=== PATIENT | female | born 1980 | race Caucasian/White ===

== ENCOUNTER 2022-10-09 19:10 | Emergency (ER) | payer BC, SELFPAY ==
[2022-10-09 19:11] VITALS: BP 146/107; PULSE 93; RESP 14; TEMP 36.1; O2SAT 98; BMI 51.6
--- NOTE | 2022-10-09 20:03 | EKG12_ITS ---
Test Reason : SOB Blood Pressure : / mmHG Vent. Rate : 076 BPM Atrial Rate : 076 BPM P-R Int : 144 ms QRS Dur : 072 ms QT Int : 368 ms P-R-T Axes : 030 049 053 degrees QTc Int : 414 ms Normal sinus rhythm Normal ECG Confirmed by ROSANA GLASGOW MD ([id number]), legal editor CANELO MCCLELLAN ([id number]) on 10/11/2022 1:13:54 PM Referred By: BB Confirmed By:ROSANA GLASGOW MD
[2022-10-09 20:19] LABS: Absolute Lymphocyte Count 1.61 X10^3/uL (0.83-4.51); Absolute Neutrophil Count 10.7 X10^3/uL (2.0-7.7); Basophil# 0.05 X10^3/uL; Basophil% 0.4 % (0-1); Eosinophil# 0.05 X10^3/uL; Eosinophils% 0.4 % (0-5); Hemoglobin 12.6 g/dL (12.0-15.0); Lymphocyte # 1.61 X10^3/ul (0.83-4.51); Lymphocyte % 12.1 % (19-41); Mean Corp Hgb Conc 33.2 g/dL (32-36); Mean Corpuscular Hgb 29.9 pg (27.0-32.0); Mean Platelet Vol. 9.4 fl (6.2-12.0); Monocyte# 0.89 X10^3/uL; Monocyte% 6.7 % (0-10); NRBC Flagged by Analyzer 0 % (0-5); Neutrophil # 10.67 X10^3/uL (2.7-7.7); Neutrophil % 79.9 % (47-70); Platelet Count 250 K/mm3 (150-450); RBC Distribution Width CV 13.2 % (11.6-14.6); RBC Distribution Width SD 43.4 fl (35.1-43.9); Red Blood Count 4.22 M/mm3 (4.2-5.4); White Blood Count 13.3 K/mm3 (4.4-11.0)
[2022-10-09 20:35] LABS: D-Dimer Quantitative (DVT/PE) < 0.27 FEU/ug/m (0.27-0.49)
[2022-10-09 20:38] LABS: Anion Gap 9 (5-15); BUN 19 mg/dL (7-18); BUN/Creat Ratio 24.1 RATIO (10-20); Calcium,Total 9.2 mg/dL (8.5-10.1); Chloride 108 mmol/L (98-107); Creatinine, Serum 0.79 mg/dL (0.55-1.02); EST Glomerular Filtration Rate 85 mL/min (>60); Est Glom Filt Rate - Afr Amer 103 mL/min (>60); Estimated Creatinine Clearance 87.73 ml/min; Glucose 148 mg/dL (74-106); Sodium Level 142 mmol/L (136-145); Troponin-I HS 4 pg/mL (3.0-54.0)
--- NOTE | 2022-10-09 20:38 | RAD_ITS ---
EXAM: XR CHEST, 2 VIEWS CLINICAL INDICATION: sob TECHNIQUE: Frontal and lateral views of the chest. This report was created using [employer] report generation technology. COMPARISON: 06/24/2015 FINDINGS: LUNGS AND PLEURAL SPACES: Unremarkable. No consolidation or edema. No pneumothorax. No effusion. HEART: Unremarkable. Cardiac silhouette not enlarged. MEDIASTINUM: Central airways and mediastinal contour are unremarkable. BONES/JOINTS: Unremarkable. SOFT TISSUES: Unremarkable. RAD/Chest PA and Lateral IMPRESSION: No radiographic evidence of acute cardiopulmonary disease. Electronically Signed: Kareem Cloud MD at 20:50 EST ,
[2022-10-09 21:10] VITALS: BP 136/85; PULSE 78; RESP 196
[2022-10-09 22:30] VITALS: BP 146/90; PULSE 79; RESP 16; TEMP 36.7
--- NOTE | 2022-10-09 22:30 | EDS_ITS ---
HPI History of Present Illness Chief Complaint: Flank Pain Informant: patient Narrative Narrative: Patient states she has been having pain in her right mid back that sometimes hurts to move around but not always, has been occurring consistently for a couple of weeks, including at rest. Not pleuritic. No chest pain. She has been having dyspnea with exertion for the past week, and fatiguing easily which is very abnormal for her. 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 She has had some low-grade fevers in the 99 range for the last couple days but no coughing. 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 She denies any leg pain or swelling or recent travel/immobilization/surgery/hospitalization. No history of DVT or PE. [facility] Medical History BiPAP (biphasic positive airway pressure) dependence HELLP syndrome Migraines Non-smoker Preeclampsia Sleep apnea Home Medications bupropion HCl 150 mg 24 hr tablet, extended release 300 mg PO DAILY ##0 06/16/15 [History Last Taken 01/19/16 0730] fluoxetine 10 mg capsule 40 mg PO DAILY 02/22/16 [History Last Taken Unknown] methocarbamol 500 mg tablet mg 10/09/22 [History Last Taken Unknown] ropinirole 0.25 mg tablet 0.25 mg PO QHS PRN PRN RLS 10/09/22 [History Last Taken Unknown] Allergy/AdvReac Type Severity Reaction Status Date / Time citalopram Allergy Other Verified 10/09/22 19:11 Penicillins [PCN] Allergy Unknown Verified 10/09/22 19:11 metoclopramide HCl AdvReac Other Verified 10/09/22 19:11 [From [facility]] Social History Smoking Status: Never smoker ROS ROS ED Constitutional Constitutional ED: Denies chills or fever(s) Eyes Eyes: Denies change in vision or diplopia ENT ENT ED: Reports rhinorrhea; Denies sore throat Cardiovascular Cardiovascular: Denies chest pain or palpitations Respiratory/Chest Respiratory/Chest: Reports dyspnea and dyspnea on exertion; Denies cough Gastrointestinal Gastrointestinal: Denies abdominal pain, diarrhea, nausea or vomiting Genitourinary Genitourinary ED: Denies dysuria or hematuria Musculoskeletal Musculoskeletal: Reports back pain; Denies neck pain Integumentary Denies abscess or rash Neurologic Neurologic: Denies headache(s), paresthesias or weakness Psychiatric Psychiatric: Denies anxiety or suicidal thoughts EXAM Physical Exam Const Vital Signs: 10/09/22 19:11 10/09/22 19:38 10/09/22 21:10 Temperature 97 F L Temperature Source Temporal Pulse Rate 93 78 Respiratory Rate 14 196 H Respiratory Effort Non-Labored Respiratory Pattern Normal Blood Pressure 146/107 H 136/85 H Blood Pressure Mean 120 102 Pulse Ox 98 Oxygen Delivery Method Room Air Room Air Positive well nourished, well developed and obese General Appearance ED: well developed and NAD Nutritional Appearance: obese HEENT Reports moist mucous membranes normocephalic and atraumatic Eyes PERRL and EOMs intact bilaterally Neck full ROM and supple Chest Wall inspection of chest normal and palpation of chest normal Resp normal respiratory effort and clear to auscultation bilaterally Cardio regular rate, regular rhythm and no murmurs GI non-tender and non-distended Auscultation: normoactive bowel sounds Palpation: soft Back/Spine no CVA tenderness Back/Spine Narrative: Mild tenderness right lower lateral mid back, well caudal to the scapula. No midline tenderness. No rashes normal inspection. General Back: other FROM Extremity normal to inspection and no calf tenderness General Extremety ED: Negative for edema, pulses abnormal or tenderness General Extremity: Negative for edema or pulses abnormal Neuro oriented x3, CN's II-XII intact bilaterally and no sensory deficits noted Sensorium / Orientation: awake and alert Motor Exam: strength 5/5 throughout Psych mental status grossly normal Skin no rashes or lesions noted and no wounds MDM MDM MDM Narrative Medical decision making narrative: Patient is a mild nonspecific leukocytosis, her EKG, two-view chest x-ray my interpretation, troponin, and D-dimer are all normal. Therefore she does not require further imaging such as CTA, which was considered but not indicated or necessary, in order to rule out pulmonary embolus here. Less likely to have pericardial effusion since she has no evidence of pericarditis on EKG nor pain/discomfort anteriorly in the chest. It is possible that the back pain is simply musculoskeletal and has nothing to do with her dyspnea, it is possible that she has been having elevations of blood pressure that could be associated with the dyspnea which is not all of the time, she does not appear to have any type of acute or atypical pneumonitis to cause this. The low-grade fever she was having are unknown, she has no symptoms of anything else that she has a urine infection. I recommend close outpatient follow-up but I do not think she needs to have more emergent testing here her blood pressures been stable in the 140s. Lab Data Attestation: I reviewed the patient's lab results. Labs: Laboratory Results - last 24 hr 10/09/22 10/09/22 10/09/22 20:10 20:10 20:10 WBC 13.3 H RBC 4.22 Hgb 12.6 Hct 38.0 MCV 90.0 MCH 29.9 MCHC 33.2 RDW Std Deviation 43.4 RDW Coeff of Aleida 13.2 Plt Count 250 MPV 9.4 Immature Gran % (Auto) 0.500 Neut % (Auto) 79.9 H Lymph % (Auto) 12.1 L [place] % (Auto) 6.7 Eos % (Auto) 0.4 Baso % (Auto) 0.4 Absolute Neuts (auto) 10.7 H Absolute Lymphs (auto) 1.61 Nucleated RBC % 0 D-Dimer Quant (PE/DVT) < 0.27 L Sodium 142 Potassium 4.0 Chloride 108 H Carbon Dioxide 25.0 Anion Gap 9 BUN 19 H Creatinine 0.79 Estim Creat Clear Calc 87.73 Est GFR (MDRD) Af Amer 103 Est GFR (MDRD) Non-Af 85 BUN/Creatinine Ratio 24.1 H Glucose 148 H Calcium 9.2 Troponin I High Sens 4 Radiography Diagnostic Testing: Clinical Impression(s) from Imaging Studies Chest X-Ray 10/09/22 20:38 IMPRESSION: No radiographic evidence of acute cardiopulmonary disease. Electronically Signed: Kareem Cloud MD at 20:50 EST , Rhythm Strip Rhythm Strip: Sinus Rhythm Rate: 90 Ectopy: None EKG Initial EKG: Attestation: I personally reviewed and interpreted this EKG as follows: Interpretation: Sinus Rhythm and No Acute Injury Pattern Comments: Normal EKG Discharge Plan Triage Chief Complaint: Flank Pain ED Provider: Thaddeus Khan Dx/Rx/DC Orders Clinical Impression: Acute right-sided back pain, BRAR (dyspnea on exertion) Instructions: ED Dyspnea Prescriptions: No Action bupropion HCl 150 MG tablet extended release 24 hr 300 mg PO DAILY Qty: 0 Label Comments: Depression fluoxetine 10 MG capsule 40 mg PO DAILY methocarbamol 500 mg tablet Label Comments: TAKE 1 TABLET BY MOUTH EVERY 6 HOURS NEEDED FOR PAIN FOR UP TO 3 DAYS ropinirole 0.25 mg tablet 0.25 mg PO QHS PRN PRN (Reason: RLS) Label Comments: TAKE 3 TABLETS BY MOUTH AT BEDTIME NEEDED. Primary Care Provider: Michael Acuña Referrals: Michael Acuña MD [Primary Care Provider] - As soon as possible (Call for follow-up appointment regarding any continued shortness of breath) Disposition Disposition: Home, Self Care
== END 2022-10-09 22:45 | disposition home or self-care (01) ==
PROVIDERS: Emergency Provider Emergency Medicine; PCP Internal Medicine; Visit Provider Emergency Medicine
DX: M54.9 Dorsalgia, unspecified (principal); R06.09 Other forms of dyspnea; G47.30 Sleep apnea, unspecified; E66.9 Obesity, unspecified; G43.909 Migraine, unspecified, not intractable, without status migrainosus; Z79.899 Other long term (current) drug therapy
CPT/HCPCS: 71046; 80048; 84484; 85025; 85379; 87428; 93005; 99285

== ENCOUNTER 2023-03-26 17:42 | Emergency (ER) | payer BC, SELFPAY ==
[2023-03-26 17:44] VITALS: BP 173/103; PULSE 74; RESP 18; TEMP 36.9; O2SAT 98; BMI 51.0
--- NOTE | 2023-03-26 17:58 | ED.VIS.LOWEX ---
HPI History of Present Illness HPI Narrative: Atraumatic right knee pain. Chief Complaint: Lower Extremity Injury Informant: patient Onset/Context/Timing Onset: Days Context: Gradual Onset Timing: Intermittent Quality of Pain: Dull and Aching Maximum Severity: Moderate Associated Symptoms Associated Symptoms: Negative for Parasthesia, Weakness or Loss of Funtion Narrative Narrative: 43-year-old female who in the last several weeks was treated for atraumatic right knee pain. Went to the concluding urgent care had x-rays which she states showed arthritis in her knee. They put her on prednisone for around 5 days that she had improvement. Today she pivoted on her knee heard a pop and is having more discomfort. She denies any fall or other trauma. No fever or redness. She has never had knee surgery nor an MRI. Prior similar symptoms: Yes Recent Illness/Hospitalization: No PFSH PFSH Medical History BiPAP (biphasic positive airway pressure) dependence HELLP syndrome Migraines Non-smoker Preeclampsia Sleep apnea Home Medications bupropion HCl 150 mg 24 hr tablet, extended release 300 mg PO DAILY ##0 06/16/15 [History Last Taken 01/19/16 0730] fluoxetine 10 mg capsule 40 mg PO DAILY 02/22/16 [History Last Taken Unknown] meloxicam 15 mg tablet 15 mg PO DAILY #14 tabs 10/09/22 [Rx Last Taken Unknown] methocarbamol 500 mg tablet mg 10/09/22 [History Last Taken Unknown] ropinirole 0.25 mg tablet 0.25 mg PO QHS PRN PRN RLS 10/09/22 [History Last Taken Unknown] Allergy/AdvReac Type Severity Reaction Status Date / Time citalopram Allergy Other Verified 03/26/23 17:44 Penicillins [PCN] Allergy Unknown Verified 03/26/23 17:44 metoclopramide HCl AdvReac Other Verified 03/26/23 17:44 [From [facility]] Social History Smoking Status: Never smoker ROS ROS ED ROS Narrative Denies recent illness. Review of Systems ROS Unobtainable: Denies due to encephalopathy Constitutional Constitutional ED: Denies chills Eyes Eyes: Denies blurry vision ENT ENT ED: Denies ear pain Cardiovascular Cardiovascular: Denies chest pain Respiratory/Chest Respiratory/Chest: Denies cough Gastrointestinal Gastrointestinal: Denies abdominal pain Genitourinary Genitourinary ED: Denies dysuria Musculoskeletal Musculoskeletal: Denies arthralgias Integumentary Denies abscess Neurologic Neurologic: Denies headache(s) Psychiatric Psychiatric: Denies anxiety Endocrine Endocrinology: Denies polydipsia Hematologic/Lymphatic Hematologic/Lymphatic: Denies easy bleeding Allergic/Immunologic Allergic/Immunologic ED: Denies mouth swelling EXAM Physical Exam Narrative Exam Narrative: 15-year-old female vital signs stable afebrile. No distress. HEENT exam unremarkable. Lungs clear. Heart regular rhythm. No murmur. Abdomen soft nontender. Moving all 4 extremities. Neurovascularly intact. Specifically right hip nontender nonswollen. No discoloration. Normal internal/external rotation. Right knee minimal swelling. No significant effusion. No redness or warmth. She is able to do flexion extension with mild discomfort. Is able to extend 280 degrees and lift her leg off the bed. Extensor mechanism is intact. ACL PCL are intact with stressing. As are the MCL and LCL. There is no bruising. No bony deformity. Calf and lower leg are nontender. She has normal dorsi plantarflexion of her right ankle and foot. Normal DP pulse. Const Vital Signs: 03/26/23 17:44 Temperature 98.5 F Temperature Source Temporal Pulse Rate 74 Respiratory Rate 18 Blood Pressure 173/103 H Blood Pressure Mean 126 Pulse Ox 98 Oxygen Delivery Method Room Air Positive well nourished, well developed and obese; Negative for cachectic, contractures or unkempt General Appearance ED: well developed; Negative for unkempt, cachectic or contractures Nutritional Appearance: obese; Negative for cachectic HEENT Reports moist mucous membranes normocephalic and atraumatic; Negative for trauma or tenderness Eyes General Eye ED: Negative for other Neck full ROM and supple Thyroid: Negative for tender Lymph Lymphatic: Negative for other Chest Wall inspection of chest normal and palpation of chest normal Chest: Negative for other Resp normal respiratory effort, no retractions and clear to auscultation bilaterally Effort and Inspection: Negative for pain with movement Auscultation: Negative for rales, rhonchi or wheezes Cardio regular rate, regular rhythm, S1 normal heart sound, S2 normal heart sound and no murmurs GI non-tender, non-distended and no masses Palpation: soft; Negative for tender or guarding Extremity normal to inspection and full ROM Extremity Narrative: Mild swelling right knee. ACL PCL intact. MCL LCL intact. Full flexion extension 180 degrees. Quadriceps patellar tendon intact. No redness or warmth. No significant effusion. No bony deformity. Right foot neurovascular intact. Normal range of motion. Normal motor strength. Normal sensation. Normal DP pulse. General Extremety ED: Negative for cyanosis or edema General Extremity: Negative for cyanosis or edema Neuro oriented x3, CN's II-XII intact bilaterally, moves all extremities and no sensory deficits noted Sensorium / Orientation: alert, oriented to person, oriented to place and oriented to time; Negative for orientation impaired, confused, lethargic or stuporous Motor Exam: strength 5/5 throughout Psych mental status grossly normal Appearance: Negative for unkempt Speech: No other Mood & Affect: Negative for anxious Skin no wounds Lesions: no lesions Rashes: no rashes Trauma: Negative for abrasion, laceration or puncture MDM MDM MDM Narrative Medical decision making narrative: For 3-year-old female with atraumatic right knee pain. Most likely she has degenerative arthritis. Low probability this could be a meniscal tear. She just had x-rays within the last week which showed arthritis. I explained to her that really would not be necessary to repeat those and she is comfortable with that. She understands we can get a stat MRI of her knee today. Ice. Anti-inflammatories. Follow-up with a local orthopedic physician if not improving for further evaluation possible joint injection and/or MRI for further evaluation. There is no signs of infection or any acute trauma. Imaging is not necessarily today. I went over all this with the patient and family and they are comfortable with the plan. History & Record Review Discussion w/independent historian: Patient and Family Discharge Plan Triage Chief Complaint: Lower Extremity Injury ED Provider: Alexey Breen Dx/Rx/DC Orders Clinical Impression: Acute pain of right knee, History of arthritis Instructions: ED Knee Pain of Uncertain Cause Prescriptions: No Action bupropion HCl 150 MG tablet extended release 24 hr 300 mg PO DAILY Qty: 0 Patient Comments: Depression fluoxetine 10 MG capsule 40 mg PO DAILY methocarbamol 500 mg tablet Patient Comments: TAKE 1 TABLET BY MOUTH EVERY 6 HOURS NEEDED FOR PAIN FOR UP TO 3 DAYS ropinirole 0.25 mg tablet 0.25 mg PO QHS PRN PRN (Reason: RLS) Patient Comments: TAKE 3 TABLETS BY MOUTH AT BEDTIME NEEDED. meloxicam 15 mg tablet 15 mg PO DAILY Qty: 14 0RF Primary Care Provider: Michael Acuña Referrals: Thaddeus Man MD [Non-Staff] - 10-14 Days if not better Thom Morales MD [Med Staff - Active Staff] - 10-14 Days if not better Michael Acuña MD [Primary Care Provider] - Activity Restrictions/Additional Instructions: Most likely this is due to arthritis in your right knee and inflammation. Less likely but possibly possibly a tear of your meniscus which is the cartilage in your knee Posterior knee. Motrin for pain and inflammation. Follow-up with orthopedics if not improving. They can decide if you need a knee joint injection of steroids or if they want to get an MRI. Disposition Disposition: Home, Self Care
== END 2023-03-26 18:10 | disposition home or self-care (01) ==
PROVIDERS: Emergency Provider Emergency Medicine; PCP Internal Medicine; Visit Provider Emergency Medicine
DX: M25.561 Pain in right knee (principal); G47.30 Sleep apnea, unspecified; E66.9 Obesity, unspecified
CPT/HCPCS: 99282

== ENCOUNTER 2025-07-15 19:12 | Emergency (ER) | payer BC, SELFPAY ==
[2025-07-15 19:12] VITALS: BP 174/95; PULSE 81; RESP 15; TEMP 36; O2SAT 100
[2025-07-15 20:01] VITALS: BMI 46.1
[2025-07-15 20:01] LABS: Mucous, Urine 0 SEEN /hpf (<or=2+)
[2025-07-15 20:10] LABS: Hematocrit 41.9 % (37-47); Hemoglobin 14.2 g/dL (12.0-15.0); Immature Granulocytes Count 0.060 X10^3/uL (0.0-0.0); Mean Corp Hgb Conc 33.9 g/dL (32-36); Mean Corpuscular Volume 91.3 fL (81-99); Mean Platelet Vol. 10.0 fl (6.2-12.0); NRBC Flagged by Analyzer 0 % (0-5); Platelet Count 291 K/mm3 (150-450); RBC Distribution Width CV 12.4 % (11.6-14.6); RBC Distribution Width SD 41.4 fl (35.1-43.9); Red Blood Count 4.59 M/mm3 (4.2-5.4); White Blood Count 12.1 K/mm3 (4.4-11.0)
--- OUTSIDE RECORDS SUMMARY | 2025-07-15 20:18 | XMS RPT_ITS | CCD ---
Author Organization [facility] Inform ion [facility] Care Team Providers Care Advertising Material Distributor Name Role Phone Michael Acuña MD Primary Care Provider [phone] Michael Acuña Primary Care Unavailable Alexey Breen Attending Unavailable Michael Acuña Primary Care Unavailable Thaddeus Khan Attending Unavailable THOM GRANDA DR Attending Unavailable THOM GRANDA DR Primary Care Unavailable THOM GRANDA DR Admitting Unavailable THOM GRANDA DR Attending Unavailable THOM GRANDA DR Primary Care Unavailable THOM GRANDA DR Admitting Unavailable Michael Acuña MD Primary Care Provider [phone] Michael Acuña MD Primary Care Provider [phone] [employer].Haydee ROBBINS Unavailable Michael Acuña MD Primary Care Provider [phone] MICHAEL ACUÑA Primary Care Unavailable NUBIA FERRARO Attending Unavailable SELF, SELF Referring Unavailable NUBIA FERRARO Referring Unavailable NUBIA FERRARO Attending Unavailable MICHAEL ACUÑA Primary Care Unavailable SHELDON PATE Attending Unavailable MICHAEL ACUÑA Primary Care Unavailable OLGA BOSCH Attending Unavailable SELF Referring Unavailable MICHAEL ACUÑA Primary Care Unavailable OLGA BOSCH Referring Unavailable MICHAEL ACUÑA Primary Care Unavailable OLGA BOSCH Attending Unavailable MICHAEL ACUÑA Primary Care Unavailable HAYDEE COON Attending Unavailable MICHAEL ACUÑA Primary Care Unavailable HAYDEE COON Referring Unavailable MICHAEL ACUÑA Primary Care Unavailable RODNEY CHILD Attending Unavailable MICHAEL ACUÑA Primary Care Unavailable HAYDEE COON Attending Unavailable ACUÑA, LUCAS Primary Care Unavailable YO PARADA Attending Unavailable ACUÑA, LUCAS Primary Care Unavailable ACUÑA, LUCAS Attending Unavailable ACUÑA, LUCAS Primary Care Unavailable ACUÑA, LUCAS Primary Care Unavailable ACUÑA, LUCAS Referring Unavailable ACUÑA, LUCAS Primary Care Unavailable ACUÑA, LUCAS Referring Unavailable ACUÑA, LUCAS Primary Care Unavailable RODNEY BROOKS Attending Unavailable RODNEY BROOKS Referring Unavailable ACUÑA, LUCAS Primary Care Unavailable RODNEY BROOKS Attending Unavailable ACUÑA, LUCAS Primary Care Unavailable ACUÑA, LUCAS Referring Unavailable ACUÑA, LUCAS Primary Care Unavailable HAYDEE COON Attending Unavailable ACUÑA, LUCAS Primary Care Unavailable Allergies Allergy Classification Reported Allergen(s) Allergy Type Date of Onset Reaction(s) Facility (20 sources) Citalopram; Translations: [CITALOPRAM] Drug Allergy 02-21-20 14 Other: See Comments, Cough [facility] (20 sources) Metoclopramide; Translations: [METOCLOPRAMIDE HCL] Drug Allergy 03-02-20 16 Other: See Comments [facility] (7 sources) Penicillins; Translations: [PENICILLINS] Drug Allergy 10-27-19 06 Hives, Itching [facility] Work Phone: (20 sources) Penicillins Drug Allergy 10-27-19 06 Hives, Itching [facility] Work Phone: (1 source) Penicillins Allergy to substance 10-09-19 23 Unknown [facility] (1 source) Citalopram Drug Allergy 03-26-20 23 [facility] (1 source) Metoclopramide Drug Allergy 03-26-20 23 [facility] (1 source) Penicillins Drug allergy (disorder) 03-26-20 [facility] Repository (1 source) Citalopram Drug Allergy [facility] Rep[facility] (1 source) Metoclopramide Drug Allergy [facility] (1 source) Penicillin Drug Allergy [facility] Rep[facility] (12 sources) Penicillins Drug Allergy 10-27-19 06 Hives, Itching [facility] Work Phone: (12 sources) Metoclopramide; Translations: [METOCLOPRAMIDE] Drug Allergy 02-10-20 16 Other: See Comments, Anxiety, Paranoia [facility] (1 source) Penicillins Propensity to adverse reactions to drug 10-27-19 Hives, Itching [facility] Medications Current Medications Medication Drug Class(es) Dates Sig (Normalized) Sig (Original) 24 hr buPROPion hydrochloride 300 mg extended release oral tablet (20 sources) Aminoketone Start: 02-03-2021 End: 11-12-2024 take 1 tablet by mouth once daily buPROPion XL (WELLBUTRIN XL) 300 mg 24 hr tablet Indications: Depressive disorder Take 1 tablet by mouth once daily. 90 tablet 3 11/12/2024 Active Start: 06-16-2015 take 300 mg by mouth once maggy y Bupropion Hcl Active 300 MG PO DAILY 0 June 15, 2015 11:00pm Comment on above: Take 1 tablet by kayode th once daily. CPAP (20 sources) Start: 01-21-2020 End: 12-19-2024 CPAP Indications: Obstructive sleep apnea syndrome AutobiPAP EEP range 4-9 cmH2O, IPAP range 9-15, usu mask, humidity, filters. Dx: G47.33 Rpt to Moul in 6 weeks. 1 Device 01/21/2020 12/19/2024 Discontinued (Other) Start: 01-21-2020 CPAP Indicatio ns: Obstructive sleep apnea syndrome AutobiPAP EEP range 4-9 cmH2O, IPAP range 9-15, usu mask, humidity, filters. Dx: G47.33 Rpt to Moul in 6 weeks. 1 Device 01/21/2020 Active Start: 01-21-2020 CPAP Indicatio ns: Obstructive sleep apnea syndrome AutobiPAP EEP range 4-9 cmH2O, IPAP range 9-15, usu mask, humidity, filters. Dx: G47.33 Rpt to Moul in 6 weeks. 1 Device 0 01/21/2020 Active Comment on above: AutobiPAP EEP range 4-9 cmH2O, IPAP range 9-15, usu mask, humidity, filters. Dx: G47.33 Rpt to Moul in 6 weeks. CPAP/BIPAP/OTHER (20 sources) Start: 11-14-2024 End: 03-31-2052 CPAP/BIPAP/OTHER Type .CPAPSettings into a note to see current settings/supplies/DME information. 1 Each 11/14/2024 03/31/2052 Active Start: 05-29-2024 End: 12-19-2024 CPAP/BIPAP/OTHER Type .CPAPS ettings into a note to see current settings/supplies/DME information. 1 Each 05/29/2024 12/19/2024 Discontinued (Other) Start: 05-29-2024 End: 10-14-2051 CPAP/BIPAP/OTHER Type .CPAPS ettings into a note to see current settings/supplies/DME information. 1 Each 05/29/2024 10/14/2051 Active cyclobenzaprine hydrochloride 10 mg oral tablet (2 sources) Muscle Relaxant Start: 12-26-2023 End: 01-02-2024 take 1 tablet by mouth twice daily as needed for muscle spasms cyclobenzaprine (FLEXERIL) 10 mg tablet Indications: Muscle pain Take 1 tablet by mouth two times a day as needed for muscle spasm for up to 7 days. 14 tablet 0 12/26/2023 01/02/2024 Active End: 10-05-2022 cyclobenzaprine HCl (FLEXERI L ORAL) Take by mouth. 0 10/05/2022 Discontinued (Course of therapy completed) Comment on above: Take by mouth. diclofenac sodium 75 mg delayed release oral tablet (1 source) Nonsteroidal Anti-inflammatory Drug Start: 3 End: 3 take 1 tablet by mouth twice daily for pain diclofenac, EC, (VOLTAREN) 75 mg EC tablet Indications: Right-sided thoracic back pain, unspecified chronicity Take 1 tablet by mouth twice daily for 15 days. For pain/inflammation. Take with food. 30 tablet 0 10/13/2022 10/28/2022 Active Comment on above: Take 1 tablet by kayode twice daily for 15 days. For pain/inflammation. Take with food. FLUoxetine 40 mg oral capsule (20 sources) Serotonin Reuptake Inhibitor Start: 1 End: 5 take 1 capsule by mouth once daily FLUoxetine (PROZAC) 40 mg capsule Take 1 capsule by mouth once daily. 90 capsule 3 11/12/2024 Active Start: 02-22-2016 take 40 mg by mouth once daily Fluoxetine Active 40 MG PO DAILY February 21, 2016 11:00pm Comment on above: Take 1 capsule by [facility] once daily. levonorgestrel 0.080859 mg/hr intrauterine system (20 sources) Progestin, Progestin-containing Intrauterine Device Start: 01-01-2025 End: 01-01-2025 Levonorgestrel 20 MCG/DAY 1 Intra Uterine Device by Intrauterine route once. 01/01/2025 Active Start: 01-01-2025 End: 01-01-2025 levonorgestrel (MIRENA) 21 m cg/24hr (up to 8 yrs) 52 mg IUD 1 each by INTRAUTERINE route as directed. 1 each 01/01/2025 Active Start: 01-01-2025 End: 01-01-2025 1 each, INTRAUTERINE, ONCE ( UP TO 30 DAYS AMB), 1 dose, On Tue01/01/25 at 1100, Hazardous Potential Reproductive Risk Drug: Use appropriate PPE. End: 01-01-2025 levonorgestrel (MIRENA INTRA UTERINE) by INTRAUTERINE route. 01/01/2025 Discontinued levonorgestrel ( MIRENA INTRAUTERINE) by INTRAUTERINE route. Active levonorgestrel ( MIRENA INTRAUTERINE) by INTRAUTERINE route. 0 Active Comment on above: by INTRAUTERINE rout e. meloxicam 15 mg oral tablet (1 source) Nonsteroidal Anti-inflammatory Drug Start: 10-09-19 take 15 mg by mouth once daily Meloxicam Active 15 MG PO DAILY 14 October 09, 2022 12:00am methocarbamol 500 mg oral tablet (2 sources) Muscle Relaxant Start: 10-09-19 Methocarbamol Active MG October 09, 2022 12:00am Start: 10-05-2022 End: 10-08-2022 take 1 tablet by mouth every six hours as needed methocarbamol (ROBAXIN) 500 mg tablet Take 1 tablet by mouth every 6 hours as needed (Pain) for up to 3 days. 12 tablet 0 10/05/2022 10/08/2022 Active Comment on above: Take 1 tablet by [facility] every 6 hours as needed (Pain) for up to 3 days. methylPREDNISolone (1 source) Corticosteroid Start : 10-05 End: 10-11 methylPREDNISolone (MEDROL, RAVI,) 4 mg Dose-Pack Follow dosing instructions, take with food. 21 tablet 0 10/05/2022 10/11/2022 Active Comment on above: Follow dosing instru ctions, take with food. modafinil 100 mg oral tablet (11 sources) Sympathomimetic-like Agent Start : 11-14 End: 12-13 take 1 tablet by mouth once daily modafinil (PROVIGIL) 100 mg tablet Indications: DELON treated with BiPAP , Hypersomnia due to medical condition Take (1) tablet by mouth once per day 30 tablet 5 11/14/2024 Active nitrofurantoin, macrocrystals 25 mg / nitrofurantoin, monohydrate 75 mg oral capsule (1 source) Nitrofuran Antibacterial Start : 08-01 End: 08-06 take 1 capsule by mouth twice daily at mealtime nitrofurantoin monohydrate and macrocrystal (MACROBID) 100 mg capsule Take 1 capsule by mouth twice daily with meals for 5 days. 10 capsule 0 08/01/2022 08/06/2022 Active Comment on above: Take 1 capsule by mo ut twice daily with meals for 5 days. phentermine hydrochloride 15 mg oral capsule (1 source) Sympathomimetic Amine Anorectic Start : 11-13 End: 12-13 take 1 capsule by mouth twice daily Phentermine HCl 15 mg capsule Indications: Morbid obesity (HCC) Take 1 capsule by mouth twice daily for 30 days. BMI 49.3 60 capsule 0 11/13/2021 12/13/2021 Active Comment on above: Take 1 capsule by mo ut twice daily for 30 days. BMI 49.3 predniSONE 10 mg oral tablet (2 sources) Start : 12-25 End: 01-03 predniSONE (DELTASONE) 10 mg tablet Indications: Muscle pain Take 4 tabs daily for 3 days, then 2 tabs daily for 3 days, then 1 tab daily for 3 days with food. 21 tablet 0 12/26/2023 01/04/2024 Active Start: 03-18-2023 End: 03-23-2023 take 3 tablets by mouth once daily predniSONE (DELTASONE) 10 mg tablet Take 3 tablets by mouth once daily for 5 days. 15 tablet 0 03/18/2023 03/23/2023 Active Comment on above: Take 3 tablets by mo ut once daily for 5 days. rOPINIRole 0.25 mg oral tablet (20 sources) Nonergot Dopamine Agonist Start: 10-09-2022 take 0.25 mg by mouth at bedtime as needed Ropinirole Active 0.25 MG PO AT BEDTIME NEEDED October 09, 2022 12:00am Start: 10-16-2021 End: 04-12-2023 take 3 tablets by mouth at bedtime as needed rOPINIRole (REQUIP) 0.25 mg tablet Indications: Restless leg syndrome Take 3 tablets by mouth at bedtime as needed. 90 tablet 5 04/12/2023 Active Comment on above: Take 3 tablets by mo ut at bedtime as needed. tirzepatide, weight loss (ZEPBOUND) 15 mg/0.5 mL pen injector (17 sources) Start: 4 inject 15 mg by subcutaneous injection every week tirzepatide, weight loss (ZEPBOUND) 15 mg/0.5 mL pen injector Inject 15 mg subcutaneously one time a week. 2 mL 11 08/23/2024 Active Zepbound 15 MG/0.5ML Solution Auto-injector (1 source) Start: 4 inject 15 mg by subcutaneous injection every week Zepbound 15 MG/0.5ML Solution Auto-injector Inject 15 mg under the skin Once a week. 08/23/2024 Active Completed/Discontinued Medications Medication Drug Class(es) Dates Sig (Normalized) Sig (Original) metFORMIN hydrochloride 500 mg oral tablet (5 sources) Biguanide Start: 07-13-2023 End: 03-12-2024 take 1 tablet by mouth once daily at breakfast metFORMIN (GLUCOPHAGE) 500 mg tablet Take 1 tablet by mouth daily with breakfast. 30 tablet 1 07/13/2023 03/12/2024 Discontinued (Lack of Efficacy) Comment on above: Take 1 tablet by kayode daily with breakfast. semaglutide (OZEMPIC) 0.25 mg or 0.5 mg (2 mg/3 mL) pen (3 sources) Start: 04-12-2023 End: 07-13-2023 semaglutide (OZEMPIC) 0.25 mg or 0.5 mg (2 mg/3 mL) pen Inject 0.25 mg subcutaneously one time a week. 3 mL 1 04/12/2023 07/13/2023 Discontinued (Cost of medication) Start: 04-12-2023 semaglutide (O ZEMPIC) 0.25 mg or 0.5 mg (2 mg/3 mL) pen Inject 0.25 mg subcutaneously one time a week. 3 mL 1 04/12/2023 Active Comment on above: Inject 0.25 mg subcu taneously one time a week. Problems Active Problems Problem Classification Problem Date Documented Da te Episodic/Chronic Genitourinary symptoms and ill-defined conditions (1 source) Increased frequency of urination; Translations: [Frequency of micturition] Episodic Mood disorders (20 sources) Depressive disorder; Translations: [Depression] Onset: 02-27-2013 02-27-2013 Chronic Nonmalignant breast conditions (5 sources) Breast lump; Translations: [Unspecified lump in the left breast, overlapping quadrants] 01-09-2025 Episodic Other circulatory disease (1 source) Elevated blood-pressure reading without diagnosis of hypertension; Translations: [Elevated blood-pressure reading, without diagnosis of hypertension] Episodic Other connective tissue disease (1 source) Muscle pain; Translations: [Myalgia, unspecified site] 12-26-2023 Episodic Other hereditary and degenerative nervous system conditions (20 sources) Restless legs; Translations: [Restless legs syndrome] Onset: 07-16-2015 02-05-2019 Chronic Other hereditary and degenerative nervous system conditions (1 source) Restless legs syndrome; Translations: [Restless leg syndrome] Onset: 02-05-2019 Chronic Other lower respiratory disease (1 source) Dyspnea on exertion; Translations: [Other forms of dyspnea] 10-09-2022 Episodic Other non-traumatic joint disorders (3 sources) Pain in right knee; Translations: [Pain in joint, lower leg] Onset: 04-15-2023 03-18-2023 Episodic Other nutritional; endocrine; and metabolic disorders (20 sources) Morbid obesity; Translations: [Morbid (severe) obesity due to excess calories] Onset: 10-23-2012 10-23-2012 Chronic Other nutritional; endocrine; and metabolic disorders (1 source) Severe obesity; Translations: [Class 3 severe obesity without serious comorbidity with body mass index (BMI) of 40.0 to 44.9 in adult, unspecified obesity type] 01-28-2025 Chronic Other nutritional; endocrine; and metabolic disorders (1 source) Morbid (severe) obesity due to excess calories; Translations: [Morbid obesity (HCC)] Onset: 10-23-2012 Chronic Other nutritional; endocrine; and metabolic disorders (1 source) Body mass index (BMI) 40.0-44.9, adult; Translations: [Class 3 severe obesity without serious comorbidity with body mass index (BMI) of 40.0 to 44.9 in adult, unspecified obesity type] Onset: 01-16-2025 Chronic Other screening for suspected conditions (not mental disorders or infectious disease) (20 sources) Ferritin level low; Translations: [Abnormal level of blood mineral] Onset: 08-27-2015 Resolved: 10-16-2021 10-16-2021 Episodic Pneumonia (except that caused by tuberculosis or sexually transmitted disease) (1 source) Community acquired pneumonia; Translations: [Pneumonia, unspecified organism] 06-16-2015 Episodic Residual codes; unclassified (20 sources) Obstructive sleep apnea syndrome; Translations: [Obstructive sleep apnea (adult) (pediatric)] Onset: 04-24-2015 10-16-2021 Chronic Residual codes; unclassified (2 sources) Daytime somnolence; Translations: [Other hypersomnia] 03-12-2024 Chronic Residual codes; unclassified (2 sources) Hypersomnia disorder related to a known organic factor; Translations: [Hypersomnia due to medical condition] 04-16-2024 Chronic Residual codes; unclassified (1 source) Hypersomnia due to medical condition; Translations: [Hypersomnia due to medical condition] Onset: 06-27-2025 Chronic Residual codes; unclassified (2 sources) Obstructive sleep apnea (adult) (pediatric); Translations: [DELON treated with BiPAP] Onset: 10-16-2021 Chronic Residual codes; unclassified (1 source) Family history of breast cancer; Translations: [Family history of malignant neoplasm of breast] 01-09-2025 Episodic Screening and history of mental health and substance abuse codes (1 source) Encounter for screening examination for other mental health and behavioral disorders; Translations: [Encounter for screening examination for other mental health and behavioral disorders] Onset: 06-19-2025 Episodic Sprains and strains (1 source) Disorder of thoracic segment of trunk; Translations: [Strain of muscle and tendon of unspecified wall of thorax, initial encounter] Episodic Unclassified (1 source) Flank pain, unspecified laterality; Translations: [Flank pain, unspecified laterality] Onset: 07-09-2025 Unclassified (1 source) [facility] Onset: 07-01-2025 Unclassified (1 source) Class 3 severe obesity without serious comorbidity with body mass index (BMI) of 40.0 to 44.9 in adult, unspecified obesity type; Translations: [Class 3 severe obesity without serious comorbidity with body mass index (BMI) of 40.0 to 44.9 in adult, unspecified obesity type] Onset: 01-16-2025 Unclassified (1 source) Unspecified lump in the left breast, overlapping quadrants; Translations: [Mass overlapping multiple quadrants of left breast] Onset: 01-09-2025 Past or Other Problems Problem Classification Problem Date Documented Date Episodic/Chronic Abdominal pain (1 source) Unspecified abdominal pain; Translations: [Unspecified abdominal pain] Onset: 10-19-2022 Episodic Adjustment disorders (20 sources) Adjustment disorder with depressed mood; Translations: [Adjustment disorder with depressed mood] Onset: 07-09-2008 Resolved: 08-11-2015 08-11-2015 Chronic Anxiety disorders (20 sources) Generalized anxiety disorder; Translations: [Generalized anxiety disorder] Onset: 02-25-2007 Resolved: 04-24-2015 04-24-2015 Chronic Conditions associated with dizziness or vertigo (20 sources) Orthostatic hypotension; Translations: [Dizziness and giddiness] Onset: 05-02-2019 Resolved: 10-16-2021 10-16-2021 Episodic Contraceptive and procreative management (7 sources) Contraception status; Translations: [Encounter for removal and reinsertion of intrauterine contraceptive device] Onset: 01-01-2025 12-19-2024 Episodic Headache; including migraine (20 sources) Migraine without aura; Translations: [Migraine without aura, not intractable, without status migrainosus] Onset: 02-25-2007 Resolved: 09-29-2016 09-29-2016 Chronic Hypertension complicating ; childbirth and the puerperium (20 sources) Severe pre-eclampsia; Translations: [Severe pre-eclampsia, unspecified trimester] Resolved: 08-11-2015 08-11-2015 Episodic Immunizations and screening for infectious disease (20 sources) Patient encounter status; Translations: [Encounter for screening for human papillomavirus (HPV)] Onset: 08-14-2015 Resolved: 03-23-2016 Episodic Miscellaneous mental health disorders (20 sources) Bruxism (teeth grinding); Translations: [Other somatoform disorders] Onset: 10-23-2012 Resolved: 09-29-2016 09-29-2016 Chronic Miscellaneous mental health disorders (20 sources) depression; Translations: [ depression] Onset: 04-24-2015 Resolved: 08-11-2015 08-11-2015 Episodic Mood disorders (1 source) Mood disorders Onset: 01-23-2025 01-23-2025 Other complications of (20 sources) A/N care: poor obstetric history; Translations: [Supervision of with other poor reproductive or obstetric history, unspecified trimester] Onset: 07-16-2015 Resolved: 03-23-2016 08-31-2021 Episodic Other complications of (20 sources) Multigravida of advanced maternal age; Translations: [Supervision of elderly multigravida, first trimester] Onset: 08-11-2015 Resolved: 03-23-2016 03-23-2016 Episodic Other complications of (20 sources) High risk ; Translations: [Supervision of high risk , unspecified, first trimester] Onset: 08-11-2015 Resolved: 03-23-2016 08-31-2021 Episodic Other nervous system disorders (20 sources) Tremor; Translations: [Tremor, unspecified] Onset: 05-02-2019 05-02-2019 Episodic Other skin disorders (20 sources) Excessive sweating; Translations: [Generalized hyperhidrosis] Onset: 05-02-2019 05-02-2019 Episodic Other upper respiratory disease (20 sources) Nasal congestion; Translations: [Nasal congestion] Onset: 07-16-2015 Resolved: 08-11-2015 08-11-2015 Episodic Spondylosis; intervertebral disc disorders; other back problems (20 sources) Backache; Translations: [Dorsalgia, unspecified] Onset: 10-14-2022 Resolved: 12-06-2022 10-09-2022 Episodic Unclassified (3 sources) Patient encounter status 11-08-2024 Results Test Name Value Interpretation Reference Range Facility CNOVon 07-09-2025 CNOV Office Visit (INTM[facility]) SHANNON LOPEZ ([id number]) 1980 F Date Time Provider Department 07/09/25 9:00 AM MICHAEL ACUÑA INTMWS During your visit today, we recorded the following information about you: Pulse Blood pressure Weight 76/minute 134/80 125.3 kg Michael Acñua MD 07/09/2025 9:44 AM Signed Subjective Shannon Lopez is a 45 year old female. She had a dull ache in her right flank for 3 weeks, better with less activity. She had been doing more crafts, but had no back injury. Ibuprofen was taken for several days with no clear relief. She just wanted to be checked for urinary tract infection. She was now following at the [facility] for her abnormal left mammogram. Follow up was later this month. Review of Systems Constitutional: Negative for chills and fever. Gastrointestinal: Negative for abdominal pain, nausea and vomiting. Genitourinary: Negative for difficulty urinating and dysuria. ACTIVE PROBLEM LIST Morbid Obesity (Hcc) Recurrent Major Depressive Disorder, in Full Remission Delon Treated With Bipap Restless Leg Syndrome Diaphoresis Tremor Hypersomnia Due to Medical Condition Abnormal Mammogram of Left Breast Social History Tobacco Use Smoking status: Never Smokeless tobacco: Never Vaping Use Vaping status: Never Used Substance Use Topics Alcohol use: Yes Comment: rarely Drug use: Never Current Outpatient Medications Medication Sig moxifloxacin (VIGAMOX) 0.5 % ophthalmic solution Use 1 drop in both eyes three times a day. modafinil (PROVIGIL) 200 mg tablet Take 1 tablet by mouth once daily for 180 days. OTC PRODUCT Magtein 2000 mg once a day levonorgestrel (MIRENA) 21 mcg/24hr (up to 8 yrs) 52 mg IUD 1 each by INTRAUTERINE route as directed. CPAP/BIPAP/OTHER Type .CPAPSettings into a note to see current settings/supplies/DM E information. buPROPion XL (WELLBUTRIN XL) 300 mg 24 hr tablet Take 1 tablet by mouth once daily. FLUoxetine (PROZAC) 40 mg capsule Take 1 capsule by mouth once daily. rOPINIRole (REQUIP) 0.25 mg tablet Take 3 tablets by mouth at bedtime as needed. No current facility-administere d medications for this visit. Objective BP 134/80 (BP Site: Left Arm, BP Position: Sitting, BP Cuff Size: Large Adult) Pulse 76 Wt 125.3 kg (276 lb 3.8 oz) LMP (LMP Unknown) BMI 45.97 kg/m? Physical Exam Constitutional: General: She is not in acute distress. Appearance: She is not ill-appearing. Abdominal: Palpations: Abdomen is soft. Tenderness: There is no abdominal tenderness. There is no right CVA tenderness or left CVA tenderness. Musculoskeletal: Lumbar back: Tenderness present. No deformity or spasms. Skin: Findings: No rash. Neurological: Mental Status: She is alert. Latest Ref Rng 07/09/2025 GLUCOSE UA (POCT) Negative mg/dL Negative BILIRUBIN UA (POCT) Negative Negative KETONE UA (POCT) Negative mg/dL Negative SPECIFIC GRAVITY UA (POCT) 1.005 - 1.030 1.020 HEMOGLOBIN/BLOOD UA (POCT) Negative Negative PH UA (POCT) 4.5 - 8.0 7.0 PROTEIN UA (POCT) Negative mg/dL Negative UROBILINOGEN UA (POCT) Normal E.U./dL 0.2 NITRITE UA (POCT) Negative Negative LEUKOCYTES UA (POCT) Negative Negative COLOR UA (POCT) Yellow CLARITY UA (POCT) Clear ASSESSMENT/PLAN: 1. Flank pain, unspecified laterality - ICD9: 789.09, ICD10: R10.A0 (primary diagnosis) Differential Diagnosis includes muscular. - Continue NSAID. She declined prescription NSAID or muscle relaxer. - UA DIP, URINE (POC) 2. Abnormal mammogram of left breast - ICD9: 793.80, ICD10: R92.8 - [facility] Michael Acuña MD Allergies As of Date: 07/09/2025 Noted Allergy Reaction CITALOPRAM 02/20/2014 14 - Other: See Comments Comments: Constant yawning METOCLOPRAMIDE 10/09/2022 14 - Other: See Comments PENICILLINS 10/27/2005 4 - Hives 9 - Itching Comments: No difficulty breathing REGLAN (METOCLOPRAMIDE HCL) 03/02/2016 14 - Other: See Comments Comments: anxiety Date Reviewed: 07/09/2025 Reviewed by: Jacqueline Ibrahim LPN - Fully Assessed Reason for Visit: Right flank pain [Other] Primary Visit Diagnosis:Flank pain, unspecified laterality [R10.A0] Other Visit Diagnosis:Abnormal mammogram of left breast [R92.8] Order(s):UA DIP, URINE (POC) [[id number]] Order #: [id number] #:[id number] Prescriptions as of 07/09/2025 - moxifloxacin (VIGAMOX) 0.5 % ophthalmic solution Use 1 drop in both eyes three times a day. - modafinil (PROVIGIL) 200 mg tablet Take 1 tablet by mouth once daily for 180 days. - OTC PRODUCT Magtein 2000 mg once a day - levonorgestrel (MIRENA) 21 mcg/24hr (up to 8 yrs) 52 mg IUD 1 each by INTRAUTERINE route as directed. - CPAP/BIPAP/OTHER Type .CPAPSettings into a note to see current settings/supplies/DM E information. (more content not included)... Normal [facility] CNOVon 07-01-2025 CNOV Office Visit (WOUCA) SHANNON LOPEZ ([id number]) 1980 F Date Time Provider Department 07/01/25 9:30 AM YO PARADA During your visit today, we recorded the following information about you: Temperature Pulse Respiration Blood pressure 98.3 degrees 70/minute 20/minute 140/90 Weight 126 kg Yo Parada PA-C 07/01/2025 9:41 AM Signed [facility] Subjective Shannon Lopez is a 45 year old female. Patient presents with: [place] [facility]: DIOGENES pink eye x 2 days HPI Shannon Lopez is a 45-year-old female, with no significant medical history, presenting with bilateral eye discomfort and photophobia. Shannon reports onset of left eye discomfort on Tuesday, initially thought to be due to a foreign body while wearing contact lenses. Yesterday afternoon, she developed photophobia in the left eye, and this morning, she began experiencing similar symptoms in the right eye. She describes the discomfort as feeling like something in it and notes clear drainage from both eyes, resembling tears. She denies any current use of contact lenses, cough, emesis, or urinary issues. 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 Review of Systems Eyes: (+) bilateral photophobia, (+) clear ocular discharge Respiratory: (-) cough Gastrointestinal: (-) vomiting Genitourinary: (-) urinary symptoms Objective BP 140/90 Pulse 70 Temp 36.8 ?C (98.3 ?F) Resp 20 Wt 126 kg (277 lb 12.5 oz) LMP (LMP Unknown) SpO2 99% BMI 46.22 kg/m? Physical Exam General: No acute distress. HEENT: Bilateral conjunctival injection, clear lacrimation. Slight yellow flaking at bilateral lashes CV: Regular rhythm. Resp: Clear to auscultation bilaterally. Abd: Normoactive bowel sounds. 1. Bacterial conjunctivitis (H10.9) Acute onset of bilateral conjunctival injection, clear watery discharge, and photophobia, initially in the left eye and subsequently in the right eye, in a contact lens wearer. - Start Vigamox ophthalmic drops. - Advised patient to avoid contact lens use until cleared by her eye doctor. - Recommended cool compresses and rest in a dark room for symptomatic relief. - Provided work note as requested. We discussed your eye infection: - I am starting you on Vegamox eye drops to treat the infection; your prescription will be sent to your [facility] pharmacy in [place]. - Please do not use your contact lenses until you follow up with your eye doctor. - You may use cool compresses to help with your symptoms. - Resting your eyes in a dark room may also help you feel more comfortable. We provided you with a work note as requested. Your paperwork will be available in [facility]. MDM Procedures Allergies As of Date: 07/01/2025 Noted Allergy Reaction CITALOPRAM 02/20/2014 14 - Other: See Comments Comments: Constant yawning METOCLOPRAMIDE 10/09/2022 14 - Other: See Comments PENICILLINS 10/27/2005 4 - Hives 9 - Itching Comments: No difficulty breathing REGLAN (METOCLOPRAMIDE HCL) 03/02/2016 14 - Other: See Comments Comments: anxiety Date Reviewed: 07/01/2025 Reviewed by: Dorene Arreola MA - Fully Assessed Reason for Visit: [place] [facility] [89403] Cmt: DIOGENES pink eye x 2 days Primary Visit Diagnosis:Bacterial conjunctivitis [H10.9] Order(s):moxifloxaci n (VIGAMOX) 0.5 % ophthalmic solutionUse 1 drop in both eyes three times a day.Disp: 3 mLRfl: 0 Prescriptions as of 07/01/2025 - moxifloxacin (VIGAMOX) 0.5 % ophthalmic solution Use 1 drop in both eyes three times a day. - modafinil (PROVIGIL) 200 mg tablet Take 1 tablet by mouth once daily for 180 days. - OTC PRODUCT Magtein 2000 mg once a day - levonorgestrel (MIRENA) 21 mcg/24hr (up to 8 yrs) 52 mg IUD 1 each by INTRAUTERINE route as directed. - CPAP/BIPAP/OTHER Type .CPAPSettings into a note to see current settings/supplies/DM E information. - buPROPion XL (WELLBUTRIN XL) 300 mg 24 hr tablet Take 1 tablet by mouth once daily. - FLUoxetine (PROZAC) 40 mg capsule Take 1 capsule by mouth once daily. - rOPINIRole (REQUIP) 0.25 mg tablet Take 3 tablets by mouth at bedtime as needed. Problem List As Of Date 07/01/2025 Noted Resolved Severe pre-eclampsia, antepartum [O14.10] 08/11/2015 Generalized anxiety disorder [F41.1] 02/25/2007 04/24/2015 Migraine without aura [G43.009] 02/25/2007 09/29/2016 Adjustment disorder with depressed mood [F43.21]07/09/2008 08/11/2015 Teeth grinding [F45.8] 10/23/2012 09/29/2016 Morbid obesity [E66.01] 10/23/2012 Recurrent major depressive disorder, in full re*02/27/2013 Post depression [F53.0] 04/24/2015 08/11/2015 DELON treated with BiPAP [G47.33] 04/24/2015 Nasal congestion [R09.81] 07/16/2015 08/11/2015 Restless leg syndrome [G25.81] 07/16/2015 with poor obstetric history [O09.299] 07/16/2015 03/23/2016 Multigravida of advanced maternal age in first *08/11/2015 (more content not included)... Normal [facility] CNOVon 06-24-2025 CNOV Office Visit (SLEWST) SHANNON LOPEZ ([id number]) 1980 F Date Time Provider Department 06/24/25 11:30 AM RODNEY CHILD During your visit today, we recorded the following information about you: Pulse Respiration Blood pressure Weight 77/minute 14/minute 132/83 127.5 kg Height 1.651 m Rodney Child APRN.CNP 06/27/2025 9:09 AM Signed [facility] Follow up/ Established patient visit Recording using ambient [employer] software for draft documentation of the visit was discussed with the patient/authorized in store representative; all questions welcomed and answered. Patient/authorized in store representative agreed to proceed Assessment/Plan from last visit: Date of last visit : 11/14/24 IMPRESSION: Obstructive Sleep Apnea Shift Work Sleep Disorder Hypersomnia, due to medical condition Clinical Global Impression of Change ( CGI-C) Compared to the patient's condition at baseline, how much has the patient changed? Much improved PLAN: - I reviewed her download, and based on that data will change from AutoBiLevel to BiLevel at 17/12 cm; this should reduce the number of awakenings and hopefully improve her daytime energy level - Continue Bilevel PAP at 17/12 cmH2O. Prescription faxed to [facility] - Start modafinil 100 mg for treated DLEON with residual fatigue - Remember to clean your mask and equipment regularly, as directed. - You should be eligible for new supplies approximately every 3-6 months, depending on your insurance coverage. Contact your Durable Medical Equipment (DME) company for new supplies as needed. - Follow up in [address] Pate or Sleep provider. Sheldon Pate MD CURRENT VISIT: 06/24/2025 The patient is a 45-year-old female with DELON on BiPAP, shift work sleep disorder, hypersomnia due to medical condition, obesity, depression, and RLS, presenting for follow-up. The patient was started on modafinil [address] Pate on 11/14/2024 for sleep apnea-related residual fatigue. She reports that modafinil provides some benefit but does not fully resolve her daytime sleepiness. She takes it in the morning and has not experienced any side effects. She describes persistent difficulty staying awake during sedentary activities, particularly while charting, which has led to significant work-related stress and concern about job security. 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 She often requires her 23-year-old daughter to sit beside her and physically prompt her to stay awake while charting. She reports that her sleepiness typically worsens in the early afternoon and improves again in the evening when she is more active. She denies problems falling asleep at night and generally feels well-rested in the mornings. She attributes recent sleep disturbances to stress and occasional nighttime awakenings by her daughter. She reports two recent episodes in the past two weeks where she felt her sleepiness while driving was questionable, though she states this is not a typical problem for her. She works overnight on-call shifts for [employer] in [place], typically from 4392-1192 on a rotating schedule. She rarely has to go out at night, averaging only a couple of calls per month. Her typical sleep hours are 6688-4177 or 1426-7106. She reports that she is a night person and feels most sleepy in the early afternoon. She denies problems falling asleep at night and generally feels well-rested in the mornings. She attributes recent sleep disturbances to stress and occasional nighttime awakenings by her daughter. She uses BiPAP 21/08 with [employer] [facility]. Her most recent compliance report from 05/2025 to 06/23/2025 shows use 29 out of 30 days, 100% for at least 4 hours, with an average use of 7 hours. Residual AHI is 0.7 with no significant leaks. She reports that her machine was replaced in 2021 following a recall and currently has 7,500 hours of use. Manual review of device today. She notes recent drooling during sleep, which is new for her, but otherwise feels her BiPAP is working well. She has a history of RLS and was prescribed ropinirole 0.25 mg, 3 tablets at bedtime as needed by her PCP. She reports that she rarely takes it since starting magnesium L-threonate, which she finds very helpful for her RLS. SLEEP APNEA Sleep apnea type : DELON, Most Recent Apnea-Hypopnea Index (AHI): 44 Treatment : PAP therapy DME: [employer] P[employer] History: Uses Bilevel PAP for 7 hours per night, 7 nights per week. Current PAP settin/12 cm H2O. Difficulties with Bilevel PAP: None Reviewed objective PAP compliance data: Mask type: nasal pillow interface There is a perceived benefit by the patient HYPERSOMNIA : Mean Sleep Latency: 13.4m Number of Sleep Onset REM Pe (more content not included)... Normal [facility] [id number] 06-24-2025 ECG01 Ventricular Rate : 70 BPM Atrial Rate : 70 BPM P-R Interval : 168 ms QRS Duration : 80 ms Q-T Interval : 376 ms QTC Calculation(Bazett) : 406 ms Calculated P Hickman : 31 degrees Calculated R Hickman : 57 degrees Calculated T Hickman : 58 degrees NORMAL SINUS RHYTHM NORMAL ECG Confirmed by MD MATEO, QARAB ([id number]) on 06/28/2025 11:03:58 AM NAME : SHANNON LOPEZ PID : [id number] : 1980 Gender : Female Race : ORD : Procedure Date : Jun 24 2025 12:15:31 Edit Date : Jun 28 2025 11:04:04 Diagnosis: NORMAL SINUS RHYTHM NORMAL ECG Confirmed by MD GALINDO QARAB ([id number]) on 06/28/2025 11:03:58 AM Test Reason : Location : 136 : [facility] Overread By : MD GALINDO QARAB Edited By : MD GALINDO QARAB Referred By : Rodney Child Acquired by : Jake salazar [facility] Comprehensive metabolic 2000 panelon 06-20-2025 Albumin [Mass/Vol] 4.1 g/dL Normal 3.9-4.9 [facility] Comment on above: Order Comment: Speci men Type: BLOOD SPECIMEN Ordering Facility: [facility] Address: [address] [place] [address] Performed By: #### 2 4323-8 #### [facility] CLIA [id number] [address] [place] [address] [place] ALP [Catalytic activity/Vol] 65 U/L Normal 34-123 [facility] Comment on above: Order Comment: Speci men Type: BLOOD SPECIMEN Ordering Facility: [facility] Address: [address] [place] [address] Performed By: #### 2 4323-8 #### [facility] CLIA [id number] [address] [place] [address] [place] ALT [Catalytic activity/Vol] 13 U/L Normal 7-38 [facility] Comment on above: Order Comment: Speci men Type: BLOOD SPECIMEN Ordering Facility: [facility] Address: [address] [place] [address] Performed By: #### 2 4323-8 #### [facility] CLIA [id number] [address] [place] [address] [place] Anion gap [Moles/Vol] 11 mmol/L Normal 8-15 [facility] Comment on above: Order Comment: Speci men Type: BLOOD SPECIMEN Ordering Facility: [facility] Address: [address] [place] [address] Performed By: #### 2 4323-8 #### [facility] CLIA [id number] [address] [place] [address] [place] AST [Catalytic activity/Vol] 9 U/L Low 13-35 [facility] Comment on above: Order Comment: Speci men Type: BLOOD SPECIMEN Ordering Facility: [facility] Address: [address] [place] [address] Performed By: #### 2 4323-8 #### [facility] CLIA [id number] [address] [place] [address] [place] Bilirubin [Mass/Vol] 0.3 mg/dL Normal 0.2-1.3 [facility] Comment on above: Order Comment: Speci men Type: BLOOD SPECIMEN Ordering Facility: [facility] Address: [address] [place] [address] Performed By: #### 2 4323-8 #### [facility] CLIA [id number] [address] [place] [address] [place] Calcium [Mass/Vol] 9.3 mg/dL Normal 8.5-10.2 [facility] Comment on above: Order Comment: Speci men Type: BLOOD SPECIMEN Ordering Facility: [facility] Address: [address] [place] [address] Performed By: #### 2 4323-8 #### [facility] CLIA [id number] [address] [place] [address] [place] Chloride [Moles/Vol] 104 mmol/L Normal 98-107 [facility] Comment on above: Order Comment: Speci men Type: BLOOD SPECIMEN Ordering Facility: [facility] Address: [address] [place] [address] Performed By: #### 2 4323-8 #### [facility] CLIA [id number] [address] [place] [address] [place] CO2 [Moles/Vol] 24 mmol/L Normal 22-30 [facility] Comment on above: Order Comment: Speci men Type: BLOOD SPECIMEN Ordering Facility: [facility] Address: [address] [place] [address] Performed By: #### 2 4323-8 #### [facility] CLIA [id number] [address] [place] [address] [place] Creatinine [Mass/Vol] 0.67 mg/dL Normal 0.58-0.96 [facility] Comment on above: Order Comment: Speci men Type: BLOOD SPECIMEN Ordering Facility: [facility] Address: [address] [place] [address] Performed By: #### 2 4323-8 #### [facility] CLIA [id number] [address] [place] [address] [place] eGFRcr SerPlBld CKD-EPI 2020 111 mL/min/1.73m??? Normal >=60 [facility] Comment on above: Order Comment: Speci men Type: BLOOD SPECIMEN Ordering Facility: [facility] Address: [address] [place] [address] Result Comment: Michelle mated Glomerular Filtration Rate (eGFR) is calculated using the 2020 CKD-EPI creatinine equation. This equation utilizes serum creatinine, sex, and age as parameters. The creatinine assay has traceable calibration to isotope dilution-mass spectrometry. Refer to KDIGO guidelines for clinical interpretation. In patients with unstable renal function, e.g. those with acute kidney injury, the eGFR may not accurately reflect actual GFR. Performed By: #### 2 4323-8 #### [facility] CLIA [id number] [address] [place] [address] [place] Glucose [Mass/Vol] 89 mg/dL Normal 74-99 [facility] Comment on above: Order Comment: Speci men Type: BLOOD SPECIMEN Ordering Facility: [facility] Address: [address] [place] [address] Result Comment: The [place] Diabetes Association (ADA) provides guidance for cutoff values for fasting glucose and random glucose. The ADA defines fasting as no caloric intake for at least 8 hours. Fasting plasma glucose results between 100 to 125 mg/dL indicate increased risk for diabetes (prediabetes). Fasting plasma glucose results greater than or equal to 126 mg/dL meet the criteria for diagnosis of diabetes. In the absence of unequivocal hyperglycemia, results should be confirmed by repeat testing. In a patient with classic symptoms of hyperglycemia or hyperglycemic crisis, random plasma glucose results greater than or equal to 200 mg/dL meet the criteria for diagnosis of diabetes. Reference: Standards of Medical Care in Diabetes 2016, [place] Diabetes Association. Diabetes Care. 2016.39(Suppl 1). Performed By: #### 2 4323-8 #### [facility] CLIA [id number] [address] [place] [address] [place] Potassium [Moles/Vol] 4.4 mmol/L Normal 3.7-5.1 [facility] Comment on above: Order Comment: Yobanii men Type: BLOOD SPECIMEN Ordering Facility: [facility] Address: [address] [place] [address] Performed By: #### 2 4323-8 #### [facility] [id number] [address] [place] [address] [place] Protein [Mass/Vol] 6.7 g/dL Normal 6.3-8.0 [facility] Comment on above: Order Comment: Yobanii men Type: BLOOD SPECIMEN Ordering Facility: [facility] Address: [address] [place] [address] Performed By: #### 2 4323-8 #### [facility] CLIA [id number] [address] [place] [address] [place] Sodium [Moles/Vol] 139 mmol/L Normal 136-144 [facility] Comment on above: Order Comment: Speci men Type: BLOOD SPECIMEN Ordering Facility: [facility] Address: [address] [place] [address] Performed By: #### 2 4323-8 #### [facility] CLIA [id number] [address] [place] [address] [place] Urea nitrogen [Mass/Vol] 10 mg/dL Normal 7-21 [facility] Comment on above: Order Comment: Speci men Type: BLOOD SPECIMEN Ordering Facility: [facility] Address: [address] [place] [address] Performed By: #### 2 4323-8 #### [facility] CLIA [id number] [address] [place] [address] [place] Lipid 1996 panelon 5 Cholesterol [Mass/Vol] 204 mg/dL High <200 [facility] Comment on above: Order Comment: Speci men Type: BLOOD SPECIMEN Ordering Facility: [facility] Address: [address] [place] [address] Result Comment: <200 mg/dL, Desirable 200-239 mg/dL, Borderline high >239 mg/dL, High Performed By: #### 2 4323-8 #### [facility] CLIA [id number] [address] [place] [address] [place] Cholesterol in HDL [Mass/Vol] 56 mg/dL Normal >39 [facility] Comment on above: Order Comment: Speci men Type: BLOOD SPECIMEN Ordering Facility: [facility] Address: [address] [place] [address] Result Comment: 40-5 9 mg/dL, Acceptable >59 mg/dL, High: Negative risk factor for coronary heart disease <40 mg/dL, Low: Positive risk factor for coronary heart disease Performed By: #### 2 4323-8 #### [facility] CLIA [id number] [address] [place] [address] [place] Cholesterol in LDL [Mass/Vol] 124 mg/dL High <100 [facility] Comment on above: Order Comment: Speci men Type: BLOOD SPECIMEN Ordering Facility: [facility] Address: [address] [place] [address] Result Comment: <100 mg/dL, Optimal 100-129 mg/dL, Near optimal/above optimal 130-159 mg/dL, Borderline high 160-189 mg/dL, High >189 mg/dL, Very high Secondary prevention optimal LDL Cholesterol levels are recommended to be <70 mg/dL LDL cholesterol is calculated using the Draper-NIH equation. Performed By: #### 2 4323-8 #### [facility] CLIA [id number] [address] [place] [address] [place] Cholesterol in LDL/Cholesterol in HDL [Mass ratio] 2.21 {ratio} Normal <2.54 [facility] Comment on above: Order Comment: Genia page Type: BLOOD SPECIMEN Ordering Facility: [facility] Address: [address] [place] [address] Result Comment: Shannan molina: 1. National Cholesterol Education Program ATP III Guideline At-A-Glance Quick Desk Reference: National Heart, Lung, and Blood [place]. National Institutes of Health. 2001: NIH Publication No. 01-3305. 2. An International Atherosclerosis Society position paper: global recommendations for the management of dyslipidemia: executive summary, Atherosclerosis. 2014: 232(2):410-413. Performed By: #### 2 4323-8 #### [facility] CLIA [id number] [address] [place] [address] [place] Cholesterol in VLDL [Mass/Vol] 23 mg/dL Normal <30 [facility] Comment on above: Order Comment: Genia page Type: BLOOD SPECIMEN Ordering Facility: [facility] Address: [address] [place] [address] Performed By: #### 2 4323-8 #### [facility] CLIA [id number] [address] [place] [address] [place] Cholesterol non HDL [Mass/Vol] 148 mg/dL High <130 [facility] Comment on above: Order Comment: Speci men Type: BLOOD SPECIMEN Ordering Facility: [facility] Address: [address] [place] [address] Result Comment: <130 mg/dL, Optimal 130-159 mg/dL, Near optimal/above optimal 160-189 mg/dL, Borderline high 190-219 mg/dL, High >219 mg/dL, Very high Secondary prevention optimal non HDL Cholesterol levels are recommended to be <100 mg/dL Performed By: #### 2 4323-8 #### [facility] CLIA [id number] [address] [place] [address] [place] [facility] Cholesterol.total/Leatha sterol in HDL [Mass ratio] 3.64 {ratio} Normal <5.10 [facility] Comment on above: Order Comment: Speci men Type: BLOOD SPECIMEN Ordering Facility: [facility] Address: [address] [place] [address] Performed By: #### 2 4323-8 #### [facility] CLIA [id number] [address] [place] [address] FASTING TIME 12 hrs Normal [facility] Comment on above: Order Comment: Speci men Type: BLOOD SPECIMEN Ordering Facility: [facility] Address: [address] [place] [address] Performed By: #### 2 4323-8 #### [facility] CLIA [id number] [address] [place] [address] OF [facility] Triglyceride [Mass/Vol] 135 mg/dL Normal <150 C [facility] Comment on above: Order Comment: Speci men Type: BLOOD SPECIMEN Ordering Facility: [facility] Address: [address] [place] [address] Result Comment: <150 mg/dL, Normal 150-199 mg/dL, Borderline high 200-499 mg/dL, High >499 mg/dL, Very high Performed By: #### 2 [id number] #### [facility] CLIA [id number] [address] [place] [address] OF ML CNOVon 06-19-2025 CNOV Office Visit (INTMWS) SHANNON LOPEZ ([id number]) 1980 F Date Time Provider Department 06/19/25 8:40 AM HAYDEE COON INTMWS During your visit today, we recorded the following information about you: Pulse Respiration Blood pressure Weight 88/minute 12/minute 124/78 125.8 kg Haydee Coon, [employer] DRILLER.[facility] 06/19/2025 9:25 AM Signed CC: No chief complaint on file. HPI Recording using [employer] software for draft documentation of the visit was discussed with the patient/authorized in store representative; all questions welcomed and answered. Patient/authorized in store representative agreed to proceed The patient is a 45-year-old female with a history of obesity, DELON, depression, and RLS, presenting for follow-up. Obesity: - Discontinued Zepbound a few months ago due to perceived ineffectiveness. - Weight increased from 254 lbs in January to 277 lbs today. - Continues to exercise. - Interested in a new wellness weight loss program. DELON: - Continues to use CPAP. - Taking modafinil for daytime fatigue. - Follow-up appointment with sleep medicine scheduled for the . Depression: - Managed with Wellbutrin 300 mg and Prozac 40 mg. - Reports medications are effective and well-tolerated. RLS: - Managed with Requip PRN. - Started magnesium L-threonate supplement, 2000 mg daily, with reported improvement in symptoms. Review of Systems See HPI PAST MEDICAL HISTORY Diagnosis Date Abnormal Pap smear of cervix 03/11/2015 ASCUS + HRHPV Depression 02/27/2013 Diaphoresis 05/02/2019 Family history of malignant neoplasm of breast Hemolysis, elevated liver enzymes, 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 (HCC) 2016 Low ferritin level 08/27/2015 Mass overlapping multiple quadrants of left breast 01/2025 Mental disorders complicating , childbirth, or the puerperium Migraine without aura 02/25/2007 Morbid obesity (HCC) 10/23/2012 Obstructive sleep apnea Orthostatic lightheadedness 05/02/2019 Ovarian cyst 2018 depression Presence of (intrauterine) contraceptive device RLS (restless legs syndrome) 07/16/2015 Severe pre-eclampsia, antepartum (HCC) 2016 Sleep apnea 04/24/2015 DME DASCO Teeth grinding 10/23/2012 Tremor 05/02/2019 Uterine fibroid 2015 PAST SURGICAL HISTORY Procedure Laterality Date BX OF BREAST; INCISIONAL Left 01/09/2025 SECTION HX 2016 INSERTION INTRAUTERINE DEVICE IUD 01/01/2025 MIRENA IUD REMOVAL 01/01/2025 MIRENA IUD 07/14/11,03/23/2016 PAST SURGICAL HISTORY OF 2009 UPPP for sleep apnea ALLERGIES Citalopram, Metoclopramide, Penicillins, and Reglan [Metoclopramide Hcl] MEDICATIONS modafinil (PROVIGIL) 100 mg tablet Take (1) tablet by mouth once per day levonorgestrel (MIRENA) 21 mcg/24hr (up to 8 yrs) 52 mg IUD 1 each by INTRAUTERINE route as directed. CPAP/BIPAP/OTHER Type .CPAPSettings into a note to see current settings/supplies/DM E information. buPROPion XL (WELLBUTRIN XL) 300 mg 24 hr tablet Take 1 tablet by mouth once daily. FLUoxetine (PROZAC) 40 mg capsule Take 1 capsule by mouth once daily. rOPINIRole (REQUIP) 0.25 mg tablet Take 3 tablets by mouth at bedtime as needed. 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 Physical Exam Vitals reviewed. Constitutional: Appearance: Normal appearance. Cardiovascular: Rate and Rhythm: Normal rate and regular rhythm. Pulmonary: Effort: Pulmonary effort is normal. Breath sounds: Normal breath sounds. Neurological: Mental Status: She is alert. Psychiatric: Mood and Affect: Mood normal. Health maintenance reviewed with patient: Hepatitis B Vaccine(3 of 3 - 19+ 3-dose series) due on 05/15/2025 DTaP,Tdap,Td Vaccine(3 - Td or Tdap) due on 12/18/2025 Mammogram Screening due on 01/21/2026 Anxiety Screening due on 06/19/2026 Cervical Cancer Screening due on 12/25/2026 Hepatitis C Screening Completed HIV Screening Completed HPV Vaccine Discontinued Influenza Vaccine Discontinued Covid-19 Vaccine Discontinued Assessment/Plan 1. Morbid obesity (HCC) (E66.01): Weight increased from 254 lb in January to 277 lb currently following discontinuation of Zepbound due to diminished effect. Referred to an 18-month [facility] wellness weight loss program, including endocrinology, dietetics, exercise, and primary care support. Encouraged continuation of regular exercise. Ordered cholesterol (more content not included)... Normal [facility] BREAST IMAGING SECOND OPINIO N READINGon 01-21-2025 BREAST IMAGING SECOND OPINION READING EXAM: BREAST IMAGING SECOND OPINION READING, 01/21/2025 08:39 AM CLINICAL INDICATIONS: Patient underwent screening mammography. A left breast masses identified. The mass is also identified sonographically and the patient underwent an ultrasound core biopsy in a clinician's office. Post procedure mammogram was submitted. Final pathology demonstrated unremarkable breast tissue. Films are submitted for interpretation. COMPARISON: October 28, 2021 BILATERAL SCREENING MAMMOGRAM WITH TOMOSYNTHESIS NOVEMBER 07, 2020: The breasts are heterogeneously dense, which may obscure small masses. Bilateral global asymmetries are again seen, unchanged. However there is a mass in the superior slightly lateral left breast middle depth. No suspicious masses, suspicious calcifications or areas of distortion identified in the right breast. LEFT DIAGNOSTIC MAMMOGRAM WITH TOMOSYNTHESIS JANUARY 01, 2025: An oval mass persists in the superior central slightly lateral left breast middle depth. Ultrasound was performed. LEFT BREAST ULTRASOUND JANUARY 01, 2025: In the left breast at 12:00 6 cm from the nipple corresponding to the mammographic finding there is a 3.8 x 1.4 x 2.9 cm hypoechoic shadowing oval mass. Images of the left axilla demonstrating normal axillary lymph node. IMAGES FROM A LEFT BREAST POST PROCEDURE MAMMOGRAM JANUARY 11, 2025: The patient underwent an office ultrasound-guided biopsy of the mass at 12:00. Post procedure mammogram demonstrates two vision clips in expected position. The final pathology of unremarkable mammary tissue is noted. This is considered concordant given the appearance of the mammogram and ultrasound findings may represent a hamartoma. IMPRESSION: 1. A mass in the left breast was identified on screening mammography and underwent ultrasound core biopsy in office. The results demonstrated unremarkable mammary tissue with post procedure mammogram demonstrating clips in good position. Overall given the appearance of the mammogram, the prior mammogram and the ultrasound these findings are considered likely concordant as the appearance of the breast tissue could indicate presence of a hamartoma. As a precaution a six-month follow-up ultrasound can be performed. 2. Negative right mammogram. [facility] MG Breast Viewson 01-21-2025 IMPRESSION: 1. A mass in the left breast was identified on screening mammography and underwent ultrasound core biopsy in office. The results demonstrated unremarkable mammary tissue with post procedure mammogram demonstrating clips in good position. Overall given the appearance of the mammogram, the prior mammogram and the ultrasound these findings are considered likely concordant as the appearance of the breast tissue could indicate presence of a hamartoma. As a precaution a six-month follow-up ultrasound can be performed. 2. Negative right mammogram. OLOGY EXAM: BREAST IMAGING SECOND OPINION READING, 01/21/2025 08:39 AM CLINICAL INDICATIONS: Patient underwent screening mammography. A left breast masses identified. The mass is also identified sonographically and the patient underwent an ultrasound core biopsy in a clinician's office. Post procedure mammogram was submitted. Final pathology demonstrated unremarkable breast tissue. Films are submitted for interpretation. COMPARISON: October 28, 2021 BILATERAL SCREENING MAMMOGRAM WITH TOMOSYNTHESIS NOVEMBER 07, 2020: The breasts are heterogeneously dense, which may obscure small masses. Bilateral global asymmetries are again seen, unchanged. However there is a mass in the superior slightly lateral left breast middle depth. No suspicious masses, suspicious calcifications or areas of distortion identified in the right breast. LEFT DIAGNOSTIC MAMMOGRAM WITH TOMOSYNTHESIS JANUARY 01, 2025: An oval mass persists in the superior central slightly lateral left breast middle depth. Ultrasound was performed. LEFT BREAST ULTRASOUND JANUARY 01, 2025: In the left breast at 12:00 6 cm from the nipple corresponding to the mammographic finding there is a 3.8 x 1.4 x 2.9 cm hypoechoic shadowing oval mass. Images of the left axilla demonstrating normal axillary lymph node. IMAGES FROM A LEFT BREAST POST PROCEDURE MAMMOGRAM JANUARY 11, 2025: The patient underwent an office ultrasound-guided biopsy of the mass at 12:00. Post procedure mammogram demonstrates two vision clips in expected position. The final pathology of unremarkable mammary tissue is noted. This is considered concordant given the appearance of the mammogram and ultrasound findings may represent a hamartoma. RADIOLOGY Gage Maradiaga MD - 01/21/2025 EXAM: BREAST IMAGING SECOND OPINION READING, 01/21/2025 08:39 AM CLINICAL INDICATIONS: Patient underwent screening mammography. A left breast masses identified. The mass is also identified sonographically and the patient underwent an ultrasound core biopsy in a clinician's office. Post procedure mammogram was submitted. Final pathology demonstrated unremarkable breast tissue. Films are submitted for interpretation. COMPARISON: October 28, 2021 BILATERAL SCREENING MAMMOGRAM WITH TOMOSYNTHESIS NOVEMBER 07, 2020: The breasts are heterogeneously dense, which may obscure small masses. Bilateral global asymmetries are again seen, unchanged. However there is a mass in the superior slightly lateral left breast middle depth. No suspicious masses, suspicious calcifications or areas of distortion identified in the right breast. LEFT DIAGNOSTIC MAMMOGRAM WITH TOMOSYNTHESIS JANUARY 01, 2025: An oval mass persists in the superior central slightly lateral left breast middle depth. Ultrasound was performed. LEFT BREAST ULTRASOUND JANUARY 01, 2025: In the left breast at 12:00 6 cm from the nipple corresponding to the mammographic finding there is a 3.8 x 1.4 x 2.9 cm hypoechoic shadowing oval mass. Images of the left axilla demonstrating normal axillary lymph node. IMAGES FROM A LEFT BREAST POST PROCEDURE MAMMOGRAM JANUARY 11, 2025: The patient underwent an office ultrasound-guided biopsy of the mass at 12:00. Post procedure mammogram demonstrates two vision clips in expected position. The final pathology of unremarkable mammary tissue is noted. This is considered concordant given the appearance of the mammogram and ultrasound findings may represent a hamartoma. IMPRESSION IMPRESSION: 1. A mass in the left breast was identified on screening mammography and underwent ultrasound core biopsy in office. The results demonstrated unremarkable mammary tissue with post procedure mammogram demonstrating clips in good position. Overall given the appearance of the mammogram, the prior mammogram and the ultrasound these findings are considered likely concordant as the appearance of the breast tissue could indicate presence of a hamartoma. As a precaution a six-month follow-up ultrasound can be performed. 2. Negative right mammogram. [facility] Radiology Study observation (narrative) [facility] MG Breast ViewsOrdered By: Winifred Maradiaga on 01-21-2025 [facility] Work Phone: CNOVon 01-16-2025 CNOV Office Visit (GENSWS) SHANNON LOPEZ ([id number]) 1980 F Date Time Provider Department 01/16/25 1:30 PM OLGA BOSCH GENS During your visit today, we recorded the following information about you: Olga Bosch DO 01/28/2025 2:36 PM Signed GENERAL SURGERY FOLLOW UP Shannon is a 44-year-old female with a history of severe preeclampsia, obesity (BMI: 41.61), and HELLP syndrome during the third trimester of her in 2016, presenting to discuss pathology results and next steps for a left breast mass. Shannon was recently seen on 01/09/2025 for a left breast mass. A screening mammogram on 11/07/2024 showed focal asymmetry of the left breast at 1 o'clock middle depth, requiring additional imaging. A subsequent diagnostic mammogram with tomosynthesis revealed a mass at 12 o'clock, suspicious for malignancy, and an ultrasound-guided biopsy was recommended. The left breast ultrasound showed an oval mass measuring 4 cm at 12 o'clock with heterogeneous internal echo texture and vascularity; no abnormal lymphadenopathy was identified in the left axilla. Shannon underwent an ultrasound-guided left breast core needle biopsy on 01/09/2025. A post-procedure mammogram confirmed the successful placement of two marker clips at the 12 o'clock position, middle depth, at the biopsy site. Pathology results showed unremarkable mammary tissue. Shannon returns today to discuss these results and next steps. 10 point review of systems completed and is otherwise negative On exam: There were no vitals filed for this visit. Gen: NAD, well-nourished Lungs: unlabored breathing, bilateral chest rise Breast: Biopsy site healing well. Suture removed. Participation of a fellow, resident, medical student, or advanced practice provider student in performing the sensitive examination was discussed with the patient or authorized in store representative. The patient or authorized in store representative has agreed to proceed with the sensitive examination. Labs: Tests: (01/09/2025) Ultrasound guided left breast core needle biopsy: Pathology showing unremarkable mammary tissue Imaging: (01/09/2025) Post-procedure mammogram: Successful placement of two marker clips at the 12 o?clock position (middle depth) Left breast ultrasound: Oval 4 cm mass at 12 o?clock with heterogeneous internal echo texture, vascular flow present, and no abnormal left axillary lymphadenopathy Diagnostic mammogram with tomosynthesis of the left breast: Mass at 12 o?clock, suspicious for malignancy (11/07/2024) Screening mammogram: Focal asymmetry of the left breast at 1 o?clock, middle depth, requiring additional imaging Assessment ASSESSMENT Mass overlapping multiple quadrants of left breast (primary encounter diagnosis) Class 3 severe obesity without serious comorbidity with body mass index (bmi) of 40.0 to 44.9 in adult, unspecified obesity type RECOMMENDATION 1. Mass overlapping multiple quadrants of left breast (N63.25) - Diagnostic mammogram with tomosynthesis revealed a suspicious mass at 12 o'clock in the left breast; ultrasound showed a 4 cm oval mass with heterogeneous internal echo texture and vascularity. - Ultrasound-guided core needle biopsy performed on 01/09/2025; post-procedure mammogram confirmed successful placement of two marker clips at the biopsy site. - Pathology results from the biopsy showed unremarkable mammary tissue, which is discordant with imaging findings. - Discussed options: surgical excision of the mass to rule out sampling error or observation with repeat imaging in 6 months. - Patient prefers to consult with the breast center at [facility] for further evaluation and management. - Provided patient with copies of pathology report, screening mammogram, diagnostic mammogram, ultrasound, and clip placement images. - Patient understands the plan and will follow up with [facility]; she may return for surgical excision here if desired. 2. Class 3 severe obesity without serious comorbidity with body mass index (BMI) of 40.0 to 44.9 in adult, unspecified obesity type (E66.813) - BMI is 41.61. - Discussed potential impact of obesity on overall health and encouraged weight management strategies. Olga Bosch, January 16, 2025 2:35 PM Olga Bosch DO 01/16/2025 1:51 PM Signed We discussed the results of your recent breast biopsy and next steps: - The pathology from your left breast biopsy showed benign breast tissue, which is good news. However, the imaging findings and the biopsy results are not entirely consistent (referred to as discordant). - I recommend excising (removing) the area of concern in your left breast to ensure there was no sampling error and to confirm the findings. This is the safest and most conservative approach. - Alternatively, if you prefer to observe the area, we can repeat imaging in 6 mon (more content not included)... Normal [facility] DIAGNOSTIC LTon 01-12-20 25 [facility]IC [facility] * * *Final Report* * * DATE OF EXAM: Jan 11 2025 9:50AM [facility] 0621 - [facility] DIAGNOSTIC LT / PROCEDURE REASON: Mass overlapping multiple quadrants of left breast * * * * Physician Interpretation * * * * RESULT: [facility] [address] [address] [place] [address] #[id number] - [facility] DIAGNOSTIC [facility] HISTORY: 44 year-old patient seen for diagnostic evaluation of post-ultrasound guided clip placement in the left breast. Patient states no personal history of breast cancer. The patient has a family history of breast cancer. COMPARISON STUDIES: The present examination has been compared to prior imaging studies dated 06/07/2018 (ultrasound), 10/28/2021 (mammogram), 11/07/2024 (mammogram), 01/01/2025 (ultrasound) and 01/01/2025 (mammogram). MAMMOGRAM TECHNIQUE: The study was acquired using full field digital technology and interpreted from soft copy. MAMMOGRAM FINDINGS: The breast is heterogeneously dense, which may obscure small masses. IMPRESSION: Finding in the left breast shows successful placement of 2 marker clips at the 12:00 position, middle depth, at the biopsy site. Mammogram BI-RADS: Post-procedure mammogram for marker placement RISK: Based on the Tyrer-Cuzick (TC) risk assessment model, this patient has a 14.9% lifetime risk of developing breast cancer, meaning they are at average risk for developing breast cancer. However, this is only an estimate based on available history provided on the patient's questionnaire. We encourage all patients to talk with their providers about these results, further recommendations for managing breast health, and appropriate supplemental screening options if the patient has dense breast tissue. Interpreting Radiologist: Gregor Torrez M.D. Electronically signed on: 01/15/2025 Fish Net Stringer: ROSARIO Transcribe Date/Time: Jan 11 2025 9:46A Dictated by: GREGOR TORREZ MD This examination was interpreted and the report reviewed and electronically signed by: GREGOR TORREZ MD on Jan 15 2025 1:05PM EST [id number] Normal [facility] CNOVon 01-09-2025 CNOV Office Visit (GENSME) SHANNON LOPEZ ([id number]) 1980 F Date Time Provider Department 01/09/25 9:00 AM OLGA BOSCH During your visit today, we recorded the following information about you: Pulse Blood pressure Weight Height 68/minute 126/84 115.2 kg 1.664 m Francine Teixeira MA 01/09/2025 4:16 PM Signed 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 The steri-strips and stitch either fall off on their own or be removed at your office visit next week. Please obtain mammogram to confirm clip placement. Olga Bosch DO 01/09/2025 4:16 PM Signed BEDSIDE PROCEDURE NOTE PROCEDURE DATE: January 09, 2025 PROCEDURE START TIME: 9:30AM PRIMARY PROCEDURALIST: Olga Bosch DO PONDMAN(S): Francine Teixeira MA INFORMED CONSENT: Informed Consent obtained and on the chart UNIVERSAL PROTOCOL / SAFETY CHECKLIST Sign in Communication: Completed Time Out: Team Confirms the Correct Patient, Correct Procedure, Correct Site and Site Marking, Correct Position (if applicable), Prep and Dry Time (if applicable). Time: 9:30AM Affirmation of Time Out: YES Sign Out Discussion: Completed PROCEDURE: The patient was brought to the procedure room and positioned supine on the procedure table. A final timeout was performed. The left breast mass was identified with bedside ultrasound and marked. The left breast was prepped and draped in the usual sterile fashion. 10 cc of 1% lidocaine with epinephrine was injected for local under visualization. An 11 blade scalpel was used to create a stab incision. A 14 gauge core needle biopsy device was used to obtain 3 core needle biopsies. The biopsy specimens were placed in formalin and sent for pathology. Images were uploaded to the patient's electronic medical chart. A breast biopsy marker was then placed under ultrasound guidance x2. A 4-0 chromic suture was used to close the incision with one simple suture. Hemostasis was maintained throughout the procedure. The wound was dressed with steri-strips and an Opsite dressing. The patient tolerated the procedure well with no immediate complications. A mammogram was ordered to confirm biopsy clip placement. All needle and instrument counts were correct. SIGNATURE: Olga Bosch DO PATIENT NAME: Shannon Lopez DATE: January 09, 2025 TIME: 3:54 PM PAGER/CONTACT #: [phone] Olga Bosch DO 01/09/2025 4:16 PM Signed Breast Services- History and Physical SERVICE DATE: 01/09/2025 REASON FOR TODAY'S VISIT: Left breast mass SUBJECTIVE: HISTORY of PRESENT ILLNESS: Shannon Lopez is a 44 year old female with past medical history of depression, HELLP syndrome during the third trimester of , migraines, morbid obesity, DELON, depression, and abnormal Pap smear of the cervix who presents to discuss results of recent mammogram which showed a new left breast mass. Shannon had a screening mammogram on 11/08/2024, which showed a focal asymmetry in the left breast at 1 o'clock, middle depth, requiring additional evaluation with a diagnostic mammogram. BI-RADS category 0. She then underwent a diagnostic left mammogram, which showed a mass in the left breast at the 12 o'clock position, suspicious for malignancy, BI-RADS category 4. The focal asymmetry measured 5 cm with macrolobulated margins. Ultrasound demonstrated an oval mass measuring 4 cm in the left breast at the 12 o'clock position with internal echo texture that was heterogeneous. Color flow imaging demonstrated vascularity was present. There was no abnormality noted in the left axilla. Last mammogram in 2021 showed no mammographic evidence of malignancy. Mammogram in 2018 reported probably benign lesions in the left breast. Shannon reports no changes in her breast during the time frame between her last mammogram in 2021 and the current one in 2024. She does not perform regular self-breast exams due to the fibrous and dense nature of her breast tissue, which makes it difficult for her to detect any differences. She denies any noticeable changes when putting on bras or clothes in the morning. She endorses family history of breast cancer in maternal aunt. She reports that her left breast has been aching since the mammogram, but she did not experience any pain before that. The pain is described as an ache and is mostly constant, though occasionally it is not present. The pain (more content not included)... Normal [facility] HISTORY PHYSICALon 5 HISTORY PHYSICAL HNO ID: [id number] Author: OLGA BOSCH, DO Service: ? Author Type: Physician Type: H&P Filed: 01/09/2025 16:16 Note Text: Breast Services- History and Physical SERVICE DATE: 01/09/2025 REASON FOR TODAY'S VISIT: Left breast mass SUBJECTIVE: HISTORY of PRESENT ILLNESS: Shannon Lopez is a 44 year old female with past medical history of depression, HELLP syndrome during the third trimester of , migraines, morbid obesity, DELON, depression, and abnormal Pap smear of the cervix who presents to discuss results of recent mammogram which showed a new left breast mass. Shannon had a screening mammogram on 11/08/2024, which showed a focal asymmetry in the left breast at 1 o'clock, middle depth, requiring additional evaluation with a diagnostic mammogram. BI-RADS category 0. She then underwent a diagnostic left mammogram, which showed a mass in the left breast at the 12 o'clock position, suspicious for malignancy, BI-RADS category 4. The focal asymmetry measured 5 cm with macrolobulated margins. Ultrasound demonstrated an oval mass measuring 4 cm in the left breast at the 12 o'clock position with internal echo texture that was heterogeneous. Color flow imaging demonstrated vascularity was present. There was no abnormality noted in the left axilla. Last mammogram in 2021 showed no mammographic evidence of malignancy. Mammogram in 2018 reported probably benign lesions in the left breast. Shannon reports no changes in her breast during the time frame between her last mammogram in 2021 and the current one in 2024. She does not perform regular self-breast exams due to the fibrous and dense nature of her breast tissue, which makes it difficult for her to detect any differences. She denies any noticeable changes when putting on bras or clothes in the morning. She endorses family history of breast cancer in maternal aunt. She reports that her left breast has been aching since the mammogram, but she did not experience any pain before that. The pain is described as an ache and is mostly constant, though occasionally it is not present. The pain is more to the side of the breast and does not radiate to the armpit. She denies any nipple discharge. She has not had a menstrual cycle since 2005 due to an IUD. She denies any cyclical breast pain. She also denies any new lightheadedness, dizziness, headaches, changes in vision or hearing, chest pain, shortness of breath, coughing, wheezing, abdominal pain, nausea, vomiting, changes in bowel habits, changes in urination, new bone pains, back pain, joint pain, or new numbness or tingling in her hands or feet. She uses a BiPAP machine at night for her DELON, and her settings have been stable. She denies any new swelling in her legs. She has allergies to citalopram, metoclopramide, penicillins, and Reglan, which causes severe anxiety. BREAST RELATED HISTORY: Abnormal Mammogram: Yes, left. Mammogram in 2018 reported 3mm oval cyst in the left breast at 1 o'clock anterior depth. The oval cyst is hypoechoic with a well-defined boundary and internal echoes. This abnormality is not significantly changed. There is also a 5mm oval area in the left breast at 2 o'clock middle depth. This oval area is hypoechoic. Color flow demonstrates that there is no vascularity present. Additionally, there is a benign 1.5cm oval cyst in the left breast at 4 o'clock anterior depth. This oval cyst is anechoic with a well-defined boundary. This correlates with mammography findings. Color flow imaging demonstrates that there is no vascularity present. Breast Mass: yes, left Axillary Mass: No Nipple Discharge: No Breast Pain: Yes, aching left lateral breast Breast Biopsy: No prior Breast Biopsy Pathology: NA Breast cyst drainage: No Breast reduction: No Breast reconstruction: No Genetic testing: No Prior personal history of breast cancer: No OBSTETRIC HISTORY: Age when menses began: 15 Date of LMP: 2015 Breast feed: Yes, 6 weeks Age at first live : 22 Hysterectomy: No Oophorectomy: No Exogenous hormone use: Yes, IUD FAMILY CANCER HISTORY: The patient is not of Ashkenazic Ancestry Breast Cancer: Maternal Aunt (diagnosed twice with different cancers in the same breast. 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 Normal [facility] Pathology biopsy report Link (Tiss)on 01-09-2025 AP DISCLAIMER Normal [facility] Comment on above: Order Comment: Genia page Type: BLOOD SPECIMEN Ordering Facility: [facility] Address: [address] [place] [address] Result Comment: Daphnie helms Developed Test (LDT) Disclaimer: Performance characteristics of immunohistochemical, immunofluorescent, and chromogenic in-situ hybridization tests have been determined by the performing laboratory within [facility] Pathology and Laboratory Medicine Department ([facility], [facility] [place], [facility], [facility], [facility], [facility], or [facility]) in a manner consistent with CLIA requirements. One or more of these tests may not have been cleared or approved by the FDA. [facility] is regulated under CLIA as qualified to perform high-complexity testing. These tests are used for clinical purposes. These should not be regarded as investigational or for research. Positive and negative controls stain appropriately. Performed By: #### 2 4323-8 #### [facility] CLIA [id number] [address] [place] [address] [place] CASE REPORT Normal [facility] Comment on above: Order Comment: Genia page Type: BLOOD SPECIMEN Ordering Facility: [facility] Address: [address] [place] [address] Result Comment: Surg ical Pathology Report Case: [id number] Authorizing Provider: Olga Bosch DO Collected: 01/09/2025 09:47 AM Ordering Location: General Surgery Received: 01/09/2025 03:58 PM Pathologist: Ioana Medina MD Specimen: Breast, Left, Core Biopsy Performed By: #### 2 4323-8 #### [facility] CLIA [id number] [address] [place] [address] CLINICAL HISTORY Abnormal mammogram, left breast mass Normal [facility] Comment on above: Order Comment: Genia page Type: BLOOD SPECIMEN Ordering Facility: [facility] Address: [address] [place] [address] Performed By: #### 2 4323-8 #### [facility] CLIA [id number] [address] [place] [address] DIAGNOSIS COMMENT We note the ultrasound imaging finding of "an oval mass measuring 4 cm in the left breast at 12:00". Multiple deeper levels were examined on the current specimen and show cores of predominantly unremarkable mammary tissue. Clinical and radiologic correlation are recommended. Normal [facility] Comment on above: Order Comment: Genia page Type: BLOOD SPECIMEN Ordering Facility: [facility] Address: [address] [place] [address] Performed By: #### 2 4323-8 #### [facility] CLIA [id number] [address] [place] [address] FINAL DIAGNOSIS Normal [facility] Comment on above: Order Comment: Genia page Type: BLOOD SPECIMEN Ordering Facility: [facility] Address: [address] [place] [address] Result Comment: A: B reast, left, core biopsy: - Unremarkable mammary tissue, see comment. at 1150 EDT Performed By: #### 2 4323-8 #### [facility] CLIA [id number] [address] [place] [address] FINAL PERFORMING LAB Normal [facility] Comment on above: Order Comment: Genia page Type: BLOOD SPECIMEN Ordering Facility: [facility] Address: [address] [place] [address] Result Comment: Diag nostic interpretation performed at: [facility], [address] [place] [address], [place] [id number] CLIA# [id number] Medical Biller/Coder: Vijay Bishop MD Performed By: #### 2 4323-8 #### [facility] CLIA [id number] [address] [place] [address] GROSS DESCRIPTION Normal [facility] Comment on above: Order Comment: Speci men Type: BLOOD SPECIMEN Ordering Facility: [facility] Address: [address] [place] [address] Result Comment: Gayle romero, Left, Core Biopsy Received in formalin labeled as "left breast" are multiple segments of cylindrical tissue aggregating to 1.9 x 0.4 x 0.2 cm, smallwood-yellow and of a soft consistency. The specimen was removed from the patient at unspecified time on 01/09/2025. On the same day, the specimen was placed in formalin at unspecified time. Totally submitted in formalin in one cassette. SS January 09, 2025 9:09 PM Gross examination performed at [facility], [address] [place] [address] Performed By: #### 2 4323-8 #### [facility] [id number] [address] [place] [address] 01-02-20[facility] SH[facility]OPE[facility] ([id number]) 1980 F Date Time Provider Department 01/02/25 MICHAEL ACUÑA INTWS During your visit today, we recorded the following information about you: Ebony Torres MA 01/02/2025 4:40 PM Signed [facility] sent PA request for zepbound Prior Authorization has been completed online at [email or web address] for zepbound 15 mg, will await response. [id number] Please keep encounter open until final decision has been received and documented from insurance company. Ebony Coronado MA, MA 01/02/2025 4:57 PM Signed PA denied not a covered benefit. Left message for patient on Ebony KAYLYN Torres Allergies As of Date: 01/02/2025 Noted Allergy Reaction CITALOPRAM 02/20/2014 14 - Other: See Comments Comments: Constant yawning METOCLOPRAMIDE 10/09/2022 14 - Other: See Comments PENICILLINS 10/27/2005 4 - Hives 9 - Itching Comments: No difficulty breathing REGLAN (METOCLOPRAMIDE HCL) 03/02/2016 14 - Other: See Comments Comments: anxiety Date Reviewed: 12/19/2024 Reviewed by: Rodney Brooks MD - Fully Assessed Prescriptions as of 01/02/2025 - levonorgestrel (MIRENA) 21 mcg/24hr (up to 8 yrs) 52 mg IUD 1 each by INTRAUTERINE route as directed. - modafinil (PROVIGIL) 100 mg tablet Take (1) tablet by mouth once per day - CPAP/BIPAP/OTHER Type .CPAPSettings into a note to see current settings/supplies/DM E information. - buPROPion XL (WELLBUTRIN XL) 300 mg 24 hr tablet Take 1 tablet by mouth once daily. - FLUoxetine (PROZAC) 40 mg capsule Take 1 capsule by mouth once daily. - tirzepatide, weight loss (ZEPBOUND) 15 mg/0.5 mL pen injector Inject 15 mg subcutaneously one time a week. - rOPINIRole (REQUIP) 0.25 mg tablet Take 3 tablets by mouth at bedtime as needed. 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] 04/24/2015 08/11/2015 Obstructive sleep apnea on CPAP [G47.33] 04/24/2015 Nasal congestion [R09.81] 07/16/2015 08/11/2015 Restless leg syndrome [G25.81] 07/16/2015 with poor obstetric history [O09.299] 07/16/2015 03/23/2016 Multigravida of advanced maternal age in first *08/11/2015 03/23/2016 Supervision of high risk in first tri*08/11/2015 01/15/2016 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] 08/14/2015 03/23/2016 Low ferritin level [R79.0] 08/27/2015 10/16/2021 Supervision of high risk in second tr*10/31/2015 03/23/2016 Supervision of high risk in third tri*01/15/2016 03/23/2016 Orthostatic lightheadedness [R42] 05/02/2019 10/16/2021 Diaphoresis [R61] 05/02/2019 Tremor [R25.1] 05/02/2019 Right-sided thoracic back pain [M54.6] 10/14/2022 12/06/2022 Encounter Status:Closed by EBONY TORRES on 01/02/25 [facility] CNOVon 01-01-2025 CNOV Office Visit (OBGYWM) SHANNON LOPEZ ([id number]) 1980 F Date Time Provider Department 01/01/25 10:30 AM RODNEY BROOKS OBGYWM During your visit today, we recorded the following information about you: Blood pressure Weight 118/68 115.7 kg Rodney Brooks MD 01/01/2025 10:46 AM Haleigh Ortega presents for removal of IUD due to expiration of IUD. UNIVERSAL PROTOCOL / SAFETY CHECKLIST Procedure to be Performed: IUD removal and Mirena IUD insertion` Sign In: A Moment of CARE was completed. Appropriate PPE (Personal Protective Equipment) worn by all providers involved with the procedure. Special equipment utilized dilators. Patient/Surrogate Stated/Verified: Patient name, Date of , Relevant allergies, and The intended procedure Time Out: Relevant labs, photos, and/or imaging studies have been reviewed. Intended patient and procedure match the source document(s) (e.g. consent, HANDP, associated studies [imaging, pathology]) are not applicable. Consent obtained and matches the intended procedure. Yes. Correct side/site is not applicable. Medications required for this procedure are verified. Fire risk assessed and is not applicable. Implants: Correct implant(s) confirmed including size and side. Expiration date(s) reviewed. Sign Out: Specimens are all correctly labeled and sent. All instruments, equipment, possible retained foreign bodies are accounted for. Yes. The post-procedure plan of care has been communicated to the patient or surrogate. PROCEDURE: Speculum placed in vagina, IUD string visualized and grasped with ring forceps. ASSESSMENT/PLAN: IUD removed without difficulty, intact, and patient tolerated procedure well. Contraception plans: Mirena IUD test: negative Side effects including irregular bleeding were discussed with the patient. The patient understands that it should be removed in 8 years or sooner if the patient desires a . IUD source: office provided IUD lot #: [id number] Exp date: 02/01/2027 The cervix was prepped with betadine. The uterus sounded to 9 cm and the uterus is Anteverted.. Using sterile technique, the Mirena IUD was inserted without difficulty and the string was cut to 2cm from the external os of the cervix. Patient tolerated procedure well. PLAN: Patient was advised to observe for signs and symptoms of infection including but not limited to fever, malodorous vaginal discharge and/or pain. The patient was told to check the string monthly for accurate placement. Bleeding expectations were reviewed. Follow up for next annual exam or sooner as needed. MD Brigitte Hearn Tabatha, MA 01/01/2025 9:56 AM Signed POST IUD INSTRUCTIONS You may have irregular bleeding during the first 3 months of use. You may have mild-severe cramping for the next 48 hours. You may use over the counter medication (Motrin, Tylenol) as needed. Your IUD must be removed or replaced based on the following table: IUD Type Removed or replaced within: Tiesha 3 years Kyleena 5 years Mirena 8 years Liletta 8 years Paragard 10 years Call the office for signs/symptoms of infection such as severe cramping, fever, or unusual bleeding. Check for string placement as instructed by your doctor. If you have any additional questions, please contact the office. Referring Provider: RODNEY BROOKS [[id number]] Allergies As of Date: 01/01/2025 Noted Allergy Reaction CITALOPRAM 02/20/2014 14 - Other: See Comments Comments: Constant yawning METOCLOPRAMIDE 10/09/2022 14 - Other: See Comments PENICILLINS 10/27/2005 4 - Hives 9 - Itching Comments: No difficulty breathing REGLAN (METOCLOPRAMIDE HCL) 03/02/2016 14 - Other: See Comments Comments: anxiety Date Reviewed: 12/19/2024 Reviewed by: Rodney Brooks MD - Fully Assessed Reason for Visit: Insertion Of IUD [291] Cmt: Removal and insertion Primary Visit Diagnosis:Encounter for IUD removal and reinsertion [Z30.433] Other Visit Diagnosis:Encounter for IUD insertion [Z30.430] Order(s):UA DIP,URINE HCG (POC) [[id number]] Order #: [id number] #:[id number] [] levonorgestrel 21 mcg/24hr (up to 8 yrs) 52 mg 1 each intrauterine device (MIRENA)Disp: Rfl: levonorgestrel (MIRENA) 21 mcg/24hr (up to 8 yrs) 52 mg IUD1 each by INTRAUTERINE route as directed.Disp: 1 eachRfl: 0 Prescriptions as of 01/01/2025 - levonorgestrel (MIRENA) 21 mcg/24hr (up to 8 yrs) 52 mg IUD 1 each by INTRAUTERINE route as directed. - modafinil (PROVIGIL) 100 mg tablet Take (1) tablet by mouth once per day - CPAP/BIPAP/OTHER Type .CPAPSettings into a note to see current settings/supplies/DM E information. - buPROPion XL (WELLBUTRIN XL) 300 mg 24 hr tablet Take 1 tablet by mouth once daily. - FLUoxetine (PROZAC) 40 mg capsule Take 1 capsule by mouth once daily. - tirzepat (more content not included)... Normal [facility] DBT Breast - left diagnostic for implanton 01-01-2025 IMPRESSION: Mass in the left breast at 12 o'clock is suspicious for malignancy. Ultrasound-guided biopsy is recommended. BI-RADS Category 4: Suspicious RISK: Based on the Tyrer-Cuzick (TC) risk assessment model, this patient has a 14.9% lifetime risk of developing breast cancer, meaning they are at average risk for developing breast cancer. However, this is only an estimate based on available history provided on the patient's questionnaire. We encourage all patients to talk with their providers about these results, further recommendations for managing breast health, and appropriate supplemental screening options if the patient has dense breast tissue. Interpreting Radiologist: Precious Medina M.D. Electronically signed on: 01/01/2025 Fish Net Stringer: ROSARIO Transcridanish Date/Time: Jan 01 2025 8:28A Dictated by: PRECIOUS MEDINA MD This examination was interpreted and the report reviewed and electronically signed by: PRECIOUS MEDINA MD on Jan 01 2025 9:20AM [facility] DIVISION OF RADIOLOGY * * *Final Report* * * DATE OF EXAM: Jan 01 2025 8:48AM [facility] 0628 - [facility] LARA OVALLE LT / PROCEDURE REASON: Abnormal mammogram of left breast * * * * Physician Interpretation * * * * RESULT: [place] [address] #[id number] - [facility] #[id number] - [facility] [place] BREAST LTD LT HISTORY: 44 year-old patient seen for diagnostic evaluation of the finding(s) described on prior mammogram in the left breast. Patient states no personal history of breast cancer. The patient has a family history of breast cancer. COMPARISON STUDIES: The present examination has been compared to prior imaging studies dated 12/06/2017 (ultrasound), 06/07/2018 (mammogram), 06/07/2018 (ultrasound), 10/28/2021 (mammogram) and 11/07/2024 (mammogram). MAMMOGRAM TECHNIQUE: The study was acquired using full field digital technology and interpreted from soft copy. Digital Breast Tomosynthesis (DBT) images were obtained and used to assist in the interpretation of this examination. MAMMOGRAM FINDINGS: The breast is heterogeneously dense, which may obscure small masses. There is a focal asymmetry measuring 5 cm with macrolobulated margins in the left breast at 12 o'clock. ULTRASOUND TECHNIQUE: Targeted ultrasound of the indicated area was performed. Gore scale images were saved. ULTRASOUND FINDINGS: Ultrasound demonstrates an oval mass measuring 4 cm in the left breast at 12 o'clock. Internal echotexture is heterogenous. Color flow imaging demonstrates vascularity is present. No abnormality is noted in the left axilla DIVISION OF RADIOLOGY Provider, [facility] [place] - 01/01/2025 * * *Final Report* * * DATE OF EXAM: Jan 01 2025 8:48AM [facility] 0628 - [facility] Endeavors[facility] LT / PROCEDURE REASON: Abnormal mammogram of left breast * * * * Physician Interpretation * * * * RESULT: [place] [address] #[id number] - [facility] [employer] LT #[id number] - [facility] US BREAST LTD LT HISTORY: 44 year-old patient seen for diagnostic evaluation of the finding(s) described on prior mammogram in the left breast. Patient states no personal history of breast cancer. The patient has a family history of breast cancer. COMPARISON STUDIES: The present examination has been compared to prior imaging studies dated 12/06/2017 (ultrasound), 06/07/2018 (mammogram), 06/07/2018 (ultrasound), 10/28/2021 (mammogram) and 11/07/2024 (mammogram). MAMMOGRAM TECHNIQUE: The study was acquired using full field digital technology and interpreted from soft copy. Digital Breast Tomosynthesis (DBT) images were obtained and used to assist in the interpretation of this examination. MAMMOGRAM FINDINGS: The breast is heterogeneously dense, which may obscure small masses. There is a focal asymmetry measuring 5 cm with macrolobulated margins in the left breast at 12 o'clock. ULTRASOUND TECHNIQUE: Targeted ultrasound of the indicated area was performed. Gore scale images were saved. ULTRASOUND FINDINGS: Ultrasound demonstrates an oval mass measuring 4 cm in the left breast at 12 o'clock. Internal echotexture is heterogenous. Color flow imaging demonstrates vascularity is present. No abnormality is noted in the left axilla IMPRESSION IMPRESSION: Mass in the left breast at 12 o'clock is suspicious for malignancy. Ultrasound-guided biopsy is recommended. BI-RADS Category 4: Suspicious RISK: Based on the Tyrer-Cuzick (TC) risk assessment model, this patient has a 14.9% lifetime risk of developing breast cancer, meaning they are at average risk for developing breast cancer. However, this is only an estimate based on available history provided on the patient's questionnaire. We encourage all patients to talk with their providers about these results, further recommendations for managing breast health, and appropriate supplemental screening options if the patient has dense breast tissue. Interpreting Radiologist: Precious Medina M.D. Electronically signed on: 01/01/2025 Fish Net Stringer: ROSARIO Transcridanish Date/Time: Jan 01 2025 8:28A Dictated by: PRECIOUS MEDINA MD This examination was interpreted and the report reviewed and electronically signed by: PRECIOUS MEDINA MD on Jan 01 2025 9:20AM EST [facility] LEVY DIAG W VASQUEZ LTon 025 [facility] DIAG W [place] LT * * *Final Report* * * DATE OF EXAM: Jan 01 2025 8:48AM [facility] 0628 - [facility] DIAG W [place] LT / PROCEDURE REASON: Abnormal mammogram of left breast * * * * Physician Interpretation * * * * RESULT: [facility] [place] [address] [place] [address] #[id number] - [facility] DIAG W [place] LT #[id number] - [facility] BREAST LTD LT HISTORY: 44 year-old patient seen for diagnostic evaluation of the finding(s) described on prior mammogram in the left breast. Patient states no personal history of breast cancer. The patient has a family history of breast cancer. COMPARISON STUDIES: The present examination has been compared to prior imaging studies dated 12/06/2017 (ultrasound), 06/07/2018 (mammogram), 06/07/2018 (ultrasound), 10/28/2021 (mammogram) and 11/07/2024 (mammogram). MAMMOGRAM TECHNIQUE: The study was acquired using full field digital technology and interpreted from soft copy. Digital Breast Tomosynthesis (DBT) images were obtained and used to assist in the interpretation of this examination. MAMMOGRAM FINDINGS: The breast is heterogeneously dense, which may obscure small masses. There is a focal asymmetry measuring 5 cm with macrolobulated margins in the left breast at 12 o'clock. ULTRASOUND TECHNIQUE: Targeted ultrasound of the indicated area was performed. Gore scale images were saved. ULTRASOUND FINDINGS: Ultrasound demonstrates an oval mass measuring 4 cm in the left breast at 12 o'clock. Internal echotexture is heterogenous. Color flow imaging demonstrates vascularity is present. No abnormality is noted in the left axilla IMPRESSION: Mass in the left breast at 12 o'clock is suspicious for malignancy. Ultrasound-guided biopsy is recommended. BI-RADS Category 4: Suspicious RISK: Based on the Tyrer-Cuzick (TC) risk assessment model, this patient has a 14.9% lifetime risk of developing breast cancer, meaning they are at average risk for developing breast cancer. However, this is only an estimate based on available history provided on the patient's questionnaire. We encourage all patients to talk with their providers about these results, further recommendations for managing breast health, and appropriate supplemental screening options if the patient has dense breast tissue. Interpreting Radiologist: Precious Medina M.D. Electronically signed on: 01/01/2025 Fish Net Stringer: ROSARIO Transcribe Date/Time: Jan 01 2025 8:28A Dictated by: PRECIOUS MEDINA MD This examination was interpreted and the report reviewed and electronically signed by: PRECIOUS MEDINA MD on Jan 01 2025 9:20AM EST [id number] CN Normal [facility] US BREAST LTD LTon 01-01 [facility] US BREAST LTD LT * * *Final Report* * * DATE OF EXAM: Jan 01 2025 9:12AM [facility] 0593 - [facility] US BREAST LTD LT / PROCEDURE REASON: Abnormal mammogram of left breast * * * * Physician Interpretation * * * * [place] [address] #[id number] - [facility] LARA OVALLE LT #[id number] - [facility] US BREAST LTD LT HISTORY: 44 year-old patient seen for diagnostic evaluation of the finding(s) described on prior mammogram in the left breast. Patient states no personal history of breast cancer. The patient has a family history of breast cancer. COMPARISON STUDIES: The present examination has been compared to prior imaging studies dated 12/06/2017 (ultrasound), 06/07/2018 (mammogram), 06/07/2018 (ultrasound), 10/28/2021 (mammogram) and 11/07/2024 (mammogram). MAMMOGRAM TECHNIQUE: The study was acquired using full field digital technology and interpreted from soft copy. Digital Breast Tomosynthesis (DBT) images were obtained and used to assist in the interpretation of this examination. MAMMOGRAM FINDINGS: The breast is heterogeneously dense, which may obscure small masses. There is a focal asymmetry measuring 5 cm with macrolobulated margins in the left breast at 12 o'clock. ULTRASOUND TECHNIQUE: Targeted ultrasound of the indicated area was performed. Gore scale images were saved. ULTRASOUND FINDINGS: Ultrasound demonstrates an oval mass measuring 4 cm in the left breast at 12 o'clock. Internal echotexture is heterogenous. Color flow imaging demonstrates vascularity is present. No abnormality is noted in the left axilla IMPRESSION: Mass in the left breast at 12 o'clock is suspicious for malignancy. Ultrasound-guided biopsy is recommended. BI-RADS Category 4: Suspicious RISK: Based on the Tyrer-Cuzick (TC) risk assessment model, this patient has a 14.9% lifetime risk of developing breast cancer, meaning they are at average risk for developing breast cancer. However, this is only an estimate based on available history provided on the patient's questionnaire. We encourage all patients to talk with their providers about these results, further recommendations for managing breast health, and appropriate supplemental screening options if the patient has dense breast tissue. Interpreting Radiologist: Precious Medina M.D. Electronically signed on: 01/01/2025 Fish Net Stringer: ROSARIO Transcribe Date/Time: Jan 01 2025 8:58A Dictated by : PRECIOUS MEDINA MD This examination was interpreted and the report reviewed and electronically signed by: PRECIOUS MEDINA MD on Jan 01 2025 9:20AM EST [id number] CN Normal [facility] Panel InformationOrdered By: Ccf Provider on 01-01-2025 [facility] No Panel Informationon 01-01 Radiology Study observation (narrative) [facility] UA DIP,URINE HCG (POC)on Beta HCG ( test) Ql (U) Negative Negative [facility] Comment on above: Location:[facility], [address] [place] [address] Manager Intern (POCT) Internal QC [place] [facility] Location:[facility], [address] [place] [address] POINT OF CARE [facility] US Breast - left limitedon 0 01-01-2025 IMPRESSION: Mass in the left breast at 12 o'clock is suspicious for malignancy. Ultrasound-guided biopsy is recommended. BI-RADS Category 4: Suspicious RISK: Based on the Tyrer-Cuzick (TC) risk assessment model, this patient has a 14.9% lifetime risk of developing breast cancer, meaning they are at average risk for developing breast cancer. However, this is only an estimate based on available history provided on the patient's questionnaire. We encourage all patients to talk with their providers about these results, further recommendations for managing breast health, and appropriate supplemental screening options if the patient has dense breast tissue. Interpreting Radiologist: Precious Medina M.D. Electronically signed on: 01/01/2025 Fish Net Stringer: ROSARIO Transcribe Date/Time: Jan 01 2025 8:58A Dictated by : PRECIOUS MEDINA MD This examination was interpreted and the report reviewed and electronically signed by: PRECIOUS MDEINA MD on Jan 01 2025 9:20AM EST DIVISION OF RADIOLOGY * * *Final Report* * * DATE OF EXAM: Jan 01 2025 9:12AM [facility] 0593 - [place] US BREAST LTD LT / PROCEDURE REASON: Abnormal mammogram of left breast * * * * Physician Interpretation * * * * [place] [address] #[id number] - [facility] DIAG [employer] #[id number] - [facility] [place] BREAST [employer] LT HISTORY: 44 year-old patient seen for diagnostic evaluation of the finding(s) described on prior mammogram in the left breast. Patient states no personal history of breast cancer. The patient has a family history of breast cancer. COMPARISON STUDIES: The present examination has been compared to prior imaging studies dated 12/06/2017 (ultrasound), 06/07/2018 (mammogram), 06/07/2018 (ultrasound), 10/28/2021 (mammogram) and 11/07/2024 (mammogram). MAMMOGRAM TECHNIQUE: The study was acquired using full field digital technology and interpreted from soft copy. Digital Breast Tomosynthesis (DBT) images were obtained and used to assist in the interpretation of this examination. MAMMOGRAM FINDINGS: The breast is heterogeneously dense, which may obscure small masses. There is a focal asymmetry measuring 5 cm with macrolobulated margins in the left breast at 12 o'clock. ULTRASOUND TECHNIQUE: Targeted ultrasound of the indicated area was performed. Gore scale images were saved. ULTRASOUND FINDINGS: Ultrasound demonstrates an oval mass measuring 4 cm in the left breast at 12 o'clock. Internal echotexture is heterogenous. Color flow imaging demonstrates vascularity is present. No abnormality is noted in the left axilla DIVISION OF RADIOLOGY Provider, [facility] [place] - 01/01/2025 * * *Final Report* * * DATE OF EXAM: Jan 01 2025 9:12AM [facility] 0593 - [facility] [place] BREAST [employer] LT / PROCEDURE REASON: Abnormal mammogram of left breast * * * * Physician Interpretation * * * * [facility] [address] [id number] #[id number] - [facility] [employer] #[id number] - [place] [facility] [place] BREAST [employer] LT HISTORY: 44 year-old patient seen for diagnostic evaluation of the finding(s) described on prior mammogram in the left breast. Patient states no personal history of breast cancer. The patient has a family history of breast cancer. COMPARISON STUDIES: The present examination has been compared to prior imaging studies dated 12/06/2017 (ultrasound), 06/07/2018 (mammogram), 06/07/2018 (ultrasound), 10/28/2021 (mammogram) and 11/07/2024 (mammogram). MAMMOGRAM TECHNIQUE: The study was acquired using full field digital technology and interpreted from soft copy. Digital Breast Tomosynthesis (DBT) images were obtained and used to assist in the interpretation of this examination. MAMMOGRAM FINDINGS: The breast is heterogeneously dense, which may obscure small masses. There is a focal asymmetry measuring 5 cm with macrolobulated margins in the left breast at 12 o'clock. ULTRASOUND TECHNIQUE: Targeted ultrasound of the indicated area was performed. Gore scale images were saved. ULTRASOUND FINDINGS: Ultrasound demonstrates an oval mass measuring 4 cm in the left breast at 12 o'clock. Internal echotexture is heterogenous. Color flow imaging demonstrates vascularity is present. No abnormality is noted in the left axilla IMPRESSION IMPRESSION: Mass in the left breast at 12 o'clock is suspicious for malignancy. Ultrasound-guided biopsy is recommended. BI-RADS Category 4: Suspicious RISK: Based on the Tyrer-Cuzick (TC) risk assessment model, this patient has a 14.9% lifetime risk of developing breast cancer, meaning they are at average risk for developing breast cancer. However, this is only an estimate based on available history provided on the patient's questionnaire. We encourage all patients to talk with their providers about these results, further recommendations for managing breast health, and appropriate supplemental screening options if the patient has dense breast tissue. Interpreting Radiologist: Precious Medina M.D. Electronically signed on: 01/01/2025 Fish Net Stringer: ROSARIO Transcribe Date/Time: Jan 01 2025 8:58A Dictated by : PRECIOUS MEDINA MD This examination was interpreted and the report reviewed and electronically signed by: PRECIOUS MEDINA MD on Jan 01 2025 9:20AM EST [facility] Nurse Visit (FAMPWS) SHANNON LOPEZ ([id number]) 1980 F Date Time Provider Department 12/19/24 8:00 AM MT NURSE JOSIANE During your visit today, we recorded the following information about you: NEFTALY NAYLA 12/19/2024 8:06 AM Signed Patient presents for Hepatitis B vaccine. Denies any problems at this time. Tolerated injection well. Nayla Zabala LPN Allergies As of Date: 12/19/2024 Noted Allergy Reaction CITALOPRAM 02/20/2014 14 - Other: See Comments Comments: Constant yawning PENICILLINS 10/27/2005 4 - Hives 9 - Itching Comments: No difficulty breathing REGLAN (METOCLOPRAMIDE HCL) 03/02/2016 14 - Other: See Comments Comments: anxiety Date Reviewed: 11/12/2024 Reviewed by: Haydee Coon APRN.DISTRIBUTION ENGINEERING 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 - Fully Assessed Reason for Visit: Imm/Inj [58] Primary Visit Diagnosis:Encounter for immunization [Z23] Prescriptions as of 12/19/2024 - modafinil (PROVIGIL) 100 mg tablet Take (1) tablet by mouth once per day - CPAP/BIPAP/OTHER Type .CPAPSettings into a note to see current settings/supplies/DM E information. - buPROPion XL (WELLBUTRIN XL) 300 mg 24 hr tablet Take 1 tablet by mouth once daily. - FLUoxetine (PROZAC) 40 mg capsule Take 1 capsule by mouth once daily. - tirzepatide, weight loss (ZEPBOUND) 15 mg/0.5 mL pen injector Inject 15 mg subcutaneously one time a week. - CPAP/BIPAP/OTHER Type .CPAPSettings into a note to see current settings/supplies/DM E information. - rOPINIRole (REQUIP) 0.25 mg tablet Take 3 tablets by mouth at bedtime as needed. - levonorgestrel (MIRENA INTRAUTERINE) by INTRAUTERINE route. - CPAP AutobiPAP EEP range 4-9 cmH2O, IPAP range 9-15, usu mask, humidity, filters. Dx: G47.33 Rpt to Moul in 6 weeks. 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] 04/24/2015 08/11/2015 Obstructive sleep apnea on CPAP [G47.33] 04/24/2015 Nasal congestion [R09.81] 07/16/2015 08/11/2015 Restless leg syndrome [G25.81] 07/16/2015 with poor obstetric history [O09.299] 07/16/2015 03/23/2016 Multigravida of advanced maternal age in first *08/11/2015 03/23/2016 Supervision of high risk in first tri*08/11/2015 01/15/2016 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] 08/14/2015 03/23/2016 Low ferritin level [R79.0] 08/27/2015 10/16/2021 Supervision of high risk in second tr*10/31/2015 03/23/2016 Supervision of high risk in third tri*01/15/2016 03/23/2016 Orthostatic lightheadedness [R42] 05/02/2019 10/16/2021 Diaphoresis [R61] 05/02/2019 Tremor [R25.1] 05/02/2019 Right-sided thoracic back pain [M54.6] 10/14/2022 12/06/2022 Encounter Status:Closed by NAYLA ZABALA on 12/19/24 [facility] CNOVon 12-19-2024 CNOV Office Visit (OBGYWM) SHANNON LOPEZ ([id number]) 1980 F Date Time Provider Department 12/19/24 8:40 AM RODNEY BROOKS OBGYWM During your visit today, we recorded the following information about you: Blood pressure Weight Height 124/82 115.7 kg 1.664 m Rodney Brooks MD 12/19/2024 9:01 AM Signed Shannon is a 44 year old who presents for an annual gynecologic exam without complaints. Doing well w/ IUD. Due to have it changed out. 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 ([facility]) 2015 Low ferritin level 08/27/2015 Mental disorders complicating , childbirth, or the puerperium Migraine without aura 02/25/2007 Morbid obesity (HCC) 10/23/2012 Obstructive sleep apnea Orthostatic lightheadedness 05/02/2019 depression RLS (restless legs syndrome) 07/16/2015 Severe pre-eclampsia, antepartum ([facility]) 2015 Sleep apnea 04/24/2015 DME DASCO Teeth grinding 10/23/2012 Tremor 05/02/2019 PAST SURGICAL HISTORY Procedure Laterality Date SECTION HX 2016 MIRENA IUD 07/14/11,03/23/2016 PAST SURGICAL HISTORY OF 2009 UPPP for sleep apnea FAMILY HISTORY Problem Relation Age of Onset other (Scleroderma) Mother Lipids Father Hypertension Father Allergic Rhinitis Brother No Known Problems Brother other (Polio) Maternal Grandfather other (Pulmonary Disease) Paternal Grandfather Breast Cancer Maternal Aunt 45 x2 Cancer Other No db2 systems programmer/colon cancer SOCIAL HISTORY Social History Tobacco Use Smoking status: Never Smokeless tobacco: Never Vaping Use Vaping status: Never Used Substance Use Topics Alcohol use: Yes Comment: rarely Drug use: No REVIEW OF SYSTEMS Abdomen: No abdominal pain, nausea, vomiting, diarrhea, or constipation. No bloating, early satiety, indigestion, or increased flatulence. Bladder: No dysuria, gross hematuria, urinary frequency, urinary urgency, or incontinence. Breast: No breast lumps, nipple d/c, overlying skin changes, redness or skin retraction. Allergies and current medication updated:Yes SENSITIVE EXAM: The sensitive examination was discussed with the Patient or Patient's Authorized Head Orthopedic Team Physician. As applicable, any other physician, advance practice provider, medical student, or other health professional student that will be observing or involved in the sensitive examination for educational or training purposes was discussed with the Patient or Authorized Head Orthopedic Team Physician. The Patient or Authorized Head Orthopedic Team Physician has agreed to proceed with the sensitive examination. (Sensitive examination includes inspection and/or palpation of the breasts, pelvis, prostate and anorectal regions). EXAM: BP 124/82 Ht 5' 5.5" (1.66m) Wt 255 lb (115.7kg) BMI 41.77 kg/(m2). GENERAL: pleasant, female in no apparent distress HEENT: Normocephalic, atraumatic, mucus membranes moist, and no lesions NECK: Supple, full range of motion, no adenopathy, and thyroid normal DERMATOLOGY: Normal, without lesions, non-icteric, and non-hirsute BREAST: soft, non-tender, symmetric, no dominant mass, normal nipple-areolar complex, no lymphadenopathy, and no nipple discharge CHEST: Normal inspiratory effort ABDOMEN: soft, non-tender, and no masses PELVIC: external genitalia normal, normal Bartholin's glands, urethra, Evaro's glands, no vulvar lesions, no cervical lesions, good vaginal support, physiologic discharge present, normal appearing perineal body and perianal region, IUD strings visible BIMANUAL: uterus normal size, shape and consistency, no adnexal masses, and non-tender RECTOVAGINAL: deferred. NEURO: alert and oriented x3,exam grossly non-focal EXTREMITIES: normal ASSESSMENT/PLAN: 1) Health maintenance: Pap/HPV up to date. Mammogram ordered. 2) Contraception: IUD. Contraceptive options reviewed and information provided. 3) STD screening: Declined STD check. 4) Follow up one year or sooner as needed return for IUD change MD Kiran Hearn (more content not included)... Normal [facility] CNPNon 12-04-2024 CNPN Telephone (INTMWS) SHANNON LOPEZ ([id number]) 1980 F Date Time Provider Department 12/04/24 MICHAEL ACUÑA INTMWS During your visit today, we recorded the following information about you: NAYLA ZABALA 12/04/2024 10:18 AM Signed Patient scheduled for nurse visit 12/19/24 to receive Hepatitis B vaccine. Please place order at this time. Nayla Zabala LPN Allergies As of Date: 12/04/2024 Noted Allergy Reaction CITALOPRAM 02/20/2014 14 - Other: See Comments Comments: Constant yawning PENICILLINS 10/27/2005 4 - Hives 9 - Itching Comments: No difficulty breathing REGLAN (METOCLOPRAMIDE HCL) 03/02/2016 14 - Other: See Comments Comments: anxiety Date Reviewed: 11/12/2024 Reviewed by: Haydee Coon, QUARRY PLUG AND FEATHER 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 - Fully Assessed Reason for Visit: Orders [681] Primary Visit Diagnosis:Need for vaccination [Z23] Order(s):HEP B VACCINE, 3-DOSE, AGE 20+ YR (ENGERIX-B, RECOMBIVAX HB) [[id number]] Order #: [id number] HEP B VACCINE, 3-DOSE, AGE 20+ YR (ENGERIX-B, RECOMBIVAX HB) [[id number]] Order #: [id number] FUTURE Prescriptions as of 12/04/2024 - modafinil (PROVIGIL) 100 mg tablet Take (1) tablet by mouth once per day - CPAP/BIPAP/OTHER Type .CPAPSettings into a note to see current settings/supplies/DM E information. - buPROPion XL (WELLBUTRIN XL) 300 mg 24 hr tablet Take 1 tablet by mouth once daily. - FLUoxetine (PROZAC) 40 mg capsule Take 1 capsule by mouth once daily. - tirzepatide, weight loss (ZEPBOUND) 15 mg/0.5 mL pen injector Inject 15 mg subcutaneously one time a week. - CPAP/BIPAP/OTHER Type .CPAPSettings into a note to see current settings/supplies/DM E information. - rOPINIRole (REQUIP) 0.25 mg tablet Take 3 tablets by mouth at bedtime as needed. - levonorgestrel (MIRENA INTRAUTERINE) by INTRAUTERINE route. - CPAP AutobiPAP EEP range 4-9 cmH2O, IPAP range 9-15, usu mask, humidity, filters. Dx: G47.33 Rpt to Moul in 6 weeks. 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] 04/24/2015 08/11/2015 Obstructive sleep apnea on CPAP [G47.33] 04/24/2015 Nasal congestion [R09.81] 07/16/2015 08/11/2015 Restless leg syndrome [G25.81] 07/16/2015 with poor obstetric history [O09.299] 07/16/2015 03/23/2016 Multigravida of advanced maternal age in first *08/11/2015 03/23/2016 Supervision of high risk in first tri*08/11/2015 01/15/2016 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] 08/14/2015 03/23/2016 Low ferritin level [R79.0] 08/27/2015 10/16/2021 Supervision of high risk in second tr*10/31/2015 03/23/2016 Supervision of high risk in third tri*01/15/2016 03/23/2016 Orthostatic lightheadedness [R42] 05/02/2019 10/16/2021 Diaphoresis [R61] 05/02/2019 Tremor [R25.1] 05/02/2019 Right-sided thoracic back pain [M54.6] 10/14/2022 12/06/2022 Encounter Status:Closed by NAYLA ZABALA on 12/04/24 [facility] CNOVon 11-12-2024 CNOV Office Visit (INTMWS) JOHNSHANNON ([id number]) 1980 F Date Time Provider Department 11/12/24 9:00 AM HAYDEE COON INTMWS During your visit today, we recorded the following information about you: Pulse Respiration Blood pressure Weight 70/minute 14/minute 116/72 122 kg Haydee Coon, QUARRY PLUG AND FEATHER 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 11/12/2024 10:44 AM Signed CC: Patient presents with: Follow Up: 6 months HPI Shannon Quintana John is a 44 year old female who presents today for above. Obesity: taking Zepbound 15 mg weekly. Denies side effects. She has lost almost 30 lbs in 3 months. Exercise: Walks three times a week on the treadmill for about 45 minutes. Diet: Watches diet for salt (salty snacks, added salt, processed frozen/canned foods), sugary/sweet snacks, unhealthy fats: Yes DELON: Is compliant with CPAP. No changes in settings. Denies issues with mask. Denies snoring, un-refreshed sleep, insomnia, excessive daytime drowsiness. Anxiety/depression: Patient is currently taking Wellbutrin and Prozac Feels medication is working well: yes Persistent/bothersom e symptoms: none Side effects: None Review of Systems See HPI 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 2016 Low ferritin level 08/27/2015 Mental disorders complicating , childbirth, or the puerperium Migraine without aura 02/25/2007 Morbid obesity (HCC) 10/23/2012 Obstructive sleep apnea Orthostatic lightheadedness 05/02/2019 depression RLS (restless legs syndrome) 07/16/2015 Severe pre-eclampsia, antepartum 2016 Sleep apnea 04/24/2015 DME DASCO Teeth grinding 10/23/2012 Tremor 05/02/2019 PAST SURGICAL HISTORY Procedure Laterality Date SECTION HX 2016 MIRENA IUD 07/14/11,03/23/2016 PAST SURGICAL HISTORY OF 2009 UPPP for sleep apnea ALLERGIES Citalopram, Penicillins, and Reglan [Metoclopramide Hcl] MEDICATIONS tirzepatide, weight loss (ZEPBOUND) 15 mg/0.5 mL pen injector Inject 15 mg subcutaneously one time a week. CPAP/BIPAP/OTHER Type .CPAPSettings into a note to see current settings/supplies/DM E information. FLUoxetine (PROZAC) 40 mg capsule Take 1 capsule by mouth once daily. buPROPion XL (WELLBUTRIN XL) 300 mg 24 hr tablet Take 1 tablet by mouth once daily. rOPINIRole (REQUIP) 0.25 mg tablet Take 3 tablets by mouth at bedtime as needed. levonorgestrel (MIRENA INTRAUTERINE) by INTRAUTERINE route. CPAP AutobiPAP EEP range 4-9 cmH2O, IPAP range 9-15, usu mask, humidity, filters. Dx: G47.33 Rpt to [facility] in 6 weeks. FAMILY HISTORY Problem Relation Age of Onset other (Scleroderma) Mother Lipids Father Hypertension Father Allergic Rhinitis Brother No Known Problems Brother other (Polio) Maternal Grandfather other (Pulmonary Disease) Paternal Grandfather Breast Cancer Maternal Aunt 45 x2 Cancer Other No db2 systems programmer/colon cancer Social History Tobacco Use Smoking status: Never Smokeless tobacco: Never Vaping Use Vaping status: Never Used Substance Use Topics Alcohol use: Yes Comment: rarely Drug use: No BP 116/72 Pulse 70 Resp 14 Wt 122 kg (268 lb 15.4 oz) LMP (LMP Unknown) SpO2 98% BMI 42.46 kg/m? Physical Exam Vitals reviewed. Constitutional: Appearance: Normal appearance. Cardiovascular: Rate and Rhythm: Normal rate and regular rhythm. Heart sounds: Normal heart sounds. No murmur heard. Pulmonary: Effort: Pulmonary effort is normal. Breath sounds: Normal breath sounds. No wheezing, rhonchi or rales. Neurological: Mental Status: She is alert. Psychiatric: Attention and Perception: Attention normal. Mood and Affect: Mood and affect normal. Speech: Speech normal. Behavior: Behavior normal. Health maintenance reviewed with patient: Hepatitis B Vaccine(1 of 3 - 19+ 3-dose series) Never done Influenza Vaccine(1) due on 03/04/2025 Covid-19 Vaccine(2023- season) due on 11/12/2025 Anxiety Screening due on 03/12/2025 Mammogram Screening due on 11/07/2025 DTaP,Tdap,Td Vaccine(3 - Td or Tdap) due on 12/18/2025 Cervical Cancer Screening due on 12/25/2026 Hepatitis C Screening Completed HIV Screening Completed DATA REVIEWED: Most recent labs ASSESSMENT/PLAN: 1. Morbid obesity (HCC) - ICD9: 278.01, ICD10: E66.01 (primary diagnosis) Weight decreasing. Tolerating Zepbound at maximum dose, continue as prescribed - Continue healthy diet consisting of fruits, vegetables and lean proteins. Reduce sugary drinks of artificial juices and sodas and replace with water and low calorie Crystal Light. Healthy Snack alternatives have been discussed - Continue exercise or meaningful activity for 20 minutes at lest 3 times a day 2. Depressive disorder - ICD9: (more content not included)... Normal [facility] DBT Breast - bilateral scree ningon 11-08-2024 IMPRESSION: The focal asymmetry in the left breast at 1 o'clock, middle depth requires additional evaluation. Diagnostic mammogram and ultrasound are recommended. BI-RADS Category 0: Incomplete: Needs Additional Imaging Evaluation RISK: Based on the Tyrer-Cuzick (TC) risk assessment model, this patient has a 14.4% lifetime risk of developing breast cancer, meaning they are at average risk for developing breast cancer. However, this is only an estimate based on available history provided on the patient's questionnaire. We encourage all patients to talk with their providers about these results, further recommendations for managing breast health, and appropriate supplemental screening options if the patient has dense breast tissue. Interpreting Radiologist: Fer Granda M.D. Electronically signed on: 11/08/2024 Fish Net Stringer: ROSARIO Transcribe Date/Time: Nov 07 2024 10:13A Dictated by: FER GRANDA MD This examination was interpreted and the report reviewed and electronically signed by: FER GRANDA MD on Nov 08 2024 1:00PM [facility] DIVISION OF RADIOLOGY * * *Final Report* * * DATE OF EXAM: Nov 07 2024 10:44AM [facility] 0582 - [facility] SCREENING W VASQUEZ / PROCEDURE REASON: Encounter for screening mammogram for breast cancer * * * * Physician Interpretation * * * * RESULT: [place] [address] #[id number] - [facility] SCREENING W VASQUEZ HISTORY: 44 year-old patient seen for screening. Patient is asymptomatic in both breasts. Patient states no personal history of breast cancer. The patient has a family history of breast cancer. COMPARISON STUDIES: The present examination has been compared to prior imaging studies dated 12/06/2017 (ultrasound), 12/06/2017 (mammogram), 06/07/2018 (mammogram), 06/07/2018 (ultrasound) and 10/28/2021 (mammogram). MAMMOGRAM TECHNIQUE: The study was acquired using full field digital technology and interpreted from soft copy. Digital Breast Tomosynthesis (DBT) images were obtained and used to assist in the interpretation of this examination. MAMMOGRAM FINDINGS: The breasts are heterogeneously dense, which may obscure small masses. There is a focal asymmetry in the left breast at 1 o'clock, middle depth. No suspicious masses, calcifications or other abnormalities are seen in the right breast. DIVISION OF RADIOLOGY Provider, [facility] [place] - 11/08/2024 * * *Final Report* * * DATE OF EXAM: Nov 07 2024 10:44AM [facility] 0582 - [facility] SCREENING [facility] VASQUEZ / PROCEDURE REASON: Encounter for screening mammogram for breast cancer * * * * Physician Interpretation * * * * RESULT: [place] [address] [place] [address] #[id number] - [facility] SCREENING W VASQUEZ HISTORY: 44 year-old patient seen for screening. Patient is asymptomatic in both breasts. Patient states no personal history of breast cancer. The patient has a family history of breast cancer. COMPARISON STUDIES: The present examination has been compared to prior imaging studies dated 12/06/2017 (ultrasound), 12/06/2017 (mammogram), 06/07/2018 (mammogram), 06/07/2018 (ultrasound) and 10/28/2021 (mammogram). MAMMOGRAM TECHNIQUE: The study was acquired using full field digital technology and interpreted from soft copy. Digital Breast Tomosynthesis (DBT) images were obtained and used to assist in the interpretation of this examination. MAMMOGRAM FINDINGS: The breasts are heterogeneously dense, which may obscure small masses. There is a focal asymmetry in the left breast at 1 o'clock, middle depth. No suspicious masses, calcifications or other abnormalities are seen in the right breast. IMPRESSION IMPRESSION: The focal asymmetry in the left breast at 1 o'clock, middle depth requires additional evaluation. Diagnostic mammogram and ultrasound are recommended. BI-RADS Category 0: Incomplete: Needs Additional Imaging Evaluation RISK: Based on the Tyrer-Cuzick (TC) risk assessment model, this patient has a 14.4% lifetime risk of developing breast cancer, meaning they are at average risk for developing breast cancer. However, this is only an estimate based on available history provided on the patient's questionnaire. We encourage all patients to talk with their providers about these results, further recommendations for managing breast health, and appropriate supplemental screening options if the patient has dense breast tissue. Interpreting Radiologist: Fer Granda M.D. Electronically signed on: 11/08/2024 Fish Net Stringer: ROSARIO Transcribe Date/Time: Nov 07 2024 10:13A Dictated by: FER GRANDA MD This examination was interpreted and the report reviewed and electronically signed by: FER GRANDA MD on Nov 08 2024 1:00PM EST [facility] DBT Breast - bilateral scree Alizaered By: [facility] Provider on 11-08-2024 [facility] DBT Breast - bilateral scree anagon 11-07-2024 Radiology Study observation (narrative) Hector nielsen [facility] SCREENING W TOMOon 11-07 [facility]ING W V[facility]QUEZ * * *Final Report* * * DATE OF EXAM: Nov 07 2024 10:44AM [facility] 0582 - [facility] SCREENING W VASQUEZ / PROCEDURE REASON: Encounter for screening mammogram for breast cancer * * * * Physician Interpretation * * * * RESULT: [facility] [address] [id number] #[id number] - [facility] SCREENING W VASQUEZ HISTORY: 44 year-old patient seen for screening. Patient is asymptomatic in both breasts. Patient states no personal history of breast cancer. The patient has a family history of breast cancer. COMPARISON STUDIES: The present examination has been compared to prior imaging studies dated 12/06/2017 (ultrasound), 12/06/2017 (mammogram), 06/07/2018 (mammogram), 06/07/2018 (ultrasound) and 10/28/2021 (mammogram). MAMMOGRAM TECHNIQUE: The study was acquired using full field digital technology and interpreted from soft copy. Digital Breast Tomosynthesis (DBT) images were obtained and used to assist in the interpretation of this examination. MAMMOGRAM FINDINGS: The breasts are heterogeneously dense, which may obscure small masses. There is a focal asymmetry in the left breast at 1 o'clock, middle depth. No suspicious masses, calcifications or other abnormalities are seen in the right breast. IMPRESSION: The focal asymmetry in the left breast at 1 o'clock, middle depth requires additional evaluation. Diagnostic mammogram and ultrasound are recommended. BI-RADS Category 0: Incomplete: Needs Additional Imaging Evaluation RISK: Based on the Tyrer-Cuzick (TC) risk assessment model, this patient has a 14.4% lifetime risk of developing breast cancer, meaning they are at average risk for developing breast cancer. However, this is only an estimate based on available history provided on the patient's questionnaire. We encourage all patients to talk with their providers about these results, further recommendations for managing breast health, and appropriate supplemental screening options if the patient has dense breast tissue. Interpreting Radiologist: Fer Granda M.D. Electronically signed on: 11/08/2024 Fish Net Stringer: ROSARIO Delatorre Date/Time: Nov 07 2024 10:13A Dictated by: FER GRANDA MD This examination was interpreted and the report reviewed and electronically signed by: FER GRANDA MD on Nov 08 2024 1:00PM EST [id number] CN Normal [facility] CNOVon 08-23-2024 CNOV Office Visit (INTMWS) SHANNON LOPEZ ([id number]) 1980 F Date Time Provider Department 08/23/24 2:00 PM HAYDEE COON INTMWS During your visit today, we recorded the following information about you: Pulse Respiration Blood pressure Weight 87/minute 14/minute 122/86 137 kg Haydee Coon, QUARRY PLUG AND FEATHER 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 08/23/2024 2:16 PM Signed CC: Patient presents with: Weight Loss HPI Shannoncharity Lopez is a 44 year old female who presents today for above. Currently taking Zepbound 10 mg weekly that she has been getting filled at a compounding pharmacy. They will no longer be able to supply this due to shortage. She found a co-pay coupon online and would like the prescription sent to a regular pharmacy. Weight/BMI Last 1 Encounter Wt Readings: Date: Wt: 08/23/2024 137 kg (302 lb 0.5 oz) BMI 47.69 kg/(m2) Last visit Wt: 140.6 kg (309 lb 15.5 oz) BMI: 48.94 kg/(m2) DIET Daily serving of fruits:1-2 Daily serving of vegetables:1-2 Daily serving of protein:3-5 Fluid intake: water only Do you Skip meals:NO Eating away from home:NO Exercise routine: YES goes to the gym three days a week, on the treadmill for about one hour Medication side effects: denies I Review of Systems See HPI 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 2016 Low ferritin level 08/27/2015 Mental disorders complicating , childbirth, or the puerperium Migraine without aura 02/25/2007 Morbid obesity (HCC) 10/23/2012 Obstructive sleep apnea Orthostatic lightheadedness 05/02/2019 depression RLS (restless legs syndrome) 07/16/2015 Severe pre-eclampsia, antepartum 2016 Sleep apnea 04/24/2015 DME DASCO Teeth grinding 10/23/2012 Tremor 05/02/2019 PAST SURGICAL HISTORY Procedure Laterality Date SECTION HX 2016 MIRENA IUD 07/14/11,03/23/2016 PAST SURGICAL HISTORY OF 2009 UPPP for sleep apnea ALLERGIES Citalopram, Penicillins, and Reglan [Metoclopramide Hcl] MEDICATIONS CPAP/BIPAP/OTHER Type .CPAPSettings into a note to see current settings/supplies/DM E information. FLUoxetine (PROZAC) 40 mg capsule Take 1 capsule by mouth once daily. buPROPion XL (WELLBUTRIN XL) 300 mg 24 hr tablet Take 1 tablet by mouth once daily. rOPINIRole (REQUIP) 0.25 mg tablet Take 3 tablets by mouth at bedtime as needed. levonorgestrel (MIRENA INTRAUTERINE) by INTRAUTERINE route. CPAP AutobiPAP EEP range 4-9 cmH2O, IPAP range 9-15, usu mask, humidity, filters. Dx: G47.33 Rpt to [facility] in 6 weeks. FAMILY HISTORY Problem Relation Age of Onset other (Scleroderma) Mother Lipids Father Hypertension Father Allergic Rhinitis Brother No Known Problems Brother other (Polio) Maternal Grandfather other (Pulmonary Disease) Paternal Grandfather Breast Cancer Maternal Aunt 45 x2 Cancer Other No db2 systems programmer/colon cancer Social History Tobacco Use Smoking status: Never Smokeless tobacco: Never Vaping Use Vaping status: Never Used Substance Use Topics Alcohol use: Yes Comment: rarely Drug use: No BP 122/86 Pulse 87 Resp 14 Wt (!) 137 kg (302 lb 0.5 oz) LMP (LMP Unknown) SpO2 97% BMI 47.69 kg/m? Physical Exam Vitals reviewed. Constitutional: Appearance: Normal appearance. Neurological: Mental Status: She is alert. Psychiatric: Mood and Affect: Mood normal. ASSESSMENT/PLAN: 1. Morbid obesity (HCC) - ICD9: 278.01, ICD10: E66.01 Doing well on current dose of Zepbound supplied by [facility]. She is supposed to increase the dose to 15 mg starting next week. - Continue healthy diet consisting of fruits, vegetables and lean proteins. Reduce sugary drinks of artificial juices and sodas and replace with water and low calorie Crystal Light. Healthy Snack alternatives have been discussed - Continue exercise or meaningful activity for 20 minutes at lest 3 times a day - reviewed SE, medication expectations, required weight loss - Follow-up in 3 month(s) or as needed Prescription instructions reviewed with patient as applicable. Potential red flag symptoms discussed with the patient. Reviewed appropriate action plan to take if red flag symptoms occur. Patient agreeable to treatment plan. During this patient visit I have spent approximately 30 minutes in counseling regarding treatment options, medications, and coordinating care. Haydee Coon, QUARRY PLUG AND FEATHER 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 Allergies As of Date: 08/23/2024 Noted Allergy Reaction CITALOPRAM 02/20/2014 14 - Other: See Comments Comments: Constant yawning PENICILLINS 10/27/2005 4 - Hives 9 - Itching Comments: No difficulty breathing REGLAN (METOCLOPRAMIDE HCL) 03/02/2016 14 - Other: See Comments Comments: anxiety Date Reviewed (more content not included)... Normal [facility] CBC panel Auto (Bld)on 03-12 Erythrocyte distribution width (RBC) [Ratio] 12.8 % 11.5 - 15.0 % [facility] Hematocrit (Bld) [Volume fraction] 41.6 % 36.0 - 46.0 % [facility] Hemoglobin (Bld) [Mass/Vol] 13.5 g/dL 11.5 - 15.5 g/dL [facility] Interpretation and review of laboratory results Normal [facility] MCH (RBC) [Entitic mass] 30.0 pg 26.0 - 34.0 pg [facility] MCHC (RBC) [Mass/Vol] 32.5 g/dL 30.5 - 36.0 g/dL [facility] MCV (RBC) [Entitic vol] 92.4 fL 80.0 - 100.0 fL [facility] Nucleated RBC (Bld) [#/Vol] NINF [facility] Platelet mean volume (Bld) [Entitic vol] 10.6 fL 9.0 - 12.7 fL [facility] Platelets (Bld) [#/Vol] 276 10*3/uL [facility] RBC (Bld) [#/Vol] 4.50 10*6/uL 3.90 - 5.2 0 m/uL [facility] WBC (Bld) [#/Vol] 7.82 10*3/uL [facility] OPERATIVE PROCEDURESon 05-02 OPERATIVE PROCEDURES [facility] OPERATIVE REPORT NAME ACCOUNT SEX AGE ADMIT DISCHARGE PT MED. RECORD# NUMBER DATE DATE TYPE JOHN [id number] F 43 04/27/23 04/27/23 2 SHANNON Quintana [id number] ROOM: [facility] DATE OF : 1980 DICTATING PHYSICIAN: Thom Granda DATE OF SURGERY: 04/27/23 SURGEON: Thom Granda MD PONDMAN: ANESTHESIOLOGIST: Magdaleno Alston CRNA ANESTHETIC: General. PREOPERATIVE DIAGNOSIS: Right knee medial meniscus tear, arthritis. POSTOPERATIVE DIAGNOSIS: Right knee medial meniscus tear, arthritis. OPERATION PERFORMED: Right knee diagnostic video arthroscopy, partial medial meniscectomy, chondroplasty medial femoral condyle. COMPLICATIONS: None. ESTIMATED BLOOD LOSS: Minimal. SPECIAL MEDICATIONS: Ancef 2 gm IV. INDICATIONS: The patient is a 43-year-old female with history of right knee pain. She failed conservative measures. Due to persistent symptoms, she had an MRI. This showed meniscus tear extending into the root region, also medial compartment arthritis. Her diagnosis and treatment options were explained. She did wish to proceed with surgery. She was consented for possible meniscus repair or partial meniscectomy. She understood based on her intraoperative findings that decision would be made. FINDINGS: Findings showed a tear of the posterior horn of the medial meniscus, but there was extension into the root region. The root was not deemed to be unstable. She did have significant chondrosis, grade 2 and 3 changes about the medial femoral condyle diffusely. This was felt to be her main pain generator. She underwent chondroplasty as well as partial medial meniscectomy. Pictures were taken throughout. Page 1 of 2 SHANNON LOPEZ Operative Report SHANNON LOPEZ : 1980 DESCRIPTION OF OPERATION: The patient was taken to the OR, transferred to the table. She was given a general anesthetic. Knee was examined and found to have full motion and full stability. Right upper thigh was padded. Tourniquet was applied, not inflated. Right upper thigh was placed in the arthroscopic leg nagel, which was padded. Left lower extremity had TRUMAN hose and SCD, padded at end of bed, which was flexed down. Right lower extremity was prepped, padded, draped in usual orthopedic sterile fashion for the procedure. We began by injecting our medial and lateral arthroscopy portals with lidocaine with epinephrine. Lateral portal was taken through skin with a knife. A dull trocar took me into the joint. We started in suprapatellar pouch. There was no superior patellofemoral joint arthritis, no significant plica. Medial and lateral gutters showed no significant pathology, other than mild spurring at the medial femoral condyle. Going down the intercondylar notch, ACL was identified. We went to the medial compartment and noted a tear of the posterior horn of the medial meniscus. We also noted significant chondrosis of the medial femoral condyle diffusely. At this point, a medial portal was established with a needle, followed by a knife, followed by a dull trocar to take me into the joint. We probed the medial meniscus and found there to be a posterior horn tear in the white zone. The root did have some degenerative tearing, but the root was not unstable to probing from above and below. We did place the scope through the notch again to look at the root, and there was not instability of the meniscus coming forward. We did perform a partial medial meniscectomy with a forward biting basket and shaver. Pictures were taken. We placed the scope in the lateral compartment, fully visualized and probed the lateral meniscus and structures. No pathology or loose bodies were noted. We placed the scope in the posterolateral compartment. Again, no loose bodies or pathology was noted. We did perform a light shaving chondroplasty throughout the medial femoral condyle back to stable tissue without being too aggressive. Final set of pictures were taken and saved. Knee was drained of the arthroscopic fluid. Arthroscopic instruments were removed. We repaired our portals with a simple suture. We injected the knee with a combination of lidocaine with morphine. Sterile bandage was applied, and she was awoken from anesthetic, transferred back to her own bed in recovery in satisfactory condition. She will be weight-bearing as tolerated on the knee. We will use aspirin 81 mg twice a day for DVT prevention for one month. She will be on Tramadol/Tylenol as needed for pain. Dictated By: Thom Granda MD 04/27/23 11:37 JOB #: [id number] Transcribed By: xiomara 04/27/23 21:34 Electronically signed by: E-SIGN DR. THOM GRANDA M.D. 05/02/23 07:33 Page 2 of 2 TREY LOPEZChidi Quintana Operative Report Normal [facility] URINEon 04-27-2023 Beta HCG ( test) Ql (U) Negative Normal NEGATIVE [facility] Comment on above: Performed By: #### 2 [id number] #### [facility],[address] [place] [address] EXTERNAL QC DONE? YES Normal [facility] Comment on above: Performed By: #### 2 [id number] #### [facility],[address] [place] [address] INTERNAL QC PASS Normal [facility] Comment on above: Performed By: #### 2 [id number] #### [facility],[address] [place] [address] BMP with eGFRon 04-18-2023 AGE 43 years Normal [facility] Comment on above: Performed By: #### 2 [id number] #### [facility],[address] [place] [address] Anion gap [Moles/Vol] 15 mmol/L Normal 10 - 20 [facility] Comment on above: Performed By: #### 2 [id number] #### [facility],[address] [place] [address] BMP with eGFR Normal [facility] Comment on above: Result Comment: BASI C METABOLIC PANEL Performed By: #### 2 [id number] #### [facility],[address] [place], [place] [address] Calcium [Mass/Vol] 9.1 mg/dL Normal 8.5 - 10.[address] [facility] Comment on above: Performed By: #### 2 90421 #### [facility],[address] [place] [address] Chloride [Moles/Vol] 106 mmol/L Normal 98 - [address] [facility] Comment on above: Performed By: #### 2 [id number] #### [facility],[address] [place] [address] CO2 [Moles/Vol] 25.6 mmol/L Normal 21.0 - 32.0 [facility] Comment on above: Performed By: #### 2 70569 #### [facility],[address] [place] [address] Creatinine [Mass/Vol] 0.63 mg/dL Normal 0.55 - 1.02 [facility] Comment on above: Performed By: #### 2 [id number] #### [facility],[address] [place], [place] [id number] GFR/1.73 sq M.predicted among non-blacks MDRD (S/P/Bld) [Vol rate/Area] mL/min/{1.73_m2} Normal 60 - [address] [facility] Comment on above: Performed By: #### 2 15019 #### [facility],[address] [place] [address] Result Comment: ACCO RDING TO THE NATIONAL KIDNEY DISEASE EDUCATION PROGRAM(NKDE), A NORMAL eGFR IS A VALUE GREATER THAN OR EQUAL TO 60 ML/MIN/1.73 SQ METERS. CHRONIC KIDNEY DISEASE: <60mL/MIN/1.73 SQ METERS KIDNEY FAILURE: <15mL/MIN/1.73 SQ METERS THIS TEST SHOULD ONLY BE USED FOR PATIENTS 18 YEARS OF AGE AND OLDER. Glucose [Mass/Vol] 97 mg/dL Normal 74 - [address] [facility] Comment on above: Performed By: #### 2 [id number] #### [facility],[address],[place] [address] Potassium [Moles/Vol] 4.0 mmol/L Normal 3.5 - 5.1 [facility] Comment on above: Performed By: #### 2 [id number] #### [facility],[address] [place] [address] Sodium [Moles/Vol] 143 mmol/L Normal 136 - [address] [facility] Comment on above: Performed By: #### 2 11721 #### [facility],[address] [place] [address] Urea nitrogen [Mass/Vol] 11 mg/dL Normal 7 - [address] [facility] Comment on above: Performed By: #### 2 [id number] #### [facility],[address] [place] [address] CBC + DIFFon 04-18-2023 Baso # 0.00 [id number]/UL Normal 0.00 - 0.10 [facility] Comment on above: Performed By: #### 2 [id number] #### [facility] [facility],[address] [place] [address] 27675 Basophils/100 WBC (Bld) 0.4 % Normal 0.0 - 2.[address] [facility] Comment on above: Performed By: #### 2 13137 #### [facility],[address] [place] [address] 45986 CBC + DIFF Normal [facility] Comment on above: Result Comment: CBC- COMPLETE BLOOD COUNT Performed By: #### 2 12696 #### [facility],[address] [place] [address] 41793 EO # 0.20 x10EE3/UL Normal 0.00 - 0.50 [facility] Comment on above: Performed By: #### 2 39951 #### [facility],[address] [place] [address] 10932 Eosinophils/100 WBC (Bld) 1.7 % Normal 0.0 - 7.[address] [facility] Comment on above: Performed By: #### 2 15960 #### [facility],[address] [place], [place] [id number] Erythrocyte distribution width (RBC) [Ratio] 13.8 % Normal 12.0 - 15.[address] [facility] Comment on above: Performed By: #### 2 15653 #### [facility],[address] [place] [address] Hematocrit (Bld) [Volume fraction] 38.3 % Normal 34.0 - 46.[address] [facility] Comment on above: Performed By: #### 2 79575 #### [facility],[address] [place] [address] Hemoglobin (Bld) [Mass/Vol] 12.7 g/dL Normal 12.0 - 16.[address] [facility] Comment on above: Performed By: #### 2 95655 #### [place] [address] Lymph # 2.10 x10EE3/UL Normal 0.80 - 2.80 [facility] Comment on above: Performed By: #### 2 25131 #### [facility],[address] [place], [place] [id number] Lymphocytes/100 WBC (Bld) 22.9 % Normal 20.0 - 45.[address] [facility] Comment on above: Performed By: #### 2 28405 #### [facility],[address] [place], [place] [id number] MANUAL DIFF N/A Normal [facility] Comment on above: Performed By: #### 2 96496 #### [facility],[address] [place] [address] 01207 MCH (RBC) [Entitic mass] 30 pg Normal 27 - [address] [facility] Comment on above: Performed By: #### 2 73386 #### [facility],[address] [place] [address] 74826 MCHC 33 X10 3 Normal 32 - [address] [facility] Comment on above: Performed By: #### 2 66194 #### [facility],[address] [place] [address] 39524 MCV (RBC) [Entitic vol] 90 fL Normal 80 - 99 [facility] Comment on above: Performed By: #### 2 57922 #### [facility],[address] [place] [address] 88591 Lawrence # 0.70 x10EE3/UL Normal 0.20 - 1.00 [facility] Comment on above: Performed By: #### 2 34689 #### [facility],[address] [place] [address] 83133 MONOS % 8.2 % Normal 0.0 - 10.[address] [facility] Comment on above: Performed By: #### 2 61624 #### [facility],[address] [place] [address] 77231 Morphology Link (Bld) [Interp] N/A Normal [facility] Comment on above: Result Comment: {CD] Performed By: #### 2 58949 #### [facility],[address] [place] [address] 16315 Neut # 6.10 x10EE3/UL Normal 1.50 - 7.10 [facility] Comment on above: Performed By: #### 2 18746 #### [facility],[address] [place] [address] 23795 Neutrophils/100 WBC (Bld) 66.8 % Normal 46.0 - 76.[address] [facility] Comment on above: Performed By: #### 2 13921 #### [facility],[address] [place] [address] 03781 PLATELET 286 x10EE3/UL Normal 150 - 450 [facility] Comment on above: Performed By: #### 2 42824 #### [facility],[address] [place] [address] 15248 Platelet mean volume (Bld) [Entitic vol] 8.0 fL Normal 6.6 - 10.5 [facility] Comment on above: Result Comment: AUTO MATED DIFFERENTIAL Performed By: #### 2 62445 #### [facility],[address] [place] [address] 37928 RBC 4.26 x 10EE6/UL Normal 4.10 - 5.30 [facility] Comment on above: Performed By: #### 2 37132 #### [facility],[address] [place] [address] 07172 WBC 9.1 x 10EE3/UL Normal 4.5 - 10.8 [facility] Comment on above: Performed By: #### 2 73815 #### [facility],[address] [place] [address] 34484 Emergency Department Summary on 03-26-2023 Emergency Department Summary [facility] Medical Records Department [address] [place], [place] [id number] Emergency Department Summary 03/26/23 MR#: [id number] Acct: [id number] Name: SHANNON LOPEZ Rep #: [id number] : 1980 43 From: Alexey Breen MD PCP: Dr. Michael Acuña MD Status:REG ER Location: ED HPI History of Present Illness HPI Narrative: Atraumatic right knee pain. Chief Complaint: Lower Extremity Injury Informant: patient Onset/Context/Timing Onset: Days Context: Gradual Onset Timing: Intermittent Quality of Pain: Dull and Aching Maximum Severity: Moderate Associated Symptoms Associated Symptoms: Negative for Parasthesia, Weakness or Loss of Funtion Narrative Narrative: 43-year-old female who in the last several weeks was treated for atraumatic right knee pain. Went to the concluding urgent care had x-rays which she states showed arthritis in her knee. They put her on prednisone for around 5 days that she had improvement. Today she pivoted on her knee heard a pop and is having more discomfort. She denies any fall or other trauma. No fever or redness. She has never had knee surgery nor an MRI. Prior similar symptoms: Yes Recent Illness/Hospitalizat ion: No PFSH PFSH Medical History BiPAP (biphasic positive airway pressure) dependence HELLP syndrome Migraines Non-smoker Preeclampsia Sleep apnea Home Medications bupropion HCl 150 mg 24 hr tablet, extended release 300 mg PO DAILY ##0 06/16/15 [History Last Taken 01/19/16 0730] fluoxetine 10 mg capsule 40 mg PO DAILY 02/22/16 [History Last Taken Unknown] meloxicam 15 mg tablet 15 mg PO DAILY #14 tabs 10/09/22 [Rx Last Taken Unknown] methocarbamol 500 mg tablet mg 10/09/22 [History Last Taken Unknown] ropinirole 0.25 mg tablet 0.25 mg PO QHS PRN PRN RLS 10/09/22 [History Last Taken Unknown] Allergy/AdvReac Type Severity Reaction Status Date / Time citalopram Allergy Other Verified 03/26/23 17:44 Penicillins [PCN] Allergy Unknown Verified 03/26/23 17:44 metoclopramide HCl AdvReac Other Verified 03/26/23 17:44 [From Reg[facility]] Social History Smoking Status: Never smoker ROS ROS ED ROS Narrative Denies recent illness. Review of Systems ROS Unobtainable: Denies due to encephalopathy Constitutional Constitutional ED: Denies chills Eyes Eyes: Denies blurry vision ENT ENT ED: Denies ear pain Cardiovascular Cardiovascular: Denies chest pain Respiratory/Chest Respiratory/Chest: Denies cough Gastrointestinal Gastrointestinal: Denies abdominal pain Genitourinary Genitourinary ED: Denies dysuria Musculoskeletal Musculoskeletal: Denies arthralgias Integumentary Denies abscess Neurologic Neurologic: Denies headache(s) Psychiatric Psychiatric: Denies anxiety Endocrine Endocrinology: Denies polydipsia Hematologic/Lymphati c Hematologic/Lymphati c: Denies easy bleeding Allergic/Immunologic Allergic/Immunologic ED: Denies mouth swelling EXAM Physical Exam Narrative Exam Narrative: 15-year-old female vital signs stable afebrile. No distress. HEENT exam unremarkable. Lungs clear. Heart regular rhythm. No murmur. Abdomen soft nontender. Moving all 4 extremities. Neurovascularly intact. Specifically right hip nontender nonswollen. No discoloration. Normal internal/external rotation. Right knee minimal swelling. No significant effusion. No redness or warmth. She is able to do flexion extension with mild discomfort. Is able to extend 280 degrees and lift her leg off the bed. Extensor mechanism is intact. ACL PCL are intact with stressing. As are the MCL and LCL. There is no bruising. No bony deformity. Calf and lower leg are nontender. She has normal dorsi plantarflexion of her right ankle and foot. Normal DP pulse. Const Vital Signs: 03/26/23 17:44 Temperature 98.5 F Temperature Source Temporal Pulse Rate 74 Respiratory Rate 18 Blood Pressure 173/103 H Blood Pressure Mean 126 Pulse Ox 98 Oxygen Delivery Method Room Air Positive well nourished, well developed and obese; Negative for cachectic, contractures or unkempt General Appearance ED: well developed; Negative for unkempt, cachectic or contractures Nutritional Appearance: obese; Negative for cachectic HEENT Reports moist mucous membranes normocephalic and atraumatic; Negative for trauma or tenderness Eyes General Eye ED: Negative for other Neck full ROM and supple Thyroid: Negative for tender Lymph Lymphatic: Negative for other Chest Wall inspection of chest normal and palpation of chest normal Chest: Negative for other Resp normal respiratory effort, no retractions and clear to auscultation bilaterally Effort and Inspection: Negative for pain with movement Auscultatio (more content not included)... Normal [facility] XR KNEE GENERAL 4V AP BOTH/P A BOTH/LAT/MERC RIGHTon 03-18-2023 [facility] XR Knee - right 4 Viewson IMPRESSION: Mild degenerative changes in the right knee with small joint effusion. Fish Net Stringer: LEELEE Transcribe Date/Time: Mar 18 2023 1:14P Dictated by : KRISTOFER KHAN MD This examination was interpreted and the report reviewed and electronically signed by: KRISTOFER KHAN MD on Mar 18 2023 1:22PM [facility] DIVISION OF RADIOLOGY * * *Final Report* * * DATE OF EXAM: Mar 18 2023 1:10PM WOX 5203 - XR KNEE 4V AP/PA BOTH+LAT/TRAVIS RT / PROCEDURE REASON: Acute pain of right knee * * * * Physician Interpretation * * * * EXAM TITLE: XR KNEE 4V AP/PA BOTH+LAT/TRAVIS RT EXAM DATE/TIME: 03/18/2023 1:10 PM COMPARISON: None. CLINICAL INDICATION/HISTORY: Acute knee pain. TECHNIQUE: AP/PA, lateral and sunrise views of the right knee are presented. FINDINGS: No acute fractures or subluxations are noted. Minimal medial compartmental degenerative changes noted. The joint spaces are grossly preserved. There is small joint effusion. The mineralization of the bones is normal. There is no significant soft tissue swelling. DIVISION OF RADIOLOGY Provider, [facility] [place] - 03/18/2023 * * *Final Report* * * DATE OF EXAM: Mar 18 2023 1:10PM WOX 5203 - XR KNEE 4V AP/PA BOTH+LAT/TRAVIS RT / PROCEDURE REASON: Acute pain of right knee * * * * Physician Interpretation * * * * EXAM TITLE: XR KNEE 4V AP/PA BOTH+LAT/TRAVIS RT EXAM DATE/TIME: 03/18/2023 1:10 PM COMPARISON: None. CLINICAL INDICATION/HISTORY: Acute knee pain. TECHNIQUE: AP/PA, lateral and sunrise views of the right knee are presented. FINDINGS: No acute fractures or subluxations are noted. Minimal medial compartmental degenerative changes noted. The joint spaces are grossly preserved. There is small joint effusion. The mineralization of the bones is normal. There is no significant soft tissue swelling. IMPRESSION IMPRESSION: Mild degenerative changes in the right knee with small joint effusion. Fish Net Stringer: PSCB Transcribe Date/Time: Mar 18 2023 1:14P Dictated by : KRISTOFER KHAN MD This examination was interpreted and the report reviewed and electronically signed by: KRISTOFER KHAN MD on Mar 18 2023 1:22PM EST [facility] Radiology Study [facility]narrative[facility] 4 ViewsOrder ed By: [facility] Provider on 03-18-2023 [facility] Emergency Department Summary on 10-10-2022 Emergency Department Summary [facility] Medical Records Department [address] [place] [address] Emergency Department Summary 10/09/22 MR#: [id number] Acct: [id number] Name: SHANNON LOPEZ Rep #: [id number] : 1980 42 From: Thaddeus Khan MD PCP: Dr. Michael Acuña MD Status:REG ER Location: ED HPI History of Present Illness Chief Complaint: Flank Pain Informant: patient Narrative Narrative: Patient states she has been having pain in her right mid back that sometimes hurts to move around but not always, has been occurring consistently for a couple of weeks, including at rest. Not pleuritic. No chest pain. She has been having dyspnea with exertion for the past week, and fatiguing easily which is very abnormal for her. 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 She has had some low-grade fevers in the 99 range for the last couple days but no coughing. 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 She denies any leg pain or swelling or recent travel/immobilizatio n/surgery/hospitaliz ation. No history of DVT or PE. [facility] Medical History BiPAP (biphasic positive airway pressure) dependence HELLP syndrome Migraines Non-smoker Preeclampsia Sleep apnea Home Medications bupropion HCl 150 mg 24 hr tablet, extended release 300 mg PO DAILY ##0 06/16/15 [History Last Taken 01/19/16 0730] fluoxetine 10 mg capsule 40 mg PO DAILY 02/22/16 [History Last Taken Unknown] methocarbamol 500 mg tablet mg 10/09/22 [History Last Taken Unknown] ropinirole 0.25 mg tablet 0.25 mg PO QHS PRN PRN RLS 10/09/22 [History Last Taken Unknown] Allergy/AdvReac Type Severity Reaction Status Date / Time citalopram Allergy Other Verified 10/09/22 19:11 Penicillins [PCN] Allergy Unknown Verified 10/09/22 19:11 metoclopramide HCl AdvReac Other Verified 10/09/22 19:11 [From [facility]] Social History Smoking Status: Never smoker ROS ROS ED Constitutional Constitutional ED: Denies chills or fever(s) Eyes Eyes: Denies change in vision or diplopia ENT ENT ED: Reports rhinorrhea; Denies sore throat Cardiovascular Cardiovascular: Denies chest pain or palpitations Respiratory/Chest Respiratory/Chest: Reports dyspnea and dyspnea on exertion; Denies cough Gastrointestinal Gastrointestinal: Denies abdominal pain, diarrhea, nausea or vomiting Genitourinary Genitourinary ED: Denies dysuria or hematuria Musculoskeletal Musculoskeletal: Reports back pain; Denies neck pain Integumentary Denies abscess or rash Neurologic Neurologic: Denies headache(s), paresthesias or weakness Psychiatric Psychiatric: Denies anxiety or suicidal thoughts EXAM Physical Exam Const Vital Signs: 10/09/22 19:11 10/09/22 19:38 10/09/22 21:10 Temperature 97 F L Temperature Source Temporal Pulse Rate 93 78 Respiratory Rate 14 196 H Respiratory Effort Non-Labored Respiratory Pattern Normal Blood Pressure 146/107 H 136/85 H Blood Pressure Mean 120 102 Pulse Ox 98 Oxygen Delivery Method Room Air Room Air Positive well nourished, well developed and obese General Appearance ED: well developed and NAD Nutritional Appearance: obese HEENT Reports moist mucous membranes normocephalic and atraumatic Eyes PERRL and EOMs intact bilaterally Neck full ROM and supple Chest Wall inspection of chest normal and palpation of chest normal Resp normal respiratory effort and clear to auscultation bilaterally Cardio regular rate, regular rhythm and no murmurs GI non-tender and non-distended Auscultation: normoactive bowel sounds Palpation: soft Back/Spine no CVA tenderness Back/Spine Narrative: Mild tenderness right lower lateral mid back, well caudal to the scapula. No midline tenderness. No rashes normal inspection. General Back: other FROM Extremity normal to inspection and no calf tenderness General Extremety ED: Negative for edema, pulses abnormal or tenderness General Extremity: Negative for edema or pulses abnormal Neuro oriented x3, CN's II-XII intact bilaterally and no sensory deficits noted Sensorium / Orientation: awake and alert Motor Exam: strength 5/5 throughout Psych mental status grossly normal Skin no rashes or lesions noted and no wounds MDM MDM MDM Narrative Medical decision making narrative: Patient is a mild nonspecific leukocytosis, her EKG, two-view chest x-ray my interpretation, troponin, and D-dimer are all normal. Therefore she does not require further imaging such as CTA, which was considered but not indicated or necessary, in order to rule out pulmonary embolus here. Less likely to have pericardial effusion since she has no evidence of (more content not included)... Normal [facility] 12 Lead EKGon 10-09-2022 12 Lead EKG [facility] [address] [place] [address] 12 Lead EKG 10/09/222013 MR#: [id number] Acct: [id number] Name: SHANNON LOPEZ Rep #: [id number] : 1980 42 From: Adrian Alston MD Attending Dr: Status: DEP ER Ordering Dr: Thaddeus Khan MD Date: 10/09/22 Location: ED Sex: F C Admitted: Test Reason : SOB Blood Pressure : / mmHG Vent. Rate : 076 BPM Atrial Rate : 076 BPM P-R Int : 144 ms QRS Dur : 072 ms QT Int : 368 ms P-R-T Axes : 030 049 053 degrees QTc Int : 414 ms Normal sinus rhythm Normal ECG Confirmed by MYAH SANTANA, ADRIAN ([id number]), publications editor CANELO MCCLELLAN ([id number]) on 10/11/2022 1:13:54 PM Referred By: BB Confirmed By:ADRIAN ALSTON MD 10/11/22 1313 Date Adrian Alston MD CC: Dr. Thaddeus Khan MD; Dr. Michael Acuña MD Signed Normal [facility] Absolute lymphocyte countOrd ered By: Dr. Khan on 10-09-2022 Lymphocytes Auto (Unsp spec) [#/Vol] 1.61 10*3/uL 0.83-4.51 [facility] Basic Metabolic Profile (BMP )on 10-09-2022 BUN/CRE 24.1 RATIO High 10-20 [facility] Comment on above: Order Comment: 'TROP ' Serial specimen #1, #2 or #3: 1 Performed By: #### L 500.2500, L501.4020, L100.0100, L300.8000 #### [facility] [address] [place], [place], [id number] CA,Total 9.2 mg/dL Normal 8.5-10.1 [facility] Comment on above: Order Comment: 'TROP ' Serial specimen #1, #2 or #3: 1 Performed By: #### L 500.2500, L501.4020, L100.0100, L300.8000 #### [facility] [address] [place], [address] Chloride [Moles/Vol] 108 mmol/L High 98-107 [facility] Comment on above: Order Comment: 'TROP ' Serial specimen #1, #2 or #3: 1 Performed By: #### L 500.2500, L501.4020, L100.0100, L300.8000 #### [facility] [address] [place], [address] CO2 [Moles/Vol] 25.0 mmol/L Normal 21.0-32.0 [facility] Comment on above: Order Comment: 'TROP ' Serial specimen #1, #2 or #3: 1 Performed By: #### L 500.2500, L501.4020, L100.0100, L300.8000 #### [facility] [address] [place], [address] Creatinine [Mass/Vol] 0.79 mg/dL Normal 0.55-1.02 [facility] Comment on above: Order Comment: 'TROP ' Serial specimen #1, #2 or #3: 1 Result Comment: The validity of the calculated GFR GFRAA in patients over 70 years has not been determined. Clinical correlation is essential. Performed By: #### L 500.2500, L501.4020, L100.0100, L300.8000 #### [facility] [address] [place], [address] ECRCL 87.73 ml/min Normal [facility] Comment on above: Order Comment: 'TROP ' Serial specimen #1, #2 or #3: 1 Performed By: #### L 500.2500, L501.4020, L100.0100, L300.8000 #### [facility] [address] [place], [address] EST GFR - AA 103 mL/min Normal >60 [facility] Comment on above: Order Comment: 'TROP ' Serial specimen #1, #2 or #3: 1 Result Comment: Afri can Peruvian GFR Calc Performed By: #### L 500.2500, L501.4020, L100.0100, L300.8000 #### [facility] [address] [place], [address] GAP 9 Normal 5-15 [facility] Comment on above: Order Comment: 'TROP ' Serial specimen #1, #2 or #3: 1 Performed By: #### L 500.2500, L501.4020, L100.0100, L300.8000 #### [facility] [address] [place], [address] GFR/1.73 sq M.predicted among non-blacks MDRD (S/P/Bld) [Vol rate/Area] 85 mL/min/{1.73_m2} Normal >60 [facility] Comment on above: Order Comment: 'TROP ' Serial specimen #1, #2 or #3: 1 Result Comment: Non- GFR Calc Performed By: #### L 500.2500, L501.4020, L100.0100, L300.8000 #### [facility] [address] [place], [address] Glucose [Mass/Vol] 148 mg/dL High 74-106 [facility] Comment on above: Order Comment: 'TROP ' Serial specimen #1, #2 or #3: 1 Result Comment: Fast ing Glucose result greater than or equal to 126 mg/dL suggests DIABETES MELLITUS per A.D.A. criteria. Performed By: #### L 500.2500, L501.4020, L100.0100, L300.8000 #### [facility] [address] [place], [address] Potassium [Moles/Vol] 4.0 mmol/L Normal 3.5-5.1 [facility] Comment on above: Order Comment: 'TROP ' Serial specimen #1, #2 or #3: 1 Performed By: #### L 500.2500, L501.4020, L100.0100, L300.8000 #### [facility] [address] [place], [address] Sodium [Moles/Vol] 142 mmol/L Normal 136-145 [facility] Comment on above: Order Comment: 'TROP ' Serial specimen #1, #2 or #3: 1 Performed By: #### L 500.2500, L501.4020, L100.0100, L300.8000 #### [facility] [address] [place], [address] Urea nitrogen [Mass/Vol] 19 mg/dL High 7-18 [facility] Comment on above: Order Comment: 'TROP ' Serial specimen #1, #2 or #3: 1 Performed By: #### L 500.2500, L501.4020, L100.0100, L300.8000 #### [facility] [address] [place], [address] Basophil percentageOrdered B y: Dr. Khan on 10-09-2022 Basophils/100 WBC (Bld) 0.4 % 0-1 [facility] Chloride [Moles/Vol] 108 mmol/L 98-107 [facility] Eosinophils/100 WBC (Bld) 0.4 % 0-5 [facility] Glucose [Mass/Vol] 148 mg/dL 74-106 [facility] Comment on above: Fasting Glucose resu lt greater than or equal to 126 mg/dL suggests DIABETES MELLITUS per A.D.A. criteria. Neutrophils (Bld) [#/Vol] 10.7 10*3/uL 2.0-7.7 [facility] Neutrophils/100 WBC (Bld) 79.9 % 47-70 [facility] Potassium [Moles/Vol] 4.0 mmol/L 3.5-5.1 [facility] Sodium [Moles/Vol] 142 mmol/L 136-145 [facility] WBC (Bld) [#/Vol] 13.3 10*3/uL 4.4-11.0 [facility] Blood erythrocytes count (nu mber/volume)Ordered By: Dr. Khan on 10-09-2022 RBC (Bld) [#/Vol] 4.22 10*6/uL 4.2-5.4 [facility] Blood hemoglobin measurement (mass/volume)Ordered By: Dr. Khan on 10-09-2022 Hemoglobin (Bld) [Mass/Vol] 12.6 g/dL 12.0-15.0 [facility] Blood lymphocytes/100 leukoc ytesOrdered By: Dr. Khan on 10-09-2022 Lymphocytes/100 WBC (Bld) 12.1 % 19-41 [facility] Blood monocytes/100 leukocyt esOrdered By: Dr. Khan on 10-09-2022 Monocytes/100 WBC (Bld) 6.7 % 0-10 [facility] Blood platelet mean volumeOr dered By: Dr. Khan on 10-09-2022 Platelet mean volume (Bld) [Entitic vol] 9.4 fL 6.2-12.0 [facility] CBC W/Diff, Automatedon 02-0 Absolute Lymph 1.61 X10 3/uL Normal 0.83-4.51 [facility] Comment on above: Performed By: #### L 500.2500, L501.4020, L100.0100, L300.8000 #### [facility] [address] [place], [address] Absolute Neut 10.7 X10 3/uL High 2.0-7.7 [facility] Comment on above: Performed By: #### L 500.2500, L501.4020, L100.0100, L300.8000 #### [facility] [address] [place], [address] Basophils/100 WBC (Bld) 0.4 % Normal 0-1 [facility] Comment on above: Performed By: #### L 500.2500, L501.4020, L100.0100, L300.8000 #### [facility] [address] [place], [address] Eosinophils/100 WBC (Bld) 0.4 % Normal 0-5 [facility] Comment on above: Performed By: #### L 500.2500, L501.4020, L100.0100, L300.8000 #### [facility] [address] [place], [address] Erythrocyte distribution width (RBC) [Ratio] 13.2 % Normal 11.6-14.6 [facility] Comment on above: Performed By: #### L 500.2500, L501.4020, L100.0100, L300.8000 #### [facility] [address] [place], [address] Hematocrit (Bld) [Volume fraction] 38.0 % Normal 37-47 [facility] Comment on above: Performed By: #### L 500.2500, L501.4020, L100.0100, L300.8000 #### [facility] [address] [place], [address] Hemoglobin (Bld) [Mass/Vol] 12.6 g/dL Normal 12.0-15.0 [facility] Comment on above: Performed By: #### L 500.2500, L501.4020, L100.0100, L300.8000 #### [facility] [address] [place], [address] IG% 0.500 Normal 0.0-0.9 [facility] Comment on above: Result Comment: IG% - Immature Granulocytes (promyelocytes, myelocytes and metamyelocytes) > 1% indicates that a LEFT SHIFT is Present. Performed By: #### L 500.2500, L501.4020, L100.0100, L300.8000 #### [facility] [address] [place], [address] Lymphocytes/100 WBC (Bld) 12.1 % Low 19-41 [facility] Comment on above: Performed By: #### L 500.2500, L501.4020, L100.0100, L300.8000 #### [facility] [address] [place], [address] MCH (RBC) [Entitic mass] 29.9 pg Normal 27.0-32.0 [facility] Comment on above: Performed By: #### L 500.2500, L501.4020, L100.0100, L300.8000 #### [facility] [address] [place], [address] MCHC (RBC) [Mass/Vol] 33.2 g/dL Normal 32-36 [facility] Comment on above: Performed By: #### L 500.2500, L501.4020, L100.0100, L300.8000 #### [facility] [address] [place], [address] MCV (RBC) [Entitic vol] 90.0 fL Normal 81-99 [facility] Comment on above: Performed By: #### L 500.2500, L501.4020, L100.0100, L300.8000 #### [facility] [address] [place], [address] Monocytes/100 WBC (Bld) 6.7 % Normal 0-10 [facility] Comment on above: Performed By: #### L 500.2500, L501.4020, L100.0100, L300.8000 #### [facility] [address] [place], [address] Neutrophils/100 WBC (Bld) 79.9 % High 47-70 [facility] Comment on above: Performed By: #### L 500.2500, L501.4020, L100.0100, L300.8000 #### [facility] [address] [place], [address] Nucleated RBC (Bld) [#/Vol] 0 10*3/uL Normal 0-5 [facility] Comment on above: Performed By: #### L 500.2500, L501.4020, L100.0100, L300.8000 #### [facility] [address] [place], [address] Platelet mean volume (Bld) [Entitic vol] 9.4 fL Normal 6.2-12.0 [facility] Comment on above: Performed By: #### L 500.2500, L501.4020, L100.0100, L300.8000 #### [facility] [address] [place], [address] Platelets (Bld) [#/Vol] 250 10*3/uL Normal 150-450 [facility] Comment on above: Performed By: #### L 500.2500, L501.4020, L100.0100, L300.8000 #### [facility] [address] [place], [address] RBC (Bld) [#/Vol] 4.22 10*6/uL Normal 4.2-5.4 [facility] Comment on above: Performed By: #### L 500.2500, L501.4020, L100.0100, L300.8000 #### [facility] [address] [place], [address] RDW SD 43.4 fl Normal 35.1-43.9 [facility] Comment on above: Performed By: #### L 500.2500, L501.4020, L100.0100, L300.8000 #### [facility] [address] [place], [address] WBC (Bld) [#/Vol] 13.3 10*3/uL High 4.4-11.0 [facility] Comment on above: Performed By: #### L 500.2500, L501.4020, L100.0100, L300.8000 #### [facility] [address] [place], [address] Chest PA and Lateralon 10-09 Chest PA and Lateral [facility] [address] [place] [address] Chest PA and Lateral MR#: [id number] Acct: [id number] Name: SHANNON LOPEZ Rep #: [id number] : 1980 F 42 From: Kareem Nielsen PCP: Dr. Michael Acuña MD Status: REG ER Study: Chest PA and Lateral Date of Exam: 10/09/22 Exam# [id number] Ordering Dr: Thaddeus Khan MD EXAM: XR CHEST, 2 VIEWS CLINICAL INDICATION: sob TECHNIQUE: Frontal and lateral views of the chest. This report was created using [employer] report generation technology. COMPARISON: 06/24/2015 FINDINGS: LUNGS AND PLEURAL SPACES: Unremarkable. No consolidation or edema. No pneumothorax. No effusion. HEART: Unremarkable. Cardiac silhouette not enlarged. MEDIASTINUM: Central airways and mediastinal contour are unremarkable. BONES/JOINTS: Unremarkable. SOFT TISSUES: Unremarkable. RAD/Chest PA and Lateral IMPRESSION: No radiographic evidence of acute cardiopulmonary disease. Electronically Signed: Kareem Cloud MD at 20:50 EST Reading Location ID and State: [facility] / [place] , Service support , CC: Dr. Thaddeus Khan MD; Dr. Michael Acuña MD [employer]er: Signed Normal [facility] D-Dimer Quantitative (DVT/PE )on 10-09-2022 D-DIMER QUANT < 0.27 Low 0.27-0.49 [facility] Comment on above: Result Comment: NORM AL D-Dimer level (<0.50) indicates no DVT or PE. Performed By: #### L 500.2500, L501.4020, L100.0100, L300.8000 #### [facility] [address] [place], [address] Determination of erythrocyte mean corpuscular volume (MCV)Ordered By: Dr. Khan on 10-09-2022 MCV (RBC) [Entitic vol] 90.0 fL 81-99 [facility] Hematocrit Auto (Bld) [Volum e fraction]Ordered By: Dr. Khan on 10-09-2022 Hematocrit (Bld) [Volume fraction] 38.0 % 37-47 [facility] Influenza virus A and B and SARS-CoV-2 (COVID-19) Ag panel - Upper respiratory specimOrdered By: Dr. Khan on 10-09-2022 SARS-CoV-2 (COVID-19) RNA JUNIOR+probe Ql (Resp) [facility] L501.4020on 10-09-2022 TROPONIN-I HS 4 pg/mL Normal 3.0-54.0 [facility] Comment on above: Order Comment: 'TROP ' Serial specimen #1, #2 or #3: 1 Result Comment: Plea se Note: New Test Units and Gender Specific Reference Ranges. For more information see Policy Stat Procedure Rogers High Sensitivity Troponin (TNIH) and attachments. Performed By: #### L 500.2500, L501.4020, L100.0100, L300.8000 #### [facility] [address] [place], [address] Laboratory - Chemistry and C hemistry - challengeOrdered By: Dr. Khan on 10-09-2022 CO2 [Moles/Vol] 25.0 mmol/L 21.0-32.0 [facility] Urea nitrogen/Creatinine [Mass ratio] 24.1 mg/mg 10-20 [facility] Laboratory - Hematology and Cell countsOrdered By: Dr. Khan on 10-09-2022 Erythrocyte distribution width (RBC) [Entitic vol] 43.4 fL 35.1-43.9 [facility] Erythrocyte distribution width (RBC) [Ratio] 13.2 % 11.6-14.6 [facility] Immature granulocytes/100 WBC (Bld) 0.500 % 0.0-0.9 [facility] Comment on above: IG% - Immature Granu locytes (promyelocytes, myelocytes and metamyelocytes) > 1% indicates that a LEFT SHIFT is Present. MCH (RBC) [Entitic mass] 29.9 pg 27.0-32.0 [facility] Nucleated RBC/100 WBC (Bld) [Ratio] 0 % 0-5 [facility] M101.0111on 10-09-2022 M101.0111 *Negative results from patients with symptom onset beyond five days should be treated as presumptive and confirmed by a molecular assay if clinically necessary. Negative results should not be used as the sole basis for treatment or for patient management. FLUABV+SARS-CoV2 Ag Pnl Up resp IA.rapid *Positive results do not differentiate between SARS-CoV and SARS-CoV-2. FLUABV+SARS-CoV2 Ag Pnl Up resp IA.rapid Negative Influenza results should be confirmed with FLU PANEL MOLECULAR if indicated. FLUABV+SARS-CoV2 Ag Pnl Up resp IA.rapid * This test has not been FDA cleared or approved; the test has been authorized by FDA under an Emergency Use Authorization (EAU) for use by laboratories certified under CLIA that meet the requirements to perform moderate, high, or waived complexity tests. FLUABV+SARS-CoV2 Ag Pnl Up resp IA.rapid Normal Reference Range: Negative Jayda, AYE method SARS-CoV-2 (COVID 19) Negative Influenza Ag, Direct Presumptive NEGATIVE for Influenza A/B Antigen (See Note) Normal [facility] Comment on above: Performed By: #### M 101.0111 #### [facility] [place], [address] MCHC Auto (RBC) [Mass/Vol]Or dered By: Dr. Khan on 10-09-2022 MCHC (RBC) [Mass/Vol] 33.2 g/dL 32-36 [facility] No Panel InformationOrdered By: Dr. Khan on 10-09-2022 D-Dimer Quantitative (PE/DVT) < 0.27 FEU/ug/m 0.27-0.49 [facility] Comment on above: NORMAL D-Dimer level (<0.50) indicates no DVT or PE. Estimated Creatinine Clearance Calc 87.73 ml/min [facility] Estimated GFR (MDRD) Amer 103 mL/min >60 [facility] Comment on above: GFR Calc Estimated GFR (MDRD) Non-Af Amer 85 mL/min >60 [facility] Comment on above: Non- GFR Calc Troponin I High Sensitivity 4 pg/mL 3.0-54.0 [facility] Comment on above: Please Note: New Judy t Units and Gender Specific Reference Ranges. For more information see Policy Stat Procedure Rogers High Sensitivity Troponin (TNIH) and attachments. Platelets bldOrdered By: Dr. Khan on 10-09-2022 Platelets (Bld) [#/Vol] 250 10*3/uL 150-450 [facility] Serum or plasma calcium mani urement (mass/volume)Ordered By: Dr. Khan on 10-09-2022 Calcium [Mass/Vol] 9.2 mg/dL 8.5-10.1 [facility] Serum or plasma creatinine m easurement (mass/volume)Ordered By: Dr. Khan on 10-09-2022 Creatinine [Mass/Vol] 0.79 mg/dL 0.55-1.02 [facility] Comment on above: The validity of the calculated GFR & GFRAA in patients over 70 years has not been determined. Clinical correlation is essential. Serum or plasma urea nitroge n measurement (mass/volume)Ordered By: Dr. Khan on 10-09-2022 Urea nitrogen [Mass/Vol] 19 mg/dL 7-18 [facility] Thin prep Papanicolaou smear with manual screeningOrdered By: Dr. Khan on 10-09-2022 Thin prep Papanicolaou smear with manual screening 9 5-15 [facility] UA DIP, URINE (POC)on 2021 BILIRUBIN UA (POCT) Negative Negative [facility] CLARITY UA (POCT) Cloudy [facility] COLOR UA (POCT) Dark yellow [facility] GLUCOSE UA (POCT) Negative Negative mg/dL [facility] HEMOGLOBIN/BLOOD UA (POCT) Small Abnormal Negative [facility] KETONE UA (POCT) Negative Negative mg/dL [facility] LEUKOCYTES UA (POCT) Trace Abnormal Negative [facility] NITRITE UA (POCT) Positive Abnormal Negative [facility] PH UA (POCT) 6.5 4.5 - 8.0 [facility] Protein Ql (U) 30 mg/dL Abnormal Negative mg/dL [facility] SPECIFIC GRAVITY UA (POCT) 1.025 1.005 - 1.030 [facility] UROBILINOGEN UA (POCT) 0.2 E.U./dL Christelle l E.U./dL [facility] Vital Signs Date Time Vital Sign Value Performing Clinician Yenny atkins 01-23-2025 09:20-0400 Body temperature 97 [degF] Nubia Ferraro APRN-DISTRIBUTION ENGINEERING 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 Work Phone: [facility] 01-23-2025 09:20-0400 Diastolic blood pressure 78 mm[Hg] Nubia Ferraro [employer]-DISTRIBUTION ENGINEERING 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 Work Phone: [facility] 01-23-2025 09:20-0400 Heart rate 72 /min Nubia Ferraro APRN-DISTRIBUTION ENGINEERING 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 Work Phone: [facility] 01-23-2025 09:20-0400 Respiratory rate 16 /min Nubia Ferraro APRN-DISTRIBUTION ENGINEERING 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 Work Phone: [facility] 01-23-2025 09:20-0400 SaO2% (BldA) [Mass fraction] 99 % Nubia Ferraro APRN-DISTRIBUTION ENGINEERING 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 Work Phone: [facility] 01-23-2025 09:20-0400 Systolic blood pressure 134 mm[Hg] Nubia Ferraro APRN-DISTRIBUTION ENGINEERING 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 Work Phone: [facility] 01-09-2025 09:10-0400 Body height 166.4 cm Olga Finelli DO Work Phone: [facility] 01-09-2025 09:10-0400 Body mass index (BMI) [Ratio] 41.61 kg/m2 Olga Finelli DO Work Phone: [facility] 01-09-2025 09:10-0400 Body weight 115.21 kg Olga Finelli DO Work Phone: [facility] 01-09-2025 09:10-0400 Diastolic blood pressure 84 mm[Hg] Olga Finelli DO Work Phone: [facility] 01-09-2025 09:10-0400 Heart rate 68 /min Olga Finelli DO Work Phone: [facility] 01-09-2025 09:10-0400 Systolic blood pressure 126 mm[Hg] Olga Mcelroyi DO Work Phone: [facility] 01-01-2025 10:14-0400 Body mass index (BMI) [Ratio] 41.79 kg/m2 Rodney Brooks MD Work Phone: [facility] 01-01-2025 10:14-0400 Body weight 115.67 kg Rodney Brooks MD Work Phone: [facility] 01-01-2025 10:14-0400 Diastolic blood pressure 68 mm[Hg] Rodney Brooks MD Work Phone: [facility] 01-01-2025 10:14-0400 Systolic blood pressure 118 mm[Hg] Rodney Brooks MD Work Phone: [facility] 12-19-2024 08:38-0400 Body height 166.4 cm Rodney Brooks MD Work Phone: [facility] 12-19-2024 08:38-0400 Body mass index (BMI) [Ratio] 41.79 kg/m2 Rodney Brooks MD Work Phone: [facility] 12-19-2024 08:38-0400 Body weight 115.67 kg Rodney Brooks MD Work Phone: [facility] 12-19-2024 08:38-0400 Diastolic blood pressure 82 mm[Hg] Rodney Brooks MD Work Phone: [facility] 12-19-2024 08:38-0400 Systolic blood pressure 124 mm[Hg] Rodney Brooks MD Work Phone: [facility] 11-12-2024 09:05-0400 Body mass index (BMI) [Ratio] 42.46 kg/m2 Haydee Coon 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 Work Phone: [facility] 11-12-2024 09:05-0400 Body weight 122 kg Haydee Mayco 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 Work Phone: [facility] 11-12-2024 09:05-0400 Diastolic blood pressure 72 mm[Hg] Haydee Mayco 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 Work Phone: [facility] 11-12-2024 09:05-0400 Heart rate 70 /min Haydee Mayco 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 Work Phone: [facility] 11-12-2024 09:05-0400 Respiratory rate 14 /min Haydee Mayco 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 Work Phone: [facility] 11-12-2024 09:05-0400 SaO2% (BldA) [Mass fraction] 98 % Haydee Mayco 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 Work Phone: [facility] 11-12-2024 09:05-0400 Systolic blood pressure 116 mm[Hg] Haydee Mayco 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 Work Phone: [facility] 08-23-2024 13:56-0500 Body mass index (BMI) [Ratio] 47.69 kg/m2 Haydee Mayco 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 Work Phone: [facility] 08-23-2024 13:56-0500 Body weight 137 kg Haydee Mayco [employer] 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 Work Phone: [facility] 08-23-2024 13:56-0500 Diastolic blood pressure 86 mm[Hg] Haydee Mayco 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 Work Phone: [facility] 08-23-2024 13:56-0500 Heart rate 87 /min Haydee Mayco 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 Work Phone: [facility] 08-23-2024 13:56-0500 Respiratory rate 14 /min Haydee Mayco 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 Work Phone: [facility] 08-23-2024 13:56-0500 SaO2% (BldA) [Mass fraction] 97 % Haydee Mayco 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 Work Phone: [facility] 08-23-2024 13:56-0500 Systolic blood pressure 122 mm[Hg] Haydee Coon APRN.DISTRIBUTION ENGINEERING 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 Work Phone: [facility] 05-31-2024 03:23-0400 Body height 169.5 cm [facility] Work Phone: [facility] 05-31-2024 03:23-0400 Body mass index (BMI) [Ratio] 48.94 kg/m2 [facility] Work Phone: [facility] 05-31-2024 03:23-0400 Body weight 140.6 kg [facility] Work Phone: [facility] 04-16-2024 13:57-0400 Body height 169.5 cm Sheldon Pate MD Work Phone: [facility] 04-16-2024 13:57-0400 Body mass index (BMI) [Ratio] 48.92 kg/m2 Sheldon Pate MD Work Phone: [facility] 04-16-2024 13:57-0400 Body weight 140.62 kg Sheldon Pate MD Work Phone: [facility] 04-16-2024 13:57-0400 Diastolic blood pressure 90 mm[Hg] Sheldon Pate MD Work Phone: [facility] 04-16-2024 13:57-0400 Heart rate 74 /min Sheldon Pate MD Work Phone: [facility] 04-16-2024 13:57-0400 SaO2% (BldA) [Mass fraction] 96 % Sheldon Pate MD Work Phone: [facility] 04-16-2024 13:57-0400 Systolic blood pressure 138 mm[Hg] Sheldon Pate MD Work Phone: [facility] 03-12-2024 09:47-0400 Body mass index (BMI) [Ratio] 48.6 kg/m2 Haydee Coon APRN.DISTRIBUTION ENGINEERING 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 Work Phone: [facility] 03-12-2024 09:47-0400 Body weight 139.71 kg Haydee Coon APRN.DISTRIBUTION ENGINEERING 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 Work Phone: [facility] 03-12-2024 09:47-0400 Diastolic blood pressure 88 mm[Hg] Haydee Coon APRN.DISTRIBUTION ENGINEERING 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 Work Phone: [facility] 03-12-2024 09:47-0400 Heart rate 74 /min Haydee Coon APRN.DISTRIBUTION ENGINEERING 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 Work Phone: [facility] 03-12-2024 09:47-0400 Respiratory rate 16 /min Haydee Coon APRN.DISTRIBUTION ENGINEERING 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 Work Phone: [facility] 03-12-2024 09:47-0400 SaO2% (BldA) [Mass fraction] 97 % Haydee Coon APRN.DISTRIBUTION ENGINEERING 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 Work Phone: [facility] 03-12-2024 09:47-0400 Systolic blood pressure 136 mm[Hg] Haydee Coon APRN.DISTRIBUTION ENGINEERING 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 Work Phone: [facility] 12-26-2023 09:26-0400 Body mass index (BMI) [Ratio] 51.14 kg/m2 Yoanna De La Rosa APRN.DISTRIBUTION ENGINEERING 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 Work Phone: [facility] 12-26-2023 09:26-0400 Body temperature 98.01 [degF] Yoanna De La Rosa APRN.DISTRIBUTION ENGINEERING 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 Work Phone: [facility] 12-26-2023 09:26-0400 Body weight 147 kg Yoanna De La Rosa APRN.DISTRIBUTION ENGINEERING 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 Work Phone: [facility] 12-26-2023 09:26-0400 Diastolic blood pressure 84 mm[Hg] Yoanna De La Rosa APRN.DISTRIBUTION ENGINEERING 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 Work Phone: [facility] 12-26-2023 09:26-0400 Heart rate 88 /min Yoanna De La Rosa APRN.DISTRIBUTION ENGINEERING 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 Work Phone: [facility] 12-26-2023 09:26-0400 Respiratory rate 16 /min Yoanna De La Rosa APRN.DISTRIBUTION ENGINEERING 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 Work Phone: [facility] 12-26-2023 09:26-0400 SaO2% (BldA) [Mass fraction] 95 % Yoanna De La Rosa 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 Work Phone: [facility] 12-26-2023 09:26-0400 Systolic blood pressure 126 mm[Hg] Yoanna De La Rosa [employer] 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 Work Phone: [facility] 07-13-2023 08:45-0500 Body weight 143.34 kg Haydee Older [employer] 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 Work Phone: [facility] 07-13-2023 08:45-0500 Diastolic blood pressure 92 mm[Hg] Haydee Older [employer] 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 Work Phone: [facility] 07-13-2023 08:45-0500 Heart rate 78 /min Haydee Older [employer] 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 Work Phone: [facility] 07-13-2023 08:45-0500 Respiratory rate 16 /min Haydee Older 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 Work Phone: [facility] 07-13-2023 08:45-0500 SaO2% (BldA) [Mass fraction] 97 % Haydee Older [employer] 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 Work Phone: [facility] 07-13-2023 08:45-0500 Systolic blood pressure 128 mm[Hg] Haydee Older [employer] 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 Work Phone: [facility] 04-12-2023 08:41-0400 Body weight 144.7 kg Haydee Older [employer] 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 Work Phone: [facility] 04-12-2023 08:41-0400 Diastolic blood pressure 88 mm[Hg] Haydee Older [employer] 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 Work Phone: [facility] 04-12-2023 08:41-0400 Heart rate 72 /min Haydee Older [employer] 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 Work Phone: [facility] 04-12-2023 08:41-0400 Respiratory rate 16 /min Haydee Older 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 Work Phone: [facility] 04-12-2023 08:41-0400 Systolic blood pressure 126 mm[Hg] [facility] QU[employer] 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 Work Phone: [facility] 03-18-2023 12:30-0400 Body temperature 98.29 [degF] [facility] QU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 Work Phone: [facility] 03-18-2023 12:30-0400 Body weight 145.15 kg [facility] QU[employer]Y [employer] 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 Work Phone: [facility] 03-18-2023 12:30-0400 Diastolic blood pressure 78 mm[Hg] [facility] QU[employer] 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 Work Phone: [facility] 03-18-2023 12:30-0400 Heart rate 84 /min [facility] QU[employer] 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 Work Phone: [facility] 03-18-2023 12:30-0400 Respiratory rate 18 /min [facility] QU[employer] 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 Work Phone: [facility] 03-18-2023 12:30-0400 SaO2% (BldA) [Mass fraction] 98 % [facility] QU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 Work Phone: [facility] 03-18-2023 12:30-0400 Systolic blood pressure 138 mm[Hg] [facility] QU[employer] 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 Work Phone: [facility] 10-09-2022 22:30-0500 Body temperature 98.1 [degF] [facility] 10-09-2022 22:30-0500 Diastolic blood pressure 90 mm[Hg] [facility] 10-09-2022 22:30-0500 Heart rate 79 /min [facility] [facility] 10-09-2022 22:30-0500 Respiratory rate 16 /min [facility] 10-09-2022 22:30-0500 Systolic blood pressure 146 mm[Hg] [facility] 10-09-2022 19:11-0500 Body height 167.64 cm [facility] 10-09-2022 19:11-0500 Body mass index (BMI) [Ratio] 51.6 kg/m2 [facility] 10-09-2022 19:11-0500 Body weight 145.1 kg [facility] 10-09-2022 19:11-0500 SaO2% (BldA) [Mass fraction] 98 % [facility] 10-05-2022 09:16-0500 Body temperature 98.29 [degF] Krislyn Aberegg PA Work Phone: [facility] 10-05-2022 09:16-0500 Body weight 143.79 kg Krislyn Aberegg PA Work Phone: [facility] 10-05-2022 09:16-0500 Diastolic blood pressure 78 mm[Hg] Krislyn Aberegg PA Work Phone: [facility] 10-05-2022 09:16-0500 Heart rate 92 /min Krislyn Aberegg PA Work Phone: [facility] 10-05-2022 09:16-0500 Respiratory rate 18 /min Krislyn Aberegg PA Work Phone: [facility] 10-05-2022 09:16-0500 SaO2% (BldA) [Mass fraction] 98 % Krislyn Aberegg PA Work Phone: [facility] 10-05-2022 09:16-0500 Systolic blood pressure 142 mm[Hg] Krislyn Aberegg PA Work Phone: [facility] 08-01-2022 11:09-0500 Body temperature 98.4 [degF] Katia Athy PA-C Work Phone: [facility] 08-01-2022 11:09-0500 Body weight 139.8 kg Katia Athy PA-C Work Phone: [facility] 08-01-2022 11:09-0500 Diastolic blood pressure 84 mm[Hg] Katia Athy PA-C Work Phone: [facility] 08-01-2022 11:09-0500 Heart rate 89 /min Katia Athy PA-C Work Phone: [facility] 08-01-2022 11:09-0500 Respiratory rate 21 /min Katia Chiy PA-C Work Phone: [facility] 08-01-2022 11:09-0500 SaO2% (BldA) [Mass fraction] 98 % Katia Chiy PA-C Work Phone: [facility] 08-01-2022 11:09-0500 Systolic blood pressure 138 mm[Hg] Katiadarwin Chiy PA-C Work Phone: [facility] 03-24-2022 13:46-0400 Diastolic blood pressure 84 mm[Hg] Haydee Older [employer] 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 Work Phone: [facility] 03-24-2022 13:46-0400 Systolic blood pressure 136 mm[Hg] Haydee Older [employer]ARR[employer] FE[employer] 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 Work Phone: [facility] 03-24-2022 13:33-0400 Body weight 136.99 kg Hyadee Older [employer]ARRY [employer] AND FEATHER 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 Work Phone: [facility] 03-24-2022 13:33-0400 Heart rate 81 /min Haydee Older [employer]ARR[employer] FEATHER 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 Work Phone: [facility] 03-24-2022 13:33-0400 Respiratory rate 18 /min Haydee Older [employer]ARRY [employer] AND FEATHER 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 Work Phone: [facility] 12-25-2021 08:56-0400 Body height 169.5 cm Rodney Brooks MD Work Phone: [facility] 12-25-2021 08:56-0400 Body weight 139.71 kg Rodney Brooks MD Work Phone: [facility] 12-25-2021 08:56-0400 Diastolic blood pressure 88 mm[Hg] Rodney Brooks MD Work Phone: [facility] 12-25-2021 08:56-0400 Systolic blood pressure 144 mm[Hg] Rodney Brooks MD Work Phone: [facility] Encounters Encounter Date Encounter Type Care Provider Facility Start: 07-09-2025 End: 07-09-2025 ambulatory MICHAEL ACUÑA Facility:[facility] Start: 07-01-2025 End: 07-01-2025 ambulatory YO PARADA Facility:[facility] Start: 06-24-2025 End: 06-24-2025 ambulatory RODNEY CHILD Facility:[facility] Start: 06-20-2025 End: 06-20-2025 ambulatory HAYDEE COON Facility:[facility] Start: 06-19-2025 End: 06-19-2025 ambulatory HAYDEE COON Facility:[facility] Start: 01-23-2025 ambulatory LUCAS SAGE Reddyi lity:[facility] Start: 01-23-2025 End: 01-23-2025 Office outpatient new 45 minutes Nubia Ferraro [employer]LL[employer]-DISTRIBUTION ENGINEERING 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 Work Phone: [facility] at [facility] Comment on above: Abnormal finding on breast imaging (Primary Dx) Start: 01-21-2025 ambulatory NUBIA FERRARO Facility :[facility] Start: 01-21-2025 End: 01-21-2025 Subsequent hospital visit by physician Nubia Ferraro [employer]LL[employer]-DISTRIBUTION ENGINEERING 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 Work Phone: [facility] at [facility] Comment on above: Arrived Start: 01-16-2025 End: 01-16-2025 Office outpatient visit 15 minutes Olga Bosch DO Work Phone: General Surgery Comment on above: Mass overlapping mul tiple quadrants of left breast (Primary Dx); Class 3 severe obesity without serious comorbidity with body mass index (BMI) of 40.0 to 44.9 in adult, unspecified obesity type Start: 01-16-2025 End: 01-16-2025 ambulatory OLGA Malika BOSCH Facility:[facility] Start: 01-11-2025 ambulatory OLGA Malika BOSCH Facil ity:[facility] Start: 01-11-2025 End: 01-11-2025 Subsequent hospital visit by physician Screen Mamm[facility] Comment on above: Mass overlapping mul tiple quadrants of left breast [N63.25] Start: 01-09-2025 End: 01-09-2025 Office consultation new/estab patient 80 min Olga Bosch DO Work Phone: General Surgery Comment on above: Mass overlapping mul tiple quadrants of left breast (Primary Dx); Obstructive sleep apnea (adult) (pediatric); Migraine without aura, not intractable, without status migrainosus; Abnormal findings on diagnostic imaging of breast; Family history of malignant neoplasm of breast; Presence of intrauterine contraceptive device Start: 01-09-2025 End: 01-09-2025 ambulatory OLGA BOSCH Facility:[facility] Start: 01-02-2025 End: 01-02-2025 Follow-up encounter Michael Acuña MD Work Phone: [facility] [place] Start: 01-02-2025 End: 01-02-2025 Telephone encounter Michael Aucña MD Work Phone: [facility] [place] Start: 01-01-2025 End: 01-01-2025 Patient encounter procedure Rodney Brooks MD Work Phone: OB/Gynecology Comment on above: Encounter for IUD re moval and reinsertion (Primary Dx); Encounter for IUD insertion Start: 01-01-2025 End: 01-01-2025 ambulatory RODNEY BROOKS Facility:[facility] Start: 01-01-2025 ambulatory MICHAEL ACUÑA [facility] lity:[facility] Start: 01-01-2025 End: 01-01-2025 Subsequent hospital visit by physician Diagnostic [facility] Comment on above: Abnormal mammogram o f left breast [R92.8] Start: 12-19-2024 End: 12-19-2024 Patient encounter procedure Rodney Brooks MD Work Phone: OB/Gynecology Comment on above: Encounter for gyneco logical examination (general) (routine) without abnormal findings (Primary Dx); Encounter for screening mammogram for breast cancer; Encounter for IUD removal and reinsertion Start: 12-19-2024 End: 12-19-2024 Patient encounter status Rodney Brooks MD Work Phone: [facility] Start: 12-19-2024 Encounter for gynecological examination (general) (routine) without abnormal findings RODNEY BROOKS [facility] Start: 12-19-2024 End: 12-19-2024 Nursing evaluation of patient and report Mi Nurse Work Phone: [facility] [place] Comment on above: Encounter for immuni zation (Primary Dx) Start: 12-19-2024 End: 12-19-2024 ambulatory RODNEY BROOKS Facility:[facility] Start: 12-04-2024 End: 12-04-2024 Telephone encounter Michael Acuña MD Work Phone: [facility] [place] Comment on above: Orders Start: 11-14-2024 End: 11-14-2024 ambulatory Sheldon Pate MD Work Phone: Neurology Comment on above: DELON treated with BiP AP (Primary Dx); Hypersomnia due to medical condition Start: 11-14-2024 End: 11-14-2024 Telemedicine consultation with patient Sheldon Pate MD Work Phone: Neurology Start: 11-12-2024 End: 11-12-2024 ambulatory HAYDEE COON Facility:[facility] Start: 11-12-2024 End: 11-12-2024 Patient encounter procedure Haydee Coon [employer] 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 Work Phone: [facility] [place] Comment on above: Morbid obesity (HCC) (Primary Dx); Depressive disorder; Obstructive sleep apnea on CPAP; Encounter for immunization Start: 11-09-2024 End: 01-09-2025 Follow-up encounter Michael Acuña MD Work Phone: [facility] [place] Start: 11-07-2024 End: 11-07-2024 ambulatory MICHAEL ACUÑA Facility:[facility] Start: 11-07-2024 End: 11-07-2024 Subsequent hospital visit by physician Screen [facility] Comment on above: Encounter for screen ing mammogram for breast cancer [Z12.31] Start: 10-16-2024 End: 11-16-2024 ambulatory Michael Acuña MD Work Phone: [facility] [place] Start: 08-23-2024 End: 08-23-2024 ambulatory HAYDEE COON Facility:[facility] Start: 08-23-2024 End: 08-23-2024 Patient encounter procedure Haydee Coon APRN.DISTRIBUTION ENGINEERING 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 Work Phone: [facility] [place] Comment on above: Morbid obesity (HCC) (Primary Dx) Start: 05-31-2024 End: 05-31-2024 Chart abstracting [facility] Work Phone: Neurology Start: 05-26-2024 End: 05-29-2024 ambulatory Sheldon Pate MD Work Phone: Neurology Comment on above: CPAP Supplies Start: 05-11-2024 End: 05-31-2024 Chart abstracting Actigraphy Neur (Hist) Neurology Start: 04-16-2024 End: 04-16-2024 Patient encounter procedure Sheldon Pate MD Work Phone: Neurology Comment on above: Hypersomnia due to m edical condition (Primary Dx); Obstructive sleep apnea on CPAP; Excessive daytime sleepiness Start: 03-12-2024 End: 03-12-2024 Patient encounter procedure Haydee Coon [employer] FEATH[employer] 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 Work Phone: [facility] [place] Comment on above: Excessive daytime sl eepiness (Primary Dx); Obstructive sleep apnea on CPAP Start: 12-26-2023 End: 12-26-2023 Patient encounter procedure Yoanna De La Rosa APRN.DISTRIBUTION ENGINEERING 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 Work Phone: [facility] Comment on above: Muscle pain (Primary Dx) Start: 11-24-2023 Refill Haydee cerrato APRN.DISTRIBUTION ENGINEERING 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 Work Phone: [facility] [place] Comment on above: Refill Request Start: 11-09-2023 ambulatory Michael mejias MD Work Phone: Internal Medicine [facility] [place] Start: 07-13-2023 End: 07-13-2023 Patient encounter procedure Haydee Morrison APRN.DISTRIBUTION ENGINEERING 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 Work Phone: [facility] [place] Comment on above: Morbid obesity (HCC) (Primary Dx) Start: 05-02-2023 Orders Only Haydee Older [employer] FEATHER DRILLER .DISTRIBUTION ENGINEERING 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 Work Phone: [facility] [place] Start: 04-27-2023 End: 04-27-2023 ambulatory THOM Page [facility] Start: 04-18-2023 End: 04-18-2023 ambulatory THOM Page [facility] Start: 04-12-2023 End: 04-12-2023 Patient encounter procedure Haydee Older [employer] FEATH[employer] 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 Work Phone: [facility] [place] Comment on above: Morbid obesity (HCC) (Primary Dx); Depressive disorder; Restless leg syndrome; Obstructive sleep apnea on CPAP Start: 03-26-2023 End: 03-26-2023 Emergency department patient visit [facility] Facility:[facility] Start: 03-18-2023 End: 03-18-2023 Subsequent hospital visit by physician Xr [facility] Work Phone: Radiology Comment on above: Acute pain of right knee [M25.561] Start: 03-18-2023 End: 03-18-2023 Office outpatient visit 25 minutes Momo Vega APRN.DISTRIBUTION ENGINEERING 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 Work Phone: [facility] Comment on above: Acute pain of right knee (Primary Dx) Start: 12-01-2022 ambulatory Michael mejias MD Work Phone: Internal Medicine Main [place] Start: 10-14-2022 End: 10-14-2022 ambulatory Francine Nguyen PT Work Phone: [facility] Comment on above: Right-sided thoracic back pain, unspecified chronicity Start: 10-12-2022 Refill Michael mejias MD Work Phone: [facility] [place] Comment on above: Refill Request Start: 10-09-2022 End: 10-10-2022 Emergency department patient visit Michael Acuña Facility:[facility] Start: 10-09-2022 End: 10-09-2022 Emergency department patient visit [facility] Start: 10-05-2022 End: 10-05-2022 Patient encounter procedure Frankie IGNACIO Work Phone: [facility] Comment on above: Strain of thoracic r egion, initial encounter (Primary Dx) Start: 08-01-2022 End: 08-01-2022 Patient encounter procedure Katia R Chelsea PA-C Work Phone: [facility] Comment on above: Urinary frequency (P rimary Dx) Start: 03-24-2022 End: 03-24-2022 Patient encounter procedure Haydeejamie Morrison [employer] FEATHER 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 Work Phone: [facility] [place] Comment on above: Elevated blood-press ure reading without diagnosis of hypertension (Primary Dx) Start: 03-18-2022 Refill Michael mejias MD Work Phone: [facility] [place] Comment on above: Refill Request Start: 12-25-2021 End: 12-25-2021 Patient encounter procedure Rodney Brooks MD Work Phone: OB/Gynecology Comment on above: Special screening ex amination for human papillomavirus (HPV) (Primary Dx); Encounter for gynecological examination (general) (routine) without abnormal findings; Encounter for screening mammogram for breast cancer; Encounter for screening for malignant neoplasm of cervix Start: 12-25-2021 End: 12-25-2021 Patient encounter status Rodney Brooks MD Work Phone: OB/Gynecology Start: 12-11-2021 ambulatory Michael mejias MD Work Phone: [facility] [place] Comment on above: Reschedule Procedures Date Procedure Procedure Detail Performing Clinician Start: 01-21-2025 MG Breast Views Nubia Ferraro [employer] DRILLER-DISTRIBUTION ENGINEERING 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 Work Phone: Start: 01-01-2025 UA DIP,URINE HCG (POC) Rodney Brooks MD Work Phone: Start: 01-01-2025 Us breast uni real t [place] with image limited Michael Acuña MD Work Phone: Start: 01-01-2025 Digital breast tomosynthesis unilateral Michael Acuña MD Work Phone: Start: 03-18-2023 Radiologic exam knee complete 4/more views Momo Vega APRN.DISTRIBUTION ENGINEERING 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 Work Phone: Start: 10-09-2022 Plain chest X-ray Start: 08-01-2022 Urnls dip stick/tabl et rgnt auto w/o microscopy Yoanna De La Rosa APRN.DISTRIBUTION ENGINEERING 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 Work Phone: Start: 10-28-2021 Mammography Michael Triplett MD Work Phone: SARS-CoV-2 & FLU Ant igen (Rapid) Plan of Treatment Date Care Activity Detail Author Start: 12-25-2026 HPV TESTING HPV TESTING [facility] Start: 12-25-2026 PAP TESTING PAP TESTING [facility] Start: 12-25-2026 Screening for malign ant neoplasm of cervix [facility] Start: 12-19-2025 End: 12-19-2025 Patient encounter procedure 12/19/2025 8:40 AM EDT Office Visit OB/Gynecology [address] [place], [place] [phone] Rodney Brooks MD [address] [place], [place] [phone] Annual OB/Gynecology Comment on above: Annual Start: 12-18-2025 Tetanus vaccination TETANUS [facility] Start: 12-18-2025 Urine microalbumin profile [facility] Start: 11-12-2025 Covid-19 Vaccine ( season) Covid-19 Vaccine ( season) [facility] Comment on above: Postponed from 05/06 (Declined at this time) Start: 11-07-2025 Screening for malign ant neoplasm of breast [facility] Start: 07-24-2025 End: 07-24-2025 Patient encounter procedure Tito Miesha [facility]amm[facility] at [facility] Start: 05-21-2025 End: 05-21-2025 Patient encounter procedure 05/21/2025 8:20 AM EDT Office Visit Internal [facility] [place] [address] [place] [address] Haydee Coon, [employer] FEATH[employer] 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 [address] [place] [address] physical 6 months and hep b 3 [facility] [place] Comment on above: physical 6 months an d hep b 3 Start: 05-15-2025 Hepatitis B vaccination HEP B VACCINE (3 of 3 - 19+ 3-dose series) [facility] Start: 05-15-2025 Hepatitis B Vaccine (3 of 3 - 19+ 3-dose series) Hepatitis B Vaccine (3 of 3 - 19+ 3-dose series) [facility] Start: 05-15-2025 Hepb vaccine adult 3 dose schedule for im use HEP B VACCINE, 3-DOSE, AGE 20+ YR (ENGERIX-B, RECOMBIVAX HB) Immunization/Injection Routine Need for vaccination Expected: 05/15/2025 (Approximate) [facility] Comment on above: Expected: 05/15/2025 (Approximate) Start: 05-06-2025 Influenza vaccination Influenz a Vaccine (Season Ended) [facility] Start: 03-12-2025 Anxiety Screening Anxiety Screening [facility] Start: 03-04-2025 Influenza vaccination Influenza Vacc ine (#1) [facility] Comment on above: Postponed from 05/06 (Declined at this time) Start: 01-23-2025 End: 02-23-2026 US Breast - left limited US BREAST LIMITED UNILATERAL LEFT Imaging Routine Abnormal finding on breast imaging Expected: 01/23/2025, Expires: 02/23/2026 [facility] Comment on above: Expected: 01/23/2025 , Expires: 02/23/2026 Start: 01-23-2025 End: 01-23-2025 Patient encounter procedure 01/23/2025 9:00 AM EDT Office Visit [facility] at [facility] [address] [facility] [address] [place], [place] [phone] Nubia Ferraro, [employer] FEATHER DRILLER-DISTRIBUTION ENGINEERING 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 [address] [facility] [address] [place] [address] [facility]amm[facility] at [facility] [place] Start: 01-16-2025 End: 01-16-2025 Patient encounter procedure General Surgery Comment on above: CONSULT: Left breast . US done 01/01/25. [facility] 1wk review biopsy re sults FU: 1 week review bi opsy results. OV 01/09/25. [facility] Start: 01-09-2025 End: 01-09-2025 Patient encounter procedure 01/09/2025 9:00 AM EDT Office Visit General Surgery [address] [address] Olga Bosch, [address] [place] [address] Breast Consult, us breast BX recommended General Surgery Comment on above: Breast Consult, us b reast BX recommended Start: 01-07-2025 End: 01-07-2025 Patient encounter procedure 01/07/2025 10:15 AM EDT Office Visit General Surgery [address] [place] [address] Shalini Cartwright MD [address] [facility] [place] [place] [phone] breast consult General Surgery Comment on above: breast consult Start: 01-01-2025 End: 01-01-2025 Patient encounter procedure 01/01/2025 10:30 AM EDT Office Visit OB/Gynecology [address] [place] [address] Rodney Brooks MD [address] [place] [address] IUD insert, ok per RR OB/Gynecology Comment on above: IUD insert, ok per R R Start: 01-01-2025 End: 01-01-2025 Patient encounter procedure Mammogram Comment on above: [facility] DIAGNOSTIC LEFT and US Breast LTD LEFT Comp- CB LT Abnormal mammogram o f left breast [R92.8] Start: 12-19-2024 End: 12-19-2024 Patient encounter procedure 12/19/2024 8:40 AM EDT Office Visit OB/Gynecology [address] [place] [address] Rodney Brooks MD [address] [place] [address] annual OB/Gynecology Comment on above: annual Start: 12-19-2024 End: 12-19-2024 Nursing evaluation of patient and report 12/19/2024 8:00 AM EDT Nurse Visit [facility] [place] [address] [facility] [place], [place] [phone] Nurse, [place] [address] [place] [address] hep b 2 [facility] Comment on above: hep b 2 Start: 12-10-2024 Hepatitis B Vaccine (2 of 3 - 19+ 3-dose series) Hepatitis B Vaccine (2 of 3 - 19+ 3-dose series) [facility] Start: 11-14-2024 End: 11-14-2024 ambulatory 11/14/2024 11:40 AM EDT [facility] Neurology [address] [place] [address] Sheldon Pate MD [address] [phone] F/U Neurology Comment on above: F/U Start: 11-12-2024 End: 11-12-2024 Patient encounter procedure 11/12/2024 9:00 AM EDT Office Visit [facility] [place] [address] [facility], [place] [phone] Haydee Coon, [employer] FEATH[employer] 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 [address] [facility] [place] [address] 6 month follow up - routine [facility] [place] Comment on above: 6 month follow up - routine Start: 09-14-2024 End: 09-14-2024 Patient encounter procedure 09/14/2024 10:40 AM EST Office Visit [facility] Medicine [place] [address] [place] [address] Haydee Coon, [employer] FE[employer] 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 [address] [place] [address] 6 month follow up - routine [facility] [place] Comment on above: 6 month follow up - routine Start: 07-13-2024 Covid-19 Vaccine () Covid-19 Vaccine () [facility] Comment on above: Postponed from 05/06 (Declined at this time) Start: 05-31-2024 End: 05-31-2024 Patient encounter procedure 05/31/2024 8:00 AM EDT Office Visit Neurology [address] [place] [address] [facility] Comment on above: [facility] Start: 05-30-2024 End: 05-30-2024 Patient encounter procedure 05/30/2024 8:45 PM EDT Office Visit Neurology [address] [place] [address] Main, Psg Neur [address] [place] [address] [facility] Comment on above: [facility] Start: 05-06-2024 Covid-19 Vaccine () Covid-19 Vaccine () [facility] Start: 05-06-2024 Covid-19 Vaccine () Covid-19 Vaccine () [facility] Start: 05-06-2024 Influenza vaccination C [facility] Start: 04-16-2024 End: 04-16-2024 Patient encounter procedure 04/16/2024 2:00 PM EDT Office Visit Neurology [address] [place] [address] Sheldon Pate MD [address] [phone] Sleep disorder [G47.9]; Obstructive sleep apnea on CPAP [G47.33]; Excessive daytime sleepiness [G47.19] Neurology Comment on above: Sleep disorder [G47. 9]; Obstructive sleep apnea on CPAP [G47.33]; Excessive daytime sleepiness [G47.19] Start: 04-16-2024 End: 07-16-2024 TOXICOLOGY SCREEN, ROUTINE URINE TOXICOLOGY SCREEN, ROUTINE URINE Lab Routine Hypersomnia due to medical condition Expected: 04/16/2024, Expires: 07/16/2024 [facility] Comment on above: Expected: 04/16/2024 , Expires: 07/16/2024 Start: 04-12-2024 HEPATITIS B (1 of 3 - 3-dose series) HEPATITIS B (1 of 3 - 3-dose series) [facility] Comment on above: Postponed from 02/24 (Declined at this time) Start: 04-12-2024 Hepatitis B Vaccine (1 of 3 - 19+ 3-dose series) Hepatitis B Vaccine (1 of 3 - 19+ 3-dose series) [facility] Comment on above: Postponed from 02/24 (Declined at this time) Start: 04-12-2024 Hepatitis B Vaccine (1 of 3 - 3-dose series) Hepatitis B Vaccine (1 of 3 - 3-dose series) [facility] Comment on above: Postponed from 02/24 (Declined at this time) Start: 03-12-2024 End: 06-11-2024 25-hydroxyvitamin D3 [Mass/volume] in Serum or Plasma [facility] Comment on above: Expected: 03/12/2024 , Expires: 06/11/2024 Start: 03-12-2024 End: 06-11-2024 Comprehensive metabolic 2000 panel - Serum or Plasma [facility] Comment on above: Expected: 03/12/2024 , Expires: 06/11/2024 Start: 03-12-2024 End: 06-11-2024 Thyrotropin [Units/volume] in Serum or Plasma [facility] Work Phone: Comment on above: Expected: 03/12/2024 , Expires: 06/11/2024 Start: 03-04-2024 Influenza vaccination Influenza Vacc ine (#1) [facility] Comment on above: Postponed from 05/06 (Declined at this time) Start: 02-13-2024 HPV TESTING HPV TESTING [facility] Start: 02-13-2024 PAP TESTING PAP TESTING [facility] Start: 10-13-2023 COVID-19 VACCINE (3 - Booster for Moderna series) COVID-19 VACCINE (3 - Booster for Moderna series) [facility] Comment on above: Postponed from 12/10 (Declined at this time) Start: 10-13-2023 COVID-19 VACCINE (3 - Moderna series) COVID-19 VACCINE (3 - Moderna series) [facility] Comment on above: Postponed from 12/10 (Declined at this time) Start: 05-06-2023 Influenza vaccination C [facility] Start: 04-12-2023 End: 06-12-2023 Comprehensive metabolic 2000 panel - Serum or Plasma [facility] Work Phone: Comment on above: Expected: 04/12/2023 , Expires: 06/12/2023 Start: 04-12-2023 End: 06-12-2023 Lipid 1996 panel - Serum or Plasma [facility] Work Phone: Comment on above: Expected: 04/12/2023 , Expires: 06/12/2023 Start: 03-04-2023 Influenza vaccination INFLUENZA (#1) [facility] Comment on above: Postponed from 05/06 (Declined at this time) Start: 10-28-2022 Mammography [facility] Start: 10-28-2022 Screening for malign ant neoplasm of breast Mammogram Screening [facility] Start: 05-06-2022 Influenza vaccination C [facility] Start: 03-14-2021 COVID-19 VACCINE (3 - Booster for Moderna series) COVID-19 VACCINE (3 - Booster for Moderna series) [facility] Start: 2021 Lipid panel LIPID SCREENING [facility] Start: 12-10-2020 COVID-19 VACCINE (3 - Booster for Moderna series) COVID-19 VACCINE (3 - Booster for Moderna series) [facility] Start: 2002 Screening for malign ant neoplasm of cervix CERVICAL CANCER SCREENING DISCUSSION [facility] Start: 02-25-2000 Hepatitis B Vaccine (1 of 3 - 19+ 3-dose series) Hepatitis B Vaccine (1 of 3 - 19+ 3-dose series) [facility] Start: 1999 Anxiety Screening Anxiety Screening [facility] Start: 02-25-1996 HIV screening HIV SCREENING DISCUSSION [facility] Start: 1981 HEPATITIS B (1 of 3 - 3-dose series) HEPATITIS B (1 of 3 - 3-dose series) [facility] Start: 1981 Hepatitis C screening HEPATITI S C VIRUS SCREENING [facility] ACTIGRAPHY TESTING ACTIGRAPHY TE STING Procedures Routine Hypersomnia due to medical condition 1 Occurrences starting 04/16/2024 [facility] Comment on above: 1 Occurrences starti ng 04/16/2024 Bacteria identified in Urine by Culture URINE CULTURE Microbiology Routine Urinary frequency Ordered: 08/01/2022 [facility] Work Phone: Comment on above: Ordered: 08/01/2022 DBT Breast - bilater al screening LEVY SCREENING [facility] Radiology Routine Encounter for screening mammogram for breast cancer 11/07/2024 10:44 AM EST [facility] Work Phone: End: 01-18-2026 DBT Breast - bilateral screening LEVY SCREENING [facility] Radiology Routine Encounter for gynecological examination (general) (routine) without abnormal findings Encounter for screening mammogram for breast cancer 1 Occurrences starting 12/19/2024 until 01/18/2026 [facility] Work Phone: Comment on above: 1 Occurrences starti ng 12/19/2024 until 01/18/2026 Hepb vaccine adult 3 dose schedule for im use HEP B VACCINE, 3-DOSE, AGE 20+ YR (ENGERIX-B, RECOMBIVAX HB) Immunization/Injection Routine Need for vaccination Ordered: 12/04/2024 [facility] Work Phone: Comment on above: Ordered: 12/04/2024 Insertion intrauteri ne device iud INSERT INTRAUTERINE DEVICE Procedures Routine Encounter for IUD removal and reinsertion Ordered: 12/19/2024 [facility] Comment on above: Ordered: 12/19/2024 End: 12-31-2023 LEVY SCREENING LEVY SCREENING Radiology Routine Encounter for screening mammogram for breast cancer 1 Occurrences starting 12/01/2022 until 12/31/2023 [facility] Work Phone: Comment on above: 1 Occurrences starti ng 12/01/2022 until 12/31/2023 End: 02-08-2026 MG Breast - left Diagnostic for implant LEVY DIAGNOSTIC LEFT Radiology Routine Mass overlapping multiple quadrants of left breast 1 Occurrences starting 01/09/2025 until 02/08/2026 [facility] Work Phone: Comment on above: 1 Occurrences starti ng 01/09/2025 until 02/08/2026 MG Breast - left Diagnostic for implant LEVY DIAGNOSTIC LEFT Radiology Routine Mass overlapping multiple quadrants of left breast 01/11/2025 9:50 AM EDT [facility] Work Phone: End: 12-08-2024 MG Breast Screening LEVY SCREENING Radiology Routine Encounter for screening mammogram for breast cancer 1 Occurrences starting 11/09/2023 until 12/08/2024 [facility] Work Phone: Comment on above: 1 Occurrences starti ng 11/09/2023 until 12/08/2024 End: 04-16-2025 MULTIPLE SLEEP LATENCY TEST MULTIPLE SLEEP LATENCY TEST Procedures Routine Hypersomnia due to medical condition 1 Occurrences starting 04/16/2024 until 04/16/2025 [facility] Comment on above: 1 Occurrences starti ng 04/16/2024 until 04/16/2025 PAP FLUID CERVICAL SCREENING PAP FLUID CERVICAL SCREENING Lab Routine Special screening examination for human papillomavirus (HPV) Encounter for screening for malignant neoplasm of cervix Ordered: 12/25/2021 [facility] Work Phone: Comment on above: Ordered: 12/25/2021 Patient Education ED Dyspnea [facility] Work Phone: Patient referral [facility] Work Phone: End: 04-16-2025 Polysomnogram POLYSOMNOGRAM (PSG) Procedures Routine Hypersomnia due to medical condition 1 Occurrences starting 04/16/2024 until 04/16/2025 [facility] Work Phone: Comment on above: 1 Occurrences starti ng 04/16/2024 until 04/16/2025 Removal intrauterine device iud REMOVE INTRAUTERINE DEVICE Procedures Routine Encounter for IUD removal and reinsertion Ordered: 12/19/2024 [facility] Comment on above: Ordered: 12/19/2024 End: 01-24-2023 Screening mammography bi 2-view breast inc cad LEVY SCREENING Radiology Routine Encounter for gynecological examination (general) (routine) without abnormal findings Encounter for screening mammogram for breast cancer 1 Occurrences starting 12/25/2021 until 01/24/2023 [facility] Work Phone: Comment on above: 1 Occurrences starti ng 12/25/2021 until 01/24/2023 Tissue Pathology bio psy report SURGICAL PATHOLOGY Lab Routine Mass overlapping multiple quadrants of left breast 01/09/2025 9:47 AM EDT [facility] Immunizations Immunization Date Immunization Notes Care Provider Fa meghan 12-19-2024 hepatitis B vaccine, adult dosage Mi Nurse Work Phone: [facility] 11-12-2024 hepatitis B vaccine, adult dosage Haydee Mayco 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 Work Phone: [facility] 08-03-2017 influenza, seasonal, injectable [facility] 08-03-2017 influenza virus vaccine, unspecified formulation Haydee Older 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 Work Phone: [facility] 06-21-2016 influenza, seasonal, injectable [facility] 12-19-2015 tetanus toxoid, reduced diphtheria toxoid, and acellular pertussis vaccine, adsorbed Michael Acuña MD Work Phone: [facility] Work Phone: 06-05-2015 influenza virus vaccine, unspecified formulation Michael Acuña MD Work Phone: [facility] 06-05-2015 influenza, seasonal, injectable Michael Acuña MD Work Phone: [facility] 06-05-2015 influenza, seasonal, injectable, preservative free Rodney Brooks MD Work Phone: [facility] 11-28-2003 diphtheria and tetan us toxoids, adsorbed for pediatric use Michael Acuña MD Work Phone: [facility] Payers Date Payer Category Payer Self-pay [id number] 2022 Blue Cross Blue Shield BLUE ACCE SS PPO [id number] 2022 Managed Care (unspecified) ANTHEM O PPO POS [id number] 2022 Unknown [id number] 2019 Unknown ANTH BLUE ACCE SS PPO [id number] 2019-Present [phone] [address] [place] [address] PPO [id number] 2019 Unknown [id number] 2015 Unknown [id number] 1981 Unknown [id number] 1981 Unknown [id number] 1981 Unknown [id number] 1981 Unknown [id number] Unknown [id number] Unknown [id number] Social History Date Type Detail Facility Start: 08-01-2022 End: 01-23-2025 Tobacco smoking status NHIS Never smoked tobacco [facility] Start: 11-14-2021 End: 01-16-2025 Alcohol intake Current drinker of alcohol (finding) [facility] Start: 10-16-2021 End: 12-15-2021 History SDOH Alcohol Frequency 2 [facility] Start: 10-16-2021 End: 12-15-2021 History SDOH Alcohol Binge 1 [facility] Start: 09-25-2012 History SDOH Alcohol Comment rarely [facility] Start: 10-16-2021 End: 12-15-2021 History SDOH Social Connections Phone 5 [facility] Start: 10-16-2021 End: 12-15-2021 History SDOH Social Connections Living 3 [facility] Start: 1980 Sex Assigned At Not on file C [facility] Start: 11-03-2021 End: 08-01-2022 Exposure to SARS-CoV-2 (event) Not sure [facility] Start: 04-12-2022 History SDOH Physica l Activity DPW 4 [facility] Start: 12-15-2021 History SDOH Physica l Activity MPS 6 [facility] Start: 08-01-2022 End: 01-23-2025 Tobacco use and exposure Smokeless tobacco non-user [facility] Start: 10-09-2022 Tobacco smoking stat us NHIS Unknown if ever smoked [facility] Start: 1980 Sex Assigned At Female [facility] Start: 03-18-2023 End: 04-12-2023 History of Social function [facility] Start: 03-18-2023 End: 04-12-2023 Tobacco use panel [facility] National Score (1-10 0), lower number is lower risk 57 [facility] Do you belong to any clubs or organizations such as uatsdin groups, unions, fraSosei or athletic groups, or school groups? Yes [facility] Are you now , , , , never or living with a partner? [facility] How often to you hav e a drink containing alcohol? Monthly or less [facility] How many standard dr inks containing alcohol do you have on a typical day? 1 or 2 [facility] How often do you hav e 6 or more drinks on 1 occasion? Never [facility] Do you feel stress - tense, restless, nervous, or anxious, or unable to sleep at night because your mind is troubled all the time - these days [OSQ] Only a little [facility] (I/We) worried wheth er (my/our) food would run out before (I/we) got money to buy more. Never true [facility] In the past 12 month s, was there a time when you were not able to pay the mortgage or rent on time? No [facility] Do you feel stress - tense, restless, nervous, or anxious, or unable to sleep at night because your mind is troubled all the time - these days [OSQ] Not at all [facility] Start: 01-16-2025 Sex Female (finding) [facility] NEGATED: Highlighted row [facility] Functional Status Date Assessment Result Facility 03-11-2015 Are you deaf, or do you have serious difficulty hearing No 03/11/2015 1:39 PM Kelly Chen MA No [facility] 03-11-2015 Are you blind, or do you have serious difficulty seeing, even when wearing glasses No 03/11/2015 1:39 PM EDT Kelly Lockhart MA No [facility] 03-11-2015 Do you have serious difficulty walking or climbing stairs No 03/11/2015 1:39 PM EDT Kelly Lockhart MA No [facility] 03-11-2015 Do you have difficul ty dressing or bathing No 03/11/2015 1:39 PM EDT Kelly Lockhart MA No [facility] 03-11-2015 Because of a physica l, mental, or emotional condition, do you have difficulty doing errands alone such as visiting a physician's office or shopping No 03/11/2015 1:39 PM EDT Kelly Lockhart MA [facility] Mental Status Date Assessment Result Facility 10-09-2022 Cognitive function Level Of Cons ciousness Awake;Alert;Appropriate;Fol lows Commands [facility] Work Phone: 03-11-2015 Because of a physica l, mental, or emotional condition, do you have serious difficulty concentrating, remembering, or making decisions No 03/11/2015 1:39 PM EDT Kelly Lockhart MA [facility] Clinical Notes 05-02-2019 to 07-09-2025 EDITH Rossi - 01/23/2025 9:00 AM EDITH Becerra - 01/23/2025 9:00 AM EDTPatient InstructionsOlga Bosch DO - 01/16/2025 1:30 PM EDTPatient Instructions Note Date & Type Note Facility 07-09-2025 Note HNO ID: [id number] Author: MICHAEL ACUÑA MD Service: ? Author Type: Physician Type: Progress Notes Filed: 07/09/2025 09:44 Note Text: Subjective Shannon Lopez is a 45 year old female. She had a dull ache in her right flank for 3 weeks, better with less activity. She had been doing more crafts, but had no back injury. Ibuprofen was taken for several days with no clear relief. She just wanted to be checked for urinary tract infection. She was now following at the [facility] for her abnormal left mammogram. Follow up was later this month. Review of Systems Constitutional: Negative for chills and fever. Gastrointestinal: Negative for abdominal pain, nausea and vomiting. Genitourinary: Negative for difficulty urinating and dysuria. ACTIVE PROBLEM LIST Morbid Obesity (Hcc) Recurrent Major Depressive Disorder, in Full Remission Delon Treated With Bipap Restless Leg Syndrome Diaphoresis Tremor Hypersomnia Due to Medical Condition Abnormal Mammogram of Left Breast Social History Tobacco Use Smoking status: Never Smokeless tobacco: Never Vaping Use Vaping status: Never Used Substance Use Topics Alcohol use: Yes Comment: rarely Drug use: Never Current Outpatient Medications Medication Sig moxifloxacin (VIGAMOX) 0.5 % ophthalmic solution Use 1 drop in both eyes three times a day. modafinil (PROVIGIL) 200 mg tablet Take 1 tablet by mouth once daily for 180 days. OTC PRODUCT Magtein 2000 mg once a day levonorgestrel (MIRENA) 21 mcg/24hr (up to 8 yrs) 52 mg IUD 1 each by INTRAUTERINE route as directed. CPAP/BIPAP/OTHER Type .CPAPSettings into a note to see current settings/supplies/DME information. buPROPion XL (WELLBUTRIN XL) 300 mg 24 hr tablet Take 1 tablet by mouth once daily. FLUoxetine (PROZAC) 40 mg capsule Take 1 capsule by mouth once daily. rOPINIRole (REQUIP) 0.25 mg tablet Take 3 tablets by mouth at bedtime as needed. No current facility-administered medications for this visit. Objective BP 134/80 (BP Site: Left Arm, BP Position: Sitting, BP Cuff Size: Large Adult) Pulse 76 Wt 125.3 kg (276 lb 3.8 oz) LMP (LMP Unknown) BMI 45.97 kg/m? Physical Exam Constitutional: General: She is not in acute distress. Appearance: She is not ill-appearing. Abdominal: Palpations: Abdomen is soft. Tenderness: There is no abdominal tenderness. There is no right CVA tenderness or left CVA tenderness. Musculoskeletal: Lumbar back: Tenderness present. No deformity or spasms. Skin: Findings: No rash. Neurological: Mental Status: She is alert. Latest Ref Rng 07/09/2025 GLUCOSE UA (POCT) Negative mg/dL Negative BILIRUBIN UA (POCT) Negative Negative KETONE UA (POCT) Negative mg/dL Negative SPECIFIC GRAVITY UA (POCT) 1.005 - 1.030 1.020 HEMOGLOBIN/BLOOD UA (POCT) Negative Negative PH UA (POCT) 4.5 - 8.0 7.0 PROTEIN UA (POCT) Negative mg/dL Negative UROBILINOGEN UA (POCT) Normal E.U./dL 0.2 NITRITE UA (POCT) Negative Negative LEUKOCYTES UA (POCT) Negative Negative COLOR UA (POCT) Yellow CLARITY UA (POCT) Clear ASSESSMENT/PLAN: 1. Flank pain, unspecified laterality - ICD9: 789.09, ICD10: R10.A0 (primary diagnosis) Differential Diagnosis includes muscular. - Continue NSAID. She declined prescription NSAID or muscle relaxer. - UA DIP, URINE (POC) 2. Abnormal mammogram of left breast - ICD9: 793.80, ICD10: R92.8 - She follows now at [facility]. Michael Acuña MD [facility] 07-01-2025 Note HNO ID: [id number] Author: YO PARADA PA-C Service: ? Author Type: Physician Architectural Project Captain Type: Progress Notes Filed: 07/01/2025 09:41 Note Text: [facility] Subjective Shannon Lopez is a 45 year old female. Patient presents with: [place] Eye: DIOGENES pink eye x 2 days HPI Shannon Lopez is a 45-year-old female, with no significant medical history, presenting with bilateral eye discomfort and photophobia. Shannon reports onset of left eye discomfort on Tuesday, initially thought to be due to a foreign body while wearing contact lenses. Yesterday afternoon, she developed photophobia in the left eye, and this morning, she began experiencing similar symptoms in the right eye. She describes the discomfort as feeling like "something in it" and notes clear drainage from both eyes, resembling tears. She denies any current use of contact lenses, cough, emesis, or urinary issues. 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 Review of Systems Eyes: (+) bilateral photophobia, (+) clear ocular discharge Respiratory: (-) cough Gastrointestinal: (-) vomiting Genitourinary: (-) urinary symptoms Objective BP 140/90 Pulse 70 Temp 36.8 ?C (98.3 ?F) Resp 20 Wt 126 kg (277 lb 12.5 oz) LMP (LMP Unknown) SpO2 99% BMI 46.22 kg/m? Physical Exam General: No acute distress. HEENT: Bilateral conjunctival injection, clear lacrimation. Slight yellow flaking at bilateral lashes CV: Regular rhythm. Resp: Clear to auscultation bilaterally. Abd: Normoactive bowel sounds. 1. Bacterial conjunctivitis (H10.9) Acute onset of bilateral conjunctival injection, clear watery discharge, and photophobia, initially in the left eye and subsequently in the right eye, in a contact lens wearer. - Start Vigamox ophthalmic drops. - Advised patient to avoid contact lens use until cleared by her eye doctor. - Recommended cool compresses and rest in a dark room for symptomatic relief. - Provided work note as requested. We discussed your eye infection: - I am starting you on Vegamox eye drops to treat the infection; your prescription will be sent to your [facility] pharmacy in [place]. - Please do not use your contact lenses until you follow up with your eye doctor. - You may use cool compresses to help with your symptoms. - Resting your eyes in a dark room may also help you feel more comfortable. We provided you with a work note as requested. Your paperwork will be available in [facility]. MDM Procedures [facility] 06-24-2025 Note HNO ID: [id number] Author: RODNEY CHILD APRN.DISTRIBUTION ENGINEERING 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 Service: ? Author Type: Nurse Practitioner Type: Progress Notes Filed: 06/27/2025 09:09 Note Text: [facility] Follow up/ Established patient visit Recording using ambient [employer] software for draft documentation of the visit was discussed with the patient/authorized in store representative; all questions welcomed and answered. Patient/authorized in store representative agreed to proceed Assessment/Plan from last visit: Date of last visit : 11/14/24 IMPRESSION: Obstructive Sleep Apnea Shift Work Sleep Disorder Hypersomnia, due to medical condition Clinical Global Impression of Change ( CGI-C) Compared to the patient's condition at baseline, how much has the patient changed? Much improved PLAN: - I reviewed her download, and based on that data will change from AutoBiLevel to BiLevel at 17/12 cm; this should reduce the number of awakenings and hopefully improve her daytime energy level - Continue Bilevel PAP at 17/12 cmH2O. Prescription faxed to [facility] - Start modafinil 100 mg for treated DELON with residual fatigue - Remember to clean your mask and equipment regularly, as directed. - You should be eligible for new supplies approximately every 3-6 months, depending on your insurance coverage. Contact your Durable Medical Equipment (DME) company for new supplies as needed. - Follow up in [address] Pate or Sleep provider. Sheldon Pate MD CURRENT VISIT: 06/24/2025 The patient is a 45-year-old female with DELON on BiPAP, shift work sleep disorder, hypersomnia due to medical condition, obesity, depression, and RLS, presenting for follow-up. The patient was started on modafinil [address] Pate on 11/14/2024 for sleep apnea-related residual fatigue. She reports that modafinil provides some benefit but does not fully resolve her daytime sleepiness. She takes it in the morning and has not experienced any side effects. She describes persistent difficulty staying awake during sedentary activities, particularly while charting, which has led to significant work-related stress and concern about job security. 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 She often requires her 23-year-old daughter to sit beside her and physically prompt her to stay awake while charting. She reports that her sleepiness typically worsens in the early afternoon and improves again in the evening when she is more active. She denies problems falling asleep at night andgenerally feels well-rested in the mornings. She attributes recent sleep disturbances to stress and occasional nighttime awakenings by her daughter. She reports two recent episodes in the past two weeks where she felt her sleepiness while driving was "questionable," though she states this is not a typical problem for her. She works overnight on-call shifts for [employer] in [place], typically from [phone] on a rotating schedule. She rarely has to go out at night, averaging only a couple of calls per month. Her typical sleep hours are [phone] or [phone]. She reports that she is a night person and feels most sleepy in the early afternoon. She denies problems falling asleep at night and generally feels well-rested in the mornings. She attributes recent sleep disturbances to stress and occasional nighttime awakenings by her daughter. She uses BiPAP 17/12 with [employer] [facility]. Her most recent compliance report from 05/2025 to 06/23/2025 shows use 29 out of 30 days, 100% for at least 4 hours, with an average use of 7 hours. Residual AHI is 0.7 with no significant leaks. She reports that her machine was replaced in 2021 following a recall and currently has 7,500 hours of use. Manual review of device today. She notes recent drooling during sleep, which is new for her, but otherwise feels her BiPAP is working well. She has a history of RLS and was prescribed ropinirole 0.25 mg, 3 tablets at bedtime as needed by her PCP. She reports that she rarely takes it since starting magnesium L-threonate, which she finds very helpful for her RLS. SLEEP APNEA Sleep apnea type : DELON, Most Recent Apnea-Hypopnea Index (AHI): 44 Treatment : PAP therapy DME: [employer] [facility] History: Uses Bilevel PAP for 7 hours per night, 7 nights per week. Current PAP settin/12 cm H2O. Difficulties with Bilevel PAP: None Reviewed objective PAP compliance data: Mask type: nasal pillow interface There is a perceived benefit by the patient HYPERSOMNIA : Mean Sleep Latency: 13.4m Number of Sleep Onset REM Periods: 1 Current medications: Modafinil 100 mg #30 last filled 06/03/25 PDMP website checked and validated. All prescriptions have been APPROPRIATELY filled. No suspicious activity was identified. 06/24/2025 by Rodney Child APRN.DISTRIBUTION ENGINEERING 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 Treatment history: None [facility] (more content not included)... [facility] 06-19-2025 Note HNO ID: [id number] Author: HAYDEE COON APRN.DISTRIBUTION ENGINEERING 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 Service: ? Author Type: Nurse Practitioner Type: Progress Notes Filed: 06/19/2025 09:25 Note Text: CC: No chief complaint on file. HPI Recording using [employer] software for draft documentation of the visit was discussed with the patient/authorized in store representative; all questions welcomed and answered. Patient/authorized in store representative agreed to proceed The patient is a 45-year-old female with a history of obesity, DELON, depression, and RLS, presenting for follow-up. Obesity: - Discontinued Zepbound a few months ago due to perceived ineffectiveness. - Weight increased from 254 lbs in January to 277 lbs today. - Continues to exercise. - Interested in a new wellness weight loss program. DELON: - Continues to use CPAP. - Taking modafinil for daytime fatigue. - Follow-up appointment with sleep medicine scheduled for the . Depression: - Managed with Wellbutrin 300 mg and Prozac 40 mg. - Reports medications are effective and well-tolerated. RLS: - Managed with Requip PRN. - Started magnesium L-threonate supplement, 2000 mg daily, with reported improvement in symptoms. Review of Systems See HPI PAST MEDICAL HISTORY Diagnosis Date Abnormal Pap smear of cervix 03/11/2015 ASCUS + HRHPV Depression 02/27/2013 Diaphoresis 05/02/2019 Family history of malignant neoplasm of breast Hemolysis, elevated liver enzymes, 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 ([facility]) 2015 Low ferritin level 08/27/2015 Mass overlapping multiple quadrants of left breast 01/2025 Mental disorders complicating , childbirth, or the puerperium Migraine without aura 02/25/2007 Morbid obesity (HCC) 10/23/2012 Obstructive sleep apnea Orthostatic lightheadedness 05/02/2019 Ovarian cyst 2018 depression Presence of (intrauterine) contraceptive device RLS (restless legs syndrome) 07/16/2015 Severe pre-eclampsia, antepartum ([facility]) 2016 Sleep apnea 04/24/2015 DME DASCO Teeth grinding 10/23/2012 Tremor 05/02/2019 Uterine fibroid 2016 PAST SURGICAL HISTORY Procedure Laterality Date BX OF BREAST; INCISIONAL Left 01/09/2025 SECTION HX 2016 INSERTION INTRAUTERINE DEVICE IUD 01/01/2025 MIRENA IUD REMOVAL 01/01/2025 MIRENA IUD 07/14/11,03/23/2016 PAST SURGICAL HISTORY OF 2010 UPPP for sleep apnea ALLERGIES Citalopram, Metoclopramide, Penicillins, and Reglan [Metoclopramide Hcl] MEDICATIONS modafinil (PROVIGIL) 100 mg tablet Take (1) tablet by mouth once per day levonorgestrel (MIRENA) 21 mcg/24hr (up to 8 yrs) 52 mg IUD 1 each by INTRAUTERINE route as directed. CPAP/BIPAP/OTHER Type .CPAPSettings into a note to see current settings/supplies/DME information. buPROPion XL (WELLBUTRIN XL) 300 mg 24 hr tablet Take 1 tablet by mouth once daily. FLUoxetine (PROZAC) 40 mg capsule Take 1 capsule by mouth once daily. rOPINIRole (REQUIP) 0.25 mg tablet Take 3 tablets by mouth at bedtime as needed. 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 Physical Exam Vitals reviewed. Constitutional: Appearance: Normal appearance. Cardiovascular: Rate and Rhythm: Normal rate and regular rhythm. Pulmonary: Effort: Pulmonary effort is normal. Breath sounds: Normal breath sounds. Neurological: Mental Status: She is alert. Psychiatric: Mood and Affect: Mood normal. Health maintenance reviewed with patient: Hepatitis B Vaccine(3 of 3 - 19+ 3-dose series) due on 05/15/2025 DTaP,Tdap,Td Vaccine(3 - Td or Tdap) due on 12/18/2025 Mammogram Screening due on 01/21/2026 Anxiety Screening due on 06/19/2026 Cervical Cancer Screening due on 12/25/2026 Hepatitis C Screening Completed HIV Screening Completed HPV Vaccine Discontinued Influenza Vaccine Discontinued Covid-19 Vaccine Discontinued Assessment/Plan 1. Morbid obesity (HCC) (E66.01): Weight increased from 254 lb in January to 277 lb currently following discontinuation of Zepbound due to diminished effect. Referred to an 18-month [facility] wellness weight loss program, including endocrinology, dietetics, exercise, and primary care support. Encouraged continuation of regular exercise. Ordered cholesterol testing to reassess lipid status based on previously elevated levels. 2. Recurrent major depressive disorder, in full remission (F33.42): Patient remains stable; no reported exacerbation of depressive symptoms. Continues on bupropion 300 mg daily and fluoxetine (more content not included)... [facility] 01-23-2025 History and physical note Date of Service: 01/23/2025 History of Present Illness: Chief Complaint Patient presents with New Patient Second opinion of left breast imaging. Had biopsy 01/11/2025 Shannon Lopez is a 44 y.o. premenopausal female who presents to the [facility] on 01/23/2025 for evaluation regarding abnormal left breast imaging. On 11/07/2024 she presented for screening mammography. This showed a focal asymmetry in the left breast 1:00 for which further evaluation with mammography and ultrasound were recommended; BI-RADS 0. On 01/01/2025 she returned for diagnostic imaging. Mammography showed a focal asymmetry measuring 5 cm with macrolobulated margins in the left breast 12:00. Ultrasound showed an oval 4 cm mass in the left breast 12:00 for which left breast ultrasound guided biopsy is recommended; BI-RADS 4. On 01/09/2025 she underwent an ultrasound guided biopsy in a clinician's office. Final pathology showed unremarkable mammary tissue. On 01/21/2025 her outside breast imaging was reviewed by Dr. Maradiaga. He noted a mass in the left breast seen on screening mammography having undergone core biopsy. Results demonstrated unremarkable mammary tissue with post procedure mammogram demonstrating the clips in good position. Overall given the appearance on the mammogram, the prior mammogram, and the ultrasound findings he noted this was a likely concordant results as the appearance of the breast tissue could indicate the presence of a hamartoma. As a precaution a 6 month follow up mammogram was recommended. He noted a negative right mammogram. Shannon Lopez reports examining her breasts monthly. She has not noted any masses, skin changes, nipple discharge, or pain. She denies any history of breast problems or previous breast biopsy. She denies any family history of breast or ovarian cancer. She is premenopausal and does not have periods due to having a Mirena IUD in place. Medical/Surgical History: Past Medical History: Diagnosis Date Depression Past Surgical History: Procedure Laterality Date CORE BIOPSY OF THE BREAST Left 01/11/2025 Breast/TAILOR GARMENT FITTER History: Social History Social History Narrative TAILOR GARMENT FITTER: No LMP recorded.2015 Last PAP: Para: 3 Age at of first child: 22 Age of menarche: 15 Age of menopause: IUD Patient reports hormonal therapy at this time. BREAST (GENERAL): Patient reports self-breast exams and does them monthly. Date of patient's first mammogram: 2017 Date of most recent mammogram: 01/01/2025 Bra/Cup Size: 42 I BREAST(HISTORICAL BIOPSY/THERAPY/TREATMENT) Patient reports previous breast biopsy(s). Patient denies being told they personally have breast cancer or a breast malignancy. Patient denies chemotherapy, hormone therapy or radiation therapy during the last month. Family/Social History: Her family history includes Breast Cancer (age of onset: 43) in her maternal aunt; Cancer- Other in her maternal aunt. She reports that she has never smoked. She has never used smokeless tobacco. She reports current alcohol use. She reports that she does not use drugs. Medications/Allergies/Immunizat ions: Current Outpatient Medications Medication Sig buPROPion 300 MG tablet XL Take 1 tablet by mouth daily. FLUoxetine 40 MG capsule Take 1 capsule by mouth daily. Levonorgestrel 20 MCG/DAY 1 Intra Uterine Device by Intrauterine route once. Zepbound 15 MG/0.5ML Solution Auto-injector Inject 15 mg under the skin Once a week. Allergies Allergen Reactions Citalopram Cough Yawning every 5 seconds Constant yawning Metoclopramide Anxiety and Paranoia anxiety Penicillins Hives and Itching Reaction unknown, told as a child No difficulty breathing Immunization History Administered Date(s) Administered [id number] COVID-19 monovalent vaccine, mRNA, Moderna, 50 mcg/0.25 mL booster 09/17/2020, 10/15/2020 Review of Systems: General/Constitutional: Negative for fever, chills, fatigue +Zepbound with 65 lb intentional weight loss since August HEENT: No visual disturbances, diplopia. No hearing loss, tinnitus, sore throat, nosebleeds, and rhinorrhea. No dysphagia or odynophagia. Cardiovascular: Negative for palpitations, chest pain, dyspnea on exertion, orthopnea or paroxysmal nocturnal dyspnea. Respiratory: No history of TB exposure. Negative for chronic or productive cough, hemoptysis, or asthma. Denies shortness of breath. Lymph/Heme: No history of hematologic magligancies or bleeding disorders. Gastrointestinal: Negative for abdominal pain, nausea, vomiting, diarrhea, constipation or changes in bowel habits. Genitourinary: Negative for dysuria or hematuria. No frequency, urgency, or hesitancy. Musculoskeletal: Negative for arthralgias, myalgias, or back pain. Neurological: Negative for dizziness, syncope, focal weakness or headaches. Psychiatric: Negative for depression, anxiety or mood disorders. Endocrine: Negative for polyuria, polydipsia or hot/cold intolerance. Skin: Negative for acute skin lesions. Physical Exam: Vital Signs: BP 134/78 (BP Location: Left arm, BP Position: Sitting) Pulse 72 Temp 97 F (36.1 C) (Temporal) Resp 16 SpO2 99% Smoking Status Never , General/Constitutional: Well developed, well nourished female, who looks their stated age of 44 y.o.. No acute distress. HEENT: Head: Normocephalic and atraumatic. Eyes: Pupils are equal, round, and reactive to light and accomodation. Extraocular movements are intact. Sclerae are anicteric. Neck: Supple, non-tender, with no lymphadenopathy. No jugular venous distension, carotid bruits, or tracheal deviation. Cardiac: Regular rate and rhythm. Normal S1, S2. No murmurs, rubs or gallops. Pulmonary/Chest: Lungs are clear to auscultation bilaterally. No wheezes, rhonchi or rales noted. Breast/ChestWall: Breasts appear symmetric. There are no dominant masses present in either breast. There are no nipple abnormalities or skin changes bilaterally. There is no supraclavicular or axillary adenopathy present. Abdominal: Normoactive bowel sounds in all four quadrants. Soft, non-tender, non-distended. No organomegaly. No hepatojugular reflux. No abdominal wall hernias. No guarding, rebound, or CVA tenderness. Extremities: Normal range of motion in all four extremities, with normal strength equally and symmetrically. No cyanosis or clubbing or peripheral edema. Peripheral Vascular Exam: Normal radial, posterior tibialis, and dorsalis pedis arterial pulses. Neurological: Conscious, alert and oriented. Cranial nerves II through XII are intact grossly and symmetrically. No focal neurologic deficit. Skin: Skin is warm and dry. She is not diaphoretic. Psychiatric: Appropiate mood and affect for her clinical situation. Imaging Data: See HPI Impression and Plan: Impression: Benign left breast biopsy at OSH with second opinion review noted a likely concordant result given the appearance of the mass on imaging consistent with the appearance of benign breast tissue for which a 6 month follow up ultrasound is recommended as a precaution. Plan: I reassured Shannon Lopez that her clinical breast exam is without suspicious findings today. I reviewed the results of her outside breast imaging along with our second opinion recommendations with her in detail. I discussed with her that our radiologists noted that the biopsy was likely concordant given the appearance of the mass on imaging consistent with the appearance of benign breast tissue. I discussed that he recommended a 6 month follow up ultrasound as a precaution. We discussed that if she was not comfortable with this plan we could consider repeat biopsy. She is comfortable with observation and will plan to see me back in 6 months with a follow up ultrasound. I encouraged her to continue self-exams and to reach out prior to her return with any concerns. Shannon is agreeable to this plan and all of her questions were answered today[facility] and physical note Date of Service: 01/23/2025 History of Present Illness: Chief Complaint Patient presents with New Patient Second opinion of left breast imaging. Had biopsy 01/11/2025 Shannon Lopez is a 44 y.o. premenopausal female who presents to the [facility] [place] on 01/23/2025 for evaluation regarding abnormal left breast imaging. On 11/07/2024 she presented for screening mammography. This showed a focal asymmetry in the left breast 1:00 for which further evaluation with mammography and ultrasound were recommended; BI-RADS 0. On 01/01/2025 she returned for diagnostic imaging. Mammography showed a focal asymmetry measuring 5 cm with macrolobulated margins in the left breast 12:00. Ultrasound showed an oval 4 cm mass in the left breast 12:00 for which left breast ultrasound guided biopsy is recommended; BI-RADS 4. On 01/09/2025 she underwent an ultrasound guided biopsy in a clinician's office. Final pathology showed unremarkable mammary tissue. On 01/21/2025 her outside breast imaging was reviewed by Dr. Maradiaga. He noted a mass in the left breast seen on screening mammography having undergone core biopsy. Results demonstrated unremarkable mammary tissue with post procedure mammogram demonstrating the clips in good position. Overall given the appearance on the mammogram, the prior mammogram, and the ultrasound findings he noted this was a likely concordant results as the appearance of the breast tissue could indicate the presence of a hamartoma. As a precaution a 6 month follow up mammogram was recommended. He noted a negative right mammogram. Shannon Lopez reports examining her breasts monthly. She has not noted any masses, skin changes, nipple discharge, or pain. She denies any history of breast problems or previous breast biopsy. She denies any family history of breast or ovarian cancer. She is premenopausal and does not have periods due to having a Mirena IUD in place. Medical/Surgical History: Past Medical History: Diagnosis Date Depression Past Surgical History: Procedure Laterality Date CORE BIOPSY OF THE BREAST Left 01/11/2025 Breast/TAILOR GARMENT FITTER History: Social History Social History Narrative TAILOR GARMENT FITTER: No LMP recorded.2016 Last PAP: Para: 3 Age at of first child: 22 Age of menarche: 15 Age of menopause: IUD Patient reports hormonal therapy at this time. BREAST (GENERAL): Patient reports self-breast exams and does them monthly. Date of patient's first mammogram: 2017 Date of most recent mammogram: 01/01/2025 Bra/Cup Size: 42 I BREAST(HISTORICAL BIOPSY/THERAPY/TREATMENT) Patient reports previous breast biopsy(s). Patient denies being told they personally have breast cancer or a breast malignancy. Patient denies chemotherapy, hormone therapy or radiation therapy during the last month. Family/Social History: Her family history includes Breast Cancer (age of onset: 43) in her maternal aunt; Cancer- Other in her maternal aunt. She reports that she has never smoked. She has never used smokeless tobacco. She reports current alcohol use. She reports that she does not use drugs. Medications/Allergies/Immunizat ions: Current Outpatient Medications Medication Sig buPROPion 300 MG tablet XL Take 1 tablet by mouth daily. FLUoxetine 40 MG capsule Take 1 capsule by mouth daily. Levonorgestrel 20 MCG/DAY 1 Intra Uterine Device by Intrauterine route once. Zepbound 15 MG/0.5ML Solution Auto-injector Inject 15 mg under the skin Once a week. Allergies Allergen Reactions Citalopram Cough Yawning every 5 seconds Constant yawning Metoclopramide Anxiety and Paranoia anxiety Penicillins Hives and Itching Reaction unknown, told as a child No difficulty breathing Immunization History Administered Date(s) Administered [id number] COVID-19 monovalent vaccine, mRNA, Moderna, 50 mcg/0.25 mL booster 09/17/2020, 10/15/2020 Review of Systems: General/Constitutional: Negative for fever, chills, fatigue +Zepbound with 65 lb intentional weight loss since August HEENT: No visual disturbances, diplopia. No hearing loss, tinnitus, sore throat, nosebleeds, and rhinorrhea. No dysphagia or odynophagia. Cardiovascular: Negative for palpitations, chest pain, dyspnea on exertion, orthopnea or paroxysmal nocturnal dyspnea. Respiratory: No history of TB exposure. Negative for chronic or productive cough, hemoptysis, or asthma. Denies shortness of breath. Lymph/Heme: No history of hematologic magligancies or bleeding disorders. Gastrointestinal: Negative for abdominal pain, nausea, vomiting, diarrhea, constipation or changes in bowel habits. Genitourinary: Negative for dysuria or hematuria. No frequency, urgency, or hesitancy. Musculoskeletal: Negative for arthralgias, myalgias, or back pain. Neurological: Negative for dizziness, syncope, focal weakness or headaches. Psychiatric: Negative for depression, anxiety or mood disorders. Endocrine: Negative for polyuria, polydipsia or hot/cold intolerance. Skin: Negative for acute skin lesions. Physical Exam: Vital Signs: BP 134/78 (BP Location: Left arm, BP Position: Sitting) Pulse 72 Temp 97 F (36.1 C) (Temporal) Resp 16 SpO2 99% Smoking Status Never , General/Constitutional: Well developed, well nourished female, who looks their stated age of 44 y.o.. No acute distress. HEENT: Head: Normocephalic and atraumatic. Eyes: Pupils are equal, round, and reactive to light and accomodation. Extraocular movements are intact. Sclerae are anicteric. Neck: Supple, non-tender, with no lymphadenopathy. No jugular venous distension, carotid bruits, or tracheal deviation. Cardiac: Regular rate and rhythm. Normal S1, S2. No murmurs, rubs or gallops. Pulmonary/Chest: Lungs are clear to auscultation bilaterally. No wheezes, rhonchi or rales noted. Breast/ChestWall: Breasts appear symmetric. There are no dominant masses present in either breast. There are no nipple abnormalities or skin changes bilaterally. There is no supraclavicular or axillary adenopathy present. Abdominal: Normoactive bowel sounds in all four quadrants. Soft, non-tender, non-distended. No organomegaly. No hepatojugular reflux. No abdominal wall hernias. No guarding, rebound, or CVA tenderness. Extremities: Normal range of motion in all four extremities, with normal strength equally and symmetrically. No cyanosis or clubbing or peripheral edema. Peripheral Vascular Exam: Normal radial, posterior tibialis, and dorsalis pedis arterial pulses. Neurological: Conscious, alert and oriented. Cranial nerves II through XII are intact grossly and symmetrically. No focal neurologic deficit. Skin: Skin is warm and dry. She is not diaphoretic. Psychiatric: Appropiate mood and affect for her clinical situation. Imaging Data: See HPI Impression and Plan: Impression: Benign left breast biopsy at OSH with second opinion review noted a likely concordant result given the appearance of the mass on imaging consistent with the appearance of benign breast tissue for which a 6 month follow up ultrasound is recommended as a precaution. Plan: I reassured Shannon Lopez that her clinical breast exam is without suspicious findings today. I reviewed the results of her outside breast imaging along with our second opinion recommendations with her in detail. I discussed with her that our radiologists noted that the biopsy was likely concordant given the appearance of the mass on imaging consistent with the appearance of benign breast tissue. I discussed that he recommended a 6 month follow up ultrasound as a precaution. We discussed that if she was not comfortable with this plan we could consider repeat biopsy. She is comfortable with observation and will plan to see me back in 6 months with a follow up ultrasound. I encouraged her to continue self-exams and to reach out prior to her return with any concerns. Shannon is agreeable to this plan and all of her questions were answered today. documented in this encounter [facility] 01-16-2025 Instructions Olga Bosch DO - 01/16/2025 1:51 PM EDT We discussed the results of your recent breast biopsy and next steps: - The pathology from your left breast biopsy showed benign breast tissue, which is good news. However, the imaging findings and the biopsy results are not entirely consistent (referred to as discordant). - I recommend excising (removing) the area of concern in your left breast to ensure there was no sampling error and to confirm the findings. This is the safest and most conservative approach. - Alternatively, if you prefer to observe the area, we can repeat imaging in 6 months. If there are any changes, I would then recommend excision. If the imaging remains stable, we can continue to monitor it. We discussed your preference to seek care at the breast center at [facility] ([facility]): - I fully support your decision to consult with the breast center at [facility] for further evaluation and management. - I will provide you with copies of your pathology report, screening mammogram, diagnostic mammogram, ultrasound, and post-biopsy imaging for your records and to share with the [facility] team. - If [facility] requires additional records or imaging, they can send a request to our office, and we will facilitate the transfer. If you decide to proceed with surgery here: - You are welcome to contact our office to schedule the excision procedure at any time. Please let me know if you have any further questions or concerns. documented in this encounter [facility] 01-16-2025 History of Presen t illness Narrative Images from the original note were not included. 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 Shannon was recently seen on 01/09/2025 for a left breast mass. A screening mammogram on 11/07/2024 showed focal asymmetry of the left breast at 1 o'clock middle depth, requiring additional imaging. A subsequent diagnostic mammogram with tomosynthesis revealed a mass at 12 o'clock, suspicious for malignancy, and an ultrasound-guided biopsy was recommended. The left breast ultrasound showed an oval mass measuring 4 cm at 12 o'clock with heterogeneous internal echo texture and vascularity; no abnormal lymphadenopathy was identified in the left axilla. Shannon underwent an ultrasound-guided left breast core needle biopsy on 01/09/2025. A post-procedure mammogram confirmed the successful placement of two marker clips at the 12 o'clock position, middle depth, at the biopsy site. Pathology results showed unremarkable mammary tissue. Shannon returns today to discuss these results and next steps. 10 point review of systems completed and is otherwise negative On exam: There were no vitals filed for this visit. Gen: NAD, well-nourished Lungs: unlabored breathing, bilateral chest rise Breast: Biopsy site healing well. Suture removed. Participation of a fellow, resident, medical student, or advanced practice provider student in performing the sensitive examination was discussed with the patient or authorized in store representative. The patient or authorized in store representative has agreed to proceed with the sensitive examination. Labs: Tests: (01/09/2025) Ultrasound guided left breast core needle biopsy: Pathology showing unremarkable mammary tissue Imaging: (01/09/2025) Post-procedure mammogram: Successful placement of two marker clips at the 12 o clock position (middle depth) Left breast ultrasound: Oval 4 cm mass at 12 o clock with heterogeneous internal echo texture, vascular flow present, and no abnormal left axillary lymphadenopathy Diagnostic mammogram with tomosynthesis of the left breast: Mass at 12 o clock, suspicious for malignancy (11/07/2024) Screening mammogram: Focal asymmetry of the left breast at 1 o clock, middle depth, requiring additional imaging Assessment ASSESSMENT Mass overlapping multiple quadrants of left breast (primary encounter diagnosis) Class 3 severe obesity without serious comorbidity with body mass index (bmi) of 40.0 to 44.9 in adult, unspecified obesity type RECOMMENDATION 1. Mass overlapping multiple quadrants of left breast (N63.25) - Diagnostic mammogram with tomosynthesis revealed a suspicious mass at 12 o'clock in the left breast; ultrasound showed a 4 cm oval mass with heterogeneous internal echo texture and vascularity. - Ultrasound-guided core needle biopsy performed on 01/09/2025; post-procedure mammogram confirmed successful placement of two marker clips at the biopsy site. - Pathology results from the biopsy showed unremarkable mammary tissue, which is discordant with imaging findings. - Discussed options: surgical excision of the mass to rule out sampling error or observation with repeat imaging in 6 months. - Patient prefers to consult with the breast center at [facility] for further evaluation and management. - Provided patient with copies of pathology report, screening mammogram, diagnostic mammogram, ultrasound, and clip placement images. - Patient understands the plan and will follow up with [facility]; she may return for surgical excision here if desired. 2. Class 3 severe obesity without serious comorbidity with body mass index (BMI) of 40.0 to 44.9 in adult, unspecified obesity type (E66.813) - BMI is 41.61. - Discussed potential impact of obesity on overall health and encouraged weight management strategies. Olga Bosch DO January 16, 2025 2:35 PM documented in this encounter [facility] 01-16-2025 Note HNO ID: [id number] Author: OLGA BOSCH DO Service: ? Author Type: Physician Type: Progress Notes Filed: 01/28/2025 14:36 Note Text: GENERAL SURGERY FOLLOW UP Shannon is a 44-year-old female with a history of severe preeclampsia, obesity (BMI: 41.61), and HELLP syndrome during the third trimester of her in 2015, presenting to discuss pathology results and next steps for a left breast mass. Shannon was recently seen on 01/09/2025 for a left breast mass. A screening mammogram on 11/07/2024 showed focal asymmetry of the left breast at 1 o'clock middle depth, requiring additional imaging. A subsequent diagnostic mammogram with tomosynthesis revealed a mass at 12 o'clock, suspicious for malignancy, and an ultrasound-guided biopsy was recommended. The left breast ultrasound showed an oval mass measuring 4 cm at 12 o'clock with heterogeneous internal echo texture and vascularity; no abnormal lymphadenopathy was identified in the left axilla. Shannon underwent an ultrasound-guided left breast core needle biopsy on 01/09/2025. A post-procedure mammogram confirmed the successful placement of two marker clips at the 12 o'clock position, middle depth, at the biopsy site. Pathology results showed unremarkable mammary tissue. Shannon returns today to discuss these results and next steps. 10 point review of systems completed and is otherwise negative On exam: There were no vitals filed for this visit. Gen: NAD, well-nourished Lungs: unlabored breathing, bilateral chest rise Breast: Biopsy site healing well. Suture removed. Participation of a fellow, resident, medical student, or advanced practice provider student in performing the sensitive examination was discussed with the patient or authorized in store representative. The patient or authorized in store representative has agreed to proceed with the sensitive examination. Labs: Tests: (01/09/2025) Ultrasound guided left breast core needle biopsy: Pathology showing unremarkable mammary tissue Imaging: (01/09/2025) Post-procedure mammogram: Successful placement of two marker clips at the 12 o?clock position (middle depth) Left breast ultrasound: Oval 4 cm mass at 12 o?clock with heterogeneous internal echo texture, vascular flow present, and no abnormal left axillary lymphadenopathy Diagnostic mammogram with tomosynthesis of the left breast: Mass at 12 o?clock, suspicious for malignancy (11/07/2024) Screening mammogram: Focal asymmetry of the left breast at 1 o?clock, middle depth, requiring additional imaging Assessment ASSESSMENT Mass overlapping multiple quadrants of left breast (primary encounter diagnosis) Class 3 severe obesity without serious comorbidity with body mass index (bmi) of 40.0 to 44.9 in adult, unspecified obesity type RECOMMENDATION 1. Mass overlapping multiple quadrants of left breast (N63.25) - Diagnostic mammogram with tomosynthesis revealed a suspicious mass at 12 o'clock in the left breast; ultrasound showed a 4 cm oval mass with heterogeneous internal echo texture and vascularity. - Ultrasound-guided core needle biopsy performed on 01/09/2025; post-procedure mammogram confirmed successful placement of two marker clips at the biopsy site. - Pathology results from the biopsy showed unremarkable mammary tissue, which is discordant with imaging findings. - Discussed options: surgical excision of the mass to rule out sampling error or observation with repeat imaging in 6 months. - Patient prefers to consult with the breast center at [facility] for further evaluation and management. - Provided patient with copies of pathology report, screening mammogram, diagnostic mammogram, ultrasound, and clip placement images. - Patient understands the plan and will follow up with [facility]; she may return for surgical excision here if desired. 2. Class 3 severe obesity without serious comorbidity with body mass index (BMI) of 40.0 to 44.9 in adult, unspecified obesity type (E66.813) - BMI is 41.61. - Discussed potential impact of obesity on overall health and encouraged weight management strategies. Olga Bosch DO January 16, 2025 2:35 PM [facility] 01-11-2025 History of Presen t illness Narrative Radiology Service Progress Note PATIENT NAME: Shannon Lopez DATE OF SERVICE: January 11, 2025 TIME: 9:53 AM PATIENT IDENTITY VERIFICATION COMPLETED USING TWO (2) IDENTIFIERS: Name and Date of confirmed by patient verbally. FALL SCREENING: Has the patient had 2 falls in the last year or 1 fall with injury or currently using an Ambulatory Assistive Device (Walker, Cane, Wheelchair, Crutches, etc.)? No PATIENT GENDER DATA: Assigned female at . status: : No status: NO. PATIENT RELEVANT IMPLANT DATA REVIEWED: Not Applicable PATIENT PRESENTS WITH AN IMPLANTABLE OR ATTACHED LOG SNAKER: No RADIOLOGY DEPARTMENT: Mammography PERIPHERAL IV DATA: Not applicable SIGNED BY: Philip Reyes January 11, 2025 9:53 AM documented in this encounter [facility] 01-11-2025 Note HNO ID: [id number] Author: OLIVA BEY Mammo Tech Service: ? Author Type: Patient Observation Assistant Type: Progress Notes Filed: 01/11/2025 09:53 Note Text: Radiology Service Progress Note PATIENT NAME: Shannon Lopez DATE OF SERVICE: January 11, 2025 TIME: 9:53 AM PATIENT IDENTITY VERIFICATION COMPLETED USING TWO (2) IDENTIFIERS: Name and Date of confirmed by patient verbally. FALL SCREENING: Has the patient had 2 falls in the last year or 1 fall with injury or currently using an Ambulatory Assistive Device (Walker, Cane, Wheelchair, Crutches, etc.)? No PATIENT GENDER DATA: Assigned female at . status: : No status: NO. PATIENT RELEVANT IMPLANT DATA REVIEWED: Not Applicable PATIENT PRESENTS WITH AN IMPLANTABLE OR ATTACHED LOG SNAKER: No RADIOLOGY DEPARTMENT: Mammography PERIPHERAL IV DATA: Not applicable SIGNED BY: Ar ReyesLessonLab Osmin January 11, 2025 9:53 AM [facility] 01-09-2025 History and physical note Breast Services- History and Physical SERVICE DATE: 01/09/2025 REASON FOR TODAY'S VISIT: Left breast mass SUBJECTIVE: HISTORY of PRESENT ILLNESS: Shannon Lopez is a 44 year old female with past medical history of depression, HELLP syndrome during the third trimester of , migraines, morbid obesity, DELON, depression, and abnormal Pap smear of the cervix who presents to discuss results of recent mammogram which showed a new left breast mass. Shannon had a screening mammogram on 11/08/2024, which showed a focal asymmetry in the left breast at 1 o'clock, middle depth, requiring additional evaluation with a diagnostic mammogram. BI-RADS category 0. She then underwent a diagnostic left mammogram, which showed a mass in the left breast at the 12 o'clock position, suspicious for malignancy, BI-RADS category 4. The focal asymmetry measured 5 cm with macrolobulated margins. Ultrasound demonstrated an oval mass measuring 4 cm in the left breast at the 12 o'clock position with internal echo texture that was heterogeneous. Color flow imaging demonstrated vascularity was present. There was no abnormality noted in the left axilla. Last mammogram in 2021 showed no mammographic evidence of malignancy. Mammogram in 2018 reported probably benign lesions in the left breast. Shannon reports no changes in her breast during the time frame between her last mammogram in 2021 and the current one in 2024. She does not perform regular self-breast exams due to the fibrous and dense nature of her breast tissue, which makes it difficult for her to detect any differences. She denies any noticeable changes when putting on bras or clothes in the morning. She endorses family history of breast cancer in maternal aunt. She reports that her left breast has been aching since the mammogram, but she did not experience any pain before that. The pain is described as an ache and is mostly constant, though occasionally it is not present. The pain is more to the side of the breast and does not radiate to the armpit. She denies any nipple discharge. She has not had a menstrual cycle since 2005 due to an IUD. She denies any cyclical breast pain. She also denies any new lightheadedness, dizziness, headaches, changes in vision or hearing, chest pain, shortness of breath, coughing, wheezing, abdominal pain, nausea, vomiting, changes in bowel habits, changes in urination, new bone pains, back pain, joint pain, or new numbness or tingling in her hands or feet. She uses a BiPAP machine at night for her DELON, and her settings have been stable. She denies any new swelling in her legs. She has allergies to citalopram, metoclopramide, penicillins, and Reglan, which causes severe anxiety. BREAST RELATED HISTORY: Abnormal Mammogram: Yes, left. Mammogram in 2018 reported 3mm oval cyst in the left breast at 1 o'clock anterior depth. The oval cyst is hypoechoic with a well-defined boundary and internal echoes. This abnormality is not significantly changed. There is also a 5mm oval area in the left breast at 2 o'clock middle depth. This oval area is hypoechoic. Color flow demonstrates that there is no vascularity present. Additionally, there is a benign 1.5cm oval cyst in the left breast at 4 o'clock anterior depth. This oval cyst is anechoic with a well-defined boundary. This correlates with mammography findings. Color flow imaging demonstrates that there is no vascularity present. Breast Mass: yes, left Axillary Mass: No Nipple Discharge: No Breast Pain: Yes, aching left lateral breast Breast Biopsy: No prior Breast Biopsy Pathology: NA Breast cyst drainage: No Breast reduction: No Breast reconstruction: No Genetic testing: No Prior personal history of breast cancer: No OBSTETRIC HISTORY: Age when menses began: 15 Date of LMP: 2015 Breast feed: Yes, 6 weeks Age at first live : 22 Hysterectomy: No Oophorectomy: No Exogenous hormone use: Yes, IUD FAMILY CANCER HISTORY: The patient is not of Ashkenazic Ancestry Breast Cancer: Maternal Aunt (diagnosed twice with different cancers in the same breast. Diagnosed in 30s and 40s) Ovarian Cancer: No Colon Cancer: No Prostate Cancer: No PAST MEDICAL HISTORY: 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 ([facility]) 2016 Low ferritin level 08/27/2015 Mental disorders complicating , childbirth, or the puerperium Migraine without aura 02/25/2007 Morbid obesity ([facility]) 10/23/2012 Obstructive sleep apnea Orthostatic lightheadedness 05/02/2019 Ovarian cyst 2018 depression RLS (restless legs syndrome) 07/16/2015 Severe pre-eclampsia, antepartum ([facility]) 2015 Sleep apnea 04/24/2015 DME DASCO Teeth grinding 10/23/2012 Tremor 05/02/2019 Uterine fibroid 2016 PAST SURGICAL HISTORY: PAST SURGICAL HISTORY Procedure Laterality Date SECTION HX 2016 MIRENA IUD 07/14/11,03/23/2016 PAST SURGICAL HISTORY OF 2009 UPPP for sleep apnea FAMILY HISTORY: FAMILY HISTORY Problem Relation Age of Onset other (Scleroderma) Mother Lipids Father Hypertension Father Allergic Rhinitis Brother No Known Problems Brother other (Polio) Maternal Grandfather other (Pulmonary Disease) Paternal Grandfather Breast Cancer Maternal Aunt 45 x2 Cancer Other No db2 systems programmer/colon cancer SOCIAL HISTORY: 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 modafinil (PROVIGIL) 100 mg tablet Take (1) tablet by mouth once per day CPAP/BIPAP/OTHER Type .CPAPSettings into a note to see current settings/supplies/DME information. buPROPion XL (WELLBUTRIN XL) 300 mg 24 hr tablet Take 1 tablet by mouth once daily. FLUoxetine (PROZAC) 40 mg capsule Take 1 capsule by mouth once daily. tirzepatide, weight loss (ZEPBOUND) 15 mg/0.5 mL pen injector Inject 15 mg subcutaneously one time a week. rOPINIRole (REQUIP) 0.25 mg tablet Take 3 tablets by mouth at bedtime as needed. ALLERGIES: ALLERGIES Allergen Reactions Citalopram Other: See Comments Constant yawning Metoclopramide Other: See Comments Penicillins Hives, Itching No difficulty breathing Reglan [Metoclopram* Other: See Comments anxiety REVIEW OF SYSTEMS: GENERAL: No weight loss, malaise or fevers. HEENT: Negative for frequent or significant headaches, No changes in hearing or vision, no nose bleeds or other nasal problems RESPIRATORY: Negative for cough, hemoptysis, wheezing or shortness of breath CARDIOVASCULAR: Negative for chest pain, leg swelling or palpitations. GI: No nausea, vomiting, or diarrhea : No history of dysuria, frequency or incontinence. 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 MUSCULOSKELETAL: Negative for joint pain or swelling, back pain or muscle pain. SKIN: Denies Scleroderma or Lupus. Denies chronic skin conditions. PSYCH: Denies history of psychiatric illness. All other reviewed and negative other than HPI. OBJECTIVE: PHYSICAL EXAM: BP 126/84 Pulse 68 Ht 166.4 cm (5' 5.51") Wt 115.2 kg (254 lb) LMP (LMP Unknown) BMI 41.61 kg/m Body mass index is 41.61 kg/m . GENERAL:well-nourished, healthy, female, alert and oriented x 3, calm SKIN:warm, dry, skin color, texture, turgor normal HEAD/EYES:normocephalic, atraumatic, and anicteric NECK: supple, symmetrical, no thyromegaly RESPIRATORY: Respirations regular & non-labored ABDOMEN: soft, nondistended. No hepatomegaly., No masses MUSCULOSKELETAL: No observed limitations in range of motion of upper extremities Patient ambulates independently LEFT BREAST: The breast skin and nipple areolar complexes appear normal without retraction or lesions. There is no nipple discharge. There is dense breast tissue, particularly periareolar region and upper quadrants. There is mild ttp in upper outer quadrant. No overlying skin changes in this area. RIGHT BREAST: The breast skin and nipple areolar complexes appear normal without retraction or lesions. There is no nipple discharge. There is dense breast tissue, but no dominant mass in the right breast. No ttp. LEFT REGIONAL LYMPH NODES: There is no concerning supraclavicular, infraclavicular or axillary lymphadenopathy RIGHT REGIONAL LYMPH NODES: There is no concerning supraclavicular, infraclavicular or axillary lymphadenopathy IMAGING: Screening Mammogram 11/08/2024 MAMMOGRAM FINDINGS: The breasts are heterogeneously dense, which may obscure small masses. There is a focal asymmetry in the left breast at 1 o'clock, middle depth. No suspicious masses, calcifications or other abnormalities are seen in the right breast. IMPRESSION: The focal asymmetry in the left breast at 1 o'clock, middle depth requires additional evaluation. Diagnostic mammogram and ultrasound are recommended. BI-RADS Category 0: Incomplete: Needs Additional Imaging Evaluation Diagnostic Mammogram 01/01/25 MAMMOGRAM FINDINGS: The breast is heterogeneously dense, which may obscure small masses. There is a focal asymmetry measuring 5 cm with macrolobulated margins in the left breast at 12 o'clock. IMPRESSION: Mass in the left breast at 12 o'clock is suspicious for malignancy. Ultrasound-guided biopsy is recommended. BI-RADS Category 4: Suspicious Ultrasound 01/01/25 ULTRASOUND FINDINGS: Ultrasound demonstrates an oval mass measuring 4 cm in the left breast at 12 o'clock. Internal echotexture is heterogenous. Color flow imaging demonstrates vascularity is present. No abnormality is noted in the left axilla ASSESSMENT: Shannon Lopez is a 44 year old female presenting to office with a new left breast mass at the 12 o'clock position +6cm from the nipple. PLAN: -Ultrasound guided breast biopsy of the left breast mass performed in clinic. Please see procedure note for details. -Left breast mammogram ordered to confirm placement of biopsy clips -Return to office in 1 week for wound check and to review pathology My recommendation will be communicated back to the requesting physician by way of the shared record. Olga Bosch DO General Surgery [facility] 01-09-2025 History and physical note Breast Services- History and Physical SERVICE DATE: 01/09/2025 REASON FOR TODAY'S VISIT: Left breast mass SUBJECTIVE: HISTORY of PRESENT ILLNESS: Shannon Lopez is a 44 year old female with past medical history of depression, HELLP syndrome during the third trimester of , migraines, morbid obesity, DELON, depression, and abnormal Pap smear of the cervix who presents to discuss results of recent mammogram which showed a new left breast mass. Shannon had a screening mammogram on 11/08/2024, which showed a focal asymmetry in the left breast at 1 o'clock, middle depth, requiring additional evaluation with a diagnostic mammogram. BI-RADS category 0. She then underwent a diagnostic left mammogram, which showed a mass in the left breast at the 12 o'clock position, suspicious for malignancy, BI-RADS category 4. The focal asymmetry measured 5 cm with macrolobulated margins. Ultrasound demonstrated an oval mass measuring 4 cm in the left breast at the 12 o'clock position with internal echo texture that was heterogeneous. Color flow imaging demonstrated vascularity was present. There was no abnormality noted in the left axilla. Last mammogram in 2021 showed no mammographic evidence of malignancy. Mammogram in 2018 reported probably benign lesions in the left breast. Shannon reports no changes in her breast during the time frame between her last mammogram in 2021 and the current one in 2024. She does not perform regular self-breast exams due to the fibrous and dense nature of her breast tissue, which makes it difficult for her to detect any differences. She denies any noticeable changes when putting on bras or clothes in the morning. She endorses family history of breast cancer in maternal aunt. She reports that her left breast has been aching since the mammogram, but she did not experience any pain before that. The pain is described as an ache and is mostly constant, though occasionally it is not present. The pain is more to the side of the breast and does not radiate to the armpit. She denies any nipple discharge. She has not had a menstrual cycle since 2006 due to an IUD. She denies any cyclical breast pain. She also denies any new lightheadedness, dizziness, headaches, changes in vision or hearing, chest pain, shortness of breath, coughing, wheezing, abdominal pain, nausea, vomiting, changes in bowel habits, changes in urination, new bone pains, back pain, joint pain, or new numbness or tingling in her hands or feet. She uses a BiPAP machine at night for her DELON, and her settings have been stable. She denies any new swelling in her legs. She has allergies to citalopram, metoclopramide, penicillins, and Reglan, which causes severe anxiety. BREAST RELATED HISTORY: Abnormal Mammogram: Yes, left. Mammogram in 2018 reported 3mm oval cyst in the left breast at 1 o'clock anterior depth. The oval cyst is hypoechoic with a well-defined boundary and internal echoes. This abnormality is not significantly changed. There is also a 5mm oval area in the left breast at 2 o'clock middle depth. This oval area is hypoechoic. Color flow demonstrates that there is no vascularity present. Additionally, there is a benign 1.5cm oval cyst in the left breast at 4 o'clock anterior depth. This oval cyst is anechoic with a well-defined boundary. This correlates with mammography findings. Color flow imaging demonstrates that there is no vascularity present. Breast Mass: yes, left Axillary Mass: No Nipple Discharge: No Breast Pain: Yes, aching left lateral breast Breast Biopsy: No prior Breast Biopsy Pathology: NA Breast cyst drainage: No Breast reduction: No Breast reconstruction: No Genetic testing: No Prior personal history of breast cancer: No OBSTETRIC HISTORY: Age when menses began: 15 Date of LMP: 2015 Breast feed: Yes, 6 weeks Age at first live : 22 Hysterectomy: No Oophorectomy: No Exogenous hormone use: Yes, IUD FAMILY CANCER HISTORY: The patient is not of Ashkenazic Ancestry Breast Cancer: Maternal Aunt (diagnosed twice with different cancers in the same breast. Diagnosed in 30s and 40s) Ovarian Cancer: No Colon Cancer: No Prostate Cancer: No PAST MEDICAL HISTORY: 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 ([facility]) 2016 Low ferritin level 08/27/2015 Mental disorders complicating , childbirth, or the puerperium Migraine without aura 02/25/2007 Morbid obesity ([facility]) 10/23/2012 Obstructive sleep apnea Orthostatic lightheadedness 05/02/2019 Ovarian cyst 2018 depression RLS (restless legs syndrome) 07/16/2015 Severe pre-eclampsia, antepartum ([facility]) 2016 Sleep apnea 04/24/2015 DME DASCO Teeth grinding 10/23/2012 Tremor 05/02/2019 Uterine fibroid 2016 PAST SURGICAL HISTORY: PAST SURGICAL HISTORY Procedure Laterality Date SECTION HX 2016 MIRENA IUD 07/14/11,03/23/2016 PAST SURGICAL HISTORY OF 2009 UPPP for sleep apnea FAMILY HISTORY: FAMILY HISTORY Problem Relation Age of Onset other (Scleroderma) Mother Lipids Father Hypertension Father Allergic Rhinitis Brother No Known Problems Brother other (Polio) Maternal Grandfather other (Pulmonary Disease) Paternal Grandfather Breast Cancer Maternal Aunt 45 x2 Cancer Other No db2 systems programmer/colon cancer SOCIAL HISTORY: 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 modafinil (PROVIGIL) 100 mg tablet Take (1) tablet by mouth once per day CPAP/BIPAP/OTHER Type .CPAPSettings into a note to see current settings/supplies/DME information. buPROPion XL (WELLBUTRIN XL) 300 mg 24 hr tablet Take 1 tablet by mouth once daily. FLUoxetine (PROZAC) 40 mg capsule Take 1 capsule by mouth once daily. tirzepatide, weight loss (ZEPBOUND) 15 mg/0.5 mL pen injector Inject 15 mg subcutaneously one time a week. rOPINIRole (REQUIP) 0.25 mg tablet Take 3 tablets by mouth at bedtime as needed. ALLERGIES: ALLERGIES Allergen Reactions Citalopram Other: See Comments Constant yawning Metoclopramide Other: See Comments Penicillins Hives, Itching No difficulty breathing Reglan [Metoclopram* Other: See Comments anxiety REVIEW OF SYSTEMS: GENERAL: No weight loss, malaise or fevers. HEENT: Negative for frequent or significant headaches, No changes in hearing or vision, no nose bleeds or other nasal problems RESPIRATORY: Negative for cough, hemoptysis, wheezing or shortness of breath CARDIOVASCULAR: Negative for chest pain, leg swelling or palpitations. GI: No nausea, vomiting, or diarrhea : No history of dysuria, frequency or incontinence. 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 MUSCULOSKELETAL: Negative for joint pain or swelling, back pain or muscle pain. SKIN: Denies Scleroderma or Lupus. Denies chronic skin conditions. PSYCH: Denies history of psychiatric illness. All other reviewed and negative other than HPI. OBJECTIVE: PHYSICAL EXAM: BP 126/84 Pulse 68 Ht 166.4 cm (5' 5.51") Wt 115.2 kg (254 lb) LMP (LMP Unknown) BMI 41.61 kg/m Body mass index is 41.61 kg/m . GENERAL:well-nourished, healthy, female, alert and oriented x 3, calm SKIN:warm, dry, skin color, texture, turgor normal HEAD/EYES:normocephalic, atraumatic, and anicteric NECK: supple, symmetrical, no thyromegaly RESPIRATORY: Respirations regular & non-labored ABDOMEN: soft, nondistended. No hepatomegaly., No masses MUSCULOSKELETAL: No observed limitations in range of motion of upper extremities Patient ambulates independently LEFT BREAST: The breast skin and nipple areolar complexes appear normal without retraction or lesions. There is no nipple discharge. There is dense breast tissue, particularly periareolar region and upper quadrants. There is mild ttp in upper outer quadrant. No overlying skin changes in this area. RIGHT BREAST: The breast skin and nipple areolar complexes appear normal without retraction or lesions. There is no nipple discharge. There is dense breast tissue, but no dominant mass in the right breast. No ttp. LEFT REGIONAL LYMPH NODES: There is no concerning supraclavicular, infraclavicular or axillary lymphadenopathy RIGHT REGIONAL LYMPH NODES: There is no concerning supraclavicular, infraclavicular or axillary lymphadenopathy IMAGING: Screening Mammogram 11/08/2024 MAMMOGRAM FINDINGS: The breasts are heterogeneously dense, which may obscure small masses. There is a focal asymmetry in the left breast at 1 o'clock, middle depth. No suspicious masses, calcifications or other abnormalities are seen in the right breast. IMPRESSION: The focal asymmetry in the left breast at 1 o'clock, middle depth requires additional evaluation. Diagnostic mammogram and ultrasound are recommended. BI-RADS Category 0: Incomplete: Needs Additional Imaging Evaluation Diagnostic Mammogram 01/01/25 MAMMOGRAM FINDINGS: The breast is heterogeneously dense, which may obscure small masses. There is a focal asymmetry measuring 5 cm with macrolobulated margins in the left breast at 12 o'clock. IMPRESSION: Mass in the left breast at 12 o'clock is suspicious for malignancy. Ultrasound-guided biopsy is recommended. BI-RADS Category 4: Suspicious Ultrasound 01/01/25 ULTRASOUND FINDINGS: Ultrasound demonstrates an oval mass measuring 4 cm in the left breast at 12 o'clock. Internal echotexture is heterogenous. Color flow imaging demonstrates vascularity is present. No abnormality is noted in the left axilla ASSESSMENT: Shannon Lopez is a 44 year old female presenting to office with a new left breast mass at the 12 o'clock position +6cm from the nipple. PLAN: -Ultrasound guided breast biopsy of the left breast mass performed in clinic. Please see procedure note for details. -Left breast mammogram ordered to confirm placement of biopsy clips -Return to office in 1 week for wound check and to review pathology My recommendation will be communicated back to the requesting physician by way of the shared record. Olga Bosch DO General Surgery documented in this encounter [facility] 01-09-2025 Note HNO ID: [id number] Author: OLGA BOSCH DO Service: ? Author Type: Physician Type: Procedures Filed: 01/09/2025 16:16 Note Text: BEDSIDE PROCEDURE NOTE PROCEDURE DATE: January 09, 2025 PROCEDURE START TIME: 9:30AM PRIMARY PROCEDURALIST: Olga Bosch DO PONDMAN(S): Francine Teixeira MA INFORMED CONSENT: Informed Consent obtained and on the chart UNIVERSAL PROTOCOL / SAFETY CHECKLIST Sign in Communication: Completed Time Out: Team Confirms the Correct Patient, Correct Procedure, Correct Site and Site Marking, Correct Position (if applicable), Prep and Dry Time (if applicable). Time: 9:30AM Affirmation of Time Out: YES Sign Out Discussion: Completed PROCEDURE: The patient was brought to the procedure room and positioned supine on the procedure table. A final timeout was performed. The left breast mass was identified with bedside ultrasound and marked. The left breast was prepped and draped in the usual sterile fashion. 10 cc of 1% lidocaine with epinephrine was injected for local under visualization. An 11 blade scalpel was used to create a stab incision. A 14 gauge core needle biopsy device was used to obtain 3 core needle biopsies. The biopsy specimens were placed in formalin and sent for pathology. Images were uploaded to the patient's electronic medical chart. A breast biopsy marker was then placed under ultrasound guidance x2. A 4-0 chromic suture was used to close the incision with one simple suture. Hemostasis was maintained throughout the procedure. The wound was dressed with steri-strips and an Opsite dressing. The patient tolerated the procedure well with no immediate complications. A mammogram was ordered to confirm biopsy clipplacement. All needle and instrument counts were correct. SIGNATURE: Olga Bosch DO PATIENT NAME: Shannon Lopez DATE: January 09, 2025 TIME: 3:54 PM PAGER/CONTACT #: [phone] [facility] 01-09-2025 Procedure note BEDSIDE PROCEDURE NOTE PROCEDURE DATE: January 09, 2025 PROCEDURE START TIME: 9:30AM PRIMARY PROCEDURALIST: Olga Bosch DO PONDMAN(S): Francine Teixeira MA INFORMED CONSENT: Informed Consent obtained and on the chart UNIVERSAL PROTOCOL / SAFETY CHECKLIST Sign in Communication: Completed Time Out: Team Confirms the Correct Patient, Correct Procedure, Correct Site and Site Marking, Correct Position (if applicable), Prep and Dry Time (if applicable). Time: 9:30AM Affirmation of Time Out: YES Sign Out Discussion: Completed PROCEDURE: The patient was brought to the procedure room and positioned supine on the procedure table. A final timeout was performed. The left breast mass was identified with bedside ultrasound and marked. The left breast was prepped and draped in the usual sterile fashion. 10 cc of 1% lidocaine with epinephrine was injected for local under visualization. An 11 blade scalpel was used to create a stab incision. A 14 gauge core needle biopsy device was used to obtain 3 core needle biopsies. The biopsy specimens were placed in formalin and sent for pathology. Images were uploaded to the patient's electronic medical chart. A breast biopsy marker was then placed under ultrasound guidance x2. A 4-0 chromic suture was used to close the incision with one simple suture. Hemostasis was maintained throughout the procedure. The wound was dressed with steri-strips and an Opsite dressing. The patient tolerated the procedure well with no immediate complications. A mammogram was ordered to confirm biopsy clip placement. All needle and instrument counts were correct. SIGNATURE: Olga Bsoch DO PATIENT NAME: Shannon Lopez DATE: January 09, 2025 TIME: 3:54 PM PAGER/CONTACT #: [phone] [facility] 01-09-2025 Procedure note BEDSIDE PROCEDURE NOTE PROCEDURE DATE: January 09, 2025 PROCEDURE START TIME: 9:30AM PRIMARY PROCEDURALIST: Olga Bosch DO PONDMAN(S): Francine Teixeira MA INFORMED CONSENT: Informed Consent obtained and on the chart UNIVERSAL PROTOCOL / SAFETY CHECKLIST Sign in Communication: Completed Time Out: Team Confirms the Correct Patient, Correct Procedure, Correct Site and Site Marking, Correct Position (if applicable), Prep and Dry Time (if applicable). Time: 9:30AM Affirmation of Time Out: YES Sign Out Discussion: Completed PROCEDURE: The patient was brought to the procedure room and positioned supine on the procedure table. A final timeout was performed. The left breast mass was identified with bedside ultrasound and marked. The left breast was prepped and draped in the usual sterile fashion. 10 cc of 1% lidocaine with epinephrine was injected for local under visualization. An 11 blade scalpel was used to create a stab incision. A 14 gauge core needle biopsy device was used to obtain 3 core needle biopsies. The biopsy specimens were placed in formalin and sent for pathology. Images were uploaded to the patient's electronic medical chart. A breast biopsy marker was then placed under ultrasound guidance x2. A 4-0 chromic suture was used to close the incision with one simple suture. Hemostasis was maintained throughout the procedure. The wound was dressed with steri-strips and an Opsite dressing. The patient tolerated the procedure well with no immediate complications. A mammogram was ordered to confirm biopsy clip placement. All needle and instrument counts were correct. SIGNATURE: Olag Bosch DO PATIENT NAME: Shannon Lopez DATE: January 09, 2025 TIME: 3:54 PM PAGER/CONTACT #: [phone] documented in this encounter [facility] 01-09-2025 Instructions Olga Bosch DO - 01/09/2025 10:05 AM EDT Please remove Opsite dressing tomorrow. The steri-strips and stitch either fall off on their own or be removed at your office visit next week. Please obtain mammogram to confirm clip placement. documented in this encounter [facility] 01-09-2025 Note HNO ID: [id number] Author: FRANCINE TEIXEIRA MA Service: ? 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 PA denied not a covered benefit. Left message for patient on vm Ebony Torres MA [facility] 01-02-2025 Miscellaneous Notes Images from the original note were not included. PA denied not a covered benefit. Left message for patient on vm Ebony Torres MA [facility] sent PA request for zepbound Prior Authorization has been completed online at [email or web address] for zepbound 15 mg, will await response. [id number] Please keep encounter open until final decision has been received and documented from insurance company. Ebony Torres MA documented in this encounter [facility] 01-02-2025 Telephone encounter Note [facility] sent PA request for zepbound Prior Authorization has been completed online at [email or web address] for zepbound 15 mg, will await response. [id number] Please keep encounter open until final decision has been received and documented from insurance company. Ebony Torres MA [facility] 01-01-2025 Instructions Nancy Briggs MA - 01/01/2025 9:56 AM EDT POST IUD INSTRUCTIONS You may have irregular bleeding during the first 3 months of use. You may have mild-severe cramping for the next 48 hours. You may use over the counter medication (Motrin, Tylenol) as needed. Your IUD must be removed or replaced based on the following table: IUD Type Removed or replaced within: Tiesha 3 years Kyleena 5 years Mirena 8 years Liletta 8 years Paragard 10 years Call the office for signs/symptoms of infection such as severe cramping, fever, or unusual bleeding. Check for string placement as instructed by your doctor. If you have any additional questions, please contact the office. documented in this encounter [facility] 01-01-2025 Note HNO ID: [id number] Author: RODNEY BROOKS MD Service: ? Author Type: Physician Type: Progress Notes Filed: 01/01/2025 10:46 Note Text: Shannon presents for removal of IUD due to expiration of IUD. UNIVERSAL PROTOCOL / SAFETY CHECKLIST Procedure to be Performed: IUD removal and Mirena IUD insertion` Sign In: A Moment of CARE was completed. Appropriate PPE (Personal Protective Equipment) worn by all providers involved with the procedure. Special equipment utilized dilators. Patient/Surrogate Stated/Verified: Patient name, Date of , Relevant allergies, and The intended procedure Time Out: Relevant labs, photos, and/or imaging studies have been reviewed. Intended patient and procedure match the source document(s) (e.g. consent, HANDP, associated studies [imaging, pathology]) are not applicable. Consent obtained and matches the intended procedure. Yes. Correct side/site is not applicable. Medications required for this procedure are verified. Fire risk assessed and is not applicable. Implants: Correct implant(s) confirmed including size and side. Expiration date(s) reviewed. Sign Out: Specimens are all correctly labeled and sent. All instruments, equipment, possible retained foreign bodies are accounted for. Yes. The post-procedure plan of care has been communicated to the patient or surrogate. PROCEDURE: Speculum placed in vagina, IUD string visualized and grasped with ring forceps. ASSESSMENT/PLAN: IUD removed without difficulty, intact, and patient tolerated procedure well. Contraception plans: Mirena IUD test: negative Side effects including irregular bleeding were discussed with the patient. The patient understands that it should be removed in 8 years or sooner if the patient desires a . IUD source: office provided IUD lot #: [id number] Exp date: 02/01/2027 The cervix was prepped with betadine. The uterus sounded to 9 cm and the uterus is Anteverted.. Using sterile technique, the Mirena IUD was inserted without difficulty and the string was cut to 2cm from the external os of the cervix. Patient tolerated procedure well. PLAN: Patient was advised to observe for signs and symptoms of infection including but not limited to fever, malodorous vaginal discharge and/or pain. The patient was told to check the string monthly for accurate placement. Bleeding expectations were reviewed. Follow up for next annual exam or sooner as needed. Rodney Brooks MD [facility] 01-01-2025 History of Presen t illness Narrative Shannon presents for removal of IUD due to expiration of IUD. UNIVERSAL PROTOCOL / SAFETY CHECKLIST Procedure to be Performed: IUD removal and Mirena IUD insertion` Sign In: A Moment of CARE was completed. Appropriate PPE (Personal Protective Equipment) worn by all providers involved with the procedure. Special equipment utilized dilators. Patient/Surrogate Stated/Verified: Patient name, Date of , Relevant allergies, and The intended procedure Time Out: Relevant labs, photos, and/or imaging studies have been reviewed. Intended patient and procedure match the source document(s) (e.g. consent, H&P, associated studies [imaging, pathology]) are not applicable. Consent obtained and matches the intended procedure. Yes. Correct side/site is not applicable. Medications required for this procedure are verified. Fire risk assessed and is not applicable. Implants: Correct implant(s) confirmed including size and side. Expiration date(s) reviewed. Sign Out: Specimens are all correctly labeled and sent. All instruments, equipment, possible retained foreign bodies are accounted for. Yes. The post-procedure plan of care has been communicated to the patient or surrogate. PROCEDURE: Speculum placed in vagina, IUD string visualized and grasped with ring forceps. ASSESSMENT/PLAN: IUD removed without difficulty, intact, and patient tolerated procedure well. Contraception plans: Mirena IUD test: negative Side effects including irregular bleeding were discussed with the patient. The patient understands that it should be removed in 8 years or sooner if the patient desires a . IUD source: office provided IUD lot #: [id number] Exp date: 02/01/2027 The cervix was prepped with betadine. The uterus sounded to 9 cm and the uterus is Anteverted.. Using sterile technique, the Mirena IUD was inserted without difficulty and the string was cut to 2cm from the external os of the cervix. Patient tolerated procedure well. PLAN: Patient was advised to observe for signs and symptoms of infection including but not limited to fever, malodorous vaginal discharge and/or pain. The patient was told to check the string monthly for accurate placement. Bleeding expectations were reviewed. Follow up for next annual exam or sooner as needed. Rodney Brooks MD documented in this encounter [facility] 01-01-2025 History of Presen t illness Narrative Radiology Service Progress Note PATIENT NAME: Shannon Lopez DATE OF SERVICE: January 01, 2025 TIME: 9:39 AM PATIENT IDENTITY VERIFICATION COMPLETED USING TWO (2) IDENTIFIERS: Name and Date of confirmed by patient verbally. FALL SCREENING: Has the patient had 2 falls in the last year or 1 fall with injury or currently using an Ambulatory Assistive Device (Walker, Cane, Wheelchair, Crutches, etc.)? No PATIENT GENDER DATA: Assigned female at . status: : No status: NO. PATIENT RELEVANT IMPLANT DATA REVIEWED: Not Applicable PATIENT PRESENTS WITH AN IMPLANTABLE OR ATTACHED LOG SNAKER: No RADIOLOGY DEPARTMENT: Mammography PERIPHERAL IV DATA: Not applicable SIGNED BY: Philip Roberts January 01, 2025 9:39 AM documented in this encounter [facility] 01-01-2025 Note HNO ID: [id number] Author: CHASE GILES Mammo Tech Service: ? Author Type: Patient Observation Assistant Type: Progress Notes Filed: 01/01/2025 09:39 Note Text: Radiology Service Progress Note PATIENT NAME: Shannon Lopez DATE OF SERVICE: January 01, 2025 TIME: 9:39 AM PATIENT IDENTITY VERIFICATION COMPLETED USING TWO (2) IDENTIFIERS: Name and Date of confirmed by patient verbally. FALL SCREENING: Has the patient had 2 falls in the last year or 1 fall with injury or currently using an Ambulatory Assistive Device (Walker, Cane, Wheelchair, Crutches, etc.)? No PATIENT GENDER DATA: Assigned female at . status: : No status: NO. PATIENT RELEVANT IMPLANT DATA REVIEWED: Not Applicable PATIENT PRESENTS WITH AN IMPLANTABLE OR ATTACHED LOG SNAKER: No RADIOLOGY DEPARTMENT: Mammography PERIPHERAL IV DATA: Not applicable SIGNED BY: Chase Giles KIWATCH January 01, 2025 9:39 AM [facility] 12-19-2024 Note HNO ID: [id number] Author: RODNEY BROOKS MD Service: ? Author Type: Physician Type: Progress Notes Filed: 12/19/2024 09:01 Note Text: Shannon is a 44 year old who presents for an annual gynecologic exam without complaints. Doing well w/ IUD. Due to have it changed out. 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 (HCC) 2016 Low ferritin level 08/27/2015 Mental disorders complicating , childbirth, or the puerperium Migraine without aura 02/25/2007 Morbid obesity ([facility]) 10/23/2012 Obstructive sleep apnea Orthostatic lightheadedness 05/02/2019 depression RLS (restless legs syndrome) 07/16/2015 Severe pre-eclampsia, antepartum ([facility]) 2015 Sleep apnea 04/24/2015 DME DASCO Teeth grinding 10/23/2012 Tremor 05/02/2019 PAST SURGICAL HISTORY Procedure Laterality Date SECTION HX 2016 MIRENA IUD 07/14/11,03/23/2016 PAST SURGICAL HISTORY OF 2009 UPPP for sleep apnea FAMILY HISTORY Problem Relation Age of Onset other (Scleroderma) Mother Lipids Father Hypertension Father Allergic Rhinitis Brother No Known Problems Brother other (Polio) Maternal Grandfather other (Pulmonary Disease) Paternal Grandfather Breast Cancer Maternal Aunt 45 x2 Cancer Other No db2 systems programmer/colon cancer SOCIAL HISTORY Social History Tobacco Use Smoking status: Never Smokeless tobacco: Never Vaping Use Vaping status: Never Used Substance Use Topics Alcohol use: Yes Comment: rarely Drug use: No REVIEW OF SYSTEMS Abdomen: No abdominal pain, nausea, vomiting, diarrhea, or constipation. No bloating, early satiety, indigestion, or increased flatulence. Bladder: No dysuria, gross hematuria, urinary frequency, urinary urgency, or incontinence. Breast: No breast lumps, nipple d/c, overlying skin changes, redness or skin retraction. Allergies and current medication updated:Yes SENSITIVE EXAM: The sensitive examination was discussed with the Patient or Patient's Authorized Head Orthopedic Team Physician. As applicable, any other physician, advance practice provider, medical student, or other health professional student that will be observing or involved in the sensitive examination for educational or training purposes was discussed with the Patient or Authorized Head Orthopedic Team Physician. The Patient or Authorized Head Orthopedic Team Physician has agreed to proceed with the sensitive examination. (Sensitive examination includes inspection and/or palpation of the breasts, pelvis, prostate and anorectal regions). EXAM: BP 124/82 Ht 5' 5.5" (1.66m) Wt 255 lb (115.7kg) BMI 41.77 kg/(m2). GENERAL: pleasant, female in no apparent distress HEENT: Normocephalic, atraumatic, mucus membranes moist, and no lesions NECK: Supple, full range of motion, no adenopathy, and thyroid normal DERMATOLOGY: Normal, without lesions, non-icteric, and non-hirsute BREAST: soft, non-tender, symmetric, no dominant mass, normal nipple-areolar complex, no lymphadenopathy, and no nipple discharge CHEST: Normal inspiratory effort ABDOMEN: soft, non-tender, and no masses PELVIC: external genitalia normal, normal Bartholin's glands, urethra, Evaro's glands, no vulvar lesions, no cervical lesions, good vaginal support, physiologic discharge present, normal appearing perineal body and perianal region, IUD strings visible BIMANUAL: uterus normal size, shape and consistency, no adnexal masses, and non-tender RECTOVAGINAL: deferred. NEURO: alert and oriented x3,exam grossly non-focal EXTREMITIES: normal ASSESSMENT/PLAN: 1) Health maintenance: Pap/HPV up to date. Mammogram ordered. 2) Contraception: IUD. Contraceptive options reviewed and information provided. 3) STD screening: Declined STD check. 4) Follow up one year or sooner as needed return for IUD change Rodney Brooks MD [facility] 12-19-2024 History of Presen t illness Narrative Shannon is a 44 year old who presents for an annual gynecologic exam without complaints. Doing well w/ IUD. Due to have it changed out. 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 ([facility]) 2016 Low ferritin level 08/27/2015 Mental disorders complicating , childbirth, or the puerperium Migraine without aura 02/25/2007 Morbid obesity ([facility]) 10/23/2012 Obstructive sleep apnea Orthostatic lightheadedness 05/02/2019 depression RLS (restless legs syndrome) 07/16/2015 Severe pre-eclampsia, antepartum ([facility]) 2015 Sleep apnea 04/24/2015 DME [facility] Teeth grinding 10/23/2012 Tremor 05/02/2019 PAST SURGICAL HISTORY Procedure Laterality Date SECTION HX 2016 MIRENA IUD 07/14/11,03/23/2016 PAST SURGICAL HISTORY OF 2010 UPPP for sleep apnea FAMILY HISTORY Problem Relation Age of Onset other (Scleroderma) Mother Lipids Father Hypertension Father Allergic Rhinitis Brother No Known Problems Brother other (Polio) Maternal Grandfather other (Pulmonary Disease) Paternal Grandfather Breast Cancer Maternal Aunt 45 x2 Cancer Other No db2 systems programmer/colon cancer SOCIAL HISTORY Social History Tobacco Use Smoking status: Never Smokeless tobacco: Never Vaping Use Vaping status: Never Used Substance Use Topics Alcohol use: Yes Comment: rarely Drug use: No REVIEW OF SYSTEMS Abdomen: No abdominal pain, nausea, vomiting, diarrhea, or constipation. No bloating, early satiety, indigestion, or increased flatulence. Bladder: No dysuria, gross hematuria, urinary frequency, urinary urgency, or incontinence. Breast: No breast lumps, nipple d/c, overlying skin changes, redness or skin retraction. Allergies and current medication updated:Yes SENSITIVE EXAM: The sensitive examination was discussed with the Patient or Patient's Authorized Head Orthopedic Team Physician. As applicable, any other physician, advance practice provider, medical student, or other health professional student that will be observing or involved in the sensitive examination for educational or training purposes was discussed with the Patient or Authorized Head Orthopedic Team Physician. The Patient or Authorized Head Orthopedic Team Physician has agreed to proceed with the sensitive examination. (Sensitive examination includes inspection and/or palpation of the breasts, pelvis, prostate and anorectal regions). EXAM: BP 124/82 Ht 5' 5.5" (1.66m) Wt 255 lb (115.7kg) BMI 41.77 kg/(m^2). GENERAL: pleasant, female in no apparent distress HEENT: Normocephalic, atraumatic, mucus membranes moist, and no lesions NECK: Supple, full range of motion, no adenopathy, and thyroid normal DERMATOLOGY: Normal, without lesions, non-icteric, and non-hirsute BREAST: soft, non-tender, symmetric, no dominant mass, normal nipple-areolar complex, no lymphadenopathy, and no nipple discharge CHEST: Normal inspiratory effort ABDOMEN: soft, non-tender, and no masses PELVIC: external genitalia normal, normal Bartholin's glands, urethra, Evaro's glands, no vulvar lesions, no cervical lesions, good vaginal support, physiologic discharge present, normal appearing perineal body and perianal region, IUD strings visible BIMANUAL: uterus normal size, shape and consistency, no adnexal masses, and non-tender RECTOVAGINAL: deferred. NEURO: alert and oriented x3,exam grossly non-focal EXTREMITIES: normal ASSESSMENT/PLAN: 1) Health maintenance: Pap/HPV up to date. Mammogram ordered. 2) Contraception: IUD. Contraceptive options reviewed and information provided. 3) STD screening: Declined STD check. 4) Follow up one year or sooner as needed return for IUD change Rodney Brooks MD documented in this encounter [facility] 12-19-2024 Note HNO ID: [id number] Author: ?, ?, ? Service: ? Author Type: LICENSED NURSE Type: Progress Notes Filed: 12/19/2024 08:06 Note Text: Patient presents for Hepatitis B vaccine. Denies any problems at this time. Tolerated injection well. Nayla Zabala LPN [facility] 12-19-2024 History of Presen t illness Narrative Patient presents for Hepatitis B vaccine. Denies any problems at this time. Tolerated injection well. Nayla Zabala LPN documented in this encounter [facility] 12-04-2024 Telephone encounter Note Patient scheduled for nurse visit 12/19/24 to receive Hepatitis B vaccine. Please place order at this time. Nayla Zabala LPN [facility] 12-04-2024 Miscellaneous Notes Patient scheduled for nurse visit 12/19/24 to receive Hepatitis B vaccine. Please place order at this time. Nayla Zabala LPN documented in this encounter [facility] 11-14-2024 Instructions Sheldon Pate MD - 11/14/2024 2:17 PM EDT IMPRESSION: Obstructive Sleep Apnea Shift Work Sleep Disorder Hypersomnia, due to medical condition Clinical Global Impression of Change ( CGI-C) Compared to the patient's condition at baseline, how much has the patient changed? Much improved PLAN: - I reviewed her download, and based on that data will change from AutoBiLevel to BiLevel at 17/12 cm; this should reduce the number of awakenings and hopefully improve her daytime energy level - Continue Bilevel PAP at 17/12 cmH2O. Prescription faxed to [facility] - Start modafinil 100 mg for treated DELON with residual fatigue - Remember to clean your mask and equipment regularly, as directed. - You should be eligible for new supplies approximately every 3-6 months, depending on your insurance coverage. Contact your Durable Medical Equipment (DME) company for new supplies as needed. - Follow up in [address] Pate or Sleep provider. Shelodn Pate MD documented in this encounter [facility] 11-14-2024 Note HNO ID: [id number] Author: SHELDON PATE MD Service: ? Author Type: Physician Type: Progress Notes Filed: 11/14/2024 14:21 Note Text: [facility] Follow up/ Established patient visit I'm Dr. Sheldon Pate, I'm a licensed Sleep Medicine specialist. I want to confirm your location is in [place]: YES Virtual visits are a convenient way for us to meet for the first time, but there are some situations in which an in-person evaluation may be required at a later time. I want to check in to confirm your consent to be seen virtually today: YES I have communicated my name and active licensure. The patient's identity and physical location were verified at the time of this visit. Either the patient or their legal in store representative has been informed of the risks and benefits of -- and alternatives to -- treatment through a remote evaluation and consents to proceed with the evaluation remotely." Date of last visit : 04/16/2024 I have communicated my name and active licensure. The patient's identity and physical location were verified at the time of this visit. Either the patient or their legal in store representative has been informed of the risks and benefits of -- and alternatives to -- treatment through a remote evaluation and consents to proceed with the evaluation remotely. Interval history : Here for follow up for DELON on AutoBiLevel Hypersomnia, primary Test results CPAP/RAD Settings Auto Bilevel PAP at EPAP MIN 5 and IPAP Max 20 cmH2O. CPAP/RAD Supplies More data may exist CPAP DME Supplies Mask Interface DME DME Other 05/29/2024 Nasal Pillows Auto[facility]ivery [phone] [facility] Using this every night for 7-8 hours per night With With AutoBiLevel: no snoring; awakenin-4 for unknown reasons, and similar times; no dry mouth Benefit: improved energy; no snoring Hypersomnia [place] Sleepiness Scale: Sitting and readin Watching TV: 1 Sitting, inactive in a public place (e.g. a theatre or a meeting): 2 As a passenger in a car for an hour without a break: 1 Lying down to rest in the afternoon when circumstances permit: 3 Sitting and talking to someone: 0 Sitting quietly after a lunch without alcohol: 2 In a car, while stopped for a few minutes in the traffic: 0 Total: 11 Her main problem is concentrating on the computer at work SLEEP HYGIENE QUESTIONS: Bedtime : 10-11 pm Wake up Time : 7 am Time it takes to fall sleep : < 20 minutes Activities in bed before falling asleep : None Number of times patient wakes up per night : 3-4 Reason (s) why patient wakes up during the night : unknown Estimated total sleep time ( in a 24 hour period of time) : 7-8 hours Naps : No PATIENT-ENTERED QUESTIONNAIRE SLEEP SCORES 11/14/2024 Sleep Questions Reason for visit: Excessive daytime sleepiness Narcolepsy On average, hours of sleep in 24 hours: 8 Average hours of CPAP per night: 7 Percent of nights CPAP used at least 4 hours: 100 Accidents or near accidents due to drowsy drivin Multiple values from one day are sorted in reverse-chronological order 04/16/2024 11/14/2024 [place] Sleepiness Scale Score 13 (Excessive daytime sleepiness present) 10 (No clinically significant daytime sleepiness) 04/16/2024 11/14/2024 PROMIS CAT Sleep Disturbance PROMIS Sleep Disturbance T-Score 47 (within normal limits) 51 (within normal limits) PROMIS Sleep Disturbance Percentile 62 46 04/16/2024 11/14/2024 Restless Leg Syndrome Score 16 (Moderate symptoms) 20 (Moderate symptoms) 03/11/2024 04/16/2024 11/14/2024 PHQ-9 Score 6 6 4 10/14/2022 03/11/2024 08/23/2024 PROMIS Global Health - (T-Scores - the mean of general population = 50. Five points is a clinically meaningful difference.) Physical T-Score 44.9 47.7 54.1 Mental T-Score 53.3 53.3 48.3 PMH, PSH, SH: Weight Loss: 75 lb/last year SLEEP RELATED ROS Review of Systems ALLERGIES Allergen Reactions Citalopram Other: See Comments Constant yawning Penicillins Hives, Itching No difficulty breathing Reglan [Metoclopram* Other: See Comments anxiety CURRENT MEDICATIONS: buPROPion XL (WELLBUTRIN XL) 300 mg 24 hr tablet Take 1 tablet by mouth once daily. FLUoxetine (PROZAC) 40 mg capsule Take 1 capsule by mouth once daily. tirzepatide, weight loss (ZEPBOUND) 15 mg/0.5 mL pen injector Inject 15 mg subcutaneously one time a week. CPAP/BIPAP/OTHER Type .CPAPSettings into a note to see current settings/supplies/DME information. rOPINIRole (REQUIP) 0.25 mg tablet Take 3 tablets by mouth at bedtime as needed. levonorgestrel (MIRENA INTRAUTERINE) by INTRAUTERINE route. CPAP AutobiPAP EEP range 4-9 cmH2O, IPAP range 9-15, usu mask, humidity, filters. Dx: G47.33 Rpt to [facility] in 6 weeks. Prior Hypersomnia/Narcolepsy Medications (20 years) No data to display Prior RLS Medications (last 20 years) 03/19/2022 00:00 RLS Medications ropinirole HCl 0.75 mg AT BEDTIME PRN ORAL Details Outpat (more content not included)... [facility] 11-14-2024 History of Presen t illness Narrative Images from the original note were not included. [facility] Follow up/ Established patient visit I'm Dr. Sheldon Pate, I'm a licensed Sleep Medicine specialist. I want to confirm your location is in [place]: YES Virtual visits are a convenient way for us to meet for the first time, but there are some situations in which an in-person evaluation may be required at a later time. I want to check in to confirm your consent to be seen virtually today: YES I have communicated my name and active licensure. The patient's identity and physical location were verified at the time of this visit. Either the patient or their legal in store representative has been informed of the risks and benefits of -- and alternatives to -- treatment through a remote evaluation and consents to proceed with the evaluation remotely." Date of last visit : 04/16/2024 I have communicated my name and active licensure. The patient's identity and physical location were verified at the time of this visit. Either the patient or their legal in store representative has been informed of the risks and benefits of -- and alternatives to -- treatment through a remote evaluation and consents to proceed with the evaluation remotely. Interval history : Here for follow up for DELON on AutoBiLevel Hypersomnia, primary Test results CPAP/RAD Settings Auto Bilevel PAP at EPAP MIN 5 and IPAP Max 20 cmH2O. CPAP/RAD Supplies More data may exist CPAP DME Supplies Mask Interface DME DME Other 05/29/2024 Nasal Pillows Auto[facility]ivery [phone] [facility] Using this every night for 7-8 hours per night With With AutoBiLevel: no snoring; awakenin-4 for unknown reasons, and similar times; no dry mouth Benefit: improved energy; no snoring Hypersomnia [place] Sleepiness Scale: Sitting and readin Watching TV: 1 Sitting, inactive in a public place (e.g. a theatre or a meeting): 2 As a passenger in a car for an hour without a break: 1 Lying down to rest in the afternoon when circumstances permit: 3 Sitting and talking to someone: 0 Sitting quietly after a lunch without alcohol: 2 In a car, while stopped for a few minutes in the traffic: 0 Total: 11 Her main problem is concentrating on the computer at work SLEEP HYGIENE QUESTIONS: Bedtime : 10-11 pm Wake up Time : 7 am Time it takes to fall sleep : < 20 minutes Activities in bed before falling asleep : None Number of times patient wakes up per night : 3-4 Reason (s) why patient wakes up during the night : unknown Estimated total sleep time ( in a 24 hour period of time) : 7-8 hours Naps : No PATIENT-ENTERED QUESTIONNAIRE SLEEP SCORES 11/14/2024 Sleep Questions Reason for visit: Excessive daytime sleepiness Narcolepsy On average, hours of sleep in 24 hours: 8 Average hours of CPAP per night: 7 Percent of nights CPAP used at least 4 hours: 100 Accidents or near accidents due to drowsy drivin Multiple values from one day are sorted in reverse-chronological order 04/16/2024 11/14/2024 [place] Sleepiness Scale Score 13 (Excessive daytime sleepiness present) 10 (No clinically significant daytime sleepiness) 04/16/2024 11/14/2024 PROMIS CAT Sleep Disturbance PROMIS Sleep Disturbance T-Score 47 (within normal limits) 51 (within normal limits) PROMIS Sleep Disturbance Percentile 62 46 04/16/2024 11/14/2024 Restless Leg Syndrome Score 16 (Moderate symptoms) 20 (Moderate symptoms) 03/11/2024 04/16/2024 11/14/2024 PHQ-9 Score 6 6 4 10/14/2022 03/11/2024 08/23/2024 PROMIS Global Health - (T-Scores - the mean of general population = 50. Five points is a clinically meaningful difference.) Physical T-Score 44.9 47.7 54.1 Mental T-Score 53.3 53.3 48.3 PMH, PSH, SH: Weight Loss: 75 lb/last year SLEEP RELATED ROS Review of Systems ALLERGIES Allergen Reactions Citalopram Other: See Comments Constant yawning Penicillins Hives, Itching No difficulty breathing Reglan [Metoclopram* Other: See Comments anxiety CURRENT MEDICATIONS: buPROPion XL (WELLBUTRIN XL) 300 mg 24 hr tablet Take 1 tablet by mouth once daily. FLUoxetine (PROZAC) 40 mg capsule Take 1 capsule by mouth once daily. tirzepatide, weight loss (ZEPBOUND) 15 mg/0.5 mL pen injector Inject 15 mg subcutaneously one time a week. CPAP/BIPAP/OTHER Type .CPAPSettings into a note to see current settings/supplies/DME information. rOPINIRole (REQUIP) 0.25 mg tablet Take 3 tablets by mouth at bedtime as needed. levonorgestrel (MIRENA INTRAUTERINE) by INTRAUTERINE route. CPAP AutobiPAP EEP range 4-9 cmH2O, IPAP range 9-15, usu mask, humidity, filters. Dx: G47.33 Rpt to [facility] in 6 weeks. Prior Hypersomnia/Narcolepsy Medications (20 years) No data to display Prior RLS Medications (last 20 years) 03/19/2022 00:00 RLS Medications ropinirole HCl 0.75 mg AT BEDTIME PRN ORAL Details Outpatient prescription Medication marked as long-term Prior Insomnia Medications (last 20 years) 11/25/2023 00:00 Insomnia Medications fluoxetine HCl 40 mg DAILY ORAL Details Outpatient prescription Medication marked as long-term PHYSICAL EXAMINATION: General appearance: NAD Mental status: awake and alert Constitutional: Well groomed Neuro: Speech fluent IMPRESSION: Obstructive Sleep Apnea Shift Work Sleep Disorder Hypersomnia, due to medical condition Clinical Global Impression of Change ( CGI-C) Compared to the patient's condition at baseline, how much has the patient changed? Much improved PLAN: - I reviewed her download, and based on that data will change from AutoBiLevel to BiLevel at 17/12 cm; this should reduce the number of awakenings and hopefully improve her daytime energy level - Continue Bilevel PAP at 17/12 cmH2O. Prescription faxed to [facility] - Start modafinil 100 mg for treated DELON with residual fatigue - Remember to clean your mask and equipment regularly, as directed. - You should be eligible for new supplies approximately every 3-6 months, depending on your insurance coverage. Contact your Durable Medical Equipment (DME) company for new supplies as needed. - Follow up in [address] Pate or Sleep provider. Sheldon Pate MD I spent a total of 30 minutes on the date of the service, which included preparing to see the patient, [id number] patient care, completing clinical documentation, performing a medically appropriate examination, counseling and educating the patient/family/caregiver, ordering medications, tests, or procedures, communicating results to the patient/family/caregiver, and care coordination (not separately reported). Sheldon Pate MD documented in this encounter [facility] 11-12-2024 Note HNO ID: [id number] Author: HAYDEE COON APRN.DISTRIBUTION ENGINEERING 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 Service: ? Author Type: Nurse Practitioner Type: Progress Notes Filed: 11/12/2024 10:44 Note Text: CC: Patient presents with: Follow Up: 6 months HPI Shannon Lopez is a 44 year old female who presents today for above. Obesity: taking Zepbound 15 mg weekly. Denies side effects. She has lost almost 30 lbs in 3 months. Exercise: Walks three times a week on the treadmill for about 45 minutes. Diet: Watches diet for salt (salty snacks, added salt, processed frozen/canned foods), sugary/sweet snacks, unhealthy fats: Yes DELON: Is compliant with CPAP. No changes in settings. Denies issues with mask. Denies snoring, un-refreshed sleep, insomnia, excessive daytime drowsiness. Anxiety/depression: Patient is currently taking Wellbutrin and Prozac Feels medication is working well: yes Persistent/bothersome symptoms: none Side effects: None Review of Systems See HPI 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 2016 Low ferritin level 08/27/2015 Mental disorders complicating , childbirth, or the puerperium Migraine without aura 02/25/2007 Morbid obesity (HCC) 10/23/2012 Obstructive sleep apnea Orthostatic lightheadedness 05/02/2019 depression RLS (restless legs syndrome) 07/16/2015 Severe pre-eclampsia, antepartum 2016 Sleep apnea 04/24/2015 DME [facility] Teeth grinding 10/23/2012 Tremor 05/02/2019 PAST SURGICAL HISTORY Procedure Laterality Date SECTION HX 2016 MIRENA IUD 07/14/11,03/23/2016 PAST SURGICAL HISTORY OF 2010 UPPP for sleep apnea ALLERGIES Citalopram, Penicillins, and Reglan [Metoclopramide Hcl] MEDICATIONS tirzepatide, weight loss (ZEPBOUND) 15 mg/0.5 mL pen injector Inject 15 mg subcutaneously one time a week. CPAP/BIPAP/OTHER Type .CPAPSettings into a note to see current settings/supplies/DME information. FLUoxetine (PROZAC) 40 mg capsule Take 1 capsule by mouth once daily. buPROPion XL (WELLBUTRIN XL) 300 mg 24 hr tablet Take 1 tablet by mouth once daily. rOPINIRole (REQUIP) 0.25 mg tablet Take 3 tablets by mouth at bedtime as needed. levonorgestrel (MIRENA INTRAUTERINE) by INTRAUTERINE route. CPAP AutobiPAP EEP range 4-9 cmH2O, IPAP range 9-15, usu mask, humidity, filters. Dx: G47.33 Rpt to [facility] in 6 weeks. FAMILY HISTORY Problem Relation Age of Onset other (Scleroderma) Mother Lipids Father Hypertension Father Allergic Rhinitis Brother No Known Problems Brother other (Polio) Maternal Grandfather other (Pulmonary Disease) Paternal Grandfather Breast Cancer Maternal Aunt 45 x2 Cancer Other No db2 systems programmer/colon cancer Social History Tobacco Use Smoking status: Never Smokeless tobacco: Never Vaping Use Vaping status: Never Used Substance Use Topics Alcohol use: Yes Comment: rarely Drug use: No BP 116/72 Pulse 70 Resp 14 Wt 122 kg (268 lb 15.4 oz) LMP (LMP Unknown) SpO2 98% BMI 42.46 kg/m? Physical Exam Vitals reviewed. Constitutional: Appearance: Normal appearance. Cardiovascular: Rate and Rhythm: Normal rate and regular rhythm. Heart sounds: Normal heart sounds. No murmur heard. Pulmonary: Effort: Pulmonary effort is normal. Breath sounds: Normal breath sounds. No wheezing, rhonchi or rales. Neurological: Mental Status: She is alert. Psychiatric: Attention and Perception: Attention normal. Mood and Affect: Mood and affect normal. Speech: Speech normal. Behavior: Behavior normal. Health maintenance reviewed with patient: Hepatitis B Vaccine(1 of 3 - 19+ 3-dose series) Never done Influenza Vaccine(1) due on 03/04/2025 Covid-19 Vaccine(2023- season) due on 11/12/2025 Anxiety Screening due on 03/12/2025 Mammogram Screening due on 11/07/2025 DTaP,Tdap,Td Vaccine(3 - Td or Tdap) due on 12/18/2025 Cervical Cancer Screening due on 12/25/2026 Hepatitis C Screening Completed HIV Screening Completed DATA REVIEWED: Most recent labs ASSESSMENT/PLAN: 1. Morbid obesity (HCC) - ICD9: 278.01, ICD10: E66.01 (primary diagnosis) Weight decreasing. Tolerating Zepbound at maximum dose, continue as prescribed - Continue healthy diet consisting of fruits, vegetables and lean proteins. Reduce sugary drinks of artificial juices and sodas and replace with water and low calorie Crystal Light. Healthy Snack alternatives have been discussed - Continue exercise or meaningful activity for 20 minutes at lest 3 times a day 2. Depressive disorder - ICD9: 311, ICD10: F32.A Stable on medication - Reviewed benefits of sleep hygeine, diet and exercise - Follow-up in 6 months or sooner as needed - Instructed patient to contact office or [id number] after-hours promptly should condition worsen or any new symptom (more content not included)... [facility] 11-12-2024 History of Presen t illness Narrative CC: Patient presents with: Follow Up: 6 months HPI Shannon Lopez is a 44 year old female who presents today for above. Obesity: taking Zepbound 15 mg weekly. Denies side effects. She has lost almost 30 lbs in 3 months. Exercise: Walks three times a week on the treadmill for about 45 minutes. Diet: Watches diet for salt (salty snacks, added salt, processed frozen/canned foods), sugary/sweet snacks, unhealthy fats: Yes DELON: Is compliant with CPAP. No changes in settings. Denies issues with mask. Denies snoring, un-refreshed sleep, insomnia, excessive daytime drowsiness. Anxiety/depression: Patient is currently taking Wellbutrin and Prozac Feels medication is working well: yes Persistent/bothersome symptoms: none Side effects: None Review of Systems See HPI 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 2016 Low ferritin level 08/27/2015 Mental disorders complicating , childbirth, or the puerperium Migraine without aura 02/25/2007 Morbid obesity (HCC) 10/23/2012 Obstructive sleep apnea Orthostatic lightheadedness 05/02/2019 depression RLS (restless legs syndrome) 07/16/2015 Severe pre-eclampsia, antepartum 2016 Sleep apnea 04/24/2015 DME [facility] Teeth grinding 10/23/2012 Tremor 05/02/2019 PAST SURGICAL HISTORY Procedure Laterality Date SECTION HX 2016 MIRENA IUD 07/14/11,03/23/2016 PAST SURGICAL HISTORY OF 2009 UPPP for sleep apnea ALLERGIES Citalopram, Penicillins, and Reglan [Metoclopramide Hcl] MEDICATIONS tirzepatide, weight loss (ZEPBOUND) 15 mg/0.5 mL pen injector Inject 15 mg subcutaneously one time a week. CPAP/BIPAP/OTHER Type .CPAPSettings into a note to see current settings/supplies/DME information. FLUoxetine (PROZAC) 40 mg capsule Take 1 capsule by mouth once daily. buPROPion XL (WELLBUTRIN XL) 300 mg 24 hr tablet Take 1 tablet by mouth once daily. rOPINIRole (REQUIP) 0.25 mg tablet Take 3 tablets by mouth at bedtime as needed. levonorgestrel (MIRENA INTRAUTERINE) by INTRAUTERINE route. CPAP AutobiPAP EEP range 4-9 cmH2O, IPAP range 9-15, usu mask, humidity, filters. Dx: G47.33 Rpt to Moul in 6 weeks. FAMILY HISTORY Problem Relation Age of Onset other (Scleroderma) Mother Lipids Father Hypertension Father Allergic Rhinitis Brother No Known Problems Brother other (Polio) Maternal Grandfather other (Pulmonary Disease) Paternal Grandfather Breast Cancer Maternal Aunt 45 x2 Cancer Other No db2 systems programmer/colon cancer Social History Tobacco Use Smoking status: Never Smokeless tobacco: Never Vaping Use Vaping status: Never Used Substance Use Topics Alcohol use: Yes Comment: rarely Drug use: No BP 116/72 Pulse 70 Resp 14 Wt 122 kg (268 lb 15.4 oz) LMP (LMP Unknown) SpO2 98% BMI 42.46 kg/m Physical Exam Vitals reviewed. Constitutional: Appearance: Normal appearance. Cardiovascular: Rate and Rhythm: Normal rate and regular rhythm. Heart sounds: Normal heart sounds. No murmur heard. Pulmonary: Effort: Pulmonary effort is normal. Breath sounds: Normal breath sounds. No wheezing, rhonchi or rales. Neurological: Mental Status: She is alert. Psychiatric: Attention and Perception: Attention normal. Mood and Affect: Mood and affect normal. Speech: Speech normal. Behavior: Behavior normal. Health maintenance reviewed with patient: Hepatitis B Vaccine(1 of 3 - 19+ 3-dose series) Never done Influenza Vaccine(1) due on 03/04/2025 Covid-19 Vaccine(3 - 2023- season) due on 11/12/2025 Anxiety Screening due on 03/12/2025 Mammogram Screening due on 11/07/2025 DTaP,Tdap,Td Vaccine(3 - Td or Tdap) due on 12/18/2025 Cervical Cancer Screening due on 12/25/2026 Hepatitis C Screening Completed HIV Screening Completed DATA REVIEWED: Most recent labs ASSESSMENT/PLAN: 1. Morbid obesity (HCC) - ICD9: 278.01, ICD10: E66.01 (primary diagnosis) Weight decreasing. Tolerating Zepbound at maximum dose, continue as prescribed - Continue healthy diet consisting of fruits, vegetables and lean proteins. Reduce sugary drinks of artificial juices and sodas and replace with water and low calorie Crystal Light. Healthy Snack alternatives have been discussed - Continue exercise or meaningful activity for 20 minutes at lest 3 times a day 2. Depressive disorder - ICD9: 311, ICD10: F32.A Stable on medication - Reviewed benefits of sleep hygeine, diet and exercise - Follow-up in 6 months or sooner as needed - Instructed patient to contact office or [id number] after-hours promptly should condition worsen or any new symptoms appear. - BUPROPION XL 300 MG 24 HR TAB 3. Obstructive sleep apnea on CPAP - ICD9: 327.23, ICD10: G47.33 Compliant with and benefiting from CPAP 4. Encounter for immunization - ICD9: V03.89, ICD10: Z23 - HEP B VACCINE, 3-DOSE, AGE 20+ YR (ENGERIX-B, RECOMBIVAX HB) Prescription instructions reviewed with patient as applicable. Potential red flag symptoms discussed with the patient. Reviewed appropriate action plan to take if red flag symptoms occur. Patient agreeable to treatment plan. Haydee Coon APRN.DISTRIBUTION ENGINEERING 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 Medical Decision Making: Problems: Moderate: 2+ stable chronic illnesses Data: Unique test result(s) reviewed: 1 Risk: Low: Low risk from testing/treatment Moderate: Drug management Medical Decision Making Level: 4 - Moderate documented in this encounter [facility] 11-07-2024 History of Presen t illness Narrative Radiology Service Progress Note PATIENT NAME: Shannon Lopez DATE OF SERVICE: November 07, 2024 TIME: 10:13 AM PATIENT IDENTITY VERIFICATION COMPLETED USING TWO (2) IDENTIFIERS: Name and Date of confirmed by patient verbally. FALL SCREENING: Has the patient had 2 falls in the last year or 1 fall with injury or currently using an Ambulatory Assistive Device (Walker, Cane, Wheelchair, Crutches, etc.)? No PATIENT GENDER DATA: Assigned female at . status: : No status: NO. PATIENT RELEVANT IMPLANT DATA REVIEWED: Not Applicable PATIENT PRESENTS WITH AN IMPLANTABLE OR ATTACHED LOG SNAKER: No RADIOLOGY DEPARTMENT: Mammography PERIPHERAL IV DATA: Not applicable SIGNED BY: Philip Roberts November 07, 2024 10:13 AM documented in this encounter [facility] 11-07-2024 Note HNO ID: [id number] Author: CHASE GILES Mammo Tech Service: ? Author Type: Patient Observation Assistant Type: Progress Notes Filed: 11/07/2024 10:13 Note Text: Radiology Service Progress Note PATIENT NAME: Shannon Lopez DATE OF SERVICE: November 07, 2024 TIME: 10:13 AM PATIENT IDENTITY VERIFICATION COMPLETED USING TWO (2) IDENTIFIERS: Name and Date of confirmed by patient verbally. FALL SCREENING: Has the patient had 2 falls in the last year or 1 fall with injury or currently using an Ambulatory Assistive Device (Walker, Cane, Wheelchair, Crutches, etc.)? No PATIENT GENDER DATA: Assigned female at . status: : No status: NO. PATIENT RELEVANT IMPLANT DATA REVIEWED: Not Applicable PATIENT PRESENTS WITH AN IMPLANTABLE OR ATTACHED LOG SNAKER: No RADIOLOGY DEPARTMENT: Mammography PERIPHERAL IV DATA: Not applicable SIGNED BY: Chase Giles [employer] November 07, 2024 10:13 AM [facility] 10-16-2024 Note Patient Outreach (IN TMWS) SHANNON LOPEZ ([id number]) 1980 F Date Time Provider Department 10/16/24 MICHAEL ACUÑA INTUJAN R During your visit today, we recorded the following information about you: Allergies As of Date: 10/16/2024 Noted Allergy Reaction CITALOPRAM 02/20/2014 14 - Other: See Comments Comments: Constant yawning PENICILLINS 10/27/2005 4 - Hives 9 - Itching Comments: No difficulty breathing REGLAN (METOCLOPRAMIDE HCL) 03/02/2016 14 - Other: See Comments Comments: anxiety Date Reviewed: 08/23/2024 Reviewed by: Haydee Coon, [employer]ATHER 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 - Fully Assessed Visit Diagnosis:Encounter for screening mammogram for breast cancer [Z12.31] Order(s):[facility] SCREENING [facility]ASQUE[facility] [[id number]] Order #: [id number] FUTURE Prescriptions as of 11/16/2024 - modafinil (PROVIGIL) 100 mg tablet Take (1) tablet by mouth once per day - CPAP/BIPAP/OTHER Type .CPAPSettings into a note to see current settings/supplies/DME information. - buPROPion XL (WELLBUTRIN XL) 300 mg 24 hr tablet Take 1 tablet by mouth once daily. - FLUoxetine (PROZAC) 40 mg capsule Take 1 capsule by mouth once daily. - tirzepatide, weight loss (ZEPBOUND) 15 mg/0.5 mL pen injector Inject 15 mg subcutaneously one time a week. - CPAP/BIPAP/OTHER Type .CPAPSettings into a note to see current settings/supplies/DME information. - rOPINIRole (REQUIP) 0.25 mg tablet Take 3 tablets by mouth at bedtime as needed. - levonorgestrel (MIRENA INTRAUTERINE) by INTRAUTERINE route. - CPAP AutobiPAP EEP range 4-9 cmH2O, IPAP range 9-15, usu mask, humidity, filters. Dx: G47.33 Rpt to Moul in 6 weeks. 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] 04/24/2015 08/11/2015 Obstructive sleep apnea on CPAP [G47.33] 04/24/2015 Nasal congestion [R09.81] 07/16/2015 08/11/2015 Restless leg syndrome [G25.81] 07/16/2015 with poor obstetric history [O09.299] 07/16/2015 03/23/2016 Multigravida of advanced maternal age in first *08/11/2015 03/23/2016 Supervision of high risk in first tri*08/11/2015 01/15/2016 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 Author Type: Nurse Practitioner Type: Progress Notes Filed: 08/23/2024 14:16 Note Text: CC: Patient presents with: Weight Loss HPI Shannon Lopez is a 44 year old female who presents today for above. Currently taking Zepbound 10 mg weekly that she has been getting filled at a compounding pharmacy. They will no longer be able to supply this due to shortage. She found a co-pay coupon online and would like the prescription sent to a regular pharmacy. Weight/BMI Last 1 Encounter Wt Readings: Date: Wt: 08/23/2024 137 kg (302 lb 0.5 oz) BMI 47.69 kg/(m2) Last visit Wt: 140.6 kg (309 lb 15.5 oz) BMI: 48.94 kg/(m2) DIET Daily serving of fruits:1-2 Daily serving of vegetables:1-2 Daily serving of protein:3-5 Fluid intake: water only Do you Skip meals:NO Eating away from home:NO Exercise routine: YES goes to the gym three days a week, on the treadmill for about one hour Medication side effects: denies I Review of Systems See HPI 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 2016 Low ferritin level 08/27/2015 Mental disorders complicating , childbirth, or the puerperium Migraine without aura 02/25/2007 Morbid obesity (HCC) 10/23/2012 Obstructive sleep apnea Orthostatic lightheadedness 05/02/2019 depression RLS (restless legs syndrome) 07/16/2015 Severe pre-eclampsia, antepartum 2016 Sleep apnea 04/24/2015 DME [facility] Teeth grinding 10/23/2012 Tremor 05/02/2019 PAST SURGICAL HISTORY Procedure Laterality Date SECTION HX 2016 MIRENA IUD 07/14/11,03/23/2016 PAST SURGICAL HISTORY OF 2009 UPPP for sleep apnea ALLERGIES Citalopram, Penicillins, and Reglan [Metoclopramide Hcl] MEDICATIONS CPAP/BIPAP/OTHER Type .CPAPSettings into a note to see current settings/supplies/DME information. FLUoxetine (PROZAC) 40 mg capsule Take 1 capsule by mouth once daily. buPROPion XL (WELLBUTRIN XL) 300 mg 24 hr tablet Take 1 tablet by mouth once daily. rOPINIRole (REQUIP) 0.25 mg tablet Take 3 tablets by mouth at bedtime as needed. levonorgestrel (MIRENA INTRAUTERINE) by INTRAUTERINE route. CPAP AutobiPAP EEP range 4-9 cmH2O, IPAP range 9-15, usu mask, humidity, filters. Dx: G47.33 Rpt to Moul in 6 weeks. FAMILY HISTORY Problem Relation Age of Onset other (Scleroderma) Mother Lipids Father Hypertension Father Allergic Rhinitis Brother No Known Problems Brother other (Polio) Maternal Grandfather other (Pulmonary Disease) Paternal Grandfather Breast Cancer Maternal Aunt 45 x2 Cancer Other No db2 systems programmer/colon cancer Social History Tobacco Use Smoking status: Never Smokeless tobacco: Never Vaping Use Vaping status: Never Used Substance Use Topics Alcohol use: Yes Comment: rarely Drug use: No BP 122/86 Pulse 87 Resp 14 Wt (!) 137 kg (302 lb 0.5 oz) LMP (LMP Unknown) SpO2 97% BMI 47.69 kg/m? Physical Exam Vitals reviewed. Constitutional: Appearance: Normal appearance. Neurological: Mental Status: She is alert. Psychiatric: Mood and Affect: Mood normal. ASSESSMENT/PLAN: 1. Morbid obesity (HCC) - ICD9: 278.01, ICD10: E66.01 Doing well on current dose of Zepbound supplied by [facility]. She is supposed to increase the dose to 15 mg starting next week. - Continue healthy diet consisting of fruits, vegetables and lean proteins. Reduce sugary drinks of artificial juices and sodas and replace with water and low calorie Crystal Light. Healthy Snack alternatives have been discussed - Continue exercise or meaningful activity for 20 minutes at lest 3 times a day - reviewed SE, medication expectations, required weight loss - Follow-up in 3 month(s) or as needed Prescription instructions reviewed with patient as applicable. Potential red flag symptoms discussed with the patient. Reviewed appropriate action plan to take if red flag symptoms occur. Patient agreeable to treatment plan. During this patient visit I have spent approximately 30 minutes in counseling regarding treatment options, medications, and coordinating care. Haydee Coon APRN.DISTRIBUTION ENGINEERING 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 [facility] 08-23-2024 History of Presen t illness Narrative CC: Patient presents with: Weight Loss HPI Shannon Lopez is a 44 year old female who presents today for above. Currently taking Zepbound 10 mg weekly that she has been getting filled at a compounding pharmacy. They will no longer be able to supply this due to shortage. She found a co-pay coupon online and would like the prescription sent to a regular pharmacy. Weight/BMI Last 1 Encounter Wt Readings: Date: Wt: 08/23/2024 137 kg (302 lb 0.5 oz) BMI 47.69 kg/(m^2) Last visit Wt: 140.6 kg (309 lb 15.5 oz) BMI: 48.94 kg/(m^2) DIET Daily serving of fruits:1-2 Daily serving of vegetables:1-2 Daily serving of protein:3-5 Fluid intake: water only Do you Skip meals:NO Eating away from home:NO Exercise routine: YES goes to the gym three days a week, on the treadmill for about one hour Medication side effects: denies I Review of Systems See HPI 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 2016 Low ferritin level 08/27/2015 Mental disorders complicating , childbirth, or the puerperium Migraine without aura 02/25/2007 Morbid obesity (HCC) 10/23/2012 Obstructive sleep apnea Orthostatic lightheadedness 05/02/2019 depression RLS (restless legs syndrome) 07/16/2015 Severe pre-eclampsia, antepartum 2016 Sleep apnea 04/24/2015 DME [facility] Teeth grinding 10/23/2012 Tremor 05/02/2019 PAST SURGICAL HISTORY Procedure Laterality Date SECTION HX 2016 MIRENA IUD 07/14/11,03/23/2016 PAST SURGICAL HISTORY OF 2009 UPPP for sleep apnea ALLERGIES Citalopram, Penicillins, and Reglan [Metoclopramide Hcl] MEDICATIONS CPAP/BIPAP/OTHER Type .CPAPSettings into a note to see current settings/supplies/DME information. FLUoxetine (PROZAC) 40 mg capsule Take 1 capsule by mouth once daily. buPROPion XL (WELLBUTRIN XL) 300 mg 24 hr tablet Take 1 tablet by mouth once daily. rOPINIRole (REQUIP) 0.25 mg tablet Take 3 tablets by mouth at bedtime as needed. levonorgestrel (MIRENA INTRAUTERINE) by INTRAUTERINE route. CPAP AutobiPAP EEP range 4-9 cmH2O, IPAP range 9-15, usu mask, humidity, filters. Dx: G47.33 Rpt to Moul in 6 weeks. FAMILY HISTORY Problem Relation Age of Onset other (Scleroderma) Mother Lipids Father Hypertension Father Allergic Rhinitis Brother No Known Problems Brother other (Polio) Maternal Grandfather other (Pulmonary Disease) Paternal Grandfather Breast Cancer Maternal Aunt 45 x2 Cancer Other No db2 systems programmer/colon cancer Social History Tobacco Use Smoking status: Never Smokeless tobacco: Never Vaping Use Vaping status: Never Used Substance Use Topics Alcohol use: Yes Comment: rarely Drug use: No BP 122/86 Pulse 87 Resp 14 Wt (!) 137 kg (302 lb 0.5 oz) LMP (LMP Unknown) SpO2 97% BMI 47.69 kg/m Physical Exam Vitals reviewed. Constitutional: Appearance: Normal appearance. Neurological: Mental Status: She is alert. Psychiatric: Mood and Affect: Mood normal. ASSESSMENT/PLAN: 1. Morbid obesity (HCC) - ICD9: 278.01, ICD10: E66.01 Doing well on current dose of Zepbound supplied by compounding pharmacy. She is supposed to increase the dose to 15 mg starting next week. - Continue healthy diet consisting of fruits, vegetables and lean proteins. Reduce sugary drinks of artificial juices and sodas and replace with water and low calorie Crystal Light. Healthy Snack alternatives have been discussed - Continue exercise or meaningful activity for 20 minutes at lest 3 times a day - reviewed SE, medication expectations, required weight loss - Follow-up in 3 month(s) or as needed Prescription instructions reviewed with patient as applicable. Potential red flag symptoms discussed with the patient. Reviewed appropriate action plan to take if red flag symptoms occur. Patient agreeable to treatment plan. During this patient visit I have spent approximately 30 minutes in counseling regarding treatment options, medications, and coordinating care. Haydee Coon APRN.DISTRIBUTION ENGINEERING 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 documented in this encounter [facility] 05-31-2024 History of Presen t illness Narrative Returned with no logs ACTIGRAPHY DEVICE # [id number] Date shipped out 05/17/2024 [employer] MAIL OUT TRACKING NUMBER [id number] [employer] RETURN TRACKING NUMBER [id number], Shannon Address confirmed 10:20pm 05-15-24 Called patient to confirm appointment documented in this encounter [facility] 05-31-2024 History of Presen t illness Narrative Sleep Study Check-In Documentation Date: May 31, 2024 Name: Shannon Lopez Patient was accompanied by Self. Location: Latex allergy: No Tape allergy: No Current medications were reviewed with the patient:Yes Sleep aid taken by patient for the sleep study: [place] of sleep aid: Not Applicable Procedure was explained to the patient and all questions were answered. PAP treatment discussed and shown to patient: Yes If PAP used enter mask info: Mask Name Airfit P10 Make ResMed MaskTypeNasal Pillow Mask Size Medium Chin Sharp Used No Knowledge Program (KP): KP was not completed in epic by patient and accepted Study type: Polysomnogram Adverse Event: No (If yes create a new abstract) Comments: Patient was advised to follow up with their ordering provider regarding test results Cecy Gleason documented in this encounter [facility] 05-29-2024 Telephone encounter Note sure [facility] 05-29-2024 Miscellaneous Notes sure documented in this encounter [facility] 04-16-2024 Instructions Sheldon Pate MD - 04/16/2024 2:42 PM EDT IMPRESSION/PLAN: Hypersomnia, primary Obstructive Sleep Apnea on Auto Bilevel Using and Benefiting - Continue Auto Bilevel PAP at EPAP MIN 5 and IPAP Max 20 cmH2O. - Remember to clean your mask and equipment regularly, as directed. - You should be eligible for new supplies approximately every 3-6 months, depending on your insurance coverage. Contact your Durable Medical Equipment (DME) company for new supplies as needed. - Avoid driving when drowsy. 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 - Try to get at least 7-9 hours of sleep in a 24 hour period. Healthy diet and exercise can also promote better sleep. - Follow up in 3 weeks in the office. Recommend scheduling this appointment now to ensure the best time for you. Sheldon Pate MD documented in this encounter [facility] 04-16-2024 History of Presen t illness Narrative Images from the original note were not included. [facility] New Patient Evaluation PATIENT NAME: Shannon Lopez DATE OF SERVICE: April 16, 2024 CONSULTING PROVIDER: Haydee Coon [address] [facility] [id number] REASON FOR CONSULT: Haydee Coon sends the patient for an opinion about Daytime Fatigue. My findings and recommendations will be transmitted electronically via shared medical record to the consulting provider. HPI: Shannon Lopez is a 44 year old female in generally good health Sleep-related history: Diagnosed with DELON around 2009, and she has been on ABiFlex since then. Over the past 3-4 months, and especially the last months, Mrs. Lopez has been experiencing increased daytime sleepiness. She is falling asleep at work. As long as she is moving, she is fine. She uses her ABiFLex EPAP Min 5 cm and IPAP Max 20 cm every night and for 6-7 hours per night. With PAP: no snoring, awakenings - 2-3 restroom and reposition; no dry mouth DME: [facility] - they are checking on her Mask: Pillows She also has RLS, which is managed with ropinirole. This is several nights per month. Data From Device: nights 6.8 hours per night AHI 0.7 Mask Fit 100% SLEEP-WAKE SCHEDULE She is a self-described morning person. Bedtime: 10-1030 PM. She does not have a hard time falling asleep. Wake time: 630 AM, without an alarm. After falling asleep: she wakes up 3 time(s) per night, because of the need to urinate and reposition. On weekends, she maintains the same sleep schedule. Average total sleep time (in a 24 hour period): 7-8 hours. SLEEP-RELATED DETAILS Preferred sleep position: side Breathing disturbances and other behaviors during sleep: None with PAP. Bruxism: No GERD or aspiration: No Waking up with heart pounding or racing: No Anxiety or rumination: No She does not report having an urge to move the legs in the evening (when resting) that is accompanied or caused by uncomfortable and/or unpleasant sensations in the legs. She has not been told that she has leg kicking during sleep. She denies any history of parasomnias. Excessive daytime sleepiness / fatigue is a problem. Excessive Daytime sleepiness/fatigue has been a problem for 2 months. There is no history of a viral illness or significant head injury prior to the start of daytime sleepiness. She does not report sleep paralysis or sleep-related hallucinations or cataplexy. 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 She does have difficulty with memory or concentration. She denies falling asleep or dozing off when driving. She does not take planned naps, but she will doze when sedentary She does drink 1 caffeinated beverages per day. She has lost 20 pounds since 1 year. Patient Questionnaires Sleep Scores 04/16/2024 Sleep Questions Reason for visit: Difficulty falling or staying asleep or poor sleep quality Excessive daytime sleepiness Narcolepsy On average, hours of sleep in 24 hours: 7 Average hours of CPAP per night: 7 Percent of nights CPAP used at least 4 hours: 100 Accidents or near accidents due to drowsy drivin 04/16/2024 PROMIS CAT Sleep Disturbance PROMIS Sleep Disturbance T-Score 47 (within normal limits) PROMIS Sleep Disturbance Percentile 62 04/16/2024 PHQ-9 Score 6 03/11/2024 PROMIS Global Health - (T-Scores - the mean of general population = 50. Five points is a clinically meaningful difference.) Physical T-Score 47.7 Mental T-Score 53.3 [place] Sleepiness Scale Sitting and Reading? high chance of dozing (3) Watching TV? slight chance of dozing (1) Sitting inactive in a public place (e.g a theater or a meeting) moderate chance of dozing (2) As a passenger in a car for an hour without a break? no chance of dozing (0) Lying down to rest in the afternoon when circumstances permit? moderate chance of dozing (2) Sitting and talking to someone? moderate chance of dozing (2) Sitting quietly after lunch without alcohol? high chance of dozing (3) In a car, while stopped for a few minutes in traffic? no chance of dozing (0) Total Score ABNORMAL (13) International Restless Legs Syndrome Study Group Rating Scale RLS discomfort in legs or arms Moderate (2) Need to move around due to RLS Moderate (2) Relief of RLS leg or arm discomfort from moving Moderate relief (2) Severity of sleep disturbance due to RLS symptoms Mild (1) Severity of sleepiness due to RLS symptoms Mild (1) Severity of RLS as a whole Moderate (2) Frequency of RLS symptoms Moderate (This means 2 to 3 days a week) (2) Severity of RLS symptoms on an average day Moderate (This means 1 to 3 hours per 24 hour day) (2) Impact of RLS symptoms on daily affairs Mild (1) Severity of mood disturbance due to RLS symptoms Mild (1) Total Score MODERATE symptom burden (16) RLS - under control with ropinirole PAST TREATMENTS: Auto Bilevel PAP PRIOR SLEEP STUDIES: None on record OTHER RELEVANT LABS AND STUDIES: PAST MEDICAL HISTORY 03/11/2015: Abnormal Pap smear of cervix Comment: ASCUS + HRHPV 02/27/2013: Depression 05/02/2019: Diaphoresis 2016: Hemolysis, elevated liver enzymes, 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 08/27/2015: Low ferritin level No date: Mental disorders complicating , childbirth, or the puerperium 02/25/2007: Migraine without aura 10/23/2012: Morbid obesity (HCC) No date: Obstructive sleep apnea 05/02/2019: Orthostatic lightheadedness No date: depression 07/16/2015: RLS (restless legs syndrome) 2016: Severe pre-eclampsia, antepartum 04/24/2015: Sleep apnea Comment: DME DASCO 10/23/2012: Teeth grinding 05/02/2019: Tremor PAST SURGICAL HISTORY 2016: SECTION HX 07/14/11,03/23/2016: MIRENA IUD 2009: PAST SURGICAL HISTORY OF Comment: UPPP for sleep apnea ACTIVE PROBLEM LIST Morbid Obesity (Hcc) Depression Obstructive Sleep Apnea On Cpap Restless Leg Syndrome Diaphoresis Tremor Allergies As of Date: 04/16/2024 Allergen Noted Reaction CITALOPRAM 02/20/2014 Other: See Comments PENICILLINS 10/27/2005 Hives and Itching REGLAN [METOCLOPRAMIDE HCL] 03/02/2016 Other: See Comments Fully Assessed 03/12/2024 CURRENT MEDICATIONS: FLUoxetine (PROZAC) 40 mg capsule Take 1 capsule by mouth once daily. buPROPion XL (WELLBUTRIN XL) 300 mg 24 hr tablet Take 1 tablet by mouth once daily. rOPINIRole (REQUIP) 0.25 mg tablet Take 3 tablets by mouth at bedtime as needed. levonorgestrel (MIRENA INTRAUTERINE) by INTRAUTERINE route. CPAP AutobiPAP EEP range 4-9 cmH2O, IPAP range 9-15, usu mask, humidity, filters. Dx: G47.33 Rpt to [facility] in 6 weeks. Prior Hypersomnia/Narcolepsy Medications (20 years) No data to display Prior RLS Medications (last 20 years) 03/19/2022 00:00 RLS Medications ropinirole HCl 0.75 mg AT BEDTIME PRN ORAL Details Outpatient prescription Medication marked as long-term Prior Insomnia Medications (last 20 years) 11/25/2023 00:00 Insomnia Medications fluoxetine HCl 40 mg DAILY ORAL Details Outpatient prescription Medication marked as long-term Review of Systems SOCIAL HISTORY: Social History Tobacco Use Smoking status: Never Smokeless tobacco: Never Vaping Use Vaping Use: Never used Substance Use Topics Alcohol use: Yes Comment: rarely Drug use: No FAMILY HISTORY: FAMILY HISTORY Problem Relation Age of Onset other (Scleroderma) Mother Lipids Father Hypertension Father Allergic Rhinitis Brother No Known Problems Brother other (Polio) Maternal Grandfather other (Pulmonary Disease) Paternal Grandfather Breast Cancer Maternal Aunt 45 x2 Cancer Other No db2 systems programmer/colon cancer There is a family history of: Sleep apnea. Relative: several PHYSICAL EXAMINATION: General appearance: NAD Mental status: awake and alert Constitutional: Well groomed Skin: Dry and intact Neuro: Speech fluent OROPHARYNX: narrow O/P opening, high arched hard palate, post op soft palate, large tongue, not visible tonsils, surgically removed uvula, Bite normal IMPRESSION/PLAN: Hypersomnia, primary Obstructive Sleep Apnea on Auto Bilevel Using and Benefiting - Continue Auto Bilevel PAP at EPAP MIN 5 and IPAP Max 20 cmH2O. - Remember to clean your mask and equipment regularly, as directed. - You should be eligible for new supplies approximately every 3-6 months, depending on your insurance coverage. Contact your Durable Medical Equipment (DME) company for new supplies as needed. - Avoid driving when drowsy. 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 - Try to get at least 7-9 hours of sleep in a 24 hour period. Healthy diet and exercise can also promote better sleep. - Follow up in 3 weeks in the office. Recommend scheduling this appointment now to ensure the best time for you. Sheldon Pate MD I spent a total of 45 minutes on the date of the service, which included preparing to see the patient, [id number] patient care, completing clinical documentation, performing a medically appropriate examination, counseling and educating the patient/family/caregiver, ordering medications, tests, or procedures, communicating results to the patient/family/caregiver, and care coordination (not separately reported). Sheldon Pate MD documented in this encounter [facility] 03-12-2024 History of Presen t illness Narrative CC: Patient presents with: Excessive Daytime Sleepiness HPI Shannon Lopez is a 44 year old female who presents today for above. Patient reports for the past 6 weeks she has been falling asleep during any times of inactivity. 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 Wakes up after a few minutes but if she remains inactive she will quickly nod off again. She denies malaise or fatigue. Does not feel groggy or sleepy when she is active. Sleeps at least 7-8 hours at night and wakes up feeling well rested. Denies falling asleep while driving a car. She has tried drinking caffeine but has not helped. PMH: She has DELON but wears Auto CPAP every night consistently. Denies issues with mask. Her machine is only a few years old. Last sleep study in 2012. Denies snoring, un-refreshed sleep, insomnia or being a restless sleeper. Denies new medications. She has been taking Wellbutrin and Prozac for years. Sitting and reading High chance of dozing (3 points) Watching television High chance of dozing (3 points) Sitting inactive in a public place High chance of dozing (3 points) Sitting for an hour as a passenger in a car High chance of dozing (3 points) Lying down in the afternoon to rest High chance of dozing (3 points) Sitting and talking to another person No chance of dozing (0 points) Sitting quietly after a lunch (no alcohol at lunch) High chance of dozing (3 points) Sitting in a car, stopped for a few minutes due to traffic No chance of dozing (0 points) TOTAL SCORE: 18 Review of Systems Constitutional: Negative for chills, diaphoresis, fatigue, fever and unexpected weight change. Eyes: Negative for visual disturbance. Respiratory: Negative for cough, shortness of breath and wheezing. Cardiovascular: Negative for chest pain, palpitations and leg swelling. Musculoskeletal: Negative for arthralgias and myalgias. Neurological: Negative for dizziness, syncope, weakness, light-headedness and headaches. Psychiatric/Behavioral: Negative for confusion, decreased concentration, dysphoric mood and sleep disturbance. The patient is not nervous/anxious. 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 2016 Low ferritin level 08/27/2015 Mental disorders complicating , childbirth, or the puerperium Migraine without aura 02/25/2007 Morbid obesity (HCC) 10/23/2012 Obstructive sleep apnea Orthostatic lightheadedness 05/02/2019 depression RLS (restless legs syndrome) 07/16/2015 Severe pre-eclampsia, antepartum 2016 Sleep apnea 04/24/2015 DME DASCO Teeth grinding 10/23/2012 Tremor 05/02/2019 PAST SURGICAL HISTORY Procedure Laterality Date SECTION HX 2016 MIRENA IUD 07/14/11,03/23/2016 PAST SURGICAL HISTORY OF 2009 UPPP for sleep apnea ALLERGIES Citalopram, Penicillins, and Reglan [Metoclopramide Hcl] MEDICATIONS FLUoxetine (PROZAC) 40 mg capsule Take 1 capsule by mouth once daily. buPROPion XL (WELLBUTRIN XL) 300 mg 24 hr tablet Take 1 tablet by mouth once daily. metFORMIN (GLUCOPHAGE) 500 mg tablet Take 1 tablet by mouth daily with breakfast. (Patient not taking: Reported on 12/26/2023) rOPINIRole (REQUIP) 0.25 mg tablet Take 3 tablets by mouth at bedtime as needed. levonorgestrel (MIRENA INTRAUTERINE) by INTRAUTERINE route. CPAP AutobiPAP EEP range 4-9 cmH2O, IPAP range 9-15, usu mask, humidity, filters. Dx: G47.33 Rpt to [facility] in 6 weeks. FAMILY HISTORY Problem Relation Age of Onset other (Scleroderma) Mother Lipids Father Hypertension Father Allergic Rhinitis Brother No Known Problems Brother other (Polio) Maternal Grandfather other (Pulmonary Disease) Paternal Grandfather Breast Cancer Maternal Aunt 45 x2 Cancer Other No db2 systems programmer/colon cancer Social History Tobacco Use Smoking status: Never Smokeless tobacco: Never Vaping Use Vaping Use: Never used Substance Use Topics Alcohol use: Yes Comment: rarely Drug use: No BP 136/88 Pulse 74 Resp 16 Wt (!) 139.7 kg (308 lb) LMP (LMP Unknown) SpO2 97% BMI 48.60 kg/m Physical Exam Vitals reviewed. Constitutional: Appearance: Normal appearance. Cardiovascular: Rate and Rhythm: Normal rate and regular rhythm. Heart sounds: Normal heart sounds. No murmur heard. Pulmonary: Effort: Pulmonary effort is normal. Breath sounds: Normal breath sounds. No wheezing, rhonchi or rales. Skin: General: Skin is warm and dry. Neurological: Mental Status: She is alert. Psychiatric: Attention and Perception: Attention normal. Mood and Affect: Affect normal. Mood is anxious. Speech: Speech normal. Behavior: Behavior normal. Behavior is cooperative. Thought Content: Thought content normal. Cognition and Memory: Cognition normal. Judgment: Judgment normal. ASSESSMENT/PLAN: 1. Excessive daytime sleepiness - ICD9: 780.54, ICD10: G47.19 (primary diagnosis) Differential diagnoses includes DELON, hypersomnia, narcolepsy, depression, medications CONSULT TO SLEEP MEDICINE - ADULT for further evaluation and recommendations Lab work-up with: - COMPLETE BLOOD COUNT - THYROID STIMULATING HORMONE - COMPREHENSIVE METABOLIC PANEL - VITAMIN D 25 HYDROXY 2. Obstructive sleep apnea on CPAP - ICD9: 327.23, ICD10: G47.33 As above - CONSULT TO SLEEP MEDICINE - ADULT Behavioral Health Screening PHQ-9 Score: 6 (Mild Depression) PAIGE-7 Score: 5 (Mild Anxiety) Recommendation: no further intervention at this time Prescription instructions reviewed with patient as applicable. Potential red flag symptoms discussed with the patient. Reviewed appropriate action plan to take if red flag symptoms occur. Patient agreeable to treatment plan. Haydee Coon APRN.ITZEL documented in this encounter [facility] 12-26-2023 History of Presen t illness Narrative Images from the original note were not included. Subjective She came in with complaints of lower right back pain. Patient says it does radiate down her leg. Patient says it is like a burning pain. Patient denies any difficulties urinating or having bowel movements. 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 Patient says she was bent over dealing with the patient's catheter when she noticed the pain. Patient says this happened about a year ago. Patient has no significant diagnosis associated with this. The history is provided by the patient. No multi disciplined language analyst was used. Back Pain Review of Systems Constitutional: Negative. Musculoskeletal: Positive for back pain. Skin: Negative. Objective Physical Exam Constitutional: Appearance: Normal appearance. Pulmonary: Effort: Pulmonary effort is normal. Skin: Comments: Patient is tender in the area marked above when palpated. No signs of deformities noted. Patient is able to lift her legs and range of motion within normal limits. Neurological: Mental Status: She is alert. 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 2015 Low ferritin level 08/27/2015 Mental disorders complicating , childbirth, or the puerperium Migraine without aura 02/25/2007 Morbid obesity (HCC) 10/23/2012 Obstructive sleep apnea Orthostatic lightheadedness 05/02/2019 depression RLS (restless legs syndrome) 07/16/2015 Severe pre-eclampsia, antepartum 2016 Sleep apnea 04/24/2015 DME DASCO Teeth grinding 10/23/2012 Tremor 05/02/2019 PAST SURGICAL HISTORY Procedure Laterality Date SECTION HX 2016 MIRENA IUD 07/14/11,03/23/2016 PAST SURGICAL HISTORY OF 2009 UPPP for sleep apnea ALLERGIES Citalopram, Penicillins, and Reglan [Metoclopramide Hcl] MEDICATIONS FLUoxetine (PROZAC) 40 mg capsule Take 1 capsule by mouth once daily. buPROPion XL (WELLBUTRIN XL) 300 mg 24 hr tablet Take 1 tablet by mouth once daily. rOPINIRole (REQUIP) 0.25 mg tablet Take 3 tablets by mouth at bedtime as needed. levonorgestrel (MIRENA INTRAUTERINE) by INTRAUTERINE route. CPAP AutobiPAP EEP range 4-9 cmH2O, IPAP range 9-15, usu mask, humidity, filters. Dx: G47.33 Rpt to [facility] in 6 weeks. predniSONE (DELTASONE) 10 mg tablet Take 4 tabs daily for 3 days, then 2 tabs daily for 3 days, then 1 tab daily for 3 days with food. cyclobenzaprine (FLEXERIL) 10 mg tablet Take 1 tablet by mouth two times a day as needed for muscle spasm for up to 7 days. metFORMIN (GLUCOPHAGE) 500 mg tablet Take 1 tablet by mouth daily with breakfast. (Patient not taking: Reported on 12/26/2023) FAMILY HISTORY Problem Relation Age of Onset other (Scleroderma) Mother Lipids Father Hypertension Father Allergic Rhinitis Brother No Known Problems Brother other (Polio) Maternal Grandfather other (Pulmonary Disease) Paternal Grandfather Breast Cancer Maternal Aunt 45 x2 Cancer Other No db2 systems programmer/colon cancer Social History Tobacco Use Smoking status: Never Smokeless tobacco: Never Vaping Use Vaping Use: Never used Substance Use Topics Alcohol use: Yes Comment: rarely Drug use: No ASSESSMENT/PLAN: 1. Muscle pain - ICD9: 729.1, ICD10: M79.10 - PREDNISONE 10 MG TABLET - CYCLOBENZAPRINE 10 MG TABLET Does not feel xray ins needed at this time. Patient was educated about proper use of medication and supportive therapies. Patient will not drive or operate heavy machinery on the muscle relaxers. Patient was okay with this care plan and will follow-up with primary care for further testing. Yoanna De La Rosa APRN.ITZEL documented in this encounter [facility] 11-25-2023 Miscellaneous Notes Requested Prescriptions Pending Prescriptions Disp Refills FLUoxetine (PROZAC) 40 mg capsule 30 capsule 5 Sig: Take 1 capsule by mouth once daily. buPROPion XL (WELLBUTRIN XL) 300 mg 24 hr tablet 30 tablet 5 Sig: Take 1 tablet by mouth once daily. Date of last office visit in primary care: 07/13/2023 Date of next office visit in primary care: Visit date not found Please advise. Thank you. Edy Khoury Ma. documented in this encounter [facility] 07-13-2023 Haydee Patricio APRN.ITZEL - 07/13/2023 8:54 AM EST Weight loss medications Least expensive: Wellbutrin Topamax (can have a lot of side effects) Phentermine (controlled substance) Most expensive: Contrave Qsymia Wegovy (injectable-very expensive but may be eligible for co -pay card) Saxenda (injectable-very expensive by may be eligible for co-pay card) Over the Counter: Lionel Glucophage Nebo Instructions Take the 500 mg Metformin (also called Glucophage) at the end of meals (on a full stomach) as follows: week 1: one pill after breakfast week 2: one pill after breakfast, one pill after supper, If you have symptoms of abdominal pain, nausea, or diarrhea, temporarily decrease the dose for a few days (DISCONTINUE the drug temporarily if they continue beyond a few days). DO NOT drink more than two alcoholic drinks per day while on glucophage. documented in this encounter [facility] 07-13-2023 History of Presen t illness Narrative CC: Patient presents with: F/U 3 Month: Ozempic - did not start due to insurance not covering HPI Shannon Lopez is a 43 year old female who presents today for above. She was prescribed Wegovy three months ago for weight loss. Unfortunately she was not able to start due to cost of medication. She would like to discuss other medication options. ROS as above, otherwise non-contributory. Reviewed PMHx, PSHx, social Hx, medications and allergies. PHYSICAL EXAM BP 128/92 Pulse 78 Resp 16 Wt (!) 143.3 kg (316 lb) LMP (LMP Unknown) SpO2 97% BMI 49.86 kg/m General Appearance: well appearing, in no acute distress, alert Pysch: mood and affect broad and appropriate ASSESSMENT/PLAN: 1. Morbid obesity (HCC) - ICD9: 278.01, ICD10: E66.01 Discussed medication treatment options. Most are too expensive and she is already taking Wellbutrin. She would like to try Metformin. Shared Medical Decision Making was done: Medication: Metformin. Benefits: Medication may help weight loss in the short term and sustained weight loss in the long-term. Risks: Possible side effects were discussed including GI. Duration: manager long term care. - Continue healthy diet consisting of fruits, vegetables and lean proteins. Reduce sugary drinks of artificial juices and sodas and replace with water and low calorie Crystal Light. Healthy Snack alternatives have been discussed - Continue exercise or meaningful activity for 20 minutes at lest 3 times a day Prescription instructions reviewed with patient as applicable. Potential red flag symptoms discussed with the patient. Reviewed appropriate action plan to take if red flag symptoms occur. Patient agreeable to treatment plan. During this patient visit I have spent approximately 20 minutes in counseling regarding treatment options, medications, and coordinating care. Haydee Morrison APRN.CNP documented in this encounter [facility] 04-12-2023 Instructions Haydee Morrison APRN.CNP - 04/12/2023 8:56 AM EDT Let me know in one month the effectiveness of the Ozempic documented in this encounter [facility] 04-12-2023 History of Presen t illness Narrative CC: Patient presents with: F/U 6 months HPI Shannon Lopez is a 43 year old female who presents today for above. She is taking Prozac and Wellbutrin for depression. Doing well on current doses, denies side effects. She takes Requip as needed for RLS with complete relief of symptoms, typically no more than twice a week. She is wearing CPAP nightly, tolerating and denies issues with mask. Wakes up feeling well rested and denies excessive daytime sleepiness. She would like to try medication for weight loss. She was on Adipex in the past but raised her BP. She is interested in Ozempic and is aware insurance may not cover with high out of pocket costs. REVIEW OF SYSTEMS See HPI 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 2016 Low ferritin level 08/27/2015 Mental disorders complicating , childbirth, or the puerperium Migraine without aura 02/25/2007 Morbid obesity (HCC) 10/23/2012 Obstructive sleep apnea Orthostatic lightheadedness 05/02/2019 depression RLS (restless legs syndrome) 07/16/2015 Severe pre-eclampsia, antepartum 2016 Sleep apnea 04/24/2015 DME DASCO Teeth grinding 10/23/2012 Tremor 05/02/2019 PAST SURGICAL HISTORY Procedure Laterality Date SECTION HX 2016 MIRENA IUD 07/14/11,03/23/2016 PAST SURGICAL HISTORY OF 2009 UPPP for sleep apnea ALLERGIES Citalopram, Penicillins, and Reglan [Metoclopramide Hcl] MEDICATIONS FLUoxetine (PROZAC) 40 mg capsule Take 1 capsule by mouth once daily. buPROPion XL (WELLBUTRIN XL) 300 mg 24 hr tablet Take 1 tablet by mouth once daily. rOPINIRole (REQUIP) 0.25 mg tablet Take 3 tablets by mouth at bedtime as needed. levonorgestrel (MIRENA INTRAUTERINE) by INTRAUTERINE route. CPAP AutobiPAP EEP range 4-9 cmH2O, IPAP range 9-15, usu mask, humidity, filters. Dx: G47.33 Rpt to [facility] in 6 weeks. FAMILY HISTORY Problem Relation Age of Onset other (Scleroderma) Mother Lipids Father Hypertension Father Allergic Rhinitis Brother No Known Problems Brother other (Polio) Maternal Grandfather other (Pulmonary Disease) Paternal Grandfather Breast Cancer Maternal Aunt 45 x2 Cancer Other No db2 systems programmer/colon cancer Social History Tobacco Use Smoking status: Never Smokeless tobacco: Never Vaping Use Vaping Use: Never used Substance Use Topics Alcohol use: Yes Comment: rarely Drug use: No PHYSICAL EXAM BP 126/88 Pulse 72 Resp 16 Wt (!) 144.7 kg (319 lb) LMP (LMP Unknown) BMI 50.34 kg/m General Appearance: well appearing, in no acute distress, alert Pysch: mood and affect broad and appropriate Health maintenance reviewed with patient: HEPATITIS B(1 of 3 - 3-dose series) Never done MAMMOGRAM due on 10/28/2022 COVID-19 VACCINE(3 - Moderna series) due on 10/13/2023 INFLUENZA(1) due on 05/06/2023 DTAP,TDAP,TD(3 - Td or Tdap) due on 12/18/2025 PAP TESTING due on 12/25/2026 HPV TESTING due on 12/25/2026 HEPATITIS C SCREENING Completed HIV SCREENING Completed HPV VACCINE Aged Out DATA REVIEWED: Most recent labs ASSESSMENT/PLAN: 1. Morbid obesity (HCC) - ICD9: 278.01, ICD10: E66.01 (primary diagnosis) Shared Medical Decision Making was done: Medication: Ozempic. Risks: Possible side effects were discussed including GI upset. Possible interactions: n/a. Warnings: pancreatitis. Cost: high Prior approval may be needed. Duration: manager long term care. - Begin healthy diet consisting of fruits, vegetables and lean proteins. Reduce sugary drinks of artificial juices and sodas and replace with water and low calorie Crystal Light. Healthy Snack alternatives have been discussed - Begin exercise or meaningful activity for 20 minutes at lest 3 times a day - Follow-up in 3 month(s) or as needed - COMP METABOLIC PANEL - LIPID PANEL BASIC 2. Depressive disorder - ICD9: 311, ICD10: F32.A stable - BUPROPION XL 300 MG 24 HR TAB 3. Restless leg syndrome - ICD9: 333.94, ICD10: G25.81 Stable - ROPINIROLE 0.25 MG TABLET 4. Obstructive sleep apnea on CPAP - ICD9: 327.23, V46.8, ICD10: G47.33 Compliant with CPAP Prescription instructions reviewed with patient as applicable. Potential red flag symptoms discussed with the patient. Reviewed appropriate action plan to take if red flag symptoms occur. Patient agreeable to treatment plan. During this patient visit I have spent approximately 30 minutes in counseling regarding treatment options, medications, and coordinating care. Haydee Morrison APRN.CNP documented in this encounter [facility] 03-18-2023 History of Presen t illness Narrative Radiology Service Progress Note PATIENT NAME: Shannon Lopez DATE OF SERVICE: March 18, 2023 TIME: 12:59 PM PATIENT IDENTITY VERIFICATION COMPLETED USING TWO (2) IDENTIFIERS: Name and Date of confirmed by patient verbally. FALL SCREENING: Has the patient had 2 falls in the last year or 1 fall with injury or currently using an Ambulatory Assistive Device (Walker, Cane, Wheelchair, Crutches, etc.)? No PATIENT GENDER DATA: Female. status: : No status: NO. PATIENT RELEVANT IMPLANT DATA REVIEWED: Not Applicable RADIOLOGY DEPARTMENT: General X-ray: Exam(s) Completed: Lower Extremity X-Ray(s): Knee, AP / Lat / Tunne / Merchant Right and Wt. Bearing PERIPHERAL IV DATA: Not applicable SIGNED BY: RT Alee(R) March 18, 2023 12:59 PM documented in this encounter [facility] 03-18-2023 History of Presen t illness Narrative Subjective HPI Nontoxic-appearing female presents urgent care chief complaint right knee pain. Duration of symptoms off and on for 3 weeks. Associated symptoms right knee pain. States she was feeling a yesterday. Feels like she "overdid it". Has having more knee pain recently. Has used Motrin in the past this is helped. No known injuries. Denies history of fracture or surgeries. Denies any fever body aches chills productive cough chest pain shortness of breath pleuritic pain hemoptysis nausea vomiting abdominal pain change in bowel or bladder habits. Past medical history prescription medication use and allergies reviewed. .Patient presents with: Right Knee Pain: Off and on x 3 weeks-yesterday much worse-cannot recall an injury 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 2016 Low ferritin level 08/27/2015 Mental disorders complicating , childbirth, or the puerperium Migraine without aura 02/25/2007 Morbid obesity (HCC) 10/23/2012 Obstructive sleep apnea Orthostatic lightheadedness 05/02/2019 depression RLS (restless legs syndrome) 07/16/2015 Severe pre-eclampsia, antepartum 2016 Sleep apnea 04/24/2015 DME DASCO Teeth grinding 10/23/2012 Tremor 05/02/2019 PAST SURGICAL HISTORY Procedure Laterality Date SECTION HX 2016 MIRENA IUD 07/14/11,03/23/2016 PAST SURGICAL HISTORY OF 2010 UPPP for sleep apnea ALLERGIES Citalopram, Penicillins, and Reglan [Metoclopramide Hcl] MEDICATIONS FLUoxetine (PROZAC) 40 mg capsule Take 1 capsule by mouth once daily. buPROPion XL (WELLBUTRIN XL) 300 mg 24 hr tablet Take 1 tablet by mouth once daily. rOPINIRole (REQUIP) 0.25 mg tablet Take 3 tablets by mouth at bedtime as needed. levonorgestrel (MIRENA INTRAUTERINE) by INTRAUTERINE route. CPAP AutobiPAP EEP range 4-9 cmH2O, IPAP range 9-15, usu mask, humidity, filters. Dx: G47.33 Rpt to [facility] in 6 weeks. FAMILY HISTORY Problem Relation Age of Onset other (Scleroderma) Mother Lipids Father Hypertension Father Allergic Rhinitis Brother No Known Problems Brother other (Polio) Maternal Grandfather other (Pulmonary Disease) Paternal Grandfather Breast Cancer Maternal Aunt 45 x2 Cancer Other No db2 systems programmer/colon cancer Social History Tobacco Use Smoking status: Never Smokeless tobacco: Never Vaping Use Vaping Use: Never used Substance Use Topics Alcohol use: Yes Comment: rarely Drug use: No BP 138/78 Pulse 84 Temp 36.8 C (98.3 F) (Tympanic) Resp 18 Wt (!) 145.2 kg (320 lb) LMP (LMP Unknown) SpO2 98% BMI 50.50 kg/m Review of Systems Constitutional: Negative for chills, fever and malaise/fatigue. HENT: Negative for congestion, ear discharge, ear pain, sinus pain and sore throat. Eyes: Negative for blurred vision, pain, discharge and redness. Respiratory: Negative for cough, hemoptysis, sputum production, shortness of breath, wheezing and stridor. Cardiovascular: Negative for chest pain. Gastrointestinal: Negative for abdominal pain, diarrhea, nausea and vomiting. Musculoskeletal: Positive for joint pain. Negative for falls and myalgias. Skin: Negative for itching and rash. Neurological: Negative for dizziness and headaches. Objective Physical Exam Constitutional: General: She is not in acute distress. Appearance: She is not toxic-appearing. HENT: Head: Normocephalic. Nose: Nose normal. Eyes: Pupils: Pupils are equal, round, and reactive to light. Cardiovascular: Rate and Rhythm: Normal rate. Pulmonary: Effort: Pulmonary effort is normal. No respiratory distress. Musculoskeletal: Cervical back: Normal range of motion. Right knee: No swelling, deformity, erythema or ecchymosis. Normal range of motion. Tenderness present over the medial joint line. Right lower leg: No swelling or bony tenderness. No edema. Right ankle: No swelling. No tenderness. Normal range of motion. Comments: No erythema edema. No breaks in skin. Neurovascular intact. Skin: General: Skin is warm and dry. Neurological: General: No focal deficit present. Mental Status: She is alert. ASSESSMENT/PLAN: 1. Acute pain of right knee - ICD9: 719.46, ICD10: M25.561 - XR KNEE GENERAL 4V AP BOTH/PA BOTH/LAT/MERC RIGHT - CONSULT TO ORTHOPAEDICS IMPRESSION: Mild degenerative changes in the right knee with small joint effusion. Bursitis versus osteoarthritis treat conservatively at this time. Placed on prednisone burst. Do not take with NSAIDs. Follow-up with orthopedic if symptoms or not improving in the next 10 to 14 days. Patient was educated on supportive therapies. Patient will follow up with primary care provider as needed. Patient was instructed to immediately proceed to emergency room for any new, worsening, or symptoms lasting longer than anticipated. The patient's clinical presentation is otherwise unremarkable at this time. Based on exam and clinical finding, the patient is stable for discharge. Plan of care was discussed with patient. Patient verbalizes understanding and agrees to plan of care. This note was generated using Provade software. It may contain errors in wording, punctuation, or spelling. Momo Vega APRN.DISTRIBUTION ENGINEERING 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 documented in this encounter [facility] 10-14-2022 History of Past i llness Narrative Problem Noted Date Diagnosed Date Resolved Date Right-sided thoracic back pain 10/14/2022 12/06/2022 Orthostatic lightheadedness 05/02/2019 10/16/2021 Supervision of high risk pre gnancy in third trimester 01/15/2016 03/23/2016 Supervision of high risk pre gnancy in second trimester 10/31/2015 03/23/2016 Low ferritin level 08/27/2015 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 Rodney Brooks MD August 18, 2015 Hives to pcn derivative in past. Recommend allergy testing or ancef. Rodney Brooks MD Multigravida of advanced mat ernal age in first trimester 08/11/2015 03/23/2016 Supervision of high risk pre gnancy in first trimester 08/11/2015 01/15/2016 Overview: August 11, 2015 declines offer of nutrition consult. Encouraged exercise, limit wt gain in . Rodney Brooks MD RN at [facility] Nasal congestion 07/16/2015 08/11/2015 with poor obstetric history 07/16/2015 03/23/2016 Overview: 07/17/15 - recommends IV iron as patient tolerates oral iron poorly & has restless leg syndrome - KJ August 11, 2015 H/o preeclampsia previous pregnancies, recommend ASA a day. Normotensive between pregnancies. Rodney Brooks MD Post depression 04/24/201508/11 Teeth grinding 10/23/2012 09/29/2016 Adjustment disorder with depressed mood 07/09/2008 08/11/2015 Generalized anxiety disorder 02/25/2007 04/24/2015 Migraine without aura 02/25/20072016 Severe pre-eclampsia, antepartum 08/11/2015 documented as of this encounter (statuses as of 03/18/2023) [facility] History of Past illness Narrative* Problem Noted Date Diagnosed Date Resolved Date Right-sided thoracic back pain 10/14/2022 12/06/2022 Orthostatic lightheadedness 05/02/2019 10/16/2021 Supervision of high risk pre gnancy in third trimester 01/15/2016 03/23/2016 Supervision of high risk pre gnancy in second trimester 10/31/2015 03/23/2016 Low ferritin level 08/27/2015 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 Rodney Brooks MD August 18, 2015 Hives to pcn derivative in past. Recommend allergy testing or ancef. Rodney Brooks MD Multigravida of advanced mat ernal age in first trimester 08/11/2015 03/23/2016 Supervision of high risk pre gnancy in first trimester 08/11/2015 01/15/2016 Overview: August 11, 2015 declines offer of nutrition consult. Encouraged exercise, limit wt gain in . Rodney Brooks MD RN at [facility] Nasal congestion 07/16/2015 08/11/2015 with poor obstetric history 07/16/2015 03/23/2016 Overview: 07/17/15 - recommends IV iron as patient tolerates oral iron poorly & has restless leg syndrome - KJ August 11, 2015 H/o preeclampsia previous pregnancies, recommend ASA a day. Normotensive between pregnancies. Rodney Brooks MD Post depression 04/24/201508/11 Teeth grinding 10/23/2012 09/29/2016 Adjustment disorder with depressed mood 07/09/2008 08/11/2015 Generalized anxiety disorder 02/25/2007 04/24/2015 Migraine without aura 02/25/20072016 Severe pre-eclampsia, antepartum 08/11/2015 documented as of this encounter (statuses as of 04/12/2023) [facility] History of Past illness Narrative* Problem Noted Date Diagnosed Date Resolved Date Right-sided thoracic back pain 10/14/2022 12/06/2022 Orthostatic lightheadedness 05/02/2019 10/16/2021 Supervision of high risk pre gnancy in third trimester 01/15/2016 03/23/2016 Supervision of high risk pre gnancy in second trimester 10/31/2015 03/23/2016 Low ferritin level 08/27/2015 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 Rodney Brooks MD August 18, 2015 Hives to pcn derivative in past. Recommend allergy testing or ancef. Rodney Brooks MD Multigravida of advanced mat ernal age in first trimester 08/11/2015 03/23/2016 Supervision of high risk pre gnancy in first trimester 08/11/2015 01/15/2016 Overview: August 11, 2015 declines offer of nutrition consult. Encouraged exercise, limit wt gain in . Rodney Brooks MD RN at [facility] Nasal congestion 07/16/2015 08/11/2015 with poor obstetric history 07/16/2015 03/23/2016 Overview: 07/17/15 - recommends IV iron as patient tolerates oral iron poorly & has restless leg syndrome - KJ August 11, 2015 H/o preeclampsia previous pregnancies, recommend ASA a day. Normotensive between pregnancies. Rodney Brooks MD Post depression 04/24/201508/11 Teeth grinding 10/23/2012 09/29/2016 Adjustment disorder with depressed mood 07/09/2008 08/11/2015 Generalized anxiety disorder 02/25/2007 04/24/2015 Migraine without aura 02/25/20072016 Severe pre-eclampsia, antepartum 08/11/2015 documented as of this encounter (statuses as of 05/02/2023) [facility] History of Past illness Narrative* Problem Noted Date Diagnosed Date Resolved Date Right-sided thoracic back pain 10/14/2022 12/06/2022 Orthostatic lightheadedness 05/02/2019 10/16/2021 Supervision of high risk pre gnancy in third trimester 01/15/2016 03/23/2016 Supervision of high risk pre gnancy in second trimester 10/31/2015 03/23/2016 Low ferritin level 08/27/2015 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 Rodney Brooks MD August 18, 2015 Hives to pcn derivative in past. Recommend allergy testing or ancef. Rodney Brooks MD Multigravida of advanced mat ernal age in first trimester 08/11/2015 03/23/2016 Supervision of high risk pre gnancy in first trimester 08/11/2015 01/15/2016 Overview: August 11, 2015 declines offer of nutrition consult. Encouraged exercise, limit wt gain in . Rodney Brooks MD RN at [facility] Nasal congestion 07/16/2015 08/11/2015 with poor obstetric history 07/16/2015 03/23/2016 Overview: 07/17/15 - recommends IV iron as patient tolerates oral iron poorly & has restless leg syndrome - KJ August 11, 2015 H/o preeclampsia previous pregnancies, recommend ASA a day. Normotensive between pregnancies. Rodney Brooks MD Post depression 04/24/201508/11 Teeth grinding 10/23/2012 09/29/2016 Adjustment disorder with depressed mood 07/09/2008 08/11/2015 Generalized anxiety disorder 02/25/2007 04/24/2015 Migraine without aura 02/25/20072016 Severe pre-eclampsia, antepartum 08/11/2015 documented as of this encounter (statuses as of 07/13/2023) [facility] History of Past illness Narrative* Problem Noted Date Diagnosed Date Resolved Date Right-sided thoracic back pain 10/14/2022 12/06/2022 Orthostatic lightheadedness 05/02/2019 10/16/2021 Supervision of high risk pre gnancy in third trimester 01/15/2016 03/23/2016 Supervision of high risk pre gnancy in second trimester 10/31/2015 03/23/2016 Low ferritin level 08/27/2015 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 Rodney Brooks MD August 18, 2015 Hives to pcn derivative in past. Recommend allergy testing or ancef. Rodney Brooks MD Multigravida of advanced mat ernal age in first trimester 08/11/2015 03/23/2016 Supervision of high risk pre gnancy in first trimester 08/11/2015 01/15/2016 Overview: August 11, 2015 declines offer of nutrition consult. Encouraged exercise, limit wt gain in . Rodney Brooks MD RN at [facility] Nasal congestion 07/16/2015 08/11/2015 with poor obstetric history 07/16/2015 03/23/2016 Overview: 07/17/15 - recommends IV iron as patient tolerates oral iron poorly & has restless leg syndrome - KJ August 11, 2015 H/o preeclampsia previous pregnancies, recommend ASA a day. Normotensive between pregnancies. Rodney Brooks MD Post depression 04/24/201508/11 Teeth grinding 10/23/2012 09/29/2016 Adjustment disorder with depressed mood 07/09/2008 08/11/2015 Generalized anxiety disorder 02/25/2007 04/24/2015 Migraine without aura 02/25/20072016 Severe pre-eclampsia, antepartum 08/11/2015 documented as of this encounter (statuses as of 11/14/2023) [facility] History of Past illness Narrative* Problem Noted Date Diagnosed Date Resolved Date Right-sided thoracic back pain 10/14/2022 12/06/2022 Orthostatic lightheadedness 05/02/2019 10/16/2021 Supervision of high risk pre gnancy in third trimester 01/15/2016 03/23/2016 Supervision of high risk pre gnancy in second trimester 10/31/2015 03/23/2016 Low ferritin level 08/27/2015 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 Rodney Brooks MD August 18, 2015 Hives to pcn derivative in past. Recommend allergy testing or ancef. Rodney Brooks MD Multigravida of advanced mat ernal age in first trimester 08/11/2015 03/23/2016 Supervision of high risk pre gnancy in first trimester 08/11/2015 01/15/2016 Overview: August 11, 2015 declines offer of nutrition consult. Encouraged exercise, limit wt gain in . Rodney Brooks MD RN at [facility] Nasal congestion 07/16/2015 08/11/2015 with poor obstetric history 07/16/2015 03/23/2016 Overview: 07/17/15 - recommends IV iron as patient tolerates oral iron poorly & has restless leg syndrome - KJ August 11, 2015 H/o preeclampsia previous pregnancies, recommend ASA a day. Normotensive between pregnancies. Rodney Brooks MD Post depression 04/24/201508/11 Teeth grinding 10/23/2012 09/29/2016 Adjustment disorder with depressed mood 07/09/2008 08/11/2015 Generalized anxiety disorder 02/25/2007 04/24/2015 Migraine without aura 02/25/20072016 Severe pre-eclampsia, antepartum 08/11/2015 documented as of this encounter (statuses as of 11/25/2023) [facility] History of Present illness Narrative* Francine Nguyen, PT - 10/14/2022 12:38 PM EST Episode Visit Count: 1 Therapist That Will Accept/Oversee The Plan Of Care: Francine Nguyen PT Start of Care Date: 10/14/22 Onset Date: 09/23/22 Patient Identified by Name and Date of : Yes REHABILITATION AND SPORTS THERAPY PHYSICAL THERAPY EVALUATION PLAN OF CARE: Assessment: Shannon Lopez presents with chief complaint of pain in right side lower thoracic L1 region to lateral rib region that interferes with bending, dressing . She presents with impairments in ADL's, flexibility, independence in exercise, overall function, symptom management, and tissue tenderness. PROMIS (Patient-Reported Outcomes Measurement Information System) scores were reviewed and physical function domain identified as a rehabilitation concern. Prognosis for therapy is Excellent due to: current objective clinical presentation . She will benefit from skilled therapy services to meet the goals established for this plan of care as noted below. Goals for Episode of Care: created on 10/14/22 through 11/25/22 [place] in home exercise program. Patient will decrease pain to 0/10 with functional activities to allow patient to improve performance of ADL's . Patient will increase flexibility to WNL to improve mechanics and decrease pain. Perform twisting bending, reaching without pain. Patient Goals: alleiviate pain Planned Interventions, Frequency, and Duration: Current Frequency: 1x/week Duration: 4 weeks (as needed pt to call) Total Number of Visits Planned: 4 Planned Treatment Interventions: Therapeutic exercise (22861), Manual therapy (83472), Self-shelter management (77061), Patient/Family/Caregiver Education PLAN FOR NEXT VISIT: Will instruct in use of lacrosse ball massage on wall Patient demonstrates good understanding of plan of care and treatment. The above goals and plan of care were discussed and agreed upon by patient/family. 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 Red Flags - Cervical Cancer Clinical Reasoning: No identified risk factors. Spine History Pain is Worse Always: Bending (twisting) Pain is Better Sometimes: Lying Sleeping Position: Side lying left Sleep Affected by Pain: Not affected by pain Pain: Pain Pain Level: 3 (worst 8/10) Pain Location: Thoracic Spine - Right Description: Aching, Sharp Frequency: Continuous Post Treatment Pain Post Treatment Pain Level: (sore) Post Treatment Pain Location: Thoracic Spine - Right Post Treatment Pain Description: Sore PROMIS Scales Higher is Better 06/12/2020 12/15/2021 10/14/2022 Phys Func - Score 43 (mild dysfunction) - 43 (mild dysfunction) Phys Func - Percentile 24 % - 24 % GH Physical - Score 50.8 47.7 (Good) 44.9 (Good) GH Physical - Percentile 53 % 41 % 31 % GH Mental - Score 53.3 53.3 (Very Good) 53.3 (Very Good) GH Mental - Percentile 63 % 63 % 63 % Self-Eff Symptom - Score - - 50 (Average) Self-Eff Symptom - Percentile - - 50 % T-scores: mean of general population = 50. 5 points is clinically meaningfully difference Percentiles provide an indication of how the patient's score ranks in relation to the general population. Higher percentile rankings indicate better function/quality of life. 50th percentile is the average of the general population and indicates half of respondents had a worse score. Lower is Better 06/12/2020 Fatigue - Score 60 (mild) Fatigue - Percentile 16 % T-scores: mean of general population = 50. 5 points is clinically meaningfully difference Percentiles provide an indication of how the patient's score ranks in relation to the general population. Higher percentile rankings indicate better function/quality of life. 50th percentile is the average of the general population and indicates half of respondents had a worse score. OBJECTIVE MEASURES WITH LEVEL OF FUNCTION: Posture / Alignment Posture: Increased thoracic kyphosis, Decreased lumbar lordosis Sitting Posture: Fair Spine Observations R Thoracic Spine Palpation Tenderness: (T12 L1 level at inferior to rib) Cervical Spine ROM Cervical ROM : Limitation AROM Cervical Flexion AROM: Normal Cervical Extension AROM: Normal Cervical Side-Bend Right AROM: Normal Cervical Side-Bend Left AROM: Normal Cervical Rotation Right AROM: Normal Cervical Rotation Left AROM: Normal Thoracic Spine AROM Thoracic Flexion: Decreased pain Thoracic Extension: Increased pain Thoracic Sidebend Right: Normal Thoracic Sidebend Left: Decreased pain Thoracic Rotation Right: Increased pain Thoracic Rotation Left: Decreased pain UE AROM R UE AROM: WNL L UE AROM: WNL UE and Cervical Strength Strength Tested: (deferred) Education: Education Learning Preferences: Demonstration, Explanation, Performance, Printed Materials Barriers: None Learning/educational needs: Home exercise program, Plan of Care Education Provided: Yes, see treatment interventions for education provided Education Provided To: Patient Education Mode/Type: Demonstration, Explanation/Discussion, Literature/Printed Materials, Performance Response to Education/Teach Back: States/Identifies, Return Demonstration TREATMENT: PT Treatment Interventions: Therapeutic Exercise Evaluation Therapeutic Exercise: 1: thoracic flexion stretch with hands on base of neck / shoulders 15 sec hold x3 2: seated or left sidelying right arm abduction overhead with left LF/ sidebend to light stretch 15sec x3 Skilled Intervention: Patient was educated in proper exercise technique and purpose for exercises. Skilled judgment was provided in selection of appropriate interventions. Correct performance of therapeutic exercises was facilitated with verbal and visual cuing. Educated patient on rationale for performing exercises in regards to ROM and function . Patient education as noted. Home Exercise Program Assigned: as outlined above Billing * Evaluation Low Complexity: 1 Unit Therapeutic Exercise Treatment Minutes: 20 Total Treatment Time Minutes (timed/untimed): 35 Francine Nguyen PT [facility] Miscellaneous Notes* Telephone Encounter - Jacqueline Ibrahim LPN - 10/12/2022 9:14 AM EST Patient has been identified by name and date of : Yes, Patient phones for refill(s): Requested Prescriptions Pending Prescriptions Disp Refills FLUoxetine (PROZAC) 40 mg capsule 30 capsule 5 Sig: Take 1 capsule by mouth once daily. buPROPion XL (WELLBUTRIN XL) 300 mg 24 hr tablet 30 tablet 5 Sig: Take 1 tablet by mouth once daily. rOPINIRole (REQUIP) 0.25 mg tablet 90 tablet 5 Sig: Take 3 tablets by mouth at bedtime as needed. Date of last office visit in primary care: 03/24/2022 Medication follow-up: 10/13/2022 No future appt scheduled. Last 2 Encounter Wt Readings: Date: Wt: 10/05/2022 143.8 kg (317 lb) 08/01/2022 139.8 kg (308 lb 3.2 oz) Previous labs/tests for medication: Not applicable Please advise. Thank you. Jacqueline Ibrahim LPN [facility] [place] [facility] October 09, 2022 10:37pm Note Date/Time October 09, 2022 1 0:37pm [facility] Medical Records Department [address] [place] [id number] Emergency Department Summary 10/09/22 MR#: [id number] Acct: [id number] Name: SHANNON LOPEZ Rep #:[id number] : 1980 42 From: Thaddeus Khan MD PCP: Dr. Michael Acuña MD Status:R EG ER Location: ED HPI History of Present Illness Chief Complaint: Flank Pain Informant: patient Narrative Narrative: Patient states she has been having pain in her right mid back that sometimes hurts to move around but not always, has been occurring consistently for a couple of weeks, including at rest. Not pleuritic. No chest pain. She has been having dyspnea with exertion for the past week, and fatiguing easily which is very abnormal for her. 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 She has had some low-grade fevers inthe 99 range for the last couple days but no coughing. 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 She denies any leg pain or swelling or recent travel/immobilization/surgery/hospitalization. No history of DVT or PE. [facility] Medical History BiPAP (biphasic positive airway pressure) dependence HELLP syndrome Migraines Non-smoker Preeclampsia Sleep apnea Home Medications bupropion HCl 150 mg 24 hr tablet, extended release 300 mg PO DAILY ##0 06/16/15[History Last Taken 01/19/16 0730] fluoxetine 10 mg capsule 40 mg PO DAILY 02/22/16 [History Last Taken Unknown] methocarbamol 500 mg tablet mg 10/09/22 [History Last Taken Unknown] ropinirole 0.25 mg tablet 0.25 mg PO QHS PRN PRN RLS 10/09/22 [History Last Taken Unknown] Allergy/AdvReac Type Severity Reaction Status Date / Time citalopram Allergy Other Verified 10/09/22 19:11 Penicillins [PCN] Allergy Unknown Verified 10/09/22 19:11 metoclopramide HCl AdvReac Other Verified 10/09/22 19:11 [From [facility]] Social History Smoking Status: Never smoker ROS ROS ED Constitutional Constitutional ED: Denies chills or fever(s) Eyes Eyes: Denies change in vision or diplopia ENT ENT ED: Reports rhinorrhea; Denies sore throat Cardiovascular Cardiovascular: Denies chest pain or palpitations Respiratory/Chest Respiratory/Chest: Reports dyspnea and dyspnea on exertion; Denies cough Gastrointestinal Gastrointestinal: Denies abdominal pain, diarrhea, nausea or vomiting Genitourinary Genitourinary ED: Denies dysuria or hematuria Musculoskeletal Musculoskeletal: Reports back pain; Denies neck pain Integumentary Denies abscess or rash Neurologic Neurologic: Denies headache(s), paresthesias or weakness Psychiatric Psychiatric: Denies anxiety or suicidal thoughts EXAM Physical Exam Const Vital Signs: 10/09/22 19:11 10/09/22 19:38 10/09/22 21:10 Temperature 97 F L Temperature Source Temporal Pulse Rate 93 78 Respiratory Rate 14 196 H Respiratory Effort Non-Labored Respiratory Pattern Normal Blood Pressure 146/107 H 136/85 H Blood Pressure Mean 120 102 Pulse Ox 98 Oxygen Delivery Method Room Air Room Air Positive well nourished, well developed and obese General Appearance ED: well developed and NAD Nutritional Appearance: obese HEENT Reports moist mucous membranes normocephalic and atraumatic Eyes PERRL and EOMs intact bilaterally Neck full ROM and supple Chest Wall inspection of chest normal and palpation of chest normal Resp normal respiratory effort and clear to auscultation bilaterally Cardio regular rate, regular rhythm and no murmurs GI non-tender and non-distended Auscultation: normoactive bowel sounds Palpation: soft Back/Spine no CVA tenderness Back/Spine Narrative: Mild tenderness right lower lateral mid back, well caudal to the scapula. No midline tenderness. No rashes normal inspection. General Back: other FROM Extremity normal to inspection and no calf tenderness General Extremety ED: Negative for edema, pulses abnormal or tenderness General Extremity: Negative for edema or pulses abnormal Neuro oriented x3, CN's II-XII intact bilaterally and no sensory deficits noted Sensorium / Orientation: awake and alert Motor Exam: strength 5/5 throughout Psych mental status grossly normal Skin no rashes or lesions noted and no wounds MDM MDM MDM Narrative Medical decision making narrative: Patient is a mild nonspecific leukocytosis, her EKG, two-view chest x-ray my interpretation, troponin, and D-dimer are all normal. Therefore she does not require further imaging such as CTA, which was considered but not indicated or necessary, in order to rule out pulmonary embolus here. Less likely to have pericardial effusion since she has no evidence of pericarditis on EKG nor pain/discomfort anteriorly in the chest. It is possible that the back pain is simply musculoskeletal and has nothing to do with her dyspnea, it is possible that she has been having elevations of blood pressure that could be associated with the dyspnea which is not all of the time, she does not appear to have any type of acute or atypical pneumonitis to cause this. The low-grade fever she was having are unknown, she has no symptoms of anything else that she has a urine infection. I recommend close outpatient follow-up but I do not think she needs to have more emergent testing here her blood pressures been stable in the 140s. Lab Data Attestation: I reviewed the patient's lab results. Labs: Laboratory Results - last 24 hr 10/09/22 10/09/22 10/09/22 20:10 20:10 20:10 WBC 13.3 H RBC 4.22 Hgb 12.6 Hct 38.0 MCV 90.0 MCH 29.9 MCHC 33.2 RDW Std Deviation 43.4 RDW Coeff of Aleida 13.2 Plt Count 250 MPV 9.4 Immature Gran % (Auto) 0.500 Neut % (Auto) 79.9 H Lymph % (Auto) 12.1 L Lawrence % (Auto) 6.7 Eos % (Auto) 0.4 Baso % (Auto) 0.4 Absolute Neuts (auto) 10.7 H Absolute Lymphs (auto) 1.61 Nucleated RBC % 0 D-Dimer Quant (PE/DVT) < 0.27 L Sodium 142 Potassium 4.0 Chloride 108 H Carbon Dioxide 25.0 Anion Gap 9 BUN 19 H Creatinine 0.79 Estim Creat Clear Calc 87.73 Est GFR (MDRD) Af Amer 103 Est GFR (MDRD) Non-Af 85 BUN/Creatinine Ratio 24.1 H Glucose 148 H Calcium 9.2 Troponin I High Sens 4 Radiography Diagnostic Testing: Clinical Impression(s) from Imaging Studies Chest X-Ray 10/09/22 20:38 IMPRESSION: No radiographic evidence of acute cardiopulmonary disease. Electronically Signed: Kareem Cloud MD at 20:50 EST Reading Location ID and State: [facility] [place] / [place] , Service support , Rhythm Strip Rhythm Strip: Sinus Rhythm Rate: 90 Ectopy: None EKG Initial EKG: Attestation: I personally reviewed and interpreted this EKG as follows: Interpretation: Sinus Rhythm and No Acute Injury Pattern Comments: Normal EKG Discharge Plan Triage Chief Complaint: Flank Pain ED Provider: Thaddeus Khan Dx/Rx/DC Orders Clinical Impression: Acute right-sided back pain, BRAR (dyspnea on exertion) Instructions: ED Dyspnea Prescriptions: No Action bupropion HCl 150 MG tablet extended release 24 hr 300 mg PO DAILY Qty: 0 Label Comments: Depression fluoxetine 10 MG capsule 40 mg PO DAILY methocarbamol 500 mg tablet Label Comments: TAKE 1 TABLET BY MOUTH EVERY 6 HOURS NEEDED FOR PAIN FOR UP TO 3 DAYS ropinirole 0.25 mg tablet 0.25 mg PO QHS PRN PRN (Reason: RLS) Label Comments: TAKE 3 TABLETS BY MOUTH AT BEDTIME NEEDED. Primary Care Provider: Michael Acuña Referrals: Michael Acuña MD [Primary Care Provider] - As soon as possible (Call for follow-up appointment regarding any continued shortness of breath) Disposition Disposition: Home, Self Care What to do if you have Problems For any increased pain, shortness of breath, bleeding, nausea or vomiting, chestpain, or any unexpected problems, contact your Primary Care Provider. Call [facility] ([phone]) or report to the closest Emergency Room. Call 911 if necessary. 10/09/222236 <Electronically signed by Thaddeus Khan MD> Cosigner Signature (if applicable): CC: Dr. Michael Acuña MD ~ Signed [facility] Work Phone: [phone] 698-336001-31-2023 History of Present illness Narrative* SANDEE He - 10/05/2022 9:33 AM EST Images from the original note were not included. This note was created using [employer]. Subjective Shannon Lopez is a 42 year old female. HPI 42-year-old female presents for right-sided mid back pain times a week. Patient states that shestarted getting right-sided mid back pain a little over a week ago. She thought she pulled a muscle. She does not recall any specific injury. She had no fall. States pain is worse with movement. Anytime she bends over or tries to lift something, pain gets worse in the right mid back. She denies anyurinary symptoms. No blood in the urine, dysuria. She denies any chest pain or shortness of breath.No recent trauma or recent hospitalization. No history of PE. No numbness or tingling in the arms or legs. No loss of bowel or bladder incontinence. States that she had similar symptoms to this abouta year ago on the left side and was treated with a muscle relaxer which helped. Patient has been taking Aleve and Tylenol [id number] with some improvement in pain. 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 2016 Low ferritin level 08/27/2015 Mental disorders complicating , childbirth, or the puerperium Migraine without aura 02/25/2007 Morbid obesity (HCC) 10/23/2012 Obstructive sleep apnea Orthostatic lightheadedness 05/02/2019 depression RLS (restless legs syndrome) 07/16/2015 Severe pre-eclampsia, antepartum 2016 Sleep apnea 04/24/2015 DME DASCO Teeth grinding 10/23/2012 Tremor 05/02/2019 PAST SURGICAL HISTORY Procedure Laterality Date SECTION HX 2016 MIRENA IUD 07/14/11,03/23/2016 PAST SURGICAL HISTORY OF 2009 UPPP for sleep apnea ALLERGIES Citalopram, Penicillins, and Reglan [Metoclopramide Hcl] MEDICATIONS levonorgestrel (MIRENA INTRAUTERINE) by INTRAUTERINE route. FLUoxetine (PROZAC) 40 mg capsule Take 1 capsule by mouth once daily. buPROPion XL (WELLBUTRIN XL) 300 mg 24 hr tablet Take 1 tablet by mouth once daily. rOPINIRole (REQUIP) 0.25 mg tablet Take 3 tablets by mouth at bedtime as needed. CPAP AutobiPAP EEP range 4-9 cmH2O, IPAP range 9-15, usu mask, humidity, filters. Dx: G47.33 Rpt toMoul in 6 weeks. methylPREDNISolone (MEDROL, RAVI,) 4 mg Dose-Pack Follow dosing instructions, take with food. methocarbamol (ROBAXIN) 500 mg tablet Take 1 tablet by mouth every 6 hours as needed (Pain) for up to 3 days. 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 HENT: Negative for congestion. Respiratory: Negative for cough and shortness of breath. Cardiovascular: Negative for chest pain. Gastrointestinal: Negative for diarrhea and vomiting. Genitourinary: Negative for dysuria, flank pain, frequency and hematuria. Musculoskeletal: Positive for back pain. Objective BP 142/78 Pulse 92 Temp 36.8 C (98.3 F) (Tympanic) Resp 18 Wt (!) 143.8 kg (317 lb) LMP 06/15/2015 SpO2 98% BMI 50.02 kg/m Physical Exam Vitals and nursing note reviewed. Constitutional: General: She is not in acute distress. Appearance: Normal appearance. She is not toxic-appearing. HENT: Nose: Nose normal. Cardiovascular: Rate and Rhythm: Normal rate and regular rhythm. Pulmonary: Effort: Pulmonary effort is normal. Breath sounds: Normal breath sounds. Abdominal: General: Abdomen is flat. Palpations: Abdomen is soft. Tenderness: There is no abdominal tenderness. There is no right CVA tenderness or left CVA tenderness. Musculoskeletal: Thoracic back: Tenderness present. No swelling, deformity or bony tenderness. Normal range of motion. Back: Comments: Patient has tenderness over right-sided thoracic paraspinal muscles. No midline tenderness. Normal ROM thoracic spine, but does report pain with flexion. No step-offs or deformities. No rash. No bruising. Skin: General: Skin is warm and dry. Findings: No rash. Comments: No rash. Neurological: Mental Status: She is alert. Assessment and Plan ASSESSMENT/PLAN: 1. Strain of thoracic region, initial encounter - ICD9: 847.1, ICD10: S29.019A -Has tenderness and pain worse with movement over the right side thoracic paraspinal muscles. Suspect thoracic strain. She will be given Medrol Dosepak and Robaxin. Advised not to drive while taking this medication. Advise no NSAIDs while taking the steroids. -Patient had no fall or injury. I do not believe imaging warranted at this time. -Recommended follow-up with PCP in 3 to 4 days if symptoms are not improved. -Low suspicion for PE, pneumonia, nephrolithiasis, pyelonephritis. She was given red flag symptoms and when to go to the emergency room. Diagnosis and treatment plan were discussed and questions were answered to the patient's satisfaction. Pt acknowledged understanding of concepts and follow up plan. Specific signs and symptoms that would indicate the need for higher level of care were discussed in detail warranting prompt ER evaluation. SANDEE He [facility] [place] History of Present illness Narrative* Katia Tran PA-C - 08/01/2022 12:56 PM EST This note was created using [employer]. Subjective Shannon Lopez is a 42 year old female. HPI Patient presents with urinary frequency, dysuria over the past few days. No back pain or abdominal pain. No hematuria. Denies vaginal itching or discharge. She is sexually active, no new sexual partners. No concern for STD. She does have a IUD in. Review of Systems Constitutional: Negative. HENT: Negative. Respiratory: Negative. Cardiovascular: Negative. Gastrointestinal: Negative. Genitourinary: Positive for dysuria, frequency and urgency. Negative for flank pain, hematuria, pelvic pain, vaginal bleeding, vaginal discharge and vaginal pain. Musculoskeletal: Negative. All other systems reviewed and are negative. 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 2016 Low ferritin level 08/27/2015 Mental disorders complicating , childbirth, or the puerperium Migraine without aura 02/25/2007 Morbid obesity (HCC) 10/23/2012 Obstructive sleep apnea Orthostatic lightheadedness 05/02/2019 depression RLS (restless legs syndrome) 07/16/2015 Severe pre-eclampsia, antepartum 2016 Sleep apnea 04/24/2015 DME DASCO Teeth grinding 10/23/2012 Tremor 05/02/2019 Current Outpatient Medications Medication Sig Dispense Refill FLUoxetine (PROZAC) 40 mg capsule Take 1 capsule by mouth once daily. 30 capsule 5 buPROPion XL (WELLBUTRIN XL) 300 mg 24 hr tablet Take 1 tablet by mouth once daily. 30 tablet 5 rOPINIRole (REQUIP) 0.25 mg tablet Take 3 tablets by mouth at bedtime as needed. 90 tablet 5 CPAP AutobiPAP EEP range 4-9 cmH2O, IPAP range 9-15, usu mask, humidity, filters. Dx: G47.33 Rpt toMoul in 6 weeks. 1 Device 0 nitrofurantoin monohydrate and macrocrystal (MACROBID) 100 mg capsule Take 1 capsule by mouth twicedaily with meals for 5 days. 10 capsule 0 No current facility-administered medications for this visit. PAST SURGICAL HISTORY Procedure Laterality Date SECTION HX 2016 MIRENA IUD 07/14/11,03/23/2016 PAST SURGICAL HISTORY OF 2009 UPPP for sleep apnea FAMILY HISTORY Problem Relation Age of Onset other (Scleroderma) Mother Lipids Father Hypertension Father Allergic Rhinitis Brother No Known Problems Brother other (Polio) Maternal Grandfather other (Pulmonary Disease) Paternal Grandfather Breast Cancer Maternal Aunt 45 x2 Cancer Other No db2 systems programmer/colon cancer Social History Tobacco Use Smoking status: Never Smokeless tobacco: Never Vaping Use Vaping Use: Never used Substance Use Topics Alcohol use: Yes Comment: rarely Drug use: No Objective BP 138/84 Pulse 89 Temp 36.9 C (98.4 F) Resp 21 Wt (!) 139.8 kg (308 lb 3.2 oz) LMP 06/15/2015 SpO2 98% BMI 48.63 kg/m Physical Exam Vitals reviewed. Constitutional: Appearance: Normal appearance. HENT: Head: Normocephalic and atraumatic. Cardiovascular: Rate and Rhythm: Normal rate and regular rhythm. Heart sounds: Normal heart sounds. Pulmonary: Effort: Pulmonary effort is normal. Breath sounds: Normal breath sounds. Abdominal: General: Abdomen is flat. Palpations: Abdomen is soft. Tenderness: There is no abdominal tenderness. There is no right CVA tenderness, left CVA tendernessor guarding. Musculoskeletal: Cervical back: Neck supple. Skin: General: Skin is warm and dry. Findings: No rash. Neurological: Mental Status: She is alert. Assessment and Plan ASSESSMENT/PLAN: 1. Urinary frequency - ICD9: 788.41, ICD10: R35.0 acute - UA positive for nikhil esterase, hematuria, nitrates and proteinuria - Begin treatment with Macrobid 100 mg BID for 5 days - Patient education for prevention given - UA DIP, URINE (POC) - URINE CULTURE Katia Tran PA-C documented in this encounterHol[facility] [place] History of Present illness Narrative* Haydee Morrison, 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 - 03/24/2022 1:40 PM EDT CC Patient presents with: Hypertension HPI Shannon Lopez is a 42 year old female who presents to the office for blood pressure. Her visit today is for follow-up. Patient was last seen for this approximately 3 months ago. She has not historyof hypertension. She was on Adipex at last appointment, elevated blood pressure attributed to this Home BP's: No Denies: headache, chest pain, palpitations, dyspnea and peripheral edema. Last 4 Encounter BP Readings: Date: BP: 03/24/2022 140/85 12/25/2021 144/88 11/14/2021 122/80 10/16/2021 128/76 Last 3 Encounter Wt Readings: Date: Wt: 03/24/2022 137 kg (302 lb) 12/25/2021 139.7 kg (308 lb) 11/14/2021 140.8 kg (310 lb 6.4 oz) Exercise: denies regular aerobic exercise. Diet: Watch for salt, fat, cholesterol: No. Caffeine: minimal Water intake: adequate Alcohol intake: rarely . Smoking: No Frequent NSAID use: No Decongestants: No Thyroid disorders? No Sleep disorders/snoring? Yes, wearing CPAP nightly REVIEW OF SYSTEMS See HPI 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 2016 Low ferritin level 08/27/2015 Mental disorders complicating , childbirth, or the puerperium Migraine without aura 02/25/2007 Morbid obesity (HCC) 10/23/2012 Obstructive sleep apnea Orthostatic lightheadedness 05/02/2019 depression RLS (restless legs syndrome) 07/16/2015 Severe pre-eclampsia, antepartum 2016 Sleep apnea 04/24/2015 DME DASCO Teeth grinding 10/23/2012 Tremor 05/02/2019 PAST SURGICAL HISTORY Procedure Laterality Date SECTION HX 2016 MIRENA IUD 07/14/11,03/23/2016 PAST SURGICAL HISTORY OF 2009 UPPP for sleep apnea ALLERGIES Citalopram, Penicillins, and Reglan [Metoclopramide Hcl] MEDICATIONS FLUoxetine (PROZAC) 40 mg capsule Take 1 capsule by mouth once daily. buPROPion XL (WELLBUTRIN XL) 300 mg 24 hr tablet Take 1 tablet by mouth once daily. rOPINIRole (REQUIP) 0.25 mg tablet Take 3 tablets by mouth at bedtime as needed. CPAP AutobiPAP EEP range 4-9 cmH2O, IPAP range 9-15, usu mask, humidity, filters. Dx: G47.33 Rpt toMoul in 6 weeks. 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 No wheezing, rhonchi, rales. Heart: RRR without murmur, gallop, or rubs. No ectopy ASSESSMENT/PLAN: 1. Elevated blood-pressure reading without diagnosis of hypertension - ICD9: 796.2, ICD10: R03.0 Improved off of Adipex Likely PreHypertension - Encouraged dietary sodium restriction/DASH diet - Recommended regular aerobic exercise. - Recommend home blood pressure monitoring, to bring results in on next visit - Discussed need and benefit for weight loss. - Recheck in 7 months, sooner if needed. - Reviewed risks of HTN and principles of treatment - Goal of BP <130/80 Prescription instructions reviewed with patient as applicable. Potential red flag symptoms discussed with the patient. Reviewed appropriate action plan to take if red flag symptoms occur. Patient agreeable to treatment plan Haydee Morrison APRN.CNP documented in this encounterHol[facility] [place] Miscellaneous Notes* Telephone Encounter - Jossy Soria LPN - 03/19/2022 11:47 AM EDT Spoke with pt and information listed below given. Pt verbalizes understanding. Apt booked. Pt does report increased BP has stopped since she stopped the medication. Sh will keep apt. Jossy Soria LPN * Telephone Encounter - Michael Acuña MD - 03/19/2022 6:20 AM EDT Follow up appointment with Haydee for elevated BP * Telephone Encounter - Jossy Soria LPN - 03/18/2022 3:28 PM EDT Patient has been identified by name and date of : Yes Patient phones for refill(s): Pending Prescriptions Disp Refills FLUOXETINE 40 MG CAPSULE 30 capsule 11 Sig: Take 1 capsule by mouth once daily. OLMAN: No BUPROPION XL 300 MG 24 HR TAB 90 tablet 3 Sig: Take 1 tablet by mouth once daily. OLMAN: No Date of last office visit in primary care: 11/13/21 Last 2 Encounter Wt Readings: Date: Wt: 12/25/2021 139.7 kg (308 lb) 11/14/2021 140.8 kg (310 lb 6.4 oz) Previous labs/tests for medication: Not applicable Please advise. Thank you. Jossy Soria LPN documented in this encounterHol[facility] [place]07-14-2022 Miscellaneous Notes* Telephone Encounter - Jossy Soria LPN - 03/18/2022 3:29 PM EDT Patient has been identified by name and date of : Yes Patient phones for refill(s): Pending Prescriptions Disp Refills ROPINIROLE 0.25 MG TABLET 60 tablet 5 Sig: Take 3 tablets by mouth at bedtime as needed. OLMAN: No Date of last office visit in primary care: 11/13/21 Last 2 Encounter Wt Readings: Date: Wt: 12/25/2021 139.7 kg (308 lb) 11/14/2021 140.8 kg (310 lb 6.4 oz) Previous labs/tests for medication: Not applicable Please advise. Thank you. Jossy Soria LPN documented in this encounterHol[facility] [place]04-22-[facility]22 History of Present illness Narrative* Rodney Brooks MD - 12/25/2021 8:55 AM EDT Shannon is a 41 year old who presents for an annual gynecologic exam without complaints. Menses: no regular menses w/ mirena. . 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 2016 Low ferritin level 08/27/2015 Mental disorders complicating , childbirth, or the puerperium Migraine without aura 02/25/2007 Morbid obesity (HCC) 10/23/2012 Obstructive sleep apnea Orthostatic lightheadedness 05/02/2019 depression RLS (restless legs syndrome) 07/16/2015 Severe pre-eclampsia, antepartum 2016 Sleep apnea 04/24/2015 DME DASCO Teeth grinding 10/23/2012 Tremor 05/02/2019 PAST SURGICAL HISTORY Procedure Laterality Date SECTION HX 2016 MIRENA IUD 07/14/11,03/23/2016 PAST SURGICAL HISTORY OF 2009 UPPP for sleep apnea FAMILY HISTORY Problem Relation Age of Onset other (Scleroderma) Mother Lipids Father Hypertension Father Allergic Rhinitis Brother No Known Problems Brother other (Polio) Maternal Grandfather other (Pulmonary Disease) Paternal Grandfather Breast Cancer Maternal Aunt 45 Cancer Other No db2 systems programmer/colon cancer SOCIAL HISTORY Social History Tobacco Use Smoking status: Never Smoker Smokeless tobacco: Never Used Substance Use Topics Alcohol use: Yes Comment: rarely Drug use: No REVIEW OF SYSTEMS Abdomen: No abdominal pain, nausea, vomiting, diarrhea, or constipation. No bloating, early satiety, indigestion, or increased flatulence. Bladder: No dysuria, gross hematuria, urinary frequency, urinary urgency, or incontinence. Breast: No breast lumps, nipple d/c, overlying skin changes, redness or skin retraction. Allergies and current medication updated:Yes EXAM: BP 144/88 Ht 5' 6.75" (1.70m) Wt 308 lb (139.7kg) LMP 06/15/2015 BMI 48.63 kg/(m^2). GENERAL: pleasant, female in no apparent distress HEENT: Normocephalic, atraumatic, mucus membranes moist and no lesions NECK: Supple, full range of motion, no adenopathy and thyroid normal DERMATOLOGY: Normal, without lesions, non-icteric and non-hirsute BREAST: soft, non-tender, symmetric, no dominant mass, normal nipple-areolar complex, no lymphadenopathy and no nipple discharge CHEST: Normal inspiratory effort ABDOMEN: soft, non-tender and no masses PELVIC: external genitalia normal, normal Bartholin's glands, urethra, Evaro's glands, no vulvar lesions, no cervical lesions, good vaginal support, physiologic discharge present, normal appearing perineal body and perianal region, IUD strings noted BIMANUAL: uterus normal size, shape and consistency, no adnexal masses and non-tender RECTOVAGINAL: deferred. NEURO: alert and oriented x3,exam grossly non-focal EXTREMITIES: normal ASSESSMENT/PLAN: 1) Health maintenance: Pap done with HPV. Mammogram up to date . 2) Contraception: none. Contraceptive options reviewed and information provided. 3) STD screening: Declined STD check. 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 Rodney Brooks MD August 18, 2015 Hives to pcn derivative in past. Recommend allergy testing or ancef. Rodney Brooks MD Multigravida of advanced maternal age in first t rimester 08/11/2015 03/23/2016 Supervision of high risk in first trim micky 08/11/2015 01/15/2016 Overview: August 11, 2015 declines offer of nutrition consult. Encouraged exercise, limit wt gain in . Rodney Brooks MD RN at [facility] Nasal congestion 07/16/2015 08/11/2015 with poor obstetric history 07/16/2015 03/23/2016 Overview: 07/17/15 - recommends IV iron as patient tolerates oral iron poorly & has restless leg syndrome - KJ August 11, 2015 H/o preeclampsia previous pregnancies, recommend ASA a day. Normotensive between pregnancies. Rodney Brooks MD Post depression 04/24/2015 5 Teeth grinding 10/23/2012 09/29/2016 Adjustment disorder with depressed mood 07/09/20 08 08/11/2015 Generalized anxiety disorder 02/25/2007 Migraine without aura 02/25/2007 09/29/2016 Severe pre-eclampsia, antepartum 08/11/2015 documented as of this encounter (statuses as of 12/11/2021) [facility] History of Past illness Narrative* Problem Noted Date Resolved Date Orthostatic lightheadedness 05/02/201910/06 Supervision of high risk in third trim micky 01/15/2016 03/23/2016 Supervision of high risk in second tri mester 10/31/2015 03/23/2016 Low ferritin level 08/27/2015 10/16/2021 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 Rodney Brooks MD August 18, 2015 Hives to pcn derivative in past. Recommend allergy testing or ancef. Rodney Brooks MD Multigravida of advanced maternal age in first t rimester 08/11/2015 03/23/2016 Supervision of high risk in first trim micky 08/11/2015 01/15/2016 Overview: August 11, 2015 declines offer of nutrition consult. Encouraged exercise, limit wt gain in . Rodney Brooks MD RN at [facility] Nasal congestion 07/16/2015 08/11/2015 with poor obstetric history 07/16/2015 03/23/2016 Overview: 07/17/15 - recommends IV iron as patient tolerates oral iron poorly & has restless leg syndrome - KJ August 11, 2015 H/o preeclampsia previous pregnancies, recommend ASA a day. Normotensive between pregnancies. Rodney Brooks MD Post depression 04/24/2015 5 Teeth grinding 10/23/2012 09/29/2016 Adjustment disorder with depressed mood 07/09/20 08 08/11/2015 Generalized anxiety disorder 02/25/2007 Migraine without aura 02/25/2007 09/29/2016 Severe pre-eclampsia, antepartum 08/11/2015 documented as of this encounter (statuses as of 12/25/2021) [facility] [place] History of Past illness Narrative* Problem Noted Date Resolved Date Orthostatic lightheadedness 05/02/201910/06 Supervision of high risk in third trim micky 01/15/2016 03/23/2016 Supervision of high risk in second tri mester 10/31/2015 03/23/2016 Low ferritin level 08/27/2015 10/16/2021 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 Rodney Brooks MD August 18, 2015 Hives to pcn derivative in past. Recommend allergy testing or ancef. Rodney Brooks MD Multigravida of advanced maternal age in first t rimester 08/11/2015 03/23/2016 Supervision of high risk in first trim micky 08/11/2015 01/15/2016 Overview: August 11, 2015 declines offer of nutrition consult. Encouraged exercise, limit wt gain in . Rodney Brooks MD RN at [facility] Nasal congestion 07/16/2015 08/11/2015 with poor obstetric history 07/16/2015 03/23/2016 Overview: 07/17/15 - recommends IV iron as patient tolerates oral iron poorly & has restless leg syndrome - KJ August 11, 2015 H/o preeclampsia previous pregnancies, recommend ASA a day. Normotensive between pregnancies. Rodney Brooks MD Post depression 04/24/2015 5 Teeth grinding 10/23/2012 09/29/2016 Adjustment disorder with depressed mood 07/09/20 08 08/11/2015 Generalized anxiety disorder 02/25/2007 Migraine without aura 02/25/2007 09/29/2016 Severe pre-eclampsia, antepartum 08/11/2015 documented as of this encounter (statuses as of 03/19/2022) [facility] [place] of Past illness Narrative* Problem Noted Date Resolved Date Orthostatic lightheadedness 05/02/201910/06 Supervision of high risk in third trim micky 01/15/2016 03/23/2016 Supervision of high risk in second tri mester 10/31/2015 03/23/2016 Low ferritin level 08/27/2015 10/16/2021 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 Rodney Brooks MD August 18, 2015 Hives to pcn derivative in past. Recommend allergy testing or ancef. Rodney Brooks MD Multigravida of advanced maternal age in first t rimester 08/11/2015 03/23/2016 Supervision of high risk in first trim micky 08/11/2015 01/15/2016 Overview: August 11, 2015 declines offer of nutrition consult. Encouraged exercise, limit wt gain in . Rodney Brooks MD RN at [facility] Nasal congestion 07/16/2015 08/11/2015 with poor obstetric history 07/16/2015 03/23/2016 Overview: 07/17/15 - recommends IV iron as patient tolerates oral iron poorly & has restless leg syndrome - KJ August 11, 2015 H/o preeclampsia previous pregnancies, recommend ASA a day. Normotensive between pregnancies. Rodney Brooks MD Post depression 04/24/2015 5 Teeth grinding 10/23/2012 09/29/2016 Adjustment disorder with depressed mood 07/09/20 08 08/11/2015 Generalized anxiety disorder 02/25/2007 Migraine without aura 02/25/2007 09/29/2016 Severe pre-eclampsia, antepartum 08/11/2015 documented as of this encounter (statuses as of 03/19/2022) [facility] [place] of [facility] illness Narrative* Problem Noted Date Resolved Date Orthostatic lightheadedness 05/02/201910/06 Supervision of high risk in third trim micky 01/15/2016 03/23/2016 Supervision of high risk in second tri mester 10/31/2015 03/23/2016 Low ferritin level 08/27/2015 10/16/2021 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 Rodney Brooks MD August 18, 2015 Hives to pcn derivative in past. Recommend allergy testing or ancef. Rodney Brooks MD Multigravida of advanced maternal age in first t rimester 08/11/2015 03/23/2016 Supervision of high risk in first trim micky 08/11/2015 01/15/2016 Overview: August 11, 2015 declines offer of nutrition consult. Encouraged exercise, limit wt gain in . Rodney Brooks MD RN at [facility] Nasal congestion 07/16/2015 08/11/2015 with poor obstetric history 07/16/2015 03/23/2016 Overview: 07/17/15 - recommends IV iron as patient tolerates oral iron poorly & has restless leg syndrome - KJ August 11, 2015 H/o preeclampsia previous pregnancies, recommend ASA a day. Normotensive between pregnancies. Rodney Brooks MD Post depression 04/24/2015 5 Teeth grinding 10/23/2012 09/29/2016 Adjustment disorder with depressed mood 07/09/20 08 08/11/2015 Generalized anxiety disorder 02/25/2007 Migraine without aura 02/25/2007 09/29/2016 Severe pre-eclampsia, antepartum 08/11/2015 documented as of this encounter (statuses as of 03/24/2022) [facility] [place] of Past illness Narrative* Problem Noted Date Resolved Date Orthostatic lightheadedness 05/02/201910/06 Supervision of high risk in third trim micky 01/15/2016 03/23/2016 Supervision of high risk in second tri mester 10/31/2015 03/23/2016 Low ferritin level 08/27/2015 10/16/2021 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 Rodney Brooks MD August 18, 2015 Hives to pcn derivative in past. Recommend allergy testing or ancef. Rodney Brooks MD Multigravida of advanced maternal age in first t rimester 08/11/2015 03/23/2016 Supervision of high risk in first trim micky 08/11/2015 01/15/2016 Overview: August 11, 2015 declines offer of nutrition consult. Encouraged exercise, limit wt gain in . Rodney Brooks MD RN at [facility] Nasal congestion 07/16/2015 08/11/2015 with poor obstetric history 07/16/2015 03/23/2016 Overview: 07/17/15 - recommends IV iron as patient tolerates oral iron poorly & has restless leg syndrome - KJ August 11, 2015 H/o preeclampsia previous pregnancies, recommend ASA a day. Normotensive between pregnancies. Rodney Brooks MD Post depression 04/24/2015 5 Teeth grinding 10/23/2012 09/29/2016 Adjustment disorder with depressed mood 07/09/20 08 08/11/2015 Generalized anxiety disorder 02/25/2007 Migraine without aura 02/25/2007 09/29/2016 Severe pre-eclampsia, antepartum 08/11/2015 documented as of this encounter (statuses as of 08/01/2022) [facility] [place] of Past illness Narrative* Problem Noted Date Resolved Date Orthostatic lightheadedness 05/02/201910/06 Supervision of high risk in third trim micky 01/15/2016 03/23/2016 Supervision of high risk in second tri mester 10/31/2015 03/23/2016 Low ferritin level 08/27/2015 10/16/2021 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 Rodney Brooks MD August 18, 2015 Hives to pcn derivative in past. Recommend allergy testing or ancef. Rodney Brooks MD Multigravida of advanced maternal age in first t rimester 08/11/2015 03/23/2016 Supervision of high risk in first trim micky 08/11/2015 01/15/2016 Overview: August 11, 2015 declines offer of nutrition consult. Encouraged exercise, limit wt gain in . Rodney Brooks MD RN at [facility] Nasal congestion 07/16/2015 08/11/2015 with poor obstetric history 07/16/2015 03/23/2016 Overview: 07/17/15 - recommends IV iron as patient tolerates oral iron poorly & has restless leg syndrome - KJ August 11, 2015 H/o preeclampsia previous pregnancies, recommend ASA a day. Normotensive between pregnancies. Rodney Brooks MD Post depression 04/24/2015 5 Teeth grinding 10/23/2012 09/29/2016 Adjustment disorder with depressed mood 07/09/20 08 08/11/2015 Generalized anxiety disorder 02/25/2007 Migraine without aura 02/25/2007 09/29/2016 Severe pre-eclampsia, antepartum 08/11/2015 documented as of this encounter (statuses as of 10/05/2022) [facility] [place] of Past illness Narrative* Problem Noted Date Resolved Date Orthostatic lightheadedness 05/02/201910/06 Supervision of high risk in third trim micky 01/15/2016 03/23/2016 Supervision of high risk in second tri mester 10/31/2015 03/23/2016 Low ferritin level 08/27/2015 10/16/2021 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 Rodney Brooks MD August 18, 2015 Hives to pcn derivative in past. Recommend allergy testing or ancef. Rodney Brooks MD Multigravida of advanced maternal age in first t rimester 08/11/2015 03/23/2016 Supervision of high risk in first trim micky 08/11/2015 01/15/2016 Overview: August 11, 2015 declines offer of nutrition consult. Encouraged exercise, limit wt gain in . Rodney Brooks MD RN at [facility] Nasal congestion 07/16/2015 08/11/2015 with poor obstetric history 07/16/2015 03/23/2016 Overview: 07/17/15 - recommends IV iron as patient tolerates oral iron poorly & has restless leg syndrome - KJ August 11, 2015 H/o preeclampsia previous pregnancies, recommend ASA a day. Normotensive between pregnancies. Rodney Brooks MD Post depression 04/24/2015 5 Teeth grinding 10/23/2012 09/29/2016 Adjustment disorder with depressed mood 07/09/20 08 08/11/2015 Generalized anxiety disorder 02/25/2007 Migraine without aura 02/25/2007 09/29/2016 Severe pre-eclampsia, antepartum 08/11/2015 documented as of this encounter (statuses as of 10/12/2022) [facility] of Past illness Narrative* Problem Noted Date Resolved Date Orthostatic lightheadedness 05/02/201910/06 Supervision of high risk in third trim micky 01/15/2016 03/23/2016 Supervision of high risk in second tri mester 10/31/2015 03/23/2016 Low ferritin level 08/27/2015 10/16/2021 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 Rodney Brooks MD August 18, 2015 Hives to pcn derivative in past. Recommend allergy testing or ancef. Rodney Brooks MD Multigravida of advanced maternal age in first t rimester 08/11/2015 03/23/2016 Supervision of high risk in first trim micky 08/11/2015 01/15/2016 Overview: August 11, 2015 declines offer of nutrition consult. Encouraged exercise, limit wt gain in . Rodney Brooks MD RN at [facility] Nasal congestion 07/16/2015 08/11/2015 with poor obstetric history 07/16/2015 03/23/2016 Overview: 07/17/15 - recommends IV iron as patient tolerates oral iron poorly & has restless leg syndrome - KJ August 11, 2015 H/o preeclampsia previous pregnancies, recommend ASA a day. Normotensive between pregnancies. Rodney Brooks MD Post depression 04/24/2015 5 Teeth grinding 10/23/2012 09/29/2016 Adjustment disorder with depressed mood 07/09/20 08 08/11/2015 Generalized anxiety disorder 02/25/2007 Migraine without aura 02/25/2007 09/29/2016 Severe pre-eclampsia, antepartum 08/11/2015 documented as of this encounter (statuses as of 10/14/2022) [facility] [place] of Past illness Narrative* Problem Noted Date Resolved Date Orthostatic lightheadedness 05/02/201910/06 Supervision of high risk in third trim micky 01/15/2016 03/23/2016 Supervision of high risk in second tri mester 10/31/2015 03/23/2016 Low ferritin level 08/27/2015 10/16/2021 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 Rodney Brooks MD August 18, 2015 Hives to pcn derivative in past. Recommend allergy testing or ancef. Rodney Brooks MD Multigravida of advanced maternal age in first t rimester 08/11/2015 03/23/2016 Supervision of high risk in first trim micky 08/11/2015 01/15/2016 Overview: August 11, 2015 declines offer of nutrition consult. Encouraged exercise, limit wt gain in . Rodney Brooks MD RN at [facility] Nasal congestion 07/16/2015 08/11/2015 with poor obstetric history 07/16/2015 03/23/2016 Overview: 07/17/15 - recommends IV iron as patient tolerates oral iron poorly & has restless leg syndrome - KJ August 11, 2015 H/o preeclampsia previous pregnancies, recommend ASA a day. Normotensive between pregnancies. Rodney Brooks MD Post depression 04/24/2015 5 Teeth grinding 10/23/2012 09/29/2016 Adjustment disorder with depressed mood 07/09/20 08 08/11/2015 Generalized anxiety disorder 02/25/2007 Migraine without aura 02/25/2007 09/29/2016 Severe pre-eclampsia, antepartum 08/11/2015 documented as of this encounter (statuses as of 12/06/2022) [facility] Diagnosis Special screening examination for human papillomavirus (HPV)- Primary Encounter for gynecological examination (general) (routine) without abnormal findings Encounter for screening mammogram for breast cancer Encounter for screening for malignant neoplasm of cervix Screening for malignant neoplasm of the cervix [facility] Diagnosis Restless leg syndrome Restless legs syndrome (RLS) [facility] Diagnosis Depressive disorder Depressive disorder, not elsewhere classified [facility] Diagnosis Elevated blood-pressure reading without diagnosis of hypertension- Primary Elevated blood pressure reading without diagnosis of hypertension [facility]* Diagnosis Urinary frequency- Primary [facility]* Diagnosis Strain of thoracic region, initial encounter- Primary documented in this encounter [facility] noteNo assessment information availableWWooster [facility] Work [facility]* Diagnosis Depressive disorder Depressive disorder, not elsewhere classified Restless leg syndrome Restless legs syndrome (RLS) documented in this encounter [facility] note* Diagnosis Right-sided thoracic back pain, unspecified chronicity documented in this encounter [facility] note* Diagnosis Encounter for screening mammogram for breast cancer [facility] Diagnosis Acute pain of right knee- Primary [facility] Diagnosis Morbid obesity (HCC)- Primary Morbid obesity Depressive disorder Depressive disorder, not elsewhere classified Restless leg syndrome Restless legs syndrome (RLS) Obstructive sleep apnea on CPAP Obstructive sleep apnea (adult) (pediatric) documented [facility]* Diagnosis Morbid obesity (HCC)- Primary Morbid obesity [facility]* Diagnosis Encounter for screening mammogram for breast cancer [facility]* Diagnosis Depressive disorder Depressive disorder, not elsewhere classified [facility]* Diagnosis Muscle pain- Primary Mylagia and myositis, unspecified [facility]* Diagnosis Excessive daytime sleepiness- Primary Obstructive sleep apnea on CPAP Obstructive sleep apnea (adult) (pediatric) [facility]* Diagnosis Hypersomnia due to medical condition- Primary Hypersomnia due to medical condition classified elsewhere Obstructive sleep apnea on CPAP Obstructive sleep apnea (adult) (pediatric) Excessive daytime sleepiness [facility] Diagnosis Acute pain of right knee [facility] Diagnosis DELON treated with BiPAP- Primary [facility] Diagnosis Morbid obesity (HCC)- Primary Morbid obesity [facility] Diagnosis Encounter for screening mammogram for breast cancer [facility] Diagnosis Morbid obesity (HCC)- Primary Morbid obesity Depressive disorder Depressive disorder, not elsewhere classified Obstructive sleep apnea on CPAP Obstructive sleep apnea (adult) (pediatric) Encounter for immunization Need for other specified prophylactic vaccination against single bacterial disease [facility] DELON treated with BiPAP- Primary Hypersomnia due to medical condition Hypersomnia due to medical condition classified elsewhere [facility] Diagnosis Encounter for screening mammogram for breast cancer Encounter for screening mammogram for breast cancer [facility] Diagnosis Need for vaccination- Primary Need for prophylactic vaccination and inoculation against unspecified single disease [facility] Diagnosis Encounter for immunization- Primary Need for other specified prophylactic vaccination against single bacterial disease [facility] Diagnosis Encounter for gynecological examination (general) (routine) without abnormal findings- Primary Encounter for screening mammogram for breast cancer Encounter for IUD removal and reinsertion Encounter for removal and reinsertion of intrauterine contraceptive device [facility] Diagnosis Encounter for IUD removal and reinsertion- Primary Encounter for removal and reinsertion of intrauterine contraceptive device Encounter for IUD insertion Encounter for insertion of intrauterine contraceptive device [facility] Abnormal mammogram of left breast [facility] Diagnosis Abnormal mammogram of left breast [facility] Diagnosis Abnormal mammogram of left breast- Primary Abnormal mammogram of left breast [facility] Diagnosis Mass overlapping multiple quadrants of left breast- Primary Obstructive sleep apnea (adult) (pediatric) Migraine without aura, not intractable, without status migrainosus Abnormal findings on diagnostic imaging of breast Other (abnormal) findings on radiological examination of breast Family history of malignant neoplasm of breast Presence of intrauterine contraceptive device [facility] Diagnosis Mass overlapping multiple quadrants of left breast [facility] Diagnosis Abnormal finding on breast imaging Other (abnormal) findings on radiological examination of breast [facility] Diagnosis Abnormal finding on breast imaging- Primary Other (abnormal) findings on radiological examination of breast [facility] Diagnosis Mass overlapping multiple quadrants of left breast- Primary Class 3 severe obesity without serious comorbidity with body mass index (BMI) of 40.0 to 44.9 in adult, unspecified obesity type documented in this encounter [facility] for referral (narrative)* Diagnostic Procedure Only (Routine) - Pending Review Specialty Diagnoses / Procedures Referred By Waqar humphreys Referred To Contact [facility] Diagnoses Encounter for gynecological examination (general) (routine) without abnormal findings Encounter for screening mammogram for breast cancer Procedures LEVY SCREENING SCREENING MAMMOGRAPHY BI 2-VIEW BREAST INC Rodney Correa MD [address] [place] [address] [facility] [address] [place] [address] Referral ID Status Reason Start Date Expiration Date Visits Requested Visits Authorized [id number] Pending Review Auto-Generat ed Referral 12/25/2021 01/24/2023 1 1 T [facility] for referral (narrative)* Diagnostic Procedure Only (Routine) - Pending Review Specialty Diagnoses / Procedures Referred By Waqar humphreys Referred To Contact [facility] Diagnoses Encounter for screening mammogram for breast cancer Procedures LEVY SCREENING SCREENING MAMMOGRAPHY BI 2-VIEW BREAST INC Michael Valenzuela MD [address] [place] [address] [facility] [address] [place] [address] Referral ID Status Reason Start Date Expiration Date Visits Requested Visits Authorized [id number] Pending Review Auto-Generat ed Referral 12/01/2022 12/31/2023 1 1 T [facility] for referral (narrative)* Diagnostic Procedure Only (Routine) - Pending Review Specialty Diagnoses / Procedures Referred By Waqar humphreys Referred To Contact [facility] Diagnoses Encounter for screening mammogram for breast cancer Procedures LEVY SCREENING SCREENING MAMMOGRAPHY BI 2-VIEW BREAST INC Michael Valenzuela MD [address] [place] [address] [facility] [address] [place] [address] Referral ID Status Reason Start Date Expiration Date Visits Requested Visits Authorized [id number] Pending Review Auto-Generat ed Referral 11/09/2023 12/08/2024 1 1 [facility] for referral (narrative)* Diagnostic Procedure Only (Routine) - New Request Specialty Diagnoses / Procedures Referred By Contac t Referred To [facility] Diagnoses Hypersomnia due to medical condition Procedures MULTIPLE SLEEP LATENCY TEST CRANE HELPER SLEEP LATENCY/MAINT OF WAKEFULNESS TSTG Sheldon Pate MD [address] [facility] [address] [place] [address] [facility] [place] [address] [place] [address] Referral ID Status Reason Start Date Expiration Date Visits Requested Visits Authorized [id number] New Request Auto-Generat ed Referral 04/16/2024 04/16/2025 1 1 [facility] for referral (narrative)* Diagnostic Procedure Only (Urgent) - Closed Specialty Diagnoses / Procedures Referred By Contac t Referred To Contact XR IMAGING Diagnoses Acute pain of right knee Procedures XR KNEE GENERAL 4V AP BOTH/PA BOTH/LAT/MERC RIGHT RADIOLOGIC EXAM KNEE COMPLETE 4/MORE VIEWS Momo Vega APRN.DISTRIBUTION ENGINEERING 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 [address] [place] [address] [place] [address] Referral ID Status Reason Start Date Expiration Date V isits Requested Visits Authorized [id number] Closed Auto-Generate d Referral 03/18/2023 04/16/2024 1 1 [facility] for visit Narrative* Diagnostic Procedure Only (Urgent) - Closed Specialty Diagnoses / Procedures Referred By Contac t Referred To Contact XR IMAGING Diagnoses Acute pain of right knee Procedures XR KNEE GENERAL 4V AP BOTH/PA BOTH/LAT/MERC RIGHT RADIOLOGIC EXAM KNEE COMPLETE 4/MORE VIEWS Momo Vega APRN.CNP [address] [place] [address] Xr [facility] [id number] Referral ID Status Reason Start Date Expiration Date V isits Requested Visits Authorized [id number] Closed Auto-Generate d Referral 03/18/2023 04/16/2024 1 1 [facility] for visit Narrative* Diagnostic Procedure Only (Routine) - Closed Specialty Diagnoses / Procedures Referred By Waqar humphreys Referred To Contact [facility] Diagnoses Encounter for screening mammogram for breast cancer Procedures LEVY SCREENING W VASQUEZ SCREENING DIGITAL BREAST TOMOSYNTHESIS BI SCREENING MAMMOGRAPHY BI 2-VIEW BREAST INC CAD Michael Acuña MD [address] [place] [address] Phone: tel: fax: [facility] [address] [place] [address] Referral ID Status Reason Start Date Expiration Date V isits Requested Visits Authorized [id number] Closed Auto-Generate d Referral 10/16/2024 11/15/2025 1 1 [facility] for visit Narrative* Diagnostic Procedure Only (Routine) - Closed Specialty Diagnoses / Procedures Referred By Waqar humphreys Referred To Contact [facility] Diagnoses Abnormal mammogram of left breast Procedures LEVY DIAGNOSTIC LEFT DIAGNOSTIC MAMMOGRAPHY COMPUTER-AIDED DETCJ UNI Michael Acuña MD [address] [place] [address] Phone: tel: fax: [facility] [address] [place] [address] Referral ID Status Reason Start Date Expiration Date V isits Requested Visits Authorized [id number] Closed Auto-Generate d Referral 11/09/2024 12/09/2025 1 1 [facility] for visit Narrative* Diagnostic Procedure Only (Routine) - Closed Specialty Diagnoses / Procedures Referred By Waqar humphreys Referred To Contact [facility] Diagnoses Abnormal mammogram of left breast Procedures US BREAST LTD LEFT US BREAST UNI REAL TIME WITH IMAGE LIMITED Michael Acuña MD [address] [place] [address] Phone: tel: fax: [facility] [address] [place] [address] Referral ID Status Reason Start Date Expiration Date V isits Requested Visits Authorized [id number] Closed Auto-Generate d Referral 11/09/2024 12/09/2025 1 1 [facility] for visit Narrative* Diagnostic Procedure Only (Routine) - Closed Specialty Diagnoses / Procedures Referred By Waqar t Referred To Contact [facility] Diagnoses Mass overlapping multiple quadrants of left breast Procedures LEVY DIAGNOSTIC LEFT DIAGNOSTIC MAMMOGRAPHY COMPUTER-AIDED DETCJ UNI Olga Bosch, DO [address] [place] [address] Phone: tel: fax: [facility] [address] [place] [address] Referral ID Status Reason Start Date Expiration Date V isits Requested Visits Authorized [id number] Closed Auto-Generate d Referral 01/09/2025 02/08/2026 1 1 [facility] for visit Narrative* Radiology (Routine) - New Request Specialty Diagnoses / Procedures Referred By Waqar humphreys Referred To Contact Diagnoses Abnormal finding on breast imaging Procedures BREAST IMAGING SECOND OPINION READING Nubia Ferraro, QUARRY PLUG AND FEATHER DRILLER-DISTRIBUTION ENGINEERING 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 [address] [facility] [address] [place] [address] Phone: tel: fax: Referral ID Status Reason Start Date Expiration Date V isits Requested Visits Authorized [id number] New Request 01/21/2025 02/15/2026 1 1 [facility] Chief Complaint and Reason for Visit Chief Complaint FLANK Advance Directives No Advanced Directives Records Found Advance Directive Response Recorded Date/ Time Advance Directives No June 16, 2015 5:20am Living Will No October 09 7:41pm Power of Trim Master Operator No October 09, 2022 7:41pm Reason for Referral Specialty Diagnoses / Procedures Referred By Waqar t Referred To Contact [facility] Diagnoses Right-sided thoracic back pain, unspecified chronicity Procedures PT REHAB FOLLOW UP ORDER THERAPEUTIC EXERCISES RE, EA 15 MIN. Pt [facility] [address] [place] [address] [facility] [place] [address] [place] [address] Referral ID Status Reason Start Date Expiration Date Visits Requested Visits Authorized [id number] Pending Review PCP Requested Referral Auto-Generate d Referral 10/14/2022 01/12/2023 1 1 Specialty Diagnoses / Procedures Referred By Contac t Referred To Contact Orthopedics Diagnoses Acute pain of right knee Procedures CONSULT TO ORTHOPAEDICS OFFICE/OUTPATIENT [facility] 60-74 MINUTES Momo Vega APRN.DISTRIBUTION ENGINEERING 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 [address] [facility] [address] Referral ID Status Reason Start Date Expiration Date Visits Requested Visits Authorized [id number] Authorized PCP Requested Referral 03/18/2023 03/17/2024 1 1 Specialty Diagnoses / Procedures Referred By Contac t Referred To Contact XR IMAGING Diagnoses Acute pain of right knee Procedures XR KNEE GENERAL 4V AP BOTH/PA BOTH/LAT/MERC RIGHT RADIOLOGIC EXAM KNEE COMPLETE 4/MORE VIEWS Momo Vega APRN.DISTRIBUTION ENGINEERING 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 [address] [facility] [address] Xr Imaging Referral ID Status Reason Start Date Expiration Date V isits Requested Visits Authorized [id number] Closed Auto-Generate d Referral 03/18/2023 04/16/2024 1 1 Specialty Diagnoses / Procedures Referred By Contac t Referred To Contact Diagnoses Sleep disorder Obstructive sleep apnea on CPAP Excessive daytime sleepiness Procedures CONSULT TO SLEEP MEDICINE - ADULT OFFICE/OUTPATIENT [facility] 60 MINUTES Haydee Coon, QUARRY PLUG AND FEATHER 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 [address] [place] [address] Referral ID Status Reason Start Date Expiration Date Visits Requested Visits Authorized [id number] Authorized PCP Requested Referral 03/12/2024 03/12/2025 1 1 Summary Purpose Family History No Family History Records FoundNo Family History Records FoundNo Family History Records FoundNo Family History Records Found Additional Source Comments Source Comments (unrecognize d section and content) In the event this informatio n is protected by the Federal Confidentiality of Alcohol and Drug Abuse Patient Records regulations: The Federal rules restrict any use of the information to criminally investigate or prosecute any alcohol or drug abuse patient.[facility] the event this information is protected by the Federal Confidentiality of Alcohol and Drug Abuse Patient Records regulations: The Federal rules restrict any use of the information to criminally investigate or prosecute any alcohol or drug abuse patient.[facility] the event this information is protected by the Federal Confidentiality of Alcohol and Drug Abuse Patient Records regulations: The Federal rules restrict any use of the information to criminally investigate or prosecute any alcohol or drug abuse patient.[facility] the event this information is protected by the Federal Confidentiality of Alcohol and Drug Abuse Patient Records regulations: The Federal rules restrict any use of the information to criminally investigate or prosecute any alcohol or drug abuse patient.[facility] the event this information is protected by the Federal Confidentiality of Alcohol and Drug Abuse Patient Records regulations: The Federal rules restrict any use of the information to criminally investigate or prosecute any alcohol or drug abuse patient.[facility] the event this information is protected by the Federal Confidentiality of Alcohol and Drug Abuse Patient Records regulations: The Federal rules restrict any use of the information to criminally investigate or prosecute any alcohol or drug abuse patient.[facility] the event this information is protected by the Federal Confidentiality of Alcohol and Drug Abuse Patient Records regulations: The Federal rules restrict any use of the information to criminally investigate or prosecute any alcohol or drug abuse patient.[facility] the event this information is protected by the Federal Confidentiality of Alcohol and Drug Abuse Patient Records regulations: The Federal rules restrict any use of the information to criminally investigate or prosecute any alcohol or drug abuse patient.[facility] the event this information is protected by the Federal Confidentiality of Alcohol and Drug Abuse Patient Records regulations: The Federal rules restrict any use of the information to criminally investigate or prosecute any alcohol or drug abuse patient.[facility] the event this information is protected by the Federal Confidentiality of Alcohol and Drug Abuse Patient Records regulations: The Federal rules restrict any use of the information to criminally investigate or prosecute any alcohol or drug abuse patient.[facility] the event this information is protected by the Federal Confidentiality of Alcohol and Drug Abuse Patient Records regulations: The Federal rules restrict any use of the information to criminally investigate or prosecute any alcohol or drug abuse patient.[facility] the event this information is protected by the Federal Confidentiality of Alcohol and Drug Abuse Patient Records regulations: The Federal rules restrict any use of the information to criminally investigate or prosecute any alcohol or drug abuse patient.[facility] the event this information is protected by the Federal Confidentiality of Alcohol and Drug Abuse Patient Records regulations: The Federal rules restrict any use of the information to criminally investigate or prosecute any alcohol or drug abuse patient.[facility] the event this information is protected by the Federal Confidentiality of Alcohol and Drug Abuse Patient Records regulations: The Federal rules restrict any use of the information to criminally investigate or prosecute any alcohol or drug abuse patient.[facility] the event this information is protected by the Federal Confidentiality of Alcohol and Drug Abuse Patient Records regulations: The Federal rules restrict any use of the information to criminally investigate or prosecute any alcohol or drug abuse patient.[facility] the event this information is protected by the Federal Confidentiality of Alcohol and Drug Abuse Patient Records regulations: The Federal rules restrict any use of the information to criminally investigate or prosecute any alcohol or drug abuse patient.[facility] the event this information is protected by the Federal Confidentiality of Alcohol and Drug Abuse Patient Records regulations: The Federal rules restrict any use of the information to criminally investigate or prosecute any alcohol or drug abuse patient.[facility] the event this information is protected by the Federal Confidentiality of Alcohol and Drug Abuse Patient Records regulations: The Federal rules restrict any use of the information to criminally investigate or prosecute any alcohol or drug abuse patient.[facility] the event this information is protected by the Federal Confidentiality of Alcohol and Drug Abuse Patient Records regulations: The Federal rules restrict any use of the information to criminally investigate or prosecute any alcohol or drug abuse patient.[facility] the event this information is protected by the Federal Confidentiality of Alcohol and Drug Abuse Patient Records regulations: The Federal rules restrict any use of the information to criminally investigate or prosecute any alcohol or drug abuse patient.[facility] the event this information is protected by the Federal Confidentiality of Alcohol and Drug Abuse Patient Records regulations: The Federal rules restrict any use of the information to criminally investigate or prosecute any alcohol or drug abuse patient.[facility] the event this information is protected by the Federal Confidentiality of Alcohol and Drug Abuse Patient Records regulations: The Federal rules restrict any use of the information to criminally investigate or prosecute any alcohol or drug abuse patient.[facility] the event this information is protected by the Federal Confidentiality of Alcohol and Drug Abuse Patient Records regulations: The Federal rules restrict any use of the information to criminally investigate or prosecute any alcohol or drug abuse patient.[facility] the event this information is protected by the Federal Confidentiality of Alcohol and Drug Abuse Patient Records regulations: The Federal rules restrict any use of the information to criminally investigate or prosecute any alcohol or drug abuse patient.[facility] the event this information is protected by the Federal Confidentiality of Alcohol and Drug Abuse Patient Records regulations: The Federal rules restrict any use of the information to criminally investigate or prosecute any alcohol or drug abuse patient.[facility] the event this information is protected by the Federal Confidentiality of Alcohol and Drug Abuse Patient Records regulations: The Federal rules restrict any use of the information to criminally investigate or prosecute any alcohol or drug abuse patient.[facility] the event this information is protected by the Federal Confidentiality of Alcohol and Drug Abuse Patient Records regulations: The Federal rules restrict any use of the information to criminally investigate or prosecute any alcohol or drug abuse patient.[facility] the event this information is protected by the Federal Confidentiality of Alcohol and Drug Abuse Patient Records regulations: The Federal rules restrict any use of the information to criminally investigate or prosecute any alcohol or drug abuse patient.[facility] the event this information is protected by the Federal Confidentiality of Alcohol and Drug Abuse Patient Records regulations: The Federal rules restrict any use of the information to criminally investigate or prosecute any alcohol or drug abuse patient.[facility]In the event this information is protected by the Federal Confidentiality of Alcohol and Drug Abuse Patient Records regulations: The Federal rules restrict any use of the information to criminally investigate or prosecute any alcohol or drug abuse patient.[facility] the event this information is protected by the Federal Confidentiality of Alcohol and Drug Abuse Patient Records regulations: The Federal rules restrict any use of the information to criminally investigate or prosecute any alcohol or drug abuse patient.[facility] the event this information is protected by the Federal Confidentiality of Alcohol and Drug Abuse Patient Records regulations: The Federal rules restrict any use of the information to criminally investigate or prosecute any alcohol or drug abuse patient.[facility]In the event this information is protected by the Federal Confidentiality of Alcohol and Drug Abuse Patient Records regulations: The Federal rules restrict any use of the information to criminally investigate or prosecute any alcohol or drug abuse patient.[facility] the event this information is protected by the Federal Confidentiality of Alcohol and Drug Abuse Patient Records regulations: The Federal rules restrict any use of the information to criminally investigate or prosecute any alcohol or drug abuse patient.[facility]In the event this information is protected by the Federal Confidentiality of Alcohol and Drug Abuse Patient Records regulations: The Federal rules restrict any use of the information to criminally investigate or prosecute any alcohol or drug abuse patient.[facility]In the event this information is protected by the Federal Confidentiality of Alcohol and Drug Abuse Patient Records regulations: The Federal rules restrict any use of the information to criminally investigate or prosecute any alcohol or drug abuse patient.[facility]In the event this information is protected by the Federal Confidentiality of Alcohol and Drug Abuse Patient Records regulations: The Federal rules restrict any use of the information to criminally investigate or prosecute any alcohol or drug abuse patient.[facility]In the event this information is protected by the Federal Confidentiality of Alcohol and Drug Abuse Patient Records regulations: The Federal rules restrict any use of the information to criminally investigate or prosecute any alcohol or drug abuse patient.[facility]In the event this information is protected by the Federal Confidentiality of Alcohol and Drug Abuse Patient Records regulations: The Federal rules restrict any use of the information to criminally investigate or prosecute any alcohol or drug abuse patient.[facility]In the event this information is protected by the Federal Confidentiality of Alcohol and Drug Abuse Patient Records regulations: The Federal rules restrict any use of the information to criminally investigate or prosecute any alcohol or drug abuse patient.[facility] Care Teams (unrecognized sec tion and content) Advertising Material Distributor Relationship Specialty Start Date End Date Michael Acuña MD [address] [place] [address] PCP - General Internal Medicine 10/16/21 Advertising Material Distributor Relationship Specialty Start Date End Date Michael Acuña MD [address] [place] [address] PCP - General Internal Medicine 10/16/21 Advertising Material Distributor Relationship Specialty Start Date End Date Michael Acuña MD [address] [place] [address] PCP - General Internal Medicine 10/16/21 Advertising Material Distributor Relationship Specialty Start Date End Date Michael Acuña MD [address] [place] [address] PCP - General Internal Medicine 10/16/21 Advertising Material Distributor Relationship Specialty Start Date End Date Michael Acuña MD [address] [place] [address] PCP - General Internal Medicine 10/16/21 Advertising Material Distributor Relationship Specialty Start Date End Date Michael Acuña MD [address] [place] [address] PCP - General Internal Medicine 10/16/21 Team Status: Active Member Role Status Dates Dr. Johnie Isaac III, MD Family Provider Active Dr. Michael Acuña MD Primary Care Provider Active Team Status: Inactive Member Role Status Dates Dr. Thaddeus Khan MD Emergency Provider Active Dr. Michael Acuña MD Primary Care Provider Active Advertising Material Distributor Relationship Specialty Start Date End Date Michael Acuña MD [address] [facility] [place] [address] PCP - General Internal Medicine 10/16/21 Advertising Material Distributor Relationship Specialty Start Date End Date Michael Acuña MD [address] [facility] [place] [address] PCP - General Internal Medicine 10/16/21 Advertising Material Distributor Relationship Specialty Start Date End Date Michael Acuña MD [address] [facility] [place] [address] PCP - General Internal Medicine 10/16/21 Advertising Material Distributor Relationship Specialty Start Date End Date Michael Acuña MD [address] [facility] [place] [address] PCP - General Internal Medicine 10/16/21 Advertising Material Distributor Relationship Specialty Start Date End Date Michael Acuña MD [address] [facility] [place] [address] PCP - General Internal Medicine 10/16/21 Advertising Material Distributor Relationship Specialty Start Date End Date Michael Acuña MD [address] [facility] [place] [address] PCP - General Internal Medicine 10/16/21 Advertising Material Distributor Relationship Specialty Start Date End Date Michael Acuña MD [address] [facility] [place] [address] PCP - General Internal Medicine 10/16/21 Advertising Material Distributor Relationship Specialty Start Date End Date Michael Acuña MD [address] [facility] [place] [address] PCP - General Internal Medicine 10/16/21 Advertising Material Distributor Relationship Specialty Start Date End Date Michael Acuña MD [address] [facility] [place] [address] PCP - General Internal Medicine 10/16/21 Advertising Material Distributor Relationship Specialty Start Date End Date Michael Acuña MD [address] [place] [address] PCP - General Internal Medicine 10/16/21 Advertising Material Distributor Relationship Specialty Start Date End Date Michael Acuña MD [address] [place] [address] PCP - General Internal Medicine 10/16/21 Advertising Material Distributor Relationship Specialty Start Date End Date Michael Acuña MD [address] [place] [address] PCP - General Internal Medicine 10/16/21 Advertising Material Distributor Relationship Specialty Start Date End Date Michael Acuña MD [address] [place] [address] PCP - General Internal Medicine 10/16/21 Advertising Material Distributor Relationship Specialty Start Date End Date Michael Acuña MD [address] [place] [address] PCP - General Internal Medicine 10/16/21 Advertising Material Distributor Relationship Specialty Start Date End Date Michael Acuña MD [address] [place] [address] PCP - General Internal Medicine 10/16/21 Haydee Coon, QUARRY PLUG AND FEATHER 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 [address] [place] [address] Assembler Lay Ups Internal Medicine 08/13/24 Advertising Material Distributor Relationship Specialty Start Date End Date Michael Acuña MD [address] [place] [address] PCP - General Internal Medicine 10/16/21 Haydee Coon, QUARRY PLUG AND FEATHER 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 [address] [place] [address] Assembler Lay Ups Internal Medicine 08/13/24 Advertising Material Distributor Relationship Specialty Start Date End Date Michael Acuña MD [address] [place] [address] PCP - General Internal Medicine 10/16/21 Haydee Coon, QUARRY PLUG AND FEATHER 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 [address] [place] [address] Assembler Lay Ups Internal Medicine 08/13/24 Advertising Material Distributor Relationship Specialty Start Date End Date Michael Acuña MD [address] [place] [address] PCP - General Internal Medicine 10/16/21 Haydee Coon, QUARRY PLUG AND FEATHER 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 [address] [place] [address] Assembler Lay Ups Internal Medicine 08/13/24 Advertising Material Distributor Relationship Specialty Start Date End Date Michael Acuña MD [address] [place] [address] PCP - General Internal Medicine 10/16/21 Haydee Coon, QUARRY PLUG AND FEATHER 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 [address] [facility] [place] [address] Assembler Lay Ups Internal Medicine 08/13/24 Advertising Material Distributor Relationship Specialty Start Date End Date Michael Acuña MD [address] [place] [address] PCP - General Internal Medicine 10/16/21 Haydee Coon, QUARRY PLUG AND FEATHER 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 [address] [place] [address] Assembler Lay Ups Internal Medicine 08/13/24 Advertising Material Distributor Relationship Specialty Start Date End Date Michael Acuña MD [address] [place] [address] PCP - General Internal Medicine 10/16/21 Haydee Coon, QUARRY PLUG AND FEATHER 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 [address] [place] [address] Assembler Lay Ups Internal Medicine 08/13/24 Advertising Material Distributor Relationship Specialty Start Date End Date Michael Acuña MD [address] [place] [address] PCP - General Internal Medicine 10/16/21 Haydee Coon, QUARRY PLUG AND FEATHER 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 [address] [place] [address] Assembler Lay Ups Internal Medicine 08/13/24 Advertising Material Distributor Relationship Specialty Start Date End Date Michael Acuña MD [address] [place] [address] PCP - General Internal Medicine 10/16/21 Haydee Coon, QUARRY PLUG AND FEATHER 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 [address] [place] [address] Assembler Lay Ups Internal Medicine 08/13/24 Advertising Material Distributor Relationship Specialty Start Date End Date Michael Acuña MD [address] [place] [address] PCP - General Internal Medicine 10/16/21 Haydee Coon, QUARRY PLUG AND FEATHER 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 [address] [place] [address] Assembler Lay Ups Internal Medicine 08/13/24 Advertising Material Distributor Relationship Specialty Start Date End Date Michael Acuña MD [address] [place] [address] PCP - General Internal Medicine 10/16/21 Haydee Coon, QUARRY PLUG AND FEATHER 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 [address] [place] [address] Assembler Lay Ups Internal Medicine 08/13/24 Advertising Material Distributor Relationship Specialty Start Date End Date Michael Acuña MD [address] [place] [address] PCP - General Internal Medicine 10/16/21 Haydee Coon, QUARRY PLUG AND FEATHER 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 [address] [place] [address] Assembler Lay Ups Internal Medicine 08/13/24 Advertising Material Distributor Relationship Specialty Start Date End Date Michael Acuña MD [address] [facility] [place] [address] PCP - General Internal Medicine 10/16/21 Haydee Coon, QUARRY PLUG AND FEATHER 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 [address] [place] [address] Assembler Lay Ups Internal Medicine 08/13/24 Advertising Material Distributor Relationship Specialty Start Date End Date Michael Acuña MD [address] [facility] [place] [address] PCP - General Internal Medicine 10/16/21 Haydee Coon, QUARRY PLUG AND FEATHER 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 [address] [facility] [place] [address] Assembler Lay Ups Internal Medicine 08/13/24 Advertising Material Distributor Relationship Specialty Start Date End Date Michael Acuña MD [address] [facility] [place] [address] PCP - General Internal Medicine 01/16/25 Advertising Material Distributor Relationship Specialty Start Date End Date Michael Acuña MD [address] [place] [address] PCP - General Internal Medicine 01/16/25 Advertising Material Distributor Relationship Specialty Start Date End Date Michael Acuña MD [address] [facility] [place] [address] PCP - General Internal Medicine 10/16/21 Haydee Coon, QUARRY PLUG AND FEATHER 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 [address] [place] [address] Assembler Lay Ups Internal Medicine 08/13/24 Reason for Visit (unrecogniz ed section and content) Reason Onset Date Comments Refill Request 03/18/2022 Reason Comments Hypertension Reason Comments UTI Burning, frequency x 2 days Reason Comments Pain Pt reported (RT) rib pain rated 4, x1 wk, denied accident/injury recent illness. Reason Onset Date Comments Refill Request 10/12/2022 Reason Comments PT Eval Patient Education Specialty Diagnoses / Procedures Referred By Waqar humphreys Referred To Contact [facility] Diagnoses Right-sided thoracic back pain, unspecified chronicity Procedures PT REHAB FOLLOW UP ORDER THERAPEUTIC EXERCISES RE, EA 15 MIN. Pt [facility] [address] [place] [address] [facility] [place] [address] [place] [address] Referral ID Status Reason Start Date Expiration Date Visits Requested Visits Authorized [id number] Pending Review PCP Requested Referral Auto-Generate d Referral 10/14/2022 01/12/2023 1 1 Reason Comments Right Knee Pain Off and on x 3 weeks -yesterday much worse-cannot recall an injury Reason Comments F/U 6 months Reason Comments F/U 3 Month Ozempic - did not st art due to insurance not covering Reason Onset Date Comments Refill Request 11/24/2023 Reason Comments Back Pain lower right side, ra diating down leg x 2 days Reason Comments Excessive Daytime Sleepiness Reason Comments New Patient The patient is here as a Consult as per ITZEL Coon. She is having problems with staying asleep She will awaken maybe one to two times. 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 She has tried going to a public place, walking outside and other things but she does it when she is at home too. She states that she uses her C-PAP and does benefit [employer] is her DME Specialty Diagnoses / Procedures Referred By Waqar humphreys Referred To Contact Diagnoses Sleep disorder Obstructive sleep apnea on CPAP Excessive daytime sleepiness Procedures CONSULT TO SLEEP MEDICINE - ADULT OFFICE/OUTPATIENT [facility] 60 MINUTES Haydee Coon M, QUARRY PLUG AND FEATHER 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 [address] [place] [address] Referral ID Status Reason Start Date Expiration Date V isits Requested Visits Authorized [id number] Closed PCP Requested Referral 03/12/2024 03/12/2025 1 1 Reason Comments Weight Loss Reason Comments Follow Up 6 months Reason Comments Sleep Apnea New Medication Follow Up Tests Results Reason Comments Orders Reason Comments Imm/Inj Reason Comments Yearly Exam Reason Onset Date Comments Insertion Of IUD 01/01/2025 Removal and ins ertion Specialty Diagnoses / Procedures Referred By Waqar humphreys Referred To Contact [facility] Diagnoses Encounter for IUD removal and reinsertion Procedures INSERT INTRAUTERINE DEVICE LEVONORGESTREL IU 52MG 5 YR INSERT INTRAUTERINE DEVICE Rodney Brooks MD [address] [place] [address] Phone: tel: fax: [facility] [address] [place] [address] Referral ID Status Reason Start Date Expiration Date V isits Requested Visits Authorized [id number] Closed Auto-Generate d Referral 12/19/2024 12/19/2025 1 1 Reason Comments Consult L breast biopsy Reason Comments New Patient Second opinion of felicitas awan breast imaging. Had biopsy 01/11/2025 Specialty Diagnoses / Procedures Referred By Waqar humphreys Referred To Contact Breast Clinic Diagnoses Mass overlapping multiple quadrants of left breast Olga Bosch DO [facility] [address] [place] [address] Referral ID Status Reason Start Date Expiration Date V isits Requested Visits Authorized [id number] New Request 01/16/2025 02/10/2026 1 1 Reason Comments Follow Up Goals (unrecognized section and content) Goals may be documented in a n alternate section INFORMATION SOURCE (unrecogn ized section and content) DATE CREATED AUTHOR 04/16/2023 [facility] DATE CREATED AUTHOR AUTHOR'S ORGANIZ ATION 05/02/2023 [facility] DATE CREATED AUTHOR AUTHOR'S ORGANIZ ATION 01/30/2025 [facility] DATE CREATED AUTHOR AUTHOR'S ORGANIZ ATION 07/10/2025 [facility] FOR RECORDS PERTAINING TO PATIENTS WHO ARE OR HAVE BEEN ENROLLED IN A CHEMICAL DEPENDENCY/SUBSTANCEABUSE PROGRAM, SOME INFORMATION MAY BE OMITTED. This clinical summary was aggregated from multiple sources. Caution should be exercised in using it in the provision of clinical care. This summary normalizes information from multiple sources, and as a consequence, information in this document may materially change the coding, format and clinical context of patient data. In addition, data may be omitted in some cases. CLINICAL DECISIONS SHOULD BE BASED ON THE PRIMARY CLINICAL RECORDS. [facility]. provides no warranty or guarantee of the accuracy or completeness of information in this document.
--- NOTE | 2025-07-15 20:20 | CT_ITS ---
PROCEDURE: ABDOMEN/PELVIS WITHOUT CONT 07/15/2025 REASON FOR EXAM: RIGHT FLANK RLQ PAIN TECHNIQUE: Procedure Code: CTABDPEL Modality: CT Procedure: ABDOMEN/PELVIS WITHOUT CONT Noncontrast technique limits evaluation of the abdominal and pelvic viscera. Coronal and Sagittal reconstruction series were provided. One or more dose reduction techniques were used (e.g., Automated exposure control, adjustment of the mA and/or kV according to patient size, use of iterative reconstruction technique). COMPARISON: None available. FINDINGS: Lung bases: Unremarkable. Liver: Enlarged measuring 22.8 cm craniocaudally. No obvious hepatic mass. Gallbladder: Unremarkable. No biliary ductal dilatation. Spleen: Normal size. Pancreas: Normal size. No surrounding inflammation. Adrenals: Left adrenal nodule measuring 4.0 x 2.6 x 3.8 cm, likely an adenoma. Right adrenal gland unremarkable. Kidneys: No urolithiasis. No hydronephrosis. Bladder: Unremarkable. Reproductive Organs: Normal uterine size and contour. Ovaries are unremarkable. IUD in place. Bowel: No bowel obstruction. Appendix: Normal. Lymph nodes: Unremarkable. Vasculature: The abdominal aorta and IVC contours are normal. Noncontrast technique limits evaluation. Peritoneum / Retroperitoneum: No free fluid or air. Bones: Unremarkable. No acute fractures. CT/Abdomen/Pelvis without Cont IMPRESSION: 1. No acute findings in the abdomen and pelvis. 2. Hepatomegaly measuring 22.8 cm. 3. Probable left adrenal adenoma measuring 4.0 cm. Reading Location: [facility]
[2025-07-15 20:30] LABS: Internal QC Validated? YES +Cl - CLEAR BKGD; Pregnancy, Serum, hCG Quali. NEGATIVE Negative; Record Kit Lot#, Serum Preg. 980607
[2025-07-15 20:40] LABS: AST(SGOT) 15 U/L (<=31); Alanine Aminotransfer ALT/SGPT 20 U/L (<=34); Albumin, Serum 4.0 g/dL (3.5-5.0); Alkaline Phosphatase 63 U/L (35-104); Anion Gap 13 (5-15); BUN 9 mg/dL (4-19); BUN/Creat Ratio 14.6 RATIO (10-20); Bilirubin, Direct 0.11 mg/dL (0.00-0.30); Calcium,Total 9.6 mg/dL (7.6-11.0); Carbon Dioxide 22.5 mmol/L (21.0-32.0); Chloride 102 mmol/L (98-108); Estimated Creatinine Clearance 152.56 ml/min (50-250); Globulin 2.6 g/dL (2.2-4.2); Glucose 93 mg/dL (70-99); Lipase 49 U/L (13-75); Potassium 3.9 mmol/L (3.3-5.1)
[2025-07-15 21:00] VITALS: BP 128/80; PULSE 88; RESP 18; O2SAT 98
[2025-07-15 21:27] LABS: Color, Urine Yellow (Yellow); Glucose, Dipstick Normal (Normal); Ketone-Dipstick Negative (Negative); Leukocyte Esterase-Dipstick Negative /ul (Negative); Nitrite-Dipstick Negative (Negative); Occult Blood-Urine Negative /ul (Negative); Protein-Dipstick 15 mg/dl (Negative); Specific Gravity, Urine 1.025 (1.002-1.030); Urine Bilirubin Dipstick Negative (Negative)
[2025-07-15 22:08] LABS: Red Blood Cells-Urine 0-5 SEEN /hpf (0-5); Squamous Epithelial Cells - UA 0-5 SEEN /hpf (5-10)
[2025-07-15 22:41] VITALS: BP 128/80; PULSE 88; RESP 18; TEMP 36.8; O2SAT 98
--- NOTE | 2025-07-15 23:48 | EX.ED.DYSGE1 ---
HPI History of Present Illness Chief Complaint: Flank Pain Informant: patient Narrative Narrative: Very pleasant 45-year-old female presenting to the emergency room with flank pain and abdominal pain. Patient states that 4 weeks ago she developed a sudden onset of pain in the left flank. She states that waxed and waned sometimes resolved but has now developed the pain extending down to the right lower quadrant of the abdomen and onto the proximal right thigh. She denies any urinary symptoms. She went to her PCP and they checked her urine which was negative. She has not had any changes in stooling. No fevers. She has been eating appropriately. No rash developed. She notes the pain in the flank is away from the midline of the back. She denies any radicular symptoms from the lumbar region. No known immunosuppression. [facility] Medical History Non-smoker BiPAP (biphasic positive airway pressure) dependence Sleep apnea HELLP syndrome Preeclampsia Migraines Home Medications Medication Instructions Recorded Last Taken Type ropinirole 0.25 mg tablet 0.25 mg PO QHS PRN PRN RLS 10/09/22 07/14/25 History bupropion HCl 300 mg 24 hr tablet, 300 mg PO DAILY 07/15/25 07/15/25 History extended release fluoxetine 40 mg capsule 40 mg PO DAILY 07/15/25 07/15/25 History modafinil 200 mg tablet 200 mg PO DAILY 07/15/25 07/15/25 History Allergy/AdvReac Type Severity Reaction Status Date / Time citalopram Allergy Other Verified 07/15/25 19:12 Penicillins (PCN) Allergy Unknown Verified 07/15/25 19:12 metoclopramide HCl (From AdvReac Other Verified 07/15/25 19:12 Reglan) Social History housing: house Smoking Status: Never smoker ROS ROS ED Constitutional Constitutional ED: Denies chills, fever(s) or weight loss Eyes Eyes: Denies change in vision or diplopia ENT ENT ED: Denies ear pain, rhinorrhea or sore throat Cardiovascular Cardiovascular: Denies chest pain, orthopnea, palpitations or racing heartbeat Respiratory/Chest Respiratory/Chest: Denies cough, dyspnea or orthopnea Gastrointestinal Gastrointestinal: Reports abdominal pain; Denies diarrhea, nausea or vomiting Genitourinary Genitourinary ED: Denies dysuria, hematuria or urinary frequency Musculoskeletal Musculoskeletal: Reports back pain; Denies arthralgias or myalgias Integumentary Denies abscess or rash Neurologic Neurologic: Denies headache(s) or weakness Psychiatric Psychiatric: Denies anxiety, depression, suicidal ideation or suicidal thoughts Endocrine Endocrinology: Denies polydipsia, polyphagia or polyuria Allergic/Immunologic Allergic/Immunologic ED: Denies mouth swelling, tongue swelling or urticaria EXAM Physical Exam Const Vital Signs: 07/15/25 19:12 07/15/25 21:00 07/15/25 22:41 Temperature 96.8 F L 98.2 F Temperature Source Temporal Pulse Rate 81 88 88 Respiratory Rate 15 18 18 Blood Pressure 174/95 H 128/80 H 128/80 H Blood Pressure Mean 121 96 96 Pulse Ox 100 98 98 Oxygen Delivery Method Room Air Positive well nourished and well developed General Appearance ED: well developed HEENT Reports normocephalic, head/scalp atraumatic and moist mucous membranes Eyes PERRL and EOMs intact bilaterally Neck no lymphadenopathy, supple and no JVD Resp normal respiratory effort and clear to auscultation bilaterally Cardio regular rate, regular rhythm and no murmurs GI no masses; Negative for hepatosplenomegaly Inspection: Negative for abdominal distention Palpation: soft and tender RLQ; Negative for guarding or rebound tenderness present Back/Spine normal ROM Back/Spine Narrative: Mild right CVA tenderness. Extremity normal to inspection General Extremety ED: Negative for edema General Extremity: Negative for edema Neuro oriented x3 and CN's II-XII intact bilaterally Sensorium / Orientation: alert Motor Exam: strength 5/5 throughout Psych mental status grossly normal Mood & Affect: Negative for depressed or tearful Skin no rashes or lesions noted and no wounds MDM MDM MDM Narrative Medical decision making narrative: Differential diagnosis includes but not limited to kidney stone UTI intra-abdominal abscess colitis biliary disease acute hepatitis shingles radiculopathy Basic blood work shows a white count of 12.1 liver enzymes are normal lipase is normal test is negative urinalysis with no overt infection or gross hematuria creatinine is normal. Patient did not wish a dose of Toradol. CT of the abdomen pelvis was obtained this was read by radiology and reviewed by myself. Please see radiologist read for full details. I do not see anything on the CT that fully explains the patient's pain. I spoke with the patient regarding the above results that I did not see an emergent cause for her symptomology. Symptoms are persisting would recommend PCP follow-up History & Record Review Discussion w/independent historian: Patient Lab Data Attestation: I reviewed the patient's lab results. Labs: Laboratory Results - last 24 hr 07/15/25 07/15/25 19:55 19:57 WBC 12.1 H RBC 4.59 Hgb 14.2 Hct 41.9 MCV 91.3 MCH 30.9 MCHC 33.9 RDW Std Deviation 41.4 RDW Coeff of Aleida 12.4 Plt Count 291 MPV 10.0 Immature Gran % (Auto) 0.500 Neut % (Auto) 75.6 H Lymph % (Auto) 15.0 L Bill[place] % (Auto) 7.5 Eos % (Auto) 0.9 Baso % (Auto) 0.5 Absolute Neuts (auto) 9.1 H Absolute Lymphs (auto) 1.81 Nucleated RBC % 0 Sodium 138 Potassium 3.9 Chloride 102 Carbon Dioxide 22.5 Anion Gap 13 BUN 9 Creatinine 0.65 L Estim Creat Clear Calc 152.56 Est GFR (MDRD) Non-Af 111 BUN/Creatinine Ratio 14.6 Glucose 93 Calcium 9.6 Total Bilirubin 0.19 Direct Bilirubin 0.11 AST 15 ALT 20 Alkaline Phosphatase 63 Total Protein 6.6 Albumin 4.0 Globulin 2.6 Lipase 49 Serum , Qual NEGATIVE Urine Color Yellow Urine Clarity Clear Urine pH 5.0 Ur Specific [place] 1.025 Urine Protein 15 H Urine Glucose (UA) Normal Urine Ketones Negative Urine Occult Blood Negative Urine Nitrite Negative Urine Bilirubin Negative Urine Urobilinogen Normal Ur Leukocyte Esterase Negative Urine RBC 0-5 SEEN Urine WBC 0-5 SEEN Ur Squamous Epith Cells 0-5 SEEN Urine Bacteria RARE Urine Mucus 0 SEEN Radiography Diagnostic Testing: Clinical Impression(s) from Imaging Studies Abdomen/Pelvis CT 07/15/25 20:20 IMPRESSION: 1. No acute findings in the abdomen and pelvis. 2. Hepatomegaly measuring 22.8 cm. 3. Probable left adrenal adenoma measuring 4.0 cm. Reading Location: [facility] Discharge Plan Triage Chief Complaint: Flank Pain ED Provider: Gregor Robb Dx/Rx/DC Orders Clinical Impression: Acute flank pain, Abdominal pain Instructions: ED Flank Pain with Uncertain Cause Prescriptions: No Action ropinirole 0.25 mg tablet 0.25 mg PO QHS PRN PRN (Reason: RLS) Patient Comments: TAKE 3 TABLETS BY MOUTH AT BEDTIME NEEDED. fluoxetine 40 mg capsule 40 mg PO DAILY modafinil 200 mg tablet 200 mg PO DAILY bupropion HCl 300 mg tablet extended release 24 hr 300 mg PO DAILY Primary Care Provider: Michael Acuña Referrals: Michael Acuña MD [Primary Care Provider, Internal Medicine] - 1 Week Print Language: Kiswahili Disposition Disposition: Home, Self Care Discharge Date/Time: 07/15/25 22:43
== END 2025-07-15 22:43 | disposition home or self-care (01) ==
PROVIDERS: Emergency Provider Emergency Medicine; PCP Internal Medicine; Visit Provider Emergency Medicine
DX: R10.9 Unspecified abdominal pain (principal); G47.30 Sleep apnea, unspecified; Z79.899 Other long term (current) drug therapy
CPT/HCPCS: 74176; 80048; 80076; 81001; 83690; 84703; 85025; 99283; A4216